=== PATIENT | female | born 1970 | race African-American/Black ===

== ENCOUNTER 2018-07-27 17:37 | Emergency (ER) | payer SELFPAY | END 2018-07-27 19:25 | disposition home or self-care (01) | LOC: ERS 17:37 | DX: E10.649 Type 1 diabetes mellitus with hypoglycemia without coma (principal); E78.5 Hyperlipidemia, unspecified; I10 Essential (primary) hypertension; F41.9 Anxiety disorder, unspecified; Z79.899 Other long term (current) drug therapy; Z79.4 Long term (current) use of insulin | CPT/HCPCS: 36416; 99284 ==

== ENCOUNTER 2018-11-04 13:28 | Outpatient (CLI) | payer OTHER ==
--- NOTE | 2018-11-04 15:29 | RAD ---
PA AND LATERAL CHEST: HISTORY: Preop. COMPARISON: 09/14/2005 study. FINDINGS: Heart size is enlarged. Mediastinal structures appear unremarkable. The lungs are clear of any infi ltrative process. IMPRESSION: Moderate cardiomegaly. POS: TPC
== END 2018-11-04 13:29 | disposition home or self-care (01) ==
LOC: BICRAD 13:28
PROVIDERS: ATTEND Family Medicine
DX: Z01.818 Encounter for other preprocedural examination (principal); I51.7 Cardiomegaly
CPT/HCPCS: 71046

== ENCOUNTER 2019-01-02 06:43 | Day surgery (SDC) | payer OTHER ==
[2019-01-01 12:36] VITALS: BMI 34.9
[~2019-01-02 06:43] MED LIST: EPINEPHrine 0.3 MG in Ophthalmic Irrigation Solution 500 ML IVP SCH
[2019-01-02] MEDS ORDERED: Cyclopentolate 1% Opth Drop 2 ML BOT ONE (07:06)
[2019-01-02] MEDS ORDERED: Phenylephrine 2.5% Ophth Soln 5 ML BOT ONE (07:06)
[2019-01-02] MEDS ORDERED: Midazolam HCl 2 mg/2 ml Vial ONE (07:56)
[2019-01-02] MEDS ORDERED: PROPOFOL 20 ML ONE (07:56)
[2019-01-02] MEDS ORDERED: Fentanyl 100 MCG/2 ML VIAL ONE (07:56)
--- NOTE | 2019-01-02 12:02 | OP ---
DATE OF PROCEDURE: 01/02/2019 PREOPERATIVE DIAGNOSES: Glaucoma and vitreous hemorrhage, left eye. POSTOPERATIVE DIAGNOSES: Glaucoma and vitreous hemorrhage, left eye. PROCEDURES PERFORMED: Pars plana vitrectomy, membrane peel, panretinal photocoagulation, tube shunts, and scleral patch graft, left eye. ANESTHESIA: Local with monitored anesthesia care. PROCEDURE IN DETAIL: The patient was identified in the preoperative holding area. Appropriate informed consent for planned surgical procedure on the left eye had been obtained. The patient was transported to the operative suite, where appropriate cardiopulmonary monitoring was established. Local anesthesia was obtained using retrobulbar modified Van Lint lid block using 50 mL of 4% lidocaine and 0.75% bupivacaine. The patient was prepped and draped in the usual sterile manner for ophthalmic surgery in the left eye. Lid speculum was placed in the left eye. A 25-gauge trocar was placed in the conjunctiva and sclera superotemporally, inferotemporally, and supranasally. Infusion line was placed inferotemporally. Light pipe vitreous cutter was inserted into the eye. Core vitrectomy was performed. Vitreous hemorrhages were removed. Panretinal photocoagulation was placed into non-macular areas of the retina. A superotemporal conjunctival peritomy was created supratemporally and then FP7 tube shunt was fixated using 5-0 Mersilene sutures supratemporally. A 22-gauge sclerotomy was created superotemporally and tube shunt was inserted and placed, noted to be centered well. Tutoplast sclera was placed over the tube shunt entry site and sutured in place with 7-0 Vicryl suture. Conjunctiva was closed with 6-0 plain gut suture. Retrobulbar Kenalog and subconjunctival Ancef were placed. Antibiotic ointment was placed. Eye was patched and shielded. The patient was taken to postoperative recovery unit in good condition, having suffered no immediate perioperative complications. The patient was instructed to keep the patch and shield on, avoid lifting or bending. Followup appointment with Dr. Story. Job ID: [id number]
== END 2019-01-02 11:05 | disposition home or self-care (01) ==
LOC: SDC 06:43
PROVIDERS: ATTEND Ophthalmology Retina Specialist
PROC: 08133J4 Bypass Left Anterior Chamber to Sclera with Synthetic Substitute, Percutaneous Approach (ICD-10-PCS; principal; 2019-01-02)
PROC: 08T53ZZ Resection of Left Vitreous, Percutaneous Approach (ICD-10-PCS; principal; 2019-01-02)
PROC: 08QF3ZZ Repair Left Retina, Percutaneous Approach (ICD-10-PCS; principal; 2019-01-02)
DX: H40.9 Unspecified glaucoma (principal); H43.12 Vitreous hemorrhage, left eye; E11.9 Type 2 diabetes mellitus without complications; Z79.4 Long term (current) use of insulin; Z79.899 Other long term (current) drug therapy; Z98.890 Other specified postprocedural states
CPT/HCPCS: J0171; J2250; J2704; J3010; L8612

== ENCOUNTER 2019-01-23 11:58 | Inpatient (IN) | payer BC, OTHER, SELFPAY ==
[2019-01-23 13:03] LABS: Hemoglobin 10.6 g/dL (12.0-16.0); Mean Corpuscular HGB CONC 30.5 g/dL (32.0-36.0); Mean Corpuscular Hemoglobin 28.1 pg (27.0-31.0); Mean Corpuscular Volume 92.2 fL (78.0-98.0); Mean Platelet Volume 9.1 fL (7.4-10.4); Platelet Count 221 thou/uL (130-400); RBC Distribution Width 12.5 % (11.5-14.5); Red Blood Cell (RBC) Count 3.77 mill/uL (4.20-5.40); White Blood Cell (WBC) Count 10.4 thou/uL (4.8-10.8)
--- NOTE | 2019-01-23 13:04 | RAD ---
XR Chest 1 View Portable HISTORY: Hyperglycemia COMPARISON: 11/04/2018 FINDINGS: The heart size is normal. The lungs are well expanded without focal areas of consolidation, pneumothorax or pleural effusions. IMPRESSION: No radiographic evidence of acute cardiopulmonary process.
[2019-01-23 13:26] LABS: ALT (SGPT) 22 U/L (8-55); AST (SGOT) 21 U/L (5-34); Albumin 3.5 g/dL (3.5-5.0); Alkaline Phosphatase 127 U/L (40-150); Anion Gap 28 mmol/L (10-20); BUN (Urea Nitrogen) 53 mg/dL (7.0-18.7); Bilirubin, Total 0.2 mg/dL (0.2-1.2); Calc. Creatinine Clearance 0 mL/min (70-130); Calcium 9.2 mg/dL (7.8-10.44); Chloride 93 mmol/L (98-107); Estimated GFR-MDRD 19; Globulin 3.5 g/dL (2.4-3.5); Magnesium 2.2 mg/dL (1.6-2.6); Potassium 5.9 mmol/L (3.5-5.1); Sodium 124 mmol/L (136-145)
[2019-01-23 13:31] LABS: Carbon Dioxide 9 mmol/L (22-29); Glucose 887 mg/dL (70-105)
[2019-01-23 13:44] LABS: Band 6 % (5-11); Lymphocytes 2 % (21-51); MDiff Complete? YES; Monocytes 3 % (0-10); Neutrophil 89 % (42-75); Platelet Morphology Comment Appears Adequate
[2019-01-23 14:28] LABS: Bicarbonate (HCO3v) 11.2 mmol/L (22.0-28.0); Calcium, Ionized 1.21 mmol/L (See Comments:); Chloride 98 mmol/L (98-107); Hemoglobin - Calc 11.8 g/dL (12.0-16.0); Sodium 124 mmol/L (138-145); T. Carbon Dioxide 12.2 mmol/L (22.0-28.0); vO2 Saturation-calc 49.9 % (60.0-85.0)
[2019-01-23] MEDS ORDERED: Insulin Regular 300 UNITS/3 ML VIAL ONE (14:28)
[2019-01-23] MEDS ORDERED: Insulin Regular 100 units/100 ml in NS IVPB SCH (14:45)
[2019-01-23 15:46] LABS: Bacteria/HPF None Seen HPF (None Seen); Bilirubin Negative (Negative); Blood, Urine Trace (Negative); Clarity Turbid (Clear); Glucose, Urine (Dipstick) Greater than 1000 mg/dL (Negative); Leukocyte 500 Leu/uL (Negative); Nitrite Negative (Negative); Protein, Urine (Dipstick) 70 mg/dL (Neg-Trace); RBC/HPF 21-50 HPF (0-3); Squamous Epithelial 0-3 HPF (0-3); Urobilinogen Normal mg/dL (Less than 2); WBC/HPF Greater than 50 HPF (0-3)
[2019-01-23] MEDS ORDERED: Bisacodyl 5 MG TAB PO PRN (16:11)
[2019-01-23] MEDS ORDERED: Sodium Chloride 0.9% 1,000 ML IV PRN ×4 (16:11)
[2019-01-23] MEDS ORDERED: NS 0.9% w/ 20 MEQ KCL 1,000 ML IV PRN ×2 (16:11)
[2019-01-23] MEDS ORDERED: Dextrose 5 %-0.45 % NaCl 1,000 ML IV PRN (16:11)
[2019-01-23] MEDS ORDERED: CCU Electrolyte Replacement 1 EACH IVPB ONE (16:11)
[2019-01-23] MEDS ORDERED: HUMULIN R 100 UNITS in Sodium Chloride 0.9% 100 ML IVPB SCH (16:15)
[2019-01-23] MEDS ORDERED: Potassium Phosphate 15 MMOL in Sodium Chloride 0.9% 250 ML 250 ML IV PRN (16:28)
[2019-01-23] MEDS ORDERED: Potassium Phosphate 12 MMOL in Sodium Chloride 0.9% 250 ML 250 ML IV PRN (16:28)
[2019-01-23] MEDS ORDERED: Potassium Chloride 20 MEQ TAB PO PRN (16:28)
[2019-01-23] MEDS ORDERED: Magnesium 2 GM/50 ML 2 GM in Premix Bag 1 BAG IVPB PRN (16:28)
[2019-01-23] MEDS ORDERED: Potassium Chloride 40 MEQ in Premix Bag 1 BAG IVPB PRN (16:28)
[2019-01-23] MEDS ORDERED: CCU ELECTROLYTE REPLACEMENT PROTOCOL FS PRN (16:28)
[2019-01-23] MEDS ORDERED: PHOS-NAK 1 PKT PACK PO PRN ×2 (16:28)
[2019-01-23] MEDS ORDERED: Magnesium Oxide 400 MG TAB PO PRN ×2 (16:28)
[2019-01-23] MEDS ORDERED: Potassium Phosphate 9 MMOL in Sodium Chloride 0.9% 100 ML IVPB PRN (16:28)
[2019-01-23] MEDS ORDERED: Potassium Chloride 40 MEQ in Sodium Chloride 0.9% 250 ML 250 ML IVPB PRN (16:28)
[2019-01-23 17:10] LABS: Anion Gap 22 mmol/L (10-20); BUN (Urea Nitrogen) 49 mg/dL (7.0-18.7); Calc. Creatinine Clearance 0 mL/min (70-130); Calcium 8.4 mg/dL (7.8-10.44); Chloride 100 mmol/L (98-107); Estimated GFR-MDRD 21; Potassium 5.1 mmol/L (3.5-5.1); Sodium 126 mmol/L (136-145)
[2019-01-23 17:17] LABS: Carbon Dioxide 9 mmol/L (22-29); Glucose 610 mg/dL (70-105)
[2019-01-23 17:35] VITALS: BMI 29.2
--- NOTE | 2019-01-23 18:17 | HP ---
PRIMARY CARE PROVIDER: Josie Wright DO CHIEF COMPLAINT: Hyperglycemia. HISTORY OF PRESENT ILLNESS: Ms. Coughlin is a pleasant 48-year-old lady who was seen at [facility] on January 23, 2019. She has a history of diabetes mellitus type 1. She was supposed to have a retinal surgery on the left eye. She was going to day stay when her mouth was very dry. She was found to have elevated blood sugars. She denies any dysuria. She denies any cough. She denies any chills. She reports nausea and vomiting. She also reports having diarrhea over the last few days. No history of blood in the stool. REVIEW OF SYSTEMS: All other systems were reviewed and found to be negative. PAST MEDICAL HISTORY: Diabetes mellitus type 1, dyslipidemia, chronic kidney disease, and hypertension. PAST SURGICAL HISTORY: Cataract surgery, hysterectomy, and surgery for retinal bleed. PSYCHIATRIC HISTORY: Anxiety. SOCIAL HISTORY: The patient denies tobacco use, alcohol use, or recreational drug use. FAMILY HISTORY: Significant for diabetes mellitus and hypertension. ALLERGIES: NO KNOWN DRUG ALLERGIES. CURRENT MEDICATIONS: 1. Sertraline 25 mg daily. 2. Synthroid 150 mcg daily. 3. Cozaar 50 mg 2 times a day. 4. Metoprolol tartrate 50 mg 2 times a day. 5. Lasix 20 mg daily. 6. Pravastatin 40 mg daily. 7. Humalog insulin 20 to 25 units subcutaneously 3 times a day. 8. Lantus insulin 80 units subcutaneously daily. 9. Latanoprost eye drops one drop to each eye once daily. 10. Timolol eyedrops one drop to each eye 2 times a day. 11. Brimonidine eye drops one drop to each eye every 8 hours. 12. Dorzolamide eye drops one drop to each eye 3 times a day. 13. Acetazolamide 250 mg every 6 hours. PHYSICAL EXAMINATION: GENERAL: Ms. Coughlin is awake and alert, not in acute distress. VITAL SIGNS: Blood pressure is 111/49, pulse 101, respiratory rate 18, and oxygen saturation 96% on room air. She is afebrile. EYES: No scleral icterus. No conjunctival pallor. The patient has strabismus. ENT: Dry mucosal membranes. No oropharyngeal erythema or exudates. NECK: Supple, nontender, trachea is midline. RESPIRATORY: Accessory muscles of breathing are not active. Chest wall movements are symmetric bilaterally. Lungs are clear to auscultation, without wheeze, rhonchi, or crepitations. CARDIOVASCULAR: S1 and S2 are heard, tachycardic and regular. Peripheral pulses palpable. ABDOMEN: Soft, nontender, bowel sounds heard, no hepatomegaly, no splenomegaly. NEUROLOGIC: Cranial nerves 2 through 12 intact, deep tendon reflexes 2+. MUSCULOSKELETAL: Power is 5/5 in all 4 extremities. SKIN: No rashes or subcutaneous nodules. LYMPHATIC: No cervical lymphadenopathy. PSYCHIATRIC: Normal mood, normal affect, the patient is oriented to person, place, and time. LABORATORY DATA: Ms. Coughlin' labs and investigations were reviewed. I reviewed her electrocardiogram which shows sinus rhythm, no ST changes to suggest an acute coronary syndrome. I reviewed her chest x-ray which does not show any pulmonary infiltrates. She has normal white count, normocytic anemia with hemoglobin of 10.6, normal platelet count. Sodium of 124, elevated potassium of 5.9, elevated anion gap of 28, decreased carbon dioxide of 9, elevated blood urea nitrogen of 53, elevated creatinine of 3.18, elevated glucose of 887, unremarkable liver profile and normal magnesium. Calcium level is normal. Urinalysis is positive for leukocyte esterase, negative for nitrite. Beta-hydroxybutyrate level is elevated at 9.6. Venous blood gases show pH 7.126, pCO2 of 34, and PO2 34.8. ASSESSMENT AND PLAN: Ms. Coughlin is a pleasant 48-year-old lady who was seen at [facility] on January 23, 2019. Her problem list includes: 1. Diabetic ketoacidosis: Ms. Coughlin is presenting with diabetic ketoacidosis. Etiology is unclear. She reports that she is compliant with her medications. Even though she denies dysuria, urinalysis is consistent with urinary tract infection. She will be admitted to the [facility] for further management of diabetic ketoacidosis. She will be treated with intravenous insulin and fluids per DKA protocol. Her electrolytes will be rechecked and adjustments made to the infusions as needed. 2. Diarrhea: We will check stool studies to rule out infection, including Clostridium difficile test. 3. Urinary tract infection: Start patient on empiric ceftriaxone, follow urine cultures. 4. Hypertension: Monitor vital signs and titrate antihypertensives as needed after resuming home medications. 5. Hypothyroidism: Continue Synthroid. 6. Dyslipidemia: Continue statin. 7. Pseudohyponatremia: The patient's sodium level corrected for glucose is 137. Many thanks for allowing me to participate in your patient's care. Please feel free to contact me with any questions or concerns. LEVEL OF RISK: High. LEVEL OF COMPLEXITY: High. Job ID: [id number]
[2019-01-23] MEDS: cefTRIAXone\\ROCEPHIN 1 GM in Sodium Chloride 0.9% 100 ML IVPB SCH (19:20)
[2019-01-23 20:32] LABS: Anion Gap 17 mmol/L (10-20); BUN (Urea Nitrogen) 45 mg/dL (7.0-18.7); Calc. Creatinine Clearance 39 mL/min (70-130); Calcium 8.4 mg/dL (7.8-10.44); Carbon Dioxide 13 mmol/L (22-29); Chloride 106 mmol/L (98-107); Estimated GFR-MDRD 25; Glucose 283 mg/dL (70-105); Potassium 4.3 mmol/L (3.5-5.1); Sodium 132 mmol/L (136-145)
[2019-01-23] MEDS: D5 1/2 NS w/20 mEq KCL 1,000 ML IV PRN (21:28)
[2019-01-24 01:08] LABS: Anion Gap 11 mmol/L (10-20); BUN (Urea Nitrogen) 42 mg/dL (7.0-18.7); Calc. Creatinine Clearance 48 mL/min (70-130); Calcium 8.4 mg/dL (7.8-10.44); Carbon Dioxide 18 mmol/L (22-29); Chloride 110 mmol/L (98-107); Estimated GFR-MDRD 32; Glucose 140 mg/dL (70-105); Potassium 4.1 mmol/L (3.5-5.1); Sodium 135 mmol/L (136-145)
[2019-01-24] MEDS: D5 1/2 NS w/20 mEq KCL 1,000 ML IV PRN ×3 (01:24→09:50)
[2019-01-24 04:42] LABS: #Eosinphils 0.1 thou/uL (0.0-0.7); #Lymphocytes 2.1 thou/uL (1.20-3.40); #Monocytes 0.9 thou/uL (0.11-0.59); #Neutrophils 4.4 thou/uL (1.40-6.50); %Basophils 0.4 % (0.0-1.0); %Monocytes 11.3 % (0.0-10.0); %Neutrophils 59.2 % (42.0-75.0); Hemoglobin 9.7 g/dL (12.0-16.0); Mean Corpuscular HGB CONC 32.5 g/dL (32.0-36.0); Mean Corpuscular Hemoglobin 28.2 pg (27.0-31.0); Mean Corpuscular Volume 86.7 fL (78.0-98.0); Mean Platelet Volume 8.2 fL (7.4-10.4); Platelet Count 202 thou/uL (130-400); RBC Distribution Width 12.5 % (11.5-14.5); Red Blood Cell (RBC) Count 3.43 mill/uL (4.20-5.40); White Blood Cell (WBC) Count 7.5 thou/uL (4.8-10.8)
[2019-01-24 05:21] LABS: Anion Gap 13 mmol/L (10-20); BUN (Urea Nitrogen) 39 mg/dL (7.0-18.7); Calc. Creatinine Clearance 46 mL/min (70-130); Calcium 8.1 mg/dL (7.8-10.44); Carbon Dioxide 16 mmol/L (22-29); Chloride 109 mmol/L (98-107); Estimated GFR-MDRD 30; Glucose 190 mg/dL (70-105); Potassium 4.2 mmol/L (3.5-5.1); Sodium 134 mmol/L (136-145)
[2019-01-24] MEDS: Enoxaparin Sodium 40 MG/0.4 ML SYRINGE SC SCH (08:41)
[2019-01-24 10:34] LABS: Anion Gap 12 mmol/L (10-20); BUN (Urea Nitrogen) 33 mg/dL (7.0-18.7); Calc. Creatinine Clearance 53 mL/min (70-130); Calcium 8.5 mg/dL (7.8-10.44); Carbon Dioxide 13 mmol/L (22-29); Chloride 113 mmol/L (98-107); Estimated GFR-MDRD 34; Glucose 139 mg/dL (70-105); Potassium 4.3 mmol/L (3.5-5.1); Sodium 134 mmol/L (136-145)
[2019-01-24 15:11] LABS: Lactic Acid 0.8 mmol/L (0.5-2.2)
[2019-01-24 15:14] LABS: Anion Gap 14 mmol/L (10-20); BUN (Urea Nitrogen) 31 mg/dL (7.0-18.7); Calc. Creatinine Clearance 55 mL/min (70-130); Calcium 8.3 mg/dL (7.8-10.44); Carbon Dioxide 15 mmol/L (22-29); Chloride 108 mmol/L (98-107); Estimated GFR-MDRD 35; Glucose 256 mg/dL (70-105); Potassium 4.6 mmol/L (3.5-5.1); Sodium 132 mmol/L (136-145)
[2019-01-24] MEDS ORDERED: Insulin Glargine 40 UNITS in Pre-Filled Syringe 1 EACH SC SCH (15:30)
[2019-01-24] MEDS ORDERED: Dextrose 50% Abboject 50 ML SYRINGE SLOW IVP PRN (17:59)
[2019-01-24] MEDS ORDERED: Dextrose 5% in Water 1,000 ML IV PRN (17:59)
[2019-01-24] MEDS ORDERED: HumaLOG 300 UNITS/3 ML VIAL SC PRN (17:59)
--- NOTE | 2019-01-24 18:04 | PDOC.PN ---
- Subjective Encounter Start Date: 01/24/19 Encounter Start Time: 11:40 Pt seen for followup re; DKA. Feels better today. - Objective Vital Signs & Weight: Vital Signs (12 hours) Temp Pulse Ox 01/24/19 15:23 98.1 F 01/24/19 10:29 98.2 F 01/24/19 08:00 98 01/24/19 07:09 98.7 F Weight Weight 207 lb 9.6 oz Most Recent Monitor Data Heart Rate from ECG 106 NIBP 146/74 NIBP BP-Mean 98 Respiration from ECG 25 I&O: 01/23/19 01/24/19 01/25/19 06:59 06:59 06:59 Intake Total 3400 Output Total 650 Balance 2750 Result Diagrams: 01/24/19 04:15 01/24/19 14:48 Additional Labs: Accuchecks 01/24/19 01/24/19 01/24/19 16:05 12:46 11:54 POC Glucose 255 H 162 H 159 H 01/24/19 01/24/19 01/24/19 10:06 09:06 07:59 POC Glucose 134 H 145 H 171 H 01/24/19 01/24/19 01/24/19 07:01 05:57 05:14 POC Glucose 223 H 293 H 235 H 01/24/19 01/24/19 01/24/19 04:04 03:07 02:03 POC Glucose 181 H 178 H 163 H 01/24/19 01/24/19 01/23/19 01:08 00:06 23:21 POC Glucose 138 H 130 H 134 H 01/23/19 01/23/19 01/23/19 22:24 20:54 20:03 POC Glucose 160 H 219 H 255 H 01/23/19 01/23/19 01/23/19 19:03 18:02 16:44 POC Glucose 360 H 465 H Greater than 550 H* 01/23/19 01/23/19 01/23/19 14:36 13:41 13:40 POC Glucose Greater than 550 H* Greater than 550 H* Greater than 550 H* Phys Exam - Physical Examination Obese HEENT: moist MMs, sclera anicteric, oral pharynx no lesions, 2+ tonsils Neck: no nodes, no JVD, supple, full ROM Respiratory: clear to auscultation bilateral Cardiovascular: RRR, no rub S1, S2 Gastrointestinal: soft, non-tender, no distention, positive bowel sounds Neurological: moves all 4 limbs Psychiatric: normal affect, A&O x 3 Dx/Plan (1) DKA (diabetic ketoacidoses) Code(s): E11.10 - TYPE 2 DIABETES MELLITUS WITH KETOACIDOSIS WITHOUT COMA Status: Acute Comment: Improved, transition to SC insulin (2) UTI (urinary tract infection) Status: Acute Comment: continue ceftriaxone, follow cultures (3) PELON (acute kidney injury) Code(s): N17.9 - ACUTE KIDNEY FAILURE, UNSPECIFIED Status: Acute Comment: creatinine improved to 1.87 (4) Dyslipidemia Code(s): E78.5 - HYPERLIPIDEMIA, UNSPECIFIED Status: Chronic Comment: continue pravastatin (5) HTN (hypertension) Code(s): I10 - ESSENTIAL (PRIMARY) HYPERTENSION Status: Chronic Comment: controlled - Plan continue antibiotics, PT/OT, out of bed/ambulate * . Review of Systems - Review of Systems Constitutional: negative: fever, chills, sweats, weakness, malaise Respiratory: negative: Cough, Shortness of Breath, SOB with Excertion, Pleuritic Pain, Wheezing Cardiovascular: other. negative: chest pain, palpitations, orthopnea, paroxysmal nocturnal dyspnea, edema, light headedness Gastrointestinal: negative: Nausea, Vomiting, Abdominal Pain, Diarrhea, Constipation, Melena, Hematochezia Genitourinary: negative: Dysuria, Frequency, Incontinence, Hematuria, Retention - Medications/Allergies Allergies/Adverse Reactions: Allergies Allergy/AdvReac Type Severity Reaction Status Date / Time No Known Allergies Allergy Verified 01/22/19 08:13 Medications: Current Medications Bisacodyl (Dulcolax) 10 mg PO DAILYPRN PRN PRN Reason: Constipation Dextrose/Water (Dextrose 50%) 25 gm SLOW IVP PRN PRN PRN Reason: Hypoglycemia Enoxaparin Sodium (Lovenox) 40 mg SC 0900 [facility] Last Admin: 01/24/19 08:41 Dose: 40 mg Glucagon (Glucagon) 1 mg IM PRN PRN PRN Reason: Hypoglycemia Insulin Human Regular 100 (units/ Sodium Chloride) 101 mls @ 9.59 mls/hr IVPB INF [facility] Last Admin: 01/24/19 09:50 Dose: 101 mls Insulin Human Regular 100 (units/ Sodium Chloride) 101 mls @ 0 mls/hr IVPB INF STEFFI; Protocol Dextrose/Sodium Chloride (D5 1/2 Ns) 1,000 mls @ 250 mls/hr IV .Q4H PRN; Protocol PRN Reason: Step 4 of DKA Protocol Potassium Chloride/Dextrose/Sod Cl (D5 1/2 Ns W/20 Meq Kcl) 1,000 mls @ 250 mls /hr IV .Q4H PRN; Protocol PRN Reason: Step 4 of DKA Protocol Last Admin: 01/24/19 09:50 Dose: 1,000 mls Sodium Chloride (Normal Saline 0.9%) 1,000 mls @ 500 mls/hr IV .Q2H PRN; Protocol PRN Reason: Step 1 of DKA Protocol Last Admin: 01/23/19 19:21 Dose: 1,000 mls Sodium Chloride (Normal Saline 0.9%) 1,000 mls @ 1,000 mls/hr IV .Q1H PRN; Protocol PRN Reason: Step 1 of DKA Protocol Sodium Chloride (Normal Saline 0.9%) 1,000 mls @ 250 mls/hr IV .Q4H PRN; Protocol PRN Reason: SEE STEP 3 OF DKA PROTOCOL Sodium Chloride (Normal Saline 0.9%) 1,000 mls @ 500 mls/hr IV .Q2H PRN; Protocol PRN Reason: Step 2 of DKA Protocol Potassium Chloride/Sodium Chloride (Ns 0.9% W/ 20 Meq Kcl) 1,000 mls @ 500 mls/ hr IV .Q2H PRN; Protocol PRN Reason: Step 2 of DKA Protocol Potassium Chloride/Sodium Chloride (Ns 0.9% W/ 20 Meq Kcl) 1,000 mls @ 250 mls/ hr IV .Q4H PRN; Protocol PRN Reason: SEE STEP 3 OF DKA PROTOCOL Potassium Chloride 40 meq/ (Sodium Chloride) 270 mls @ 135 mls/hr IVPB ASDIR PRN PRN Reason: FOR SERUM K+ 2.5 - 3.5 Potassium Chloride 40 meq/ (Device) 100 mls @ 50 mls/hr IVPB ASDIR PRN PRN Reason: FOR SERUM K+ 2.5 - 3.5 Magnesium Sulfate 1 gm/ Sodium (Chloride) 102 mls @ 102 mls/hr IV PRN PRN PRN Reason: MAG LEVEL 1.4 - 2.0 Magnesium Sulfate 2 gm/ Device 50 mls @ 50 mls/hr IVPB ASDIR PRN PRN Reason: MAGNESIUM < 1.4 Potassium Phosphate 9 mmol/ (Sodium Chloride) 103 mls @ 25.75 mls/hr IVPB ASDIR PRN PRN Reason: Phosphate 1.0-1.8 Potassium Phosphate 12 mmol/ (Sodium Chloride) 254 mls @ 63.5 mls/hr IV ASDIR PRN PRN Reason: Serum phosphate 0.5-0.9 Potassium Phosphate 15 mmol/ (Sodium Chloride) 255 mls @ 63.75 mls/hr IV ASDIR PRN PRN Reason: Serum Phos < 0.5 Ceftriaxone Sodium 1 gm/ (Sodium Chloride) 100 mls @ 200 mls/hr IVPB Q24HR [facility] Last Admin: 01/23/19 19:20 Dose: 100 mls Potassium Chloride/Dextrose/Sod Cl (D5 1/2 Ns W/20 Meq Kcl) 1,000 mls @ 125 mls /hr IV .Q8H [facility] Dextrose/Water (D5w) 1,000 mls @ 0 mls/hr IV .Q0M PRN PRN Reason: Hypoglycemia Insulin Human Lispro (Humalog) 0 units SC .AGGRESSIVE SLIDING PRN PRN Reason: Aggressive Correctional Scale Magnesium Oxide (Magnesium Oxide) 400 mg PO BIDPRN PRN PRN Reason: FOR SERUM MAG 1.4 - 2.0 Magnesium Oxide (Magnesium Oxide) 800 mg PO PRN PRN PRN Reason: FOR SERUM MAG < 1.4 Miscellaneous Medication (Phos-Nak) 1 pkt PO TIDPRN PRN PRN Reason: FOR PHOS LEVEL 1.0 - 1.8 Miscellaneous Medication (Phos-Nak) 2 pkt PO TIDPRN PRN PRN Reason: FOR PHOS LEVEL 0.5 - 1.0 Ccu Electrolyte (Replacement Protocol) 0 each FS PRN PRN PRN Reason: FOR ELECTROLYTE REPLACEMENT Potassium Chloride (K-Dur) 40 meq PO ASDIR PRN PRN Reason: FOR SERUM K+ 2.5 - 3.5 Potassium Chloride (Klor-Con) 40 meq PER TUBE ASDIR PRN PRN Reason: FOR SERUM K+ 2.5-3.5
[2019-01-24] MEDS: cefTRIAXone\\ROCEPHIN 1 GM in Sodium Chloride 0.9% 100 ML IVPB SCH (18:16)
[2019-01-25 06:21] LABS: Anion Gap 8 mmol/L (10-20); BUN (Urea Nitrogen) 21 mg/dL (7.0-18.7); Calc. Creatinine Clearance 71 mL/min (70-130); Calcium 8.9 mg/dL (7.8-10.44); Carbon Dioxide 21 mmol/L (22-29); Chloride 114 mmol/L (98-107); Estimated GFR-MDRD 47; Potassium 3.9 mmol/L (3.5-5.1); Sodium 139 mmol/L (136-145)
[2019-01-25 06:26] LABS: Glucose 56 mg/dL (70-105)
[2019-01-25] MEDS: Enoxaparin Sodium 40 MG/0.4 ML SYRINGE SC SCH (09:23)
[2019-01-25 09:46] LABS: #Basophils 0.1 thou/uL (0.0-0.2); #Eosinphils 0.1 thou/uL (0.0-0.7); #Monocytes 0.4 thou/uL (0.11-0.59); #Neutrophils 2.2 thou/uL (1.40-6.50); %Basophils 1.5 % (0.0-1.0); %Lymphocytes 41.5 % (21.0-51.0); %Monocytes 8.7 % (0.0-10.0); %Neutrophils 45.4 % (42.0-75.0); Hemoglobin 9.9 g/dL (12.0-16.0); Mean Corpuscular HGB CONC 32.9 g/dL (32.0-36.0); Mean Corpuscular Hemoglobin 28.8 pg (27.0-31.0); Mean Corpuscular Volume 87.5 fL (78.0-98.0); Mean Platelet Volume 8.3 fL (7.4-10.4); Platelet Count 182 thou/uL (130-400); RBC Distribution Width 12.8 % (11.5-14.5); Red Blood Cell (RBC) Count 3.43 mill/uL (4.20-5.40); White Blood Cell (WBC) Count 4.8 thou/uL (4.8-10.8)
[2019-01-25] MEDS: D5 1/2 NS w/20 mEq KCL 1,000 ML IV SCH ×2 (12:20→18:13)
[2019-01-25] MEDS ORDERED: Insulin Glargine 30 UNITS in Pre-Filled Syringe 1 EACH SC SCH (15:00)
--- NOTE | 2019-01-25 17:37 | PDOC.PN ---
- Subjective Encounter Start Date: 01/25/19 Encounter Start Time: 11:20 Pt seen for followup re: UTI. Feels better. - Objective MAR Reviewed: Yes Vital Signs & Weight: Vital Signs (12 hours) Temp Pulse Ox 01/25/19 15:20 97.4 F L 01/25/19 11:14 97.4 F L 01/25/19 08:00 97 01/25/19 07:17 97.9 F Weight Weight 207 lb 9.6 oz Most Recent Monitor Data Heart Rate from ECG 101 NIBP 168/99 NIBP BP-Mean 122 Respiration from ECG 14 I&O: 01/24/19 01/25/19 01/26/19 06:59 06:59 06:59 Intake Total 3400 120 Output Total 650 300 575 Balance 6356 -704 -324 Result Diagrams: 01/25/19 09:32 01/25/19 05:30 Additional Labs: Accuchecks 01/25/19 01/25/19 01/25/19 17:03 10:37 06:33 POC Glucose 87 108 92 01/25/19 01/24/19 05:44 22:25 POC Glucose 55 L* 173 H EKG Reviewed by me: Yes (Tele: NSR) Phys Exam - Physical Examination Obese HEENT: moist MMs strabismus Neck: supple Respiratory: clear to auscultation bilateral Cardiovascular: RRR Gastrointestinal: soft Neurological: moves all 4 limbs Psychiatric: normal affect Dx/Plan (1) UTI (urinary tract infection) Status: Acute Comment: skin mayra on urine culture, switch to macrobid. (2) PELON (acute kidney injury) Code(s): N17.9 - ACUTE KIDNEY FAILURE, UNSPECIFIED Status: Acute Comment: creatinine improved to 1.45 (3) Dyslipidemia Code(s): E78.5 - HYPERLIPIDEMIA, UNSPECIFIED Status: Chronic Comment: on pravastatin (4) HTN (hypertension) Code(s): I10 - ESSENTIAL (PRIMARY) HYPERTENSION Status: Chronic Comment: controlled (5) DKA (diabetic ketoacidoses) Code(s): E11.10 - TYPE 2 DIABETES MELLITUS WITH KETOACIDOSIS WITHOUT COMA Status: Resolved - Plan * . Pt had hypoglycemia, Lantus dose decreased to 25 units qAM Review of Systems - Review of Systems Cardiovascular: negative: chest pain, palpitations, orthopnea, paroxysmal nocturnal dyspnea, edema, light headedness Gastrointestinal: negative: Nausea, Vomiting, Abdominal Pain, Diarrhea, Constipation, Melena, Hematochezia - Medications/Allergies Allergies/Adverse Reactions: Allergies Allergy/AdvReac Type Severity Reaction Status Date / Time No Known Allergies Allergy Verified 01/22/19 08:13 Medications: Current Medications Bisacodyl (Dulcolax) 10 mg PO DAILYPRN PRN PRN Reason: Constipation Dextrose/Water (Dextrose 50%) 25 gm SLOW IVP PRN PRN PRN Reason: Hypoglycemia Enoxaparin Sodium (Lovenox) 40 mg SC 0900 [facility] Last Admin: 01/25/19 09:23 Dose: Not Given Glucagon (Glucagon) 1 mg IM PRN PRN PRN Reason: Hypoglycemia Insulin Human Regular 100 (units/ Sodium Chloride) 101 mls @ 0 mls/hr IVPB INF STEFFI; Protocol Dextrose/Sodium Chloride (D5 1/2 Ns) 1,000 mls @ 250 mls/hr IV .Q4H PRN; Protocol PRN Reason: Step 4 of DKA Protocol Potassium Chloride/Dextrose/Sod Cl (D5 1/2 Ns W/20 Meq Kcl) 1,000 mls @ 250 mls /hr IV .Q4H PRN; Protocol PRN Reason: Step 4 of DKA Protocol Last Admin: 01/24/19 09:50 Dose: 1,000 mls Sodium Chloride (Normal Saline 0.9%) 1,000 mls @ 500 mls/hr IV .Q2H PRN; Protocol PRN Reason: Step 1 of DKA Protocol Last Admin: 01/23/19 19:21 Dose: 1,000 mls Sodium Chloride (Normal Saline 0.9%) 1,000 mls @ 1,000 mls/hr IV .Q1H PRN; Protocol PRN Reason: Step 1 of DKA Protocol Sodium Chloride (Normal Saline 0.9%) 1,000 mls @ 250 mls/hr IV .Q4H PRN; Protocol PRN Reason: SEE STEP 3 OF DKA PROTOCOL Sodium Chloride (Normal Saline 0.9%) 1,000 mls @ 500 mls/hr IV .Q2H PRN; Protocol PRN Reason: Step 2 of DKA Protocol Potassium Chloride/Sodium Chloride (Ns 0.9% W/ 20 Meq Kcl) 1,000 mls @ 500 mls/ hr IV .Q2H PRN; Protocol PRN Reason: Step 2 of DKA Protocol Potassium Chloride/Sodium Chloride (Ns 0.9% W/ 20 Meq Kcl) 1,000 mls @ 250 mls/ hr IV .Q4H PRN; Protocol PRN Reason: SEE STEP 3 OF DKA PROTOCOL Potassium Chloride 40 meq/ (Sodium Chloride) 270 mls @ 135 mls/hr IVPB ASDIR PRN PRN Reason: FOR SERUM K+ 2.5 - 3.5 Potassium Chloride 40 meq/ (Device) 100 mls @ 50 mls/hr IVPB ASDIR PRN PRN Reason: FOR SERUM K+ 2.5 - 3.5 Magnesium Sulfate 1 gm/ Sodium (Chloride) 102 mls @ 102 mls/hr IV PRN PRN PRN Reason: MAG LEVEL 1.4 - 2.0 Magnesium Sulfate 2 gm/ Device 50 mls @ 50 mls/hr IVPB ASDIR PRN PRN Reason: MAGNESIUM < 1.4 Potassium Phosphate 9 mmol/ (Sodium Chloride) 103 mls @ 25.75 mls/hr IVPB ASDIR PRN PRN Reason: Phosphate 1.0-1.8 Potassium Phosphate 12 mmol/ (Sodium Chloride) 254 mls @ 63.5 mls/hr IV ASDIR PRN PRN Reason: Serum phosphate 0.5-0.9 Potassium Phosphate 15 mmol/ (Sodium Chloride) 255 mls @ 63.75 mls/hr IV ASDIR PRN PRN Reason: Serum Phos < 0.5 Ceftriaxone Sodium 1 gm/ (Sodium Chloride) 100 mls @ 200 mls/hr IVPB Q24HR [facility] Last Admin: 01/24/19 18:16 Dose: 100 mls Potassium Chloride/Dextrose/Sod Cl (D5 1/2 Ns W/20 Meq Kcl) 1,000 mls @ 125 mls /hr IV .Q8H [facility] Last Admin: 01/25/19 12:20 Dose: Not Given Dextrose/Water (D5w) 1,000 mls @ 0 mls/hr IV .Q0M PRN PRN Reason: Hypoglycemia Insulin Glargine 25 units/ (Miscellaneous Medication) 0.25 mls @ 0 mls[facility] [place] [facility] Human Lispro (Humalog) 0 units SC .AGGRESSIVE SLIDING PRN PRN Reason: Aggressive Correctional Scale Magnesium Oxide (Magnesium Oxide) 400 mg PO BIDPRN PRN PRN Reason: FOR SERUM MAG 1.4 - 2.0 Magnesium Oxide (Magnesium Oxide) 800 mg PO PRN PRN PRN Reason: FOR SERUM MAG < 1.4 Miscellaneous Medication (Phos-Nak) 1 pkt PO TIDPRN PRN PRN Reason: FOR PHOS LEVEL 1.0 - 1.8 Miscellaneous Medication (Phos-Nak) 2 pkt PO TIDPRN PRN PRN Reason: FOR PHOS LEVEL 0.5 - 1.0 Ccu Electrolyte (Replacement Protocol) 0 each FS PRN PRN PRN Reason: FOR ELECTROLYTE REPLACEMENT Potassium Chloride (K-Dur) 40 meq PO ASDIR PRN PRN Reason: FOR SERUM K+ 2.5 - 3.5 Potassium Chloride (Klor-Con) 40 meq PER TUBE ASDIR PRN PRN Reason: FOR SERUM K+ 2.5-3.5
[2019-01-25] MEDS: Metoprolol Tartrate 50 MG TAB PO SCH (19:48)
[2019-01-25] MEDS: AcetaZOLAMIDE 250 MG TAB PO SCH (19:49)
[2019-01-25] MEDS: Nitrofurantoin Monohyd/M-Cryst 100 MG CAP PO SCH (19:49)
[2019-01-25] MEDS ORDERED: Pravastatin Sodium 40 MG TAB PO SCH (21:00)
[2019-01-25] MEDS: Dorzolamide HCl 2% Ophth Soln 10 ml Bottle L EYE SCH (21:09)
[2019-01-25] MEDS: Brimonidine Tartrate 0.2% Ophth Soln 5 ml Bottle L EYE SCH (21:12)
[2019-01-26] MEDS: AcetaZOLAMIDE 250 MG TAB PO SCH ×3 (00:32→13:37)
[2019-01-26] MEDS: D5 1/2 NS w/20 mEq KCL 1,000 ML IV SCH ×2 (01:40→12:37)
[2019-01-26 05:47] LABS: Anion Gap 10 mmol/L (10-20); BUN (Urea Nitrogen) 16 mg/dL (7.0-18.7); Calc. Creatinine Clearance 71 mL/min (70-130); Carbon Dioxide 20 mmol/L (22-29); Chloride 110 mmol/L (98-107); Estimated GFR-MDRD 47; Glucose 139 mg/dL (70-105); Sodium 136 mmol/L (136-145)
[2019-01-26] MEDS ORDERED: Levothyroxine 150 MCG TAB PO SCH (06:00)
[2019-01-26] MEDS: Brimonidine Tartrate 0.2% Ophth Soln 5 ml Bottle L EYE SCH (06:39)
[2019-01-26] MEDS ORDERED: Furosemide 20 MG TAB PO SCH (09:00)
[2019-01-26] MEDS ORDERED: Insulin Glargine 25 UNITS in Pre-Filled Syringe 1 EACH SC SCH (09:00)
[2019-01-26] MEDS ORDERED: Latanoprost 0.005% Ophth Soln 2.5 ml Bottle L EYE SCH ×2 (09:00)
[2019-01-26] MEDS ORDERED: Losartan 25 MG TAB PO SCH (09:00)
[2019-01-26] MEDS ORDERED: Insulin Glargine 20 UNITS in Pre-Filled Syringe 1 EACH SC SCH (09:00)
[2019-01-26] MEDS: Dorzolamide HCl 2% Ophth Soln 10 ml Bottle L EYE SCH (09:24)
[2019-01-26] MEDS: Nitrofurantoin Monohyd/M-Cryst 100 MG CAP PO SCH (09:25)
[2019-01-26] MEDS: Metoprolol Tartrate 50 MG TAB PO SCH (09:26)
[2019-01-26] MEDS: Enoxaparin Sodium 40 MG/0.4 ML SYRINGE SC SCH (09:30)
--- NOTE | 2019-01-26 12:32 | DIS ---
DATE OF ADMISSION: 01/23/2019 DATE OF DISCHARGE: 01/26/2019 PRIMARY CARE PROVIDER: Dr. Josie Wright. DISCHARGE DIAGNOSES: 1. Diabetic ketoacidosis. 2. Urinary tract infection. 3. Acute on chronic renal failure. CONDITION OF PATIENT ON THE DAY OF DISCHARGE: Stable. I assessed Ms. Coughlin on the day of discharge. She denies any chest pain or shortness of breath. Vital signs are stable. S1 and S2 are heard, regular. Lungs are clear to auscultation bilaterally. DISCHARGE MEDICATIONS: Her Lantus insulin dose has been decreased to 25 units daily. Humalog insulin has been discontinued for now. She has been started on Macrobid 100 mg two times a day for 6 more days. Otherwise, no change was made to her pre-admission home medications as dictated in my history and physical note dated January 23, 2019. HOSPITAL COURSE: Ms. Coughlin is a pleasant 48-year-old lady, who was admitted to [facility] on January 23, 2019 for diabetic ketoacidosis. She was admitted to the [facility]. She was treated with intravenous fluids and insulin per DKA protocol. She improved clinically. Her biochemistry also improved. On January 25, 2019, she had episodes of hypoglycemia while she was on Lantus insulin, 40 units daily. Insulin dose has been decreased to 25 units daily. She has been advised to check her blood sugars 3 times a day and show the readings to her primary care provider. Urinalysis was consistent with urinary tract infection. Final urine culture grew mixed skin and enteric mayra. She is being discharged home on empiric Macrobid to complete her antibiotic course. On the day of discharge, she has sodium 136, potassium 4, bicarb 20, blood urea nitrogen 16, creatinine 1.44, white count 4800, hemoglobin 9.9, and platelet count 182,000. Many thanks for allowing me to participate in your patient's care. Please feel free to contact me with any questions or concerns. DISCHARGE DESTINATION: Home. TIME SPENT: Total amount of time spent coordinating this discharge: 32 minutes. Job ID: [id number]
[2019-01-26 13:37] VITALS: BP 154/97; TEMP 97.6
== END 2019-01-26 13:45 | disposition home or self-care (01) | DRG 638 ==
LOC: ERS 11:58 → IMCU/EMU 16:10 → T4-A 01-25 18:16
PROVIDERS: ADMIT Internal Medicine; ATTEND Internal Medicine
DX: E10.10 Type 1 diabetes mellitus with ketoacidosis without coma (principal); N39.0 Urinary tract infection, site not specified; N17.9 Acute kidney failure, unspecified; F41.9 Anxiety disorder, unspecified; R19.7 Diarrhea, unspecified; E10.22 Type 1 diabetes mellitus with diabetic chronic kidney disease; N18.9 Chronic kidney disease, unspecified; I12.9 Hypertensive chronic kidney disease with stage 1 through stage 4 chronic kidney disease, or unspecified chronic kidney disease; E03.9 Hypothyroidism, unspecified; B96.89 Other specified bacterial agents as the cause of diseases classified elsewhere; E78.00 Pure hypercholesterolemia, unspecified; E10.649 Type 1 diabetes mellitus with hypoglycemia without coma; Z90.710 Acquired absence of both cervix and uterus; Z79.4 Long term (current) use of insulin; Z79.899 Other long term (current) drug therapy
CPT/HCPCS: 36415; 36416; 71045; 80048; 80053; 81003; 81015; 82010; 82330; 82803; 83605; 83735; 85025; 87086; 93005; 96360; 96361; 96365; 96376; J0131; J0171; J0696; J1650; J1815; J3490

== ENCOUNTER 2019-02-06 12:19 | Day surgery (SDC) | payer OTHER ==
[2019-02-06] MEDS ORDERED: Phenylephrine 2.5% Ophth Soln 5 ML BOT ONE (12:49)
[2019-02-06] MEDS ORDERED: Cyclopentolate 1% Opth Drop 2 ML BOT ONE (12:49)
[2019-02-06] MEDS ORDERED: PROPOFOL 20 ML ONE (15:23)
[2019-02-06] MEDS ORDERED: Midazolam HCl 2 mg/2 ml Vial ONE (15:23)
--- NOTE | 2019-02-06 19:58 | OP ---
DATE OF PROCEDURE: 02/06/2019 PREOPERATIVE DIAGNOSIS: Vitreous hemorrhage, right eye. POSTOPERATIVE DIAGNOSIS: Vitreous hemorrhage, right eye. PROCEDURES PERFORMED: Pars plana vitrectomy and membrane peel, right eye. ANESTHESIA: Local with monitored anesthesia care. DESCRIPTION OF PROCEDURE: The patient was identified in the preoperative holding area. Appropriate informed consent for the planned surgical procedure on the right eye had been obtained. The patient was transported to the operative suite. Appropriate cardiopulmonary monitoring was established. Local anesthesia was obtained using retrobulbar block. The patient was prepped and draped in usual sterile manner for ophthalmic surgery on right eye. Lid speculum was placed in the right eye. A 25-gauge trocar was placed in conjunctiva and sclera supratemporally, inferotemporally, and supranasally. Infusion line was placed inferotemporally. Light pipe vitreous cutter was inserted into the eye. Core vitrectomy was performed. Vitreous membranes were dissected from behind the lens from the vitreous base. The retinal surface peeled into the periphery. Panretinal photocoagulation was placed in all non-macular areas of the retina. Wide-field viewing was used to examine the retina 360 degrees. No holes, breaks, or tears were identified. Trocars were removed. The eye was noted to retain pressure well. Retrobulbar Kenalog and subconjunctival Ancef were placed. Antibiotic ointment was placed. Eye was patched and shield. The patient was taken to postoperative recovery unit in good condition having suffered no immediate perioperative complications. The patient was instructed to keep patch and shield on, avoid lifting or bending. Followup appointment with Dr. Story. Job ID: [id number]
== END 2019-02-06 17:03 | disposition home or self-care (01) ==
LOC: SDC 12:19
PROVIDERS: ATTEND Ophthalmology Retina Specialist
PROC: 08T43ZZ Resection of Right Vitreous, Percutaneous Approach (ICD-10-PCS; principal; 2019-02-06)
PROC: 08QE3ZZ Repair Right Retina, Percutaneous Approach (ICD-10-PCS; principal; 2019-02-06)
DX: H43.11 Vitreous hemorrhage, right eye (principal)
CPT/HCPCS: 36416; J0171; J2250; J2704

== ENCOUNTER 2019-05-31 23:54 | Emergency (ER) | payer OTHER ==
[2019-06-01 01:18] LABS: #Eosinphils 0.3 thou/uL (0.0-0.7); #Lymphocytes 2.3 thou/uL (1.20-3.40); #Monocytes 0.8 thou/uL (0.11-0.59); #Neutrophils 4.8 thou/uL (1.40-6.50); %Basophils 0.4 % (0.0-1.0); %Eosinophils 3.3 % (0.0-10.0); %Lymphocytes 27.8 % (21.0-51.0); %Monocytes 9.7 % (0.0-10.0); %Neutrophils 58.9 % (42.0-75.0); Hemoglobin 10.8 g/dL (12.0-16.0); Mean Corpuscular HGB CONC 32.4 g/dL (32.0-36.0); Mean Corpuscular Hemoglobin 29.5 pg (27.0-31.0); Mean Corpuscular Volume 90.9 fL (78.0-98.0); Mean Platelet Volume 8.3 fL (7.4-10.4); Platelet Count 218 thou/uL (130-400); RBC Distribution Width 11.3 % (11.5-14.5); Red Blood Cell (RBC) Count 3.67 mill/uL (4.20-5.40); White Blood Cell (WBC) Count 8.2 thou/uL (4.8-10.8)
[2019-06-01 01:35] LABS: Bilirubin Negative (Negative); Blood, Urine 2+ (Negative); Clarity Clear (Clear); Glucose, Urine (Dipstick) Greater than 1000 mg/dL (Negative); Leukocyte 250 Leu/uL (Negative); Nitrite Negative (Negative); Protein, Urine (Dipstick) 100 mg/dL (Neg-Trace); RBC/HPF 21-50 HPF (0-3); Squamous Epithelial 0-3 HPF (0-3); Urobilinogen Normal mg/dL (Less than 2); WBC/HPF 21-50 HPF (0-3)
[2019-06-01 01:37] LABS: Bacteria/HPF 1+ HPF (None Seen)
[2019-06-01 01:38] LABS: ALT (SGPT) 18 U/L (8-55); AST (SGOT) 21 U/L (5-34); Albumin 3.6 g/dL (3.5-5.0); Alkaline Phosphatase 84 U/L (40-110); Anion Gap 9 mmol/L (10-20); BUN (Urea Nitrogen) 40 mg/dL (7.0-18.7); Bilirubin, Total 0.3 mg/dL (0.2-1.2); Calc. Creatinine Clearance 0 mL/min (70-130); Calcium 9.1 mg/dL (7.8-10.44); Carbon Dioxide 28 mmol/L (22-29); Chloride 104 mmol/L (98-107); Estimated GFR-MDRD 39; Glucose 171 mg/dL (70-105); Potassium 3.7 mmol/L (3.5-5.1); Protein, Total 6.6 g/dL (6.0-8.3); Sodium 137 mmol/L (136-145)
== END 2019-06-01 03:23 | disposition home or self-care (01) ==
LOC: ERS 23:54
DX: E11.649 Type 2 diabetes mellitus with hypoglycemia without coma (principal); N39.0 Urinary tract infection, site not specified; E03.9 Hypothyroidism, unspecified; E78.5 Hyperlipidemia, unspecified; E78.00 Pure hypercholesterolemia, unspecified; I10 Essential (primary) hypertension; F41.9 Anxiety disorder, unspecified; Z79.4 Long term (current) use of insulin; Z79.899 Other long term (current) drug therapy
CPT/HCPCS: 36415; 36416; 80053; 81003; 81015; 85025; 99285

== ENCOUNTER 2019-06-26 06:04 | Day surgery (SDC) | payer OTHER ==
[2019-06-25 09:11] VITALS: BMI 32.9
[~2019-06-26 06:04] MED LIST changes: +EPINEPHrine 0.3 MG in Ophthalmic Irrigation Solution 500 ML IV SCH; -EPINEPHrine 0.3 MG in Ophthalmic Irrigation Solution 500 ML IVP SCH
[2019-06-26] MEDS ORDERED: Phenylephrine 2.5% Ophth Soln 5 ML BOT ONE (06:22)
[2019-06-26] MEDS ORDERED: Cyclopentolate 1% Opth Drop 2 ML BOT ONE (06:22)
[2019-06-26] MEDS ORDERED: Fentanyl 100 MCG/2 ML VIAL ONE (06:45)
[2019-06-26] MEDS ORDERED: Midazolam HCl 2 mg/2 ml Vial ONE (06:45)
[2019-06-26] MEDS ORDERED: Insulin Regular 300 UNITS/3 ML VIAL ONE (06:58)
[2019-06-26] MEDS ORDERED: hydrALAZINE 20 MG/ML VIAL ONE (07:04)
--- NOTE | 2019-06-26 09:17 | OP ---
DATE OF PROCEDURE: 06/26/2019 PREOPERATIVE DIAGNOSES: Vitreous hemorrhage and vitreous membranes and strands, right eye. POSTOPERATIVE DIAGNOSES: Vitreous hemorrhage and vitreous membranes and strands, right eye. PROCEDURES PERFORMED: Pars plana vitrectomy and membrane peel, right eye. ANESTHESIA: Local with monitored anesthesia care. PROCEDURE IN DETAIL: The patient was identified in the preoperative holding area. Appropriate informed consent for the planned surgical procedure on the right eye had been obtained. The patient was transported to the operative suite. Appropriate cardiopulmonary monitoring was established. Local anesthesia was obtained using retrobulbar modified Van Lint lid block using 50:50 mixture of 4% lidocaine and 0.75% bupivacaine. The patient was prepped and draped in the usual sterile manner for ophthalmic surgery in the right eye. Lid speculum was placed in the right eye. A 25-gauge trocar was placed in the conjunctiva and sclera superotemporally, inferotemporally, and supranasally. Infusion line was placed inferotemporally. Light pipe vitreous cutter was inserted to the eye. Core vitrectomy was performed. Vitreous membranes were trimmed from the inferior retina. Excess blood was removed from the retinal surface. No additional sources of bleeding were identified. Trocars removed. The superior sclerotomy suture closed with 8-0 Vicryl suture. Conjunctiva was also closed with 8-0 Vicryl suture. Atropine and antibiotic ointment placed. Eye was patched and shielded. The patient was taken to postoperative recovery unit in good condition, having suffered no immediate perioperative complications. The patient was instructed to keep patch and shield on, avoid lifting and bending, followup appointment with Dr. Story. Job ID: [id number]
[2019-06-26] MEDS ORDERED: CEFAZOLIN 1 GM VIAL ONE (13:55)
[2019-06-26] MEDS ORDERED: Lidocaine 4% PF 5 ML AMP ONE (13:55)
[2019-06-26] MEDS ORDERED: Lidocaine 1% PF 5 ML VIAL ONE (13:55)
[2019-06-26] MEDS ORDERED: Triamcinolone 40 MG/ML VIAL ONE (13:55)
[2019-06-26] MEDS ORDERED: Maxitrol 0.1% Opth Oint 3.5 GM TUBE ONE (13:55)
[2019-06-26] MEDS ORDERED: Bupivacaine PF 0.75% SDV 10 ML ONE (13:55)
== END 2019-06-26 08:50 | disposition home or self-care (01) ==
LOC: SDC 06:04
PROVIDERS: ATTEND Ophthalmology Retina Specialist
PROC: 08NE3ZZ Release Right Retina, Percutaneous Approach (ICD-10-PCS; principal; 2019-06-26)
PROC: 08T43ZZ Resection of Right Vitreous, Percutaneous Approach (ICD-10-PCS; principal; 2019-06-26)
DX: H43.11 Vitreous hemorrhage, right eye (principal); H43.311 Vitreous membranes and strands, right eye; Z79.4 Long term (current) use of insulin; Z79.899 Other long term (current) drug therapy
CPT/HCPCS: 36416; J0171; J0360; J0690; J1815; J2001; J2250; J3010; J3301; J3490

== ENCOUNTER 2019-07-03 16:52 | Observation (INO) | payer OTHER ==
[2019-07-03] MEDS ORDERED: Dextrose 50% Abboject 50 ML SYRINGE ONE ×2 (18:35→18:50)
[2019-07-03 18:43] LABS: #Basophils 0.1 thou/uL (0.0-0.2); #Eosinphils 0.2 thou/uL (0.0-0.7); #Lymphocytes 3.3 thou/uL (1.20-3.40); #Neutrophils 6.3 thou/uL (1.40-6.50); %Basophils 0.6 % (0.0-1.0); %Lymphocytes 30.1 % (21.0-51.0); %Monocytes 9.1 % (0.0-10.0); %Neutrophils 58.1 % (42.0-75.0); Hemoglobin 11.2 g/dL (12.0-16.0); Mean Corpuscular HGB CONC 33.5 g/dL (32.0-36.0); Mean Corpuscular Hemoglobin 29.7 pg (27.0-31.0); Mean Corpuscular Volume 88.6 fL (78.0-98.0); Mean Platelet Volume 8.3 fL (7.4-10.4); Platelet Count 243 thou/uL (130-400); RBC Distribution Width 11.5 % (11.5-14.5); Red Blood Cell (RBC) Count 3.75 mill/uL (4.20-5.40); White Blood Cell (WBC) Count 10.8 thou/uL (4.8-10.8)
[2019-07-03 19:04] LABS: ALT (SGPT) 27 U/L (8-55); AST (SGOT) 41 U/L (5-34); Albumin 3.7 g/dL (3.5-5.0); Alkaline Phosphatase 98 U/L (40-110); Anion Gap 15 mmol/L (10-20); BUN (Urea Nitrogen) 43 mg/dL (7.0-18.7); Bilirubin, Total 0.2 mg/dL (0.2-1.2); Calc. Creatinine Clearance 0 mL/min (70-130); Calcium 9.4 mg/dL (7.8-10.44); Carbon Dioxide 24 mmol/L (22-29); Chloride 108 mmol/L (98-107); Estimated GFR-MDRD 33; Lipase 32 U/L (8-78); Potassium 3.7 mmol/L (3.5-5.1); Protein, Total 6.7 g/dL (6.0-8.3); Sodium 143 mmol/L (136-145)
[2019-07-03 19:12] LABS: Glucose 34 mg/dL (70-105)
--- NOTE | 2019-07-03 19:54 | RAD ---
ONE VIEW CHEST: 07/03/19 HISTORY: Concern for pneumonia. COMPARISON: 01/23/19. FINDINGS: The cardiac silhouette is magnified by projection. Linear densities are seen at the right lung base l ikely related to vascular structures and atelectasis in this region. There is no consolidation or ple ural fluid seen. There has been no significant interval change from the prior exam. IMPRESSION: Probable atelectasis right lung base, but there is otherwise no acute cardiopulmonary process. POS: NISHANT
[2019-07-03 21:46] LABS: Bacteria/HPF None Seen HPF (None Seen); Bilirubin Negative (Negative); Blood, Urine Trace (Negative); Clarity Clear (Clear); Glucose, Urine (Dipstick) 200 mg/dL (Negative); Leukocyte 250 Leu/uL (Negative); Nitrite Negative (Negative); Protein, Urine (Dipstick) 200 mg/dL (Neg-Trace); Urobilinogen Normal mg/dL (Less than 2)
[2019-07-03] MEDS ORDERED: Dextrose 5% in Water 1,000 ML IV PRN (22:13)
[2019-07-03] MEDS ORDERED: Dextrose 50% Abboject 50 ML SYRINGE SLOW IVP PRN (22:13)
[2019-07-03 22:18] VITALS: BMI 31.9
[2019-07-03] MEDS ORDERED: hydrALAZINE 20 MG/ML VIAL SLOW IVP PRN (22:26)
[2019-07-03] MEDS ORDERED: Metoprolol Tartrate 50 MG TAB PO SCH (22:30)
--- NOTE | 2019-07-04 05:04 | PDOC.HHP ---
Hospitalist HPI - History of Present Illness hypoglycemia History of Present Illness: This is a 49 year old female with type I diabetes, hypothyroidism, hypertension who presented to the ER with hypoglycemia. The patient states that her blood sugar was 128 in the morning after taking 60 units of lantus the night before. She states that at lunch time her blood sugar was 300 so she gave herself 25 units of humalog. She ate a normal amount of food. Around 3:00 pm or so she was sitting at her computer desk and she felt she couldn't think clearly and had some hot flashes. She checked her blood sugar and it was 69. She proceeded to eat one scoop of ice cream, peanut butter and jelly sandwich, had milk. She then proceeded to clean up a water spill on the table and her family felt she was disoriented so called the ambulance. The patient states that she was recently started on metoprolol a few months ago and has had 2-3 admissions for hypoglycemia since then. She denies any other new medicines. She denies nausea , vomiting, shortness of breath, diarrhea, fevers or chills. ED Course: THe patient initially had a blood sugar of 65 on presentation to the ER. She was given 2 amps of D50, but BMP showed a blood glucose of 35, therefore she was referred for admission. CBC was unremarkable except for some mild anemia. AST mildly elevated at 41. Repeat blood sugar now is up to 254. The patient currently has no complaints. 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 ENT: normocephalic atraumatic, no oropharyngeal lesions Neck: supple, symmetric, no JVD, no thyromegaly Heart: RRR, no murmur, no gallops, no rubs, normal peripheral pulses Respiratory: CTAB, no wheezes, no rales, no ronchi Gastrointestinal: soft, non-tender, non-distended, normal bowel sounds Extremities: no cyanosis, no clubbing, no edema Skin: normal turgor, no lesions, no rashes Hospitalist Results - Labs Result Diagrams: 07/03/19 18:36 07/03/19 18:36 Lab results: WBC 10.8 thou/uL (4.8-10.8) 07/03/19 18:36 Hgb 11.2 g/dL (12.0-16.0) L 07/03/19 18:36 Hct 33.3 % (36.0-47.0) L 07/03/19 18:36 MCV 88.6 fL (78.0-98.0) 07/03/19 18:36 Plt Count 243 thou/uL (130-400) 07/03/19 18:36 Neutrophils % 58.1 % (42.0-75.0) 07/03/19 18:36 Sodium 143 mmol/L (136-145) 07/03/19 18:36 Potassium 3.7 mmol/L (3.5-5.1) 07/03/19 18:36 Chloride 108 mmol/L (98-107) H 07/03/19 18:36 Carbon Dioxide 24 mmol/L (22-29) 07/03/19 18:36 BUN 43 mg/dL (7.0-18.7) H 07/03/19 18:36 Creatinine 1.97 mg/dL (0.6-1.1) H 07/03/19 18:36 Glucose 34 mg/dL (70-105) L* 07/03/19 18:36 Calcium 9.4 mg/dL (7.8-10.44) 07/03/19 18:36 Total Bilirubin 0.2 mg/dL (0.2-1.2) 07/03/19 18:36 AST 41 U/L (5-34) H 07/03/19 18:36 ALT 27 U/L (8-55) 07/03/19 18:36 Alkaline Phosphatase 98 U/L (40-110) 07/03/19 18:36 Troponin I 0.027 ng/mL (< 0.028) 07/03/19 18:36 Serum Total Protein 6.7 g/dL (6.0-8.3) 07/03/19 18:36 Albumin 3.7 g/dL (3.5-5.0) 07/03/19 18:36 Lipase 32 U/L (8-78) 07/03/19 18:36 Urine Ketones Negative mg/dL (Negative) 07/03/19 21:26 Urine Blood Trace (Negative) A 07/03/19 21: Urine Nitrite Negative (Negative) 07/03/19 21:26 Ur Leukocyte Esterase 250 [place]/uL (Negative) A 07/03/19 21:26 Urine RBC 7-10 HPF (0-3) A 07/03/19 21: Urine WBC 4-6 HPF (0-3) A 07/03/19 21:26 Ur Squamous Epith Cells 4-6 HPF (0-3) A 07/03/19 21:26 Urine Bacteria None Seen HPF (None Seen) 07/03/19 21:26 Hospitalist H&P A/P - Plan Plan: This is a 49 year old female with type I diabetes, hypertension, hypothyroidism who presented with hypoglycemia #Hypoglycemia #Type II diabetes - possibly from large dose of sliding scale insulin vs lantus. Her last discharge she was sent home on 25 units lantus daily, but per patient takes 60- 80 mg currently - will hold lantus and do mild sliding scale for now - fingersticks achs - check hemoglobin A1C #Hypertension - will hold metoprolol since this could be causing hypoglycemia for now - switch to amlodipine 5 mg daily #Hypothyroidism - continue levothyroxine #Hyperlipidemia - continue pravastatin #Anemia - Hb 10, check B12, folate, TSH #Transaminitis - AST 41, recheck in am Code status: full code
[2019-07-04] MEDS ORDERED: Dextrose 5% in Water 1,000 ML IV PRN (05:20)
[2019-07-04] MEDS ORDERED: Dextrose 50% Abboject 50 ML SYRINGE SLOW IVP PRN (05:20)
[2019-07-04] MEDS ORDERED: Amlodipine 5 MG TAB PO SCH (05:45)
[2019-07-04] MEDS: Brimonidine Tartrate 0.2% Ophth Soln 5 ml Bottle L EYE SCH ×3 (05:59→21:14)
[2019-07-04] MEDS: HumaLOG 300 UNITS/3 ML VIAL SC PRN ×3 (06:09→18:03)
[2019-07-04 06:49] LABS: Hemoglobin 9.7 g/dL (12.0-16.0); Mean Corpuscular HGB CONC 33.2 g/dL (32.0-36.0); Mean Corpuscular Hemoglobin 29.7 pg (27.0-31.0); Mean Corpuscular Volume 89.5 fL (78.0-98.0); Mean Platelet Volume 8.5 fL (7.4-10.4); Platelet Count 174 thou/uL (130-400); RBC Distribution Width 11.6 % (11.5-14.5); Red Blood Cell (RBC) Count 3.26 mill/uL (4.20-5.40); White Blood Cell (WBC) Count 6.2 thou/uL (4.8-10.8)
[2019-07-04 06:54] LABS: Hemoglobin A1c 13.4 % (4.0-6.0)
[2019-07-04 07:13] LABS: ALT (SGPT) 25 U/L (8-55); AST (SGOT) 37 U/L (5-34); Alkaline Phosphatase 85 U/L (40-110); Bilirubin, Direct 0.1 mg/dL (0.1-0.3); Bilirubin, Total 0.2 mg/dL (0.2-1.2); Protein, Total 5.9 g/dL (6.0-8.3)
[2019-07-04 07:13] LABS: Anion Gap 13 mmol/L (10-20); BUN (Urea Nitrogen) 37 mg/dL (7.0-18.7); Calc. Creatinine Clearance 57 mL/min (70-130); Calcium 8.5 mg/dL (7.8-10.44); Carbon Dioxide 21 mmol/L (22-29); Chloride 105 mmol/L (98-107); Estimated GFR-MDRD 40; Glucose 251 mg/dL (70-105); Potassium 4.3 mmol/L (3.5-5.1); Sodium 135 mmol/L (136-145)
[2019-07-04 07:35] LABS: Thyroid Stimulating Hormone 7.8069 uIU/mL (0.35-4.94)
[2019-07-04] MEDS: Latanoprost 0.005% Ophth Soln 2.5 ml Bottle L EYE SCH (09:17)
[2019-07-04] MEDS: Levothyroxine 150 MCG TAB PO SCH (09:17)
[2019-07-04] MEDS: Dorzolamide HCl 2% Ophth Soln 10 ml Bottle L EYE SCH ×3 (09:17→20:23)
[2019-07-04] MEDS: Losartan 25 MG TAB PO SCH (09:18)
[2019-07-04] MEDS ORDERED: HumaLOG 300 UNITS/3 ML VIAL SC PRN (16:07)
[2019-07-04] MEDS ORDERED: cloNIDine 0.1 MG TAB PO PRN (16:15)
[2019-07-04] MEDS ORDERED: Insulin Glargine 20 UNITS in Pre-Filled Syringe 1 EACH SC SCH ×2 (16:15→21:00)
[2019-07-04] MEDS: Metoprolol Tartrate 50 MG TAB PO SCH (20:17)
[2019-07-04] MEDS ORDERED: Atorvastatin Calcium 10 MG TAB PO SCH (21:00)
[2019-07-05] MEDS: Brimonidine Tartrate 0.2% Ophth Soln 5 ml Bottle L EYE SCH ×2 (05:43→14:15)
[2019-07-05] MEDS: Metoprolol Tartrate 50 MG TAB PO SCH (08:57)
[2019-07-05] MEDS: Dorzolamide HCl 2% Ophth Soln 10 ml Bottle L EYE SCH ×2 (08:57→16:32)
[2019-07-05] MEDS: Losartan 25 MG TAB PO SCH (08:58)
[2019-07-05] MEDS: Latanoprost 0.005% Ophth Soln 2.5 ml Bottle L EYE SCH (08:58)
[2019-07-05] MEDS ORDERED: Insulin Glargine 20 UNITS in Pre-Filled Syringe 1 EACH SC SCH (09:00)
[2019-07-05] MEDS: Levothyroxine 150 MCG TAB PO SCH (10:06)
[2019-07-05] MEDS: HumaLOG 300 UNITS/3 ML VIAL SC PRN ×2 (11:39→16:33)
[2019-07-05 16:29] VITALS: BP 166/86; TEMP 98.1
--- NOTE | 2019-07-05 16:54 | PDOC.HOSPP ---
- Subjective Encounter Date: 07/05/19 Encounter Time: 16:52 Subjective: Ms. Coughlin was seen today in follow-up of hypoglycemia. She does not have any complaints. - Objective Vital Signs & Weight: Vital Signs (12 hours) Temp Pulse Resp BP BP Pulse Ox 07/05/19 16:28 98.1 F 73 14 166/86 H 97 07/05/19 11:34 98.7 F 76 18 174/93 H 97 07/05/19 10:43 156/89 H 07/05/19 08:00 98.4 F 79 18 151/103 H 98 07/05/19 05:43 98.6 F 81 16 160/73 H 94 L Weight Weight 192 lb I&O: 07/04/19 07/05/19 07/06/19 06:59 06:59 06:59 Intake Total 480 600 Balance 480 600 Result Diagrams: 07/04/19 05:41 07/04/19 05:41 Additional Labs: Accuchecks 07/05/19 07/05/19 07/05/19 16:34 11:30 08:57 POC Glucose 203 H 256 H 184 H 07/05/19 07/05/19 07/04/19 05:48 02:17 20:37 POC Glucose 136 H 147 H 257 H 07/04/19 17:45 POC Glucose 277 H Hospitalist ROS - Medication Medications: Active Medications Generic Name Dose Route Start Last Admin Trade Name Freq PRN Reason Stop Dose Admin Atorvastatin Calcium 10 mg 07/04/19 21:00 07/04/19 20:17 Lipitor PO 10 mg HS STEFFI Administration Brimonidine Tartrate 1 drop 07/04/19 06:00 07/05/19 14:15 Alphagan 0.2% Ophth Soln L EYE 1 drop Q8HR STEFFI Administration Dorzolamide HCl 1 drop 07/04/19 09:00 07/05/19 16:32 Trusopt 2% Ophth Soln L EYE 1 drp TID STEFFI Administration Insulin Glargine 20 units/ 0.2 mls @ 0 mls/hr 07/05/19 09:00 07/05/19 08:57 Miscellaneous Medication SC 0.2 mls QAM STEFFI Administration Insulin Human Lispro 0 units 07/04/19 16:07 07/05/19 16:33 Humalog SC 4 unit .MODERATE SLIDING SC PRN Administration Moderate Correctional Scale Insulin Human Lispro 0 units 07/04/19 16:07 07/04/19 21:15 Humalog SC 3 unit .BEDTIME SLIDING SC PRN Administration Bedtime Correctional Scale Latanoprost 1 drop 07/04/19 09:00 07/05/19 08:58 Xalatan 0.005% Ophth Soln L EYE 1 drop DAILY STEFFI Administration Levothyroxine Sodium 150 mcg 07/04/19 09:00 07/05/19 10:06 Synthroid PO 150 mcg DAILY STEFFI Administration Losartan Potassium 25 mg 07/04/19 09:00 07/05/19 08:58 Cozaar PO 25 mg DAILY STEFFI Administration Metoprolol Tartrate 50 mg 07/04/19 21:00 07/05/19 08:57 Lopressor PO 50 mg BID STEFFI Administration Sertraline HCl 25 mg 07/04/19 09:00 07/05/19 08:58 Zoloft PO 25 mg DAILY STEFFI Administration - Exam Eye: PERRL Heart: RRR, no murmur, no gallops, no rubs, normal peripheral pulses Respiratory: CTAB, no wheezes, no rales, no ronchi, normal chest expansion Gastrointestinal: soft, non-tender, non-distended, normal bowel sounds Extremities: no cyanosis, no clubbing, no edema Hosp A/P (1) Hypoglycemia Code(s): E16.2 - HYPOGLYCEMIA, UNSPECIFIED Status: Acute (2) HTN (hypertension) Code(s): I10 - ESSENTIAL (PRIMARY) HYPERTENSION Status: Chronic - Plan * Hypoglycemia- this may be due to a mismatch in dose with regards to her short acting insulin * Will decrease the dose to 15 units with each meal, and re-assess * Close outpatient follow-up
--- NOTE | 2019-07-06 04:45 | DIS ---
DATE OF ADMISSION: 07/03/2019 DATE OF DISCHARGE: 07/05/2019 DISCHARGE DISPOSITION: Home. PRIMARY DISCHARGE DIAGNOSES: 1. Hypoglycemia. 2. Diabetes mellitus type 2, insulin dependent. 3. Hypertension. 4. Obesity. DISCHARGE MEDICATIONS: Include: 1. Continue Lantus insulin 40 units subcu at bedtime. 2. NovoLog insulin was decreased to 15 units 3 times daily with meals and 10 units for small meal. 3. Cozaar was increased to 50 mg daily. 4. Continue Zoloft 25 mg daily. 5. Pravachol 40 mg at bedtime. 6. ophthalmic drops to the right eye q.i.d. 7. Prednisolone acetate 1 drop to the right eye 4 times daily. 8. Lopressor 50 mg twice daily. 9. Metoprolol tartrate 50 mg twice daily. 10. Levothyroxine 150 mcg p.o. daily. 11. Xalatan 0.005% one drop in each eye daily. 12. Trusopt 2% one drop in the left eye t.i.d. 13. Alphagan 1 drop in the left eye q.8 hours. CODE STATUS: Full code. ALLERGIES: NO KNOWN DRUG ALLERGIES. HOSPITAL COURSE: Ms. Coughlin is a very pleasant 49-year-old female, who was admitted to the hospital due to a hypoglycemic episode. After discussing with the patient, it appears as if she may require less of the short-acting insulin as it appears that her hypoglycemic episodes are typically with lunch or dinner in which she says that is normally her smaller meals. She had been taking 25 units of NovoLog with these meals and she has had several episodes of her blood sugars going as low as the 60s and 70s. She was instructed to decrease the dose of NovoLog to 15 units with each meal and then even lower, if the meal had less carbohydrates or was a smaller than usual meal. No sliding scale will be added at this time. She is to record her blood sugars at least 3 times a day and then and on some occasions to check some postprandial blood glucoses as well 2 hours postprandial. She is to write these down and then go over these with Dr. Wright. She says she has an appointment early January and she is to go ahead and keep this appointment. She is being discharged today and once again with close outpatient followup. Job ID: [id number]
== END 2019-07-05 18:05 | disposition home or self-care (01) ==
LOC: ERS 16:52 → SURG B 21:57
PROVIDERS: ADMIT Emergency Medicine; ATTEND Emergency Medicine
DX: T38.3X1A Poisoning by insulin and oral hypoglycemic [antidiabetic] drugs, accidental (unintentional), initial encounter (principal); E11.649 Type 2 diabetes mellitus with hypoglycemia without coma; I10 Essential (primary) hypertension; E03.9 Hypothyroidism, unspecified; D64.9 Anemia, unspecified; E78.5 Hyperlipidemia, unspecified; F32.9 Major depressive disorder, single episode, unspecified; Z79.4 Long term (current) use of insulin; Z79.899 Other long term (current) drug therapy
CPT/HCPCS: 36415; 36416; 71045; 80048; 80053; 80076; 81003; 81015; 82607; 82746; 83036; 83690; 84443; 84484; 85025; 85027; 96374; G0378; J1815

== ENCOUNTER 2019-07-31 20:17 | Inpatient (IN) | payer SELFPAY ==
[2019-07-31 21:14] LABS: #Basophils 0.1 thou/uL (0.0-0.2); #Lymphocytes 1.1 thou/uL (1.20-3.40); #Monocytes 0.3 thou/uL (0.11-0.59); #Neutrophils 6.4 thou/uL (1.40-6.50); %Basophils 0.7 % (0.0-1.0); %Eosinophils 0.2 % (0.0-10.0); %Lymphocytes 14.1 % (21.0-51.0); %Monocytes 4.1 % (0.0-10.0); %Neutrophils 80.9 % (42.0-75.0); Hemoglobin 10.9 g/dL (12.0-16.0); Mean Corpuscular HGB CONC 31.2 g/dL (32.0-36.0); Mean Corpuscular Hemoglobin 29.8 pg (27.0-31.0); Mean Corpuscular Volume 95.7 fL (78.0-98.0); Mean Platelet Volume 9.1 fL (7.4-10.4); Platelet Count 230 thou/uL (130-400); RBC Distribution Width 11.4 % (11.5-14.5); Red Blood Cell (RBC) Count 3.64 mill/uL (4.20-5.40); White Blood Cell (WBC) Count 7.9 thou/uL (4.8-10.8)
[2019-07-31 21:41] LABS: ALT (SGPT) 20 U/L (8-55); AST (SGOT) 18 U/L (5-34); Albumin 3.9 g/dL (3.5-5.0); Alkaline Phosphatase 109 U/L (40-110); Anion Gap 33 mmol/L (10-20); BUN (Urea Nitrogen) 71 mg/dL (7.0-18.7); Bilirubin, Total 0.3 mg/dL (0.2-1.2); Calc. Creatinine Clearance 0 mL/min (70-130); Carbon Dioxide 9 mmol/L (22-29); Chloride 88 mmol/L (98-107); Estimated GFR-MDRD 18; Globulin 2.9 g/dL (2.4-3.5); Glucose 1035 mg/dL (70-105); Lipase 12 U/L (8-78); Potassium 6.8 mmol/L (3.5-5.1); Protein, Total 6.8 g/dL (6.0-8.3); Sodium 123 mmol/L (136-145)
[2019-07-31 21:54] LABS: Bilirubin Negative (Negative); Blood, Urine Trace (Negative); Clarity Clear (Clear); Glucose, Urine (Dipstick) Greater than 1000 mg/dL (Negative); Leukocyte 500 Leu/uL (Negative); Nitrite Negative (Negative); Protein, Urine (Dipstick) 30 mg/dL (Neg-Trace); Squamous Epithelial 0-3 HPF (0-3); Urobilinogen Normal mg/dL (Less than 2); WBC/HPF 21-50 HPF (0-3)
[2019-07-31 21:58] LABS: CKMB 2.8 ng/mL (0-6.6)
[2019-07-31] MEDS ORDERED: Insulin Regular 100 units/100 ml in NS IVPB SCH (22:00)
[2019-07-31 22:08] LABS: Bacteria/HPF 1+ HPF (None Seen); Trichomonas/HPF 2+ HPF (None Seen); Unclassified Crystals 1+ HPF (None Seen)
[2019-07-31] MEDS ORDERED: Insulin Regular 300 UNITS/3 ML VIAL ONE (22:12)
[2019-08-01] MEDS ORDERED: Dextrose 5% in Water 1,000 ML IV PRN ×2 (00:13→12:06)
[2019-08-01] MEDS ORDERED: Sodium Chloride 0.9% 1,000 ML IV PRN ×5 (00:13→00:19)
[2019-08-01] MEDS ORDERED: NS 0.9% w/ 20 MEQ KCL 1,000 ML/1,000 ML BAG IV PRN ×2 (00:13)
[2019-08-01] MEDS ORDERED: D5 1/2 NS w/20 mEq KCL 1,000 ML IV PRN ×2 (00:13→00:19)
[2019-08-01] MEDS ORDERED: Dextrose 5 %-0.45 % NaCl 1,000 ML IV PRN ×2 (00:13→00:19)
[2019-08-01] MEDS ORDERED: ADD ELECTROLYTE REPLACEMENT SET TO PROFILE FS SCH (00:15)
[2019-08-01] MEDS ORDERED: Insulin Regular 300 UNITS/3 ML VIAL IVP SCH (00:15)
[2019-08-01] MEDS ORDERED: HUMULIN R 100 UNITS in Sodium Chloride 0.9% 100 ML IVPB SCH ×2 (00:15→00:19)
[2019-08-01] MEDS ORDERED: Dextrose 50% Abboject 50 ML SYRINGE SLOW IVP PRN (00:16)
[2019-08-01] MEDS ORDERED: Lactated Ringer's 1,000 ML IV PRN ×2 (00:18)
[2019-08-01] MEDS ORDERED: Potassium Chloride 40 MEQ in Sodium Chloride 0.9% 250 ML 250 ML IVPB PRN (00:19)
[2019-08-01] MEDS ORDERED: Magnesium 2 GM/50 ML 2 GM in Premix Bag 1 BAG IVPB PRN (00:19)
[2019-08-01] MEDS ORDERED: CCU ELECTROLYTE REPLACEMENT PROTOCOL FS PRN (00:19)
[2019-08-01] MEDS ORDERED: Potassium Phosphate 15 MMOL in Sodium Chloride 0.9% 250 ML 250 ML IV PRN (00:19)
[2019-08-01] MEDS ORDERED: Potassium Phosphate 9 MMOL in Sodium Chloride 0.9% 100 ML IVPB PRN (00:19)
[2019-08-01] MEDS ORDERED: Magnesium Oxide 400 MG TAB PO PRN ×2 (00:19)
[2019-08-01] MEDS ORDERED: Potassium Phosphate 12 MMOL in Sodium Chloride 0.9% 250 ML 250 ML IV PRN (00:19)
[2019-08-01] MEDS ORDERED: Acetaminophen 500 MG TAB PO PRN (00:19)
[2019-08-01] MEDS ORDERED: Benzonatate 100 MG CAP PO PRN (00:19)
[2019-08-01] MEDS ORDERED: Ondansetron PF 4 MG/2 ML Vial IVP PRN ×2 (00:19→00:20)
[2019-08-01] MEDS ORDERED: CCU Electrolyte Replacement 1 EACH IVPB ONE (00:19)
[2019-08-01] MEDS ORDERED: Labetalol HCl 100 MG/20 ML VIAL SLOW IVP PRN (00:19)
[2019-08-01] MEDS ORDERED: Potassium Chloride 40 MEQ in Premix Bag 1 BAG IVPB PRN (00:19)
[2019-08-01] MEDS ORDERED: PHOS-NAK 1 PKT PACK PO PRN ×2 (00:19)
[2019-08-01] MEDS ORDERED: Ondansetron ODT 4 MG TAB PO PRN (00:19)
[2019-08-01] MEDS ORDERED: NS 0.9% w/ 20 MEQ KCL 1,000 ML IV PRN ×2 (00:19)
[2019-08-01] MEDS ORDERED: Calcium Carbonate 500 MG ChewTAB PO PRN (00:19)
[2019-08-01] MEDS ORDERED: Potassium Chloride 20 MEQ TAB PO PRN (00:19)
[2019-08-01] MEDS ORDERED: Ondansetron ODT 4 MG TAB SL PRN (00:20)
[2019-08-01] MEDS ORDERED: Acetaminophen 325 MG TAB PO PRN (00:20)
[2019-08-01 00:32] VITALS: BMI 33.4
[2019-08-01] MEDS: Sodium Chloride 0.9% 1,000 ML IV PRN ×2 (00:45→02:47)
[2019-08-01 00:53] LABS: Glucose Accucheck Confirmation 942 mg/dl (70-105)
--- NOTE | 2019-08-01 01:03 | HP ---
PRIMARY CARE PROVIDER: Josie Wright DO CHIEF COMPLAINT: Nausea, vomiting, and general malaise. HISTORY OF PRESENT ILLNESS: This is a 49-year-old female with significant history of diabetes mellitus type 2, on Lantus and Humalog insulin therapy with sudden onset of nausea, vomiting, and diarrhea. The patient states the symptoms began in the last 24 to 48 hours with decreased appetite, general malaise and body aches. The patient states she checked her home glucose and it was noted in the 200s. The patient has had 2 evaluations, most notably in late June 2019 for hypoglycemia requiring hospitalization and adjustment to her insulin regimen. The patient was also evaluated for a second episode of hypoglycemia on 07/21/2019 in the emergency room and released home. The patient states she continues on Lantus 40 units subcutaneously at bedtime with additional Humalog before meals. The patient denied any documented fever, exposure history, travel, or family members with similar symptoms. The patient admits to 2 loose stools, but no evidence of blood. The patient denies any current or recent antibiotic exposure. In the emergency room, the patient underwent general evaluation with initial glucose noted at 1035. The patient was also noted with potassium 6.8 and a creatinine of 3.36 meeting DKA protocol. Beta-hydroxybutyrate level was measured at 9.01, at which point, the patient was initiated on intravenous fluids per DKA protocol as well as given insulin bolus and placed on infusion. The patient also received 2 L of lactated Ringer's fluid and was referred to the Hospitalist Service for evaluation. PAST MEDICAL HISTORY: 1. Diabetes mellitus type 2 with recent admission for hypoglycemia, 06/2019. 2. Hypertension. 3. Depression. 4. Hypothyroidism. 5. Hyperlipidemia. PAST SURGICAL HISTORY: 1. Status post hysterectomy. 2. Status post laparoscopy. 3. Status post cataract removal. 4. Status post right eye surgery for vitreous hemorrhage. CURRENT MEDICATIONS: Based on most recent electronic medical record review; 1. Brimonidine tartrate 0.2% one drop to the left eye q.8 hours. 2. Trusopt 2% one drop to the left eye t.i.d. 3. Xalatan 0.005% one drop to the left eye daily. 4. Levothyroxine 150 mcg p.o. daily. 5. Metoprolol tartrate 50 mg p.o. b.i.d. 6. Ocuflox 0.3% one drop to the right eye q.i.d. 7. Pravachol 40 mg p.o. at bedtime. 8. Prednisolone acetate one drop to the right eye q.i.d. 9. Zoloft 25 mg p.o. daily. 10. Humalog 15 units subcutaneously t.i.d. with meals. 11. Lantus 40 units subcutaneously at bedtime. 12. Cozaar 50 mg p.o. daily. ALLERGIES: NO KNOWN DRUG ALLERGIES. FAMILY HISTORY: Positive for diabetes mellitus. SOCIAL HISTORY: No current alcohol, tobacco, or illicit drug use. 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 REVIEW OF SYSTEMS: CONSTITUTIONAL: Negative for weight loss or gain, ability to conduct usual activities. SKIN: Negative for rash, itching. EYES: Negative for double vision, pain. ENT/MOUTH: Negative for nose bleeding, neck stiffness, pain, tenderness. CARDIOVASCULAR: Negative for palpitations, dyspnea on exertion, orthopnea. RESPIRATORY: Negative for shortness of breath, wheezing, cough, hemoptysis, fever or night sweats. GASTROINTESTINAL: Negative for poor appetite, abdominal pain, heartburn, nausea, vomiting, constipation, or diarrhea. GENITOURINARY: Negative for urgency, frequency, dysuria, nocturia. MUSCULOSKELETAL: Negative for pain, swelling. NEUROLOGIC/PSYCHIATRIC: Negative for anxiety, depression. ALLERGY/IMMUNOLOGIC: Negative for skin rash, bleeding tendency. Otherwise negative except as stated per HPI. PHYSICAL EXAMINATION: VITAL SIGNS: On admission, blood pressure 134/59, pulse 87, respiratory rate 19, temperature 98.3 degrees Fahrenheit, O2 saturation 100% on room air. GENERAL APPEARANCE: This is a 49-year-old female, alert and oriented x3, pleasant, in moderate distress. HEENT: Pupils are equal, round, reactive to light and accommodation. Extraocular muscles are intact. Left eye blindness. Nares patent. OP is clear. Oral mucosa dry. NECK: Supple. No cervical adenopathy. No thyromegaly. No carotid bruits. No JVD appreciated. Cervical spine with full active and passive range of motion. No meningeal signs noted. CHEST: Lungs are clear to auscultation bilaterally. CARDIOVASCULAR: S1, S2 without noted murmur, rub, or gallop. ABDOMEN: Obese, soft, nontender, and nondistended. Bowel sounds are positive in all 4 quadrants. There is no hepatosplenomegaly. No abdominal bruits. No rebound or guarding appreciated. EXTREMITIES: Warm and dry with fair turgor. No clubbing, cyanosis, or asymmetric edema appreciated. Pulses palpable distally at the dorsalis pedis, posterior tibial, and popliteal arteries bilaterally. Capillary refill less than 2 seconds. NEUROLOGIC: Left eye blindness. Rest of the cranial nerves 2 through 12 are grossly intact. No other focal or lateralizing signs appreciated. PERTINENT LABORATORY AND X-RAY FINDINGS: Sodium 123, potassium 6.8, chloride 88, CO2 of 9, anion gap of 33, BUN 71, creatinine 3.36, estimated GFR 18, glucose 1035, calcium 9.0. LFTs within normal limits. Troponin I 0.202. Albumin 3.9. Lipase 12. CBC showed a white blood cell count of 7.9, hemoglobin 11, hematocrit 35, platelet count 230 with 81% neutrophils. Urinalysis positive for glucose, ketones with leukocyte esterase positive. Urine microscopy shows 11 to 20 RBCs per high-power field and 21 to 50 WBCs per high-power field. Beta-hydroxybutyrate level 9.01. ASSESSMENT AND PLAN: 1. Diabetic ketoacidosis. The patient will be admitted to the Critical Care Unit. We will continue DKA protocol with insulin infusion. Serial Accu-Cheks q.hour per protocol. Questionable relationship of presentation to urinary tract infection. We will continue aggressive IV fluid hydration and monitor clinical response. 2. Urinary tract infection. Suspected given initial urinalysis results. Start Rocephin 2 g IV q.24 hours. Urine culture pending. 3. Acute kidney injury. We will continue intravenous fluids as outlined previously. Avoid nephrotoxic agents and limit contrast exposure. Serial creatinine monitoring. 4. Hyperkalemia. Secondary to #1. We will continue treatment protocol as outlined in #1. Serial potassium monitoring. Continue telemetry monitoring. 5. Hypotension. Suspect secondary to dehydration and #1. Hold antihypertensive medications. Continue IV fluids as outlined previously. Serial blood pressure monitoring. 6. Hypothyroidism. Continue Synthroid 150 mcg daily. 7. Prophylaxis. SCDs while in bed. Pepcid 20 mg p.o. b.i.d. CODE STATUS: Full. Surrogate medical decision maker is patient's mother. Job ID: [id number]
[2019-08-01 01:14] LABS: Anion Gap 30 mmol/L (10-20); BUN (Urea Nitrogen) 72 mg/dL (7.0-18.7); Calc. Creatinine Clearance 27 mL/min (70-130); Calcium 8.6 mg/dL (7.8-10.44); Carbon Dioxide 9 mmol/L (22-29); Chloride 93 mmol/L (98-107); Estimated GFR-MDRD 16; Glucose 885 mg/dL (70-105); Potassium 5.7 mmol/L (3.5-5.1); Sodium 126 mmol/L (136-145)
[2019-08-01] MEDS: cefTRIAXone\\ROCEPHIN 2 GM in Sodium Chloride 0.9% 100 ML IVPB SCH (01:47)
[2019-08-01 02:12] LABS: Hemoglobin 9.5 g/dL (12.0-16.0); Mean Corpuscular Hemoglobin 29.1 pg (27.0-31.0); Mean Platelet Volume 8.3 fL (7.4-10.4); Platelet Count 207 thou/uL (130-400); RBC Distribution Width 11.3 % (11.5-14.5); Red Blood Cell (RBC) Count 3.27 mill/uL (4.20-5.40); White Blood Cell (WBC) Count 8.3 thou/uL (4.8-10.8)
[2019-08-01 02:23] LABS: Troponin I 0.153 ng/mL (< 0.028)
[2019-08-01 02:38] LABS: Anion Gap 27 mmol/L (10-20); BUN (Urea Nitrogen) 71 mg/dL (7.0-18.7); Calc. Creatinine Clearance 27 mL/min (70-130); Calcium 8.3 mg/dL (7.8-10.44); Carbon Dioxide 10 mmol/L (22-29); Chloride 95 mmol/L (98-107); Estimated GFR-MDRD 16; Glucose 734 mg/dL (70-105); Potassium 5.2 mmol/L (3.5-5.1); Sodium 127 mmol/L (136-145)
[2019-08-01 05:05] LABS: Anion Gap 23 mmol/L (10-20); BUN (Urea Nitrogen) 69 mg/dL (7.0-18.7); Calc. Creatinine Clearance 29 mL/min (70-130); Calcium 8.1 mg/dL (7.8-10.44); Carbon Dioxide 13 mmol/L (22-29); Chloride 100 mmol/L (98-107); Estimated GFR-MDRD 17; Glucose 454 mg/dL (70-105); Potassium 4.6 mmol/L (3.5-5.1); Sodium 131 mmol/L (136-145)
[2019-08-01] MEDS: Brimonidine Tartrate 0.2% Ophth Soln 5 ml Bottle L EYE SCH ×3 (05:15→20:35)
[2019-08-01] MEDS: Levothyroxine 150 MCG TAB PO SCH (05:16)
[2019-08-01 05:18] LABS: Troponin I 0.222 ng/mL (< 0.028)
[2019-08-01 08:51] LABS: Base Excess-Venous -16.6 mmol/L (-2.0 to 3.0); Bicarbonate (HCO3v) 9.4 mmol/L (22.0-28.0); CO2 Tension (PvCO2) 23.2 mmHg (40.0-50.0); Hemoglobin - Calc 12.5 g/dL (12.0-16.0); vO2 Saturation-calc 98.3 % (60.0-85.0)
[2019-08-01 08:52] LABS: Calcium, Ionized 0.93 mmol/L (See Comments:); Chloride 95 mmol/L (98-107); Potassium 6.6 mmol/L (3.5-5.1); Sodium 119 mmol/L (138-145); T. Carbon Dioxide 10.1 mmol/L (22.0-28.0)
[2019-08-01 09:42] LABS: Anion Gap 12 mmol/L (10-20); BUN (Urea Nitrogen) 66 mg/dL (7.0-18.7); Calc. Creatinine Clearance 34 mL/min (70-130); Carbon Dioxide 22 mmol/L (22-29); Chloride 107 mmol/L (98-107); Estimated GFR-MDRD 21; Glucose 76 mg/dL (70-105); Potassium 4.4 mmol/L (3.5-5.1); Sodium 137 mmol/L (136-145)
[2019-08-01] MEDS: Famotidine 20 MG TAB PO SCH (09:58)
[2019-08-01] MEDS: prednisoLONE 1% Ophth Susp 5 ml Bottle R EYE SCH ×4 (10:00→20:35)
[2019-08-01] MEDS: Dorzolamide HCl 2% Ophth Soln 10 ml Bottle L EYE SCH ×3 (10:01→20:35)
[2019-08-01] MEDS: Latanoprost 0.005% Ophth Soln 2.5 ml Bottle L EYE SCH (10:02)
--- NOTE | 2019-08-01 10:13 | CON ---
DATE OF CONSULTATION: 08/01/2019 REASON FOR CONSULT: DKA. HISTORY OF PRESENT ILLNESS: Tami is a 49-year-old who presented to the hospital yesterday with nausea, vomiting, general malaise. She was diagnosed with DKA and started on insulin drip and is now stable. She said that she had some nausea and vomiting prior to admission, not taken her insulin because of that. PAST MEDICAL HISTORY: 1. Diabetes mellitus type 1 since 1990. 2. Hypertension. 3. Depression. 4. Hypothyroidism. 5. Hyperlipidemia. PAST SURGICAL HISTORY: 1. Hysterectomy. 2. Laparoscopy. 3. Cataract removal. 4. Right eye surgery for vitreous hemorrhage. MEDICATIONS: Prior to admission; 1. Numerous eyedrops. 2. Levothyroxine. 3. Metoprolol. 4. Pravachol. 5. Zoloft. 6. Humalog insulin. 7. Lantus insulin. 8. Cozaar. ALLERGIES: NONE. FAMILY MEDICAL HISTORY: Remarkable for diabetes mellitus. SOCIAL HISTORY: Does not smoke. Does not consume alcohol. Does not use illicit drugs. REVIEW OF SYSTEMS: Otherwise, negative. PHYSICAL EXAMINATION: VITAL SIGNS: Temperature 98.8, pulse 91, blood pressure 142/77, O2 saturation 97%. Intake 2575, output not quantitated. HEENT: Unremarkable. NECK: No adenopathy or JVD. CHEST: Clear to auscultation without wheezing or rhonchi. CARDIAC: S1 and S2 regular. ABDOMEN: Soft and nontender to palpation. EXTREMITIES: No clubbing, cyanosis, or edema. LABORATORY DATA: Sodium 137, potassium 4.4, chloride 107, CO2 of 29, BUN 66, creatinine 2.9 down from 3.5 on admission, glucose is now 76. Anion gap now is about 8. Beta hydroxybutyrate was 9 at time of admission, it is now down to 1.5. White blood cell count 8.3, hematocrit 29.8, and platelet count 207. ASSESSMENT: 1. Diabetic ketoacidosis. 2. Small bump in troponin. PLAN: Currently being managed appropriately with insulin drip and about to convert to her standard insulin protocol. No further recommendations at this time. Job ID: [id number]
[2019-08-01] MEDS ORDERED: DC Electrolyte Protocol FS ONE (11:03)
[2019-08-01] MEDS ORDERED: Insulin Regular 300 UNITS/3 ML VIAL SC PRN (12:08)
[2019-08-01] MEDS ORDERED: Insulin Glargine 10 UNITS in Pre-Filled Syringe 1 EACH SC SCH ×2 (12:15→21:00)
[2019-08-01] MEDS: Sodium Chloride 0.45% 1,000 ML IV SCH ×2 (12:20→20:02)
[2019-08-01] MEDS: Insulin Regular 300 UNITS/3 ML VIAL SC PRN (17:44)
--- NOTE | 2019-08-01 17:59 | PDOC.HOSPP ---
- Subjective Encounter Date: 08/01/19 Encounter Time: 11:00 Subjective: Patient seen and examined for DKA. Feeling better. No N/V. No CP/SOB/focal deficits. No new complaints. No overnight events - Objective Vital Signs & Weight: Vital Signs (12 hours) Temp Pulse Resp BP Pulse Ox 08/01/19 16:01 98.4 F 98 16 146/74 H 99 08/01/19 15:14 98.4 F 73 18 123/74 94 L 08/01/19 12:00 98.9 F 08/01/19 08:00 98.3 F 96 Weight Admit Weight 200 lb Weight 200 lb 13.458 oz Most Recent Monitor Data Heart Rate from ECG 95 NIBP 122/83 NIBP BP-Mean 96 Respiration from ECG 18 SpO2 99 I&O: 07/31/19 08/01/19 08/02/19 06:59 06:59 06:59 Intake Total 2575.5 2047.8 Output Total 0 400 Balance 2575.5 1647.8 Result Diagrams: 08/01/19 01:49 08/01/19 08:47 Additional Labs: Accuchecks 08/01/19 08/01/19 08/01/19 15:59 12:04 11:07 POC Glucose 260 H 118 H 102 08/01/19 08/01/19 08/01/19 09:54 08:40 07:19 POC Glucose 72 72 160 H 08/01/19 08/01/19 08/01/19 06:02 05:07 03:51 POC Glucose 263 H 334 H 450 H 08/01/19 08/01/19 08/01/19 02:57 02:02 01:12 POC Glucose Greater than 550 H* Greater than 550 H* Greater than 550 H* 08/01/19 07/31/19 07/31/19 00:11 23:26 22:22 POC Glucose Greater than 550 H* Greater than 550 H* Greater than 550 H* 07/31/19 07/31/19 22:19 20:26 POC Glucose Greater than 550 H* Greater than 550 H* Radiology Reviewed by me: Yes (CXR - no infiltrate) EKG Reviewed by me: Yes (Tele SR) Hospitalist ROS - Review of Systems Respiratory: denies: cough, dry, shortness of breath, hemoptysis, SOB with excertion, pleuritic pain, sputum, wheezing, other Cardiovascular: denies: chest pain, palpitations, orthopnea, paroxysmal noc. dyspnea, edema, light headedness, other - Medication Medications: Active Medications Generic Name Dose Route Start Last Admin Trade Name Freq PRN Reason Stop Dose Admin Brimonidine Tartrate 1 drop 08/01/19 06:00 08/01/19 13:37 Alphagan 0.2% Ophth Soln L EYE 1 drop Q8HR STEFFI Administration Ciprofloxacin 1 drop 08/01/19 09:00 08/01/19 17:44 Ciprofloxacin Hcl R EYE 1 drop QID STEFFI Administration Dorzolamide HCl 1 drop 08/01/19 09:00 08/01/19 15:47 Trusopt 2% Ophth Soln L EYE 1 drop TID STEFFI Administration Famotidine 20 mg 08/01/19 09:00 08/01/19 09:58 Pepcid PO 20 mg DAILY STEFFI Administration Ceftriaxone Sodium 2 gm/ 100 mls @ 200 mls/hr 08/01/19 01:00 08/01/19 01:47 Sodium Chloride IVPB 100 mls Q24HR STEFFI Administration Sodium Chloride 1,000 mls @ 125 mls/hr 08/01/19 12:15 08/01/19 12:20 1/2 Normal Saline IV 1,000 mls .Q8H STEFFI Administration Insulin Human Regular 0 units 08/01/19 12:06 08/01/19 17:44 Humulin R SC 6 unit .MODERATE SLIDING SC PRN Administration Moderate Correctional Scale Latanoprost 1 drop 08/01/19 09:00 08/01/19 10:02 Xalatan 0.005% Ophth Soln L EYE 1 drop DAILY STEFFI Administration Levothyroxine Sodium 150 mcg 08/01/19 06:00 08/01/19 05:16 Synthroid PO 150 mcg 0600 STEFFI Administration Prednisolone Acetate 1 drop 08/01/19 09:00 08/01/19 17:44 Econopred Plus 1% Opth Susp R EYE 1 drp QID STEFFI Administration Sertraline HCl 25 mg 08/01/19 09:00 08/01/19 09:58 Zoloft PO 25 mg DAILY STEFFI Administration - Exam General Appearance: NAD Heart: RRR, no gallops, no rubs, normal peripheral pulses Respiratory: no wheezes, no rales, no ronchi, normal chest expansion Gastrointestinal: non-tender, non-distended, normal bowel sounds, no guarding, no rigidity Extremities: no cyanosis Neurological: no new deficit Psychiatric: normal affect, A&O x 3 Hosp A/P - Plan DVT proph w/SCDs Severe DKA PELON on CKD 3/Dehydration Hyperkalemia Hyponatremia UTI AG Metabolic acidosis Obesity BMI 33.4 DM2 with nephropathy/retinopathy Type 2 VA - POA - resolved PLAN: Transition to SQ Lantus Change IVF to 1/2 NS Start diet Cont IV Ceftriaxone - no urine culture sent on admission Transfer to medical Counselled Restart Metoprolol at low dose Losartan on hold Cont current meds as above DC Electrolyte replacement protocol
[2019-08-01] MEDS: Metoprolol Tartrate 25 MG TAB PO SCH (20:39)
[2019-08-02] MEDS: cefTRIAXone\\ROCEPHIN 2 GM in Sodium Chloride 0.9% 100 ML IVPB SCH (01:03)
[2019-08-02] MEDS: Sodium Chloride 0.45% 1,000 ML IV SCH ×4 (04:52→23:51)
[2019-08-02] MEDS: Levothyroxine 150 MCG TAB PO SCH (05:58)
[2019-08-02] MEDS: Brimonidine Tartrate 0.2% Ophth Soln 5 ml Bottle L EYE SCH ×3 (05:58→21:09)
[2019-08-02 07:51] LABS: Hemoglobin 9.9 g/dL (12.0-16.0); Platelet Count 170 thou/uL (130-400)
[2019-08-02 08:24] LABS: Anion Gap 16 mmol/L (10-20); BUN (Urea Nitrogen) 52 mg/dL (7.0-18.7); Calc. Creatinine Clearance 42 mL/min (70-130); Carbon Dioxide 15 mmol/L (22-29); Chloride 110 mmol/L (98-107); Estimated GFR-MDRD 27; Glucose 133 mg/dL (70-105); Potassium 4.9 mmol/L (3.5-5.1); Sodium 136 mmol/L (136-145)
[2019-08-02] MEDS ORDERED: Insulin Glargine 10 UNITS in Pre-Filled Syringe 1 EACH SC SCH (09:00)
[2019-08-02] MEDS: Famotidine 20 MG TAB PO SCH (09:35)
[2019-08-02] MEDS: Latanoprost 0.005% Ophth Soln 2.5 ml Bottle L EYE SCH (09:35)
[2019-08-02] MEDS: Metoprolol Tartrate 25 MG TAB PO SCH ×2 (09:35→21:14)
[2019-08-02] MEDS: Dorzolamide HCl 2% Ophth Soln 10 ml Bottle L EYE SCH ×3 (09:36→21:18)
[2019-08-02] MEDS: prednisoLONE 1% Ophth Susp 5 ml Bottle R EYE SCH ×4 (09:36→21:11)
[2019-08-02] MEDS: Insulin Regular 300 UNITS/3 ML VIAL SC PRN ×2 (12:09→17:49)
--- NOTE | 2019-08-02 12:21 | PDOC.HOSPP ---
- Subjective Subjective: tolerating diet, no acute c/o, K is less. BG high - Objective Vital Signs & Weight: Vital Signs (12 hours) Temp Pulse Resp BP Pulse Ox 08/02/19 07:12 98.1 F 86 16 171/86 H 98 08/02/19 05:25 96 08/02/19 03:32 98.5 F 88 16 148/71 H 96 Weight Admit Weight 200 lb Weight 200 lb 13.458 oz Most Recent Monitor Data Heart Rate from ECG 95 NIBP 122/83 NIBP BP-Mean 96 Respiration from ECG 18 SpO2 99 I&O: 08/01/19 08/02/19 08/03/19 06:59 06:59 06:59 Intake Total 2575.5 3547.8 Output Total 0 400 Balance 2575.5 3147.8 Result Diagrams: 08/02/19 07:42 08/02/19 07:42 Additional Labs: Accuchecks 08/02/19 08/02/19 08/02/19 10:31 09:12 05:27 POC Glucose 355 H 201 H 109 08/02/19 08/01/19 08/01/19 01:56 20:17 15:59 POC Glucose 122 H 241 H 260 H 08/01/19 12:04 POC Glucose 118 H Hospitalist ROS - Medication Medications: Active Medications Generic Name Dose Route Start Last Admin Trade Name Freq PRN Reason Stop Dose Admin Brimonidine Tartrate 1 drop 08/01/19 06:00 08/02/19 05:58 Alphagan 0.2% Ophth Soln L EYE 1 drop Q8HR STEFFI Administration Ciprofloxacin 1 drop 08/01/19 09:00 08/02/19 12:08 Ciprofloxacin Hcl R EYE 1 drop QID STEFFI Administration Dorzolamide HCl 1 drop 08/01/19 09:00 08/02/19 09:36 Trusopt 2% Ophth Soln L EYE 1 drop TID STEFFI Administration Famotidine 20 mg 08/01/19 09:00 08/02/19 09:35 Pepcid PO 20 mg DAILY STEFFI Administration Ceftriaxone Sodium 2 gm/ 100 mls @ 200 mls/hr 08/01/19 01:00 08/02/19 01:03 Sodium Chloride IVPB 100 mls Q24HR STEFFI Administration Sodium Chloride 1,000 mls @ 125 mls/hr 08/01/19 12:15 08/02/19 04:52 1/2 Normal Saline IV 1,000 mls .Q8H STEFFI Administration Insulin Glargine 10 units/ 0.1 mls @ 0 mls/hr 08/02/19 09:00 08/02/19 09:35 Miscellaneous Medication SC 0.1 mls QAM STEFFI Administration Insulin Glargine 10 units/ 0.1 mls @ 0 mls/hr 08/01/19 21:00 08/01/19 20:39 Miscellaneous Medication SC 0.1 mls HS STEFFI Administration Insulin Human Regular 0 units 08/01/19 12:06 08/02/19 12:09 Humulin R SC 10 unit .MODERATE SLIDING SC PRN Administration Moderate Correctional Scale Insulin Human Regular 0 units 08/01/19 12:08 08/01/19 20:40 Humulin R SC 2 unit .BEDTIME SLIDING SC PRN Administration Bedtime Correctional Scale Latanoprost 1 drop 08/01/19 09:00 08/02/19 09:35 Xalatan 0.005% Ophth Soln L EYE 1 drop DAILY STEFFI Administration Levothyroxine Sodium 150 mcg 08/01/19 06:00 08/02/19 05:58 Synthroid PO 150 mcg 0600 STEFFI Administration Metoprolol Tartrate 25 mg 08/01/19 21:00 08/02/19 09:35 Lopressor PO 25 mg BID STEFFI Administration Prednisolone Acetate 1 drop 08/01/19 09:00 08/02/19 12:08 Econopred Plus 1% Opth Susp R EYE 1 drp QID STEFFI Administration Sertraline HCl 25 mg 08/01/19 09:00 08/02/19 09:35 Zoloft PO 25 mg DAILY STEFFI Administration - Exam Eye: PERRL ENT: normocephalic atraumatic, no oropharyngeal lesions, moist mucosa, dry oral mucosa Neck: supple, symmetric, no JVD, no thyromegaly, no lymphadenopathy, no carotid bruit, JVD Heart: RRR, no murmur, no gallops, no rubs, normal peripheral pulses, irregular , diminshed peripheral pulses, murmur present, II/IV, III/IV Respiratory: CTAB, no wheezes Extremities: no cyanosis, no clubbing, no edema, 1+ LE edema, 2+ LE edema, clubbing Hosp A/P - Plan old records reviewed/req Severe DKA -resolved - on scheduled insulin PELON on CKD 3/Dehydration -improved Hyperkalemia Hyponatremia -resolved UTI - nicole neg - ctx - changed to po Obesity BMI 33.4 DM2 with nephropathy/retinopathy --tight contl of BD - fw on a1c -titrate insulin doses, as Po intake ok. HTN - restart losaran if BP allows and lytes ok Type 2 UT - POA - resolved plan for dc in 1 to 2 days
[2019-08-02] MEDS ORDERED: Insulin Glargine 20 UNITS in Pre-Filled Syringe 1 EACH SC SCH (21:00)
[2019-08-03] MEDS: hydrALAZINE 20 MG/ML VIAL SLOW IVP PRN ×2 (03:40→13:00)
[2019-08-03] MEDS: Levothyroxine 150 MCG TAB PO SCH (05:25)
[2019-08-03] MEDS: Brimonidine Tartrate 0.2% Ophth Soln 5 ml Bottle L EYE SCH (05:26)
[2019-08-03 05:35] LABS: #Eosinphils 0.2 thou/uL (0.0-0.7); #Lymphocytes 1.7 thou/uL (1.20-3.40); #Monocytes 0.5 thou/uL (0.11-0.59); #Neutrophils 2.3 thou/uL (1.40-6.50); %Basophils 0.6 % (0.0-1.0); %Eosinophils 4.3 % (0.0-10.0); %Lymphocytes 35.5 % (21.0-51.0); %Monocytes 10.6 % (0.0-10.0); %Neutrophils 49.1 % (42.0-75.0); Hemoglobin 10.2 g/dL (12.0-16.0); Mean Corpuscular HGB CONC 32.7 g/dL (32.0-36.0); Mean Corpuscular Volume 88.7 fL (78.0-98.0); Mean Platelet Volume 7.9 fL (7.4-10.4); Platelet Count 176 thou/uL (130-400); RBC Distribution Width 11.8 % (11.5-14.5); Red Blood Cell (RBC) Count 3.51 mill/uL (4.20-5.40); White Blood Cell (WBC) Count 4.7 thou/uL (4.8-10.8)
[2019-08-03 05:46] LABS: Anion Gap 12 mmol/L (10-20); BUN (Urea Nitrogen) 32 mg/dL (7.0-18.7); Calc. Creatinine Clearance 64 mL/min (70-130); Calcium 8.2 mg/dL (7.8-10.44); Carbon Dioxide 21 mmol/L (22-29); Chloride 108 mmol/L (98-107); Estimated GFR-MDRD 44; Glucose 77 mg/dL (70-105); Potassium 4.3 mmol/L (3.5-5.1); Sodium 137 mmol/L (136-145)
[2019-08-03] MEDS ORDERED: Cipro 250 MG TAB PO SCH (06:00)
[2019-08-03] MEDS ORDERED: Insulin Glargine 20 UNITS in Pre-Filled Syringe 1 EACH SC SCH (09:00)
[2019-08-03] MEDS: Sodium Chloride 0.45% 1,000 ML IV SCH (09:01)
[2019-08-03] MEDS: Famotidine 20 MG TAB PO SCH (09:06)
[2019-08-03] MEDS: Metoprolol Tartrate 25 MG TAB PO SCH (09:06)
[2019-08-03] MEDS: Dorzolamide HCl 2% Ophth Soln 10 ml Bottle L EYE SCH (09:12)
[2019-08-03] MEDS: Latanoprost 0.005% Ophth Soln 2.5 ml Bottle L EYE SCH (09:14)
[2019-08-03] MEDS: prednisoLONE 1% Ophth Susp 5 ml Bottle R EYE SCH ×2 (09:15→13:06)
[2019-08-03 12:02] VITALS: TEMP 97.8
[2019-08-03 14:10] VITALS: BP 175/89
[2019-08-03] MEDS ORDERED: Insulin Glargine 18 UNITS in Pre-Filled Syringe 1 EACH SC SCH (21:00)
--- NOTE | 2019-08-04 02:49 | DIS ---
DATE OF ADMISSION: 08/01/2019 DATE OF DISCHARGE: 08/03/2019 DISCHARGE DIAGNOSES: 1. Diabetic ketoacidosis. 2. Acute kidney injury on chronic kidney disease 3. 3. Hyperkalemia and hyponatremia, resolved. 4. Urinary tract infection. 5. Type 2 diabetes mellitus with A1c of 7.8. 6. Obesity and BMI of 33.4. 7. Type 2 diabetes mellitus with complications of nephropathy and retinopathy. 8. Hypertension. DISCHARGE MEDICATIONS: Please see the medication reconciliation. New medication is Cipro to complete the course for urinary tract infection. PHYSICAL EXAMINATION: VITAL SIGNS: On the day of discharge, the patient is alert, oriented, not in any acute distress. She is tolerating her diabetic diet. Her blood glucose has improved. CARDIOVASCULAR: Regular rate and rhythm without murmurs, rubs, or gallops. LUNGS: Clear to auscultation bilaterally without wheezing, rales, or rhonchi. ABDOMEN: Soft, nontender, and nondistended. Good bowel sounds. EXTREMITIES: No pitting edema. HOSPITAL COURSE: This is a 49-year-old female, admitted with severe DKA. Followed the DKA protocol and transitioned to scheduled insulin doses. The patient does not take any hypoglycemic p.o. tablets. She is on insulin Lantus 40 units as well as NovoLog 15 units t.i.d. a.c. After lengthy conversation she mentioned that she is not taking glargine as she supposed to be she only uses Humalog. I have emphasized that she needs to be on Lantus and based on the few readings of the last few days, I have titrated her basal insulin and recommended that she takes 25 units at bedtime. She needs to take that regardless of her meal time insulin. It is also mentioned if she is feeling not well, she can take at least 15 units of that same Lantus instead of skipping completely. She needs to titrate her meal time insulin, and she seems to be quite knowledgeable on mealtime insulin titration based on my conversation. She does not have any symptoms of UTI today. There were not any culture done during the time of initial evaluation to be followed. She will complete the course of antibiotics. She is on 150 mcg levothyroxine for her hypothyroidism. The patient has clinically improved, and she is hemodynamically stable to be discharge home today. DISCHARGE INSTRUCTIONS: Activity: As tolerated. Diet: Diabetic diet. Followup: With primary care physician in 1 week. Please adhere to the glargine/long-acting insulin regimen as well as meal time NovoLog insulin. TIME SPENT: Discharge time took over 30 minutes. copy to PCP. Job ID: [id number] SAVANNA
== END 2019-08-03 13:15 | disposition home or self-care (01) | DRG 637 ==
LOC: ERS 20:17 → CCU 08-01 00:15 → SURG A 08-01 14:27
PROVIDERS: ADMIT Family Medicine; ATTEND Family Medicine
DX: E11.10 Type 2 diabetes mellitus with ketoacidosis without coma (principal); I21.A1 Myocardial infarction type 2; E87.1 Hypo-osmolality and hyponatremia; N17.9 Acute kidney failure, unspecified; N39.0 Urinary tract infection, site not specified; E03.9 Hypothyroidism, unspecified; E11.22 Type 2 diabetes mellitus with diabetic chronic kidney disease; E11.319 Type 2 diabetes mellitus with unspecified diabetic retinopathy without macular edema; E66.9 Obesity, unspecified; E78.5 Hyperlipidemia, unspecified; E87.5 Hyperkalemia; F32.9 Major depressive disorder, single episode, unspecified; I12.9 Hypertensive chronic kidney disease with stage 1 through stage 4 chronic kidney disease, or unspecified chronic kidney disease; N18.3 Chronic kidney disease, stage 3 (moderate); Z68.33 Body mass index [BMI] 33.0-33.9, adult; Z79.4 Long term (current) use of insulin; Z79.899 Other long term (current) drug therapy; Z90.710 Acquired absence of both cervix and uterus
CPT/HCPCS: 36415; 36416; 80048; 80053; 81003; 81015; 82010; 82330; 82553; 82803; 83036; 83690; 83735; 84484; 85014; 85018; 85025; 85027; 85049; 93005; 96365; 96376; 99292; J0360; J0696; J1815; J3480; J3490

== ENCOUNTER 2019-09-20 17:14 | Inpatient (IN) | payer OTHER, SELFPAY ==
[2019-09-20] MEDS ORDERED: D5 1/2 NS w/20 mEq KCL 0 ML ONE (17:28)
[2019-09-20] MEDS ORDERED: Dextrose 50% Abboject 50 ML SYRINGE ONE (17:29)
[2019-09-20 17:39] LABS: #Basophils 0.1 thou/uL (0.0-0.2); #Eosinphils 0.2 thou/uL (0.0-0.7); #Lymphocytes 2.7 thou/uL (1.20-3.40); #Monocytes 0.6 thou/uL (0.11-0.59); #Neutrophils 1.9 thou/uL (1.40-6.50); %Basophils 1.2 % (0.0-1.0); %Eosinophils 4.2 % (0.0-10.0); %Monocytes 10.4 % (0.0-10.0); %Neutrophils 35.3 % (42.0-75.0); Hemoglobin 10.8 g/dL (12.0-16.0); Mean Corpuscular HGB CONC 33.1 g/dL (32.0-36.0); Mean Corpuscular Hemoglobin 29.6 pg (27.0-31.0); Mean Corpuscular Volume 89.4 fL (78.0-98.0); Mean Platelet Volume 8.4 fL (7.4-10.4); Platelet Count 279 thou/uL (130-400); RBC Distribution Width 12.6 % (11.5-14.5); Red Blood Cell (RBC) Count 3.65 mill/uL (4.20-5.40); White Blood Cell (WBC) Count 5.4 thou/uL (4.8-10.8)
[2019-09-20 18:06] LABS: ALT (SGPT) 31 U/L (8-55); AST (SGOT) 21 U/L (5-34); Albumin 3.7 g/dL (3.5-5.0); Alkaline Phosphatase 135 U/L (40-110); Anion Gap 12 mmol/L (10-20); BUN (Urea Nitrogen) 38 mg/dL (7.0-18.7); Bilirubin, Total 0.2 mg/dL (0.2-1.2); Calc. Creatinine Clearance 0 mL/min (70-130); Calcium 9.2 mg/dL (7.8-10.44); Carbon Dioxide 26 mmol/L (22-29); Chloride 107 mmol/L (98-107); Estimated GFR-MDRD 29; Globulin 3.6 g/dL (2.4-3.5); Potassium 3.1 mmol/L (3.5-5.1); Protein, Total 7.3 g/dL (6.0-8.3); Sodium 142 mmol/L (136-145)
[2019-09-20 18:12] LABS: Glucose 30 mg/dL (70-105)
[2019-09-20] MEDS ORDERED: Aspirin 325 MG TAB ONE (19:25)
[2019-09-20] MEDS ORDERED: Ondansetron PF 4 MG/2 ML Vial ONE (19:25)
[2019-09-20] MEDS ORDERED: Dextrose 5% in Water 1,000 ML IV PRN (19:51)
[2019-09-20] MEDS ORDERED: Dextrose 50% Abboject 50 ML SYRINGE SLOW IVP PRN (19:51)
[2019-09-20 20:58] LABS: Troponin I 0.214 ng/mL (< 0.028)
[2019-09-20 21:33] LABS: Bilirubin Negative (Negative); Blood, Urine Trace (Negative); Glucose, Urine (Dipstick) Negative (Negative); Leukocyte Trace (Negative); Nitrite Negative (Negative); Protein, Urine (Dipstick) > or equal to 300 mg/dL (Neg-Trace); Urobilinogen 0.2 mg/dL (Less than 2)
[2019-09-20 21:34] LABS: Clarity Clear (Clear)
[2019-09-20 21:37] LABS: Bacteria/HPF Rare-Few HPF (None Seen)
[2019-09-20 23:24] VITALS: BMI 36.2
[2019-09-20] MEDS: D5 1/2 NS w/40 mEq KCL 1,000 ML IV SCH (23:41)
[2019-09-20 23:54] LABS: Troponin I 0.176 ng/mL (< 0.028)
[2019-09-21] MEDS ORDERED: Insulin Regular 300 UNITS/3 ML VIAL SC PRN (02:24)
[2019-09-21] MEDS: Insulin Regular 300 UNITS/3 ML VIAL SC PRN ×5 (02:43→18:04)
--- NOTE | 2019-09-21 04:53 | HP ---
CHIEF COMPLAINT: Altered mental status and low blood sugar. HISTORY OF PRESENT ILLNESS: Ms. Coughlin is a 49-year-old female with past medical history of diabetes mellitus, type 1; hyperlipidemia; chronic kidney disease; hypertension, among others, presented to the emergency room for evaluation of symptomatic hypoglycemia. The patient has been feeling lightheaded while shopping with her mom. Blood sugar checked was 29. The patient was given juice and crackers without improvement, which prompted concern for evaluation. The patient presented with similar symptoms last month and was admitted for hypoglycemia. Also, the patient has history of DKA in the past. Followed up with PCP, who decreased Lantus dose, but not Humalog. On workup in the emergency room, the patient had troponin of 0.2. Her baseline troponin has been around 0.2 to 0.3. The patient denies chest pain. Also, the patient was found to be hypokalemic with a potassium of 3.1. Creatinine is 2.1, which is around baseline. Glucose in the ED was 30. The patient was given D50. The patient is being admitted to hospital for further management. Currently, the patient is awake, alert, oriented, feeling better. PAST MEDICAL HISTORY: As mentioned above in the history of present illness. PAST SURGICAL HISTORY: 1. Cataract surgery. 2. Hysterectomy. PAST PSYCHIATRIC HISTORY: Anxiety. SOCIAL HISTORY: The patient drinks socially. No smoking history. FAMILY HISTORY: Reviewed and noncontributory. ALLERGIES: NO KNOWN ALLERGIES. HOME MEDICATIONS: Please see home medication reconciliation form for updated medications. REVIEW OF SYSTEMS: Review of 14 systems negative except what is mentioned in history of present illness. PHYSICAL EXAMINATION: GENERAL: The patient is awake, alert, does not appear to be in acute distress. VITAL SIGNS: Blood pressure 140/50, pulse is 61, respiratory rate is 18, temperature is 94, and pulse oximetry 99%. HEAD AND NECK: Normocephalic, atraumatic. Neck is supple. No JVD. CHEST: Fair bilateral air entry. HEART: S1 and S2. Regular. ABDOMEN: Soft, nontender. Bowel sounds present. NEUROLOGIC: Awake, alert, and oriented x3. PSYCH: Normal mood. EXTREMITIES: No clubbing or cyanosis. GENITOURINARY: No suprapubic tenderness. No flank tenderness. ASSESSMENT: 1. Acute hypoglycemia. 2. Diabetes mellitus, type 1. 3. Hypothermia. 4. Elevated troponin, which is about her baseline from prior admission. 5. Chronic kidney disease. 6. Hypertension. 7. Acute hypokalemia. PLAN: 1. Admit. 2. Telemetry monitoring. 3. Frequent neuro checks. 4. Replace potassium. 5. Monitor blood glucose closely. We will start the patient on D5 half NS with potassium chloride. 6. Reassess in a.m. 7. Reconcile home medications. 8. DVT prophylaxis. 9. Warming blanket was applied to the patient, and septic workup . 10. DVT prophylaxis appropriate. 11. Expected length of stay, 2 midnights or more. Job ID: [id number]
[2019-09-21] MEDS: D5 1/2 NS w/40 mEq KCL 1,000 ML IV SCH ×2 (06:12→15:51)
[2019-09-21] MEDS ORDERED: FLU VACC QS2019-20(6MOS UP)/PF 60 MCG/0.5 ML SYRINGE IM ONE (09:00)
[2019-09-21] MEDS ORDERED: Calcium Carbonate 500 MG ChewTAB PO PRN (16:07)
--- NOTE | 2019-09-21 16:07 | PDOC.HOSPP ---
- Subjective Encounter Date: 09/21/19 Encounter Time: 16:00 Subjective: f/u for persistent hypoglycemia on home Lantus/ISS. Remains on D5 1/2 NS with glucose noted in 200+ range. - Objective Vital Signs & Weight: Vital Signs (12 hours) Temp Pulse Ox 09/21/19 15:19 97.5 F L 09/21/19 11:23 96.8 F L 09/21/19 08:00 96 09/21/19 07:23 98.0 F 09/21/19 04:15 98.3 F Weight Weight 211 lb 3.245 oz Most Recent Monitor Data Heart Rate from ECG 80 NIBP 189/99 NIBP BP-Mean 129 Respiration from ECG 26 SpO2 98 I&O: 09/20/19 09/21/19 09/22/19 06:59 06:59 06:59 Intake Total 632 Output Total 1400 650 Balance -768 -650 Result Diagrams: 09/20/19 17:30 09/20/19 17:30 Additional Labs: Accuchecks 09/21/19 09/21/19 09/21/19 14:35 12:10 10:48 POC Glucose 359 H 258 H 156 H 09/21/19 09/21/19 09/21/19 10:02 08:23 06:11 POC Glucose 149 H 226 H 280 H 09/21/19 09/21/19 09/20/19 04:19 02:16 23:32 POC Glucose 353 H 359 H 195 H 09/20/19 09/20/19 09/20/19 21:22 19:36 17:36 POC Glucose 77 82 253 H 09/20/19 09/20/19 17:32 17:20 POC Glucose 37 L* 36 L* Microbiology 09/20/19 21:20 Urine clean catch Urine Culture - Preliminary 09/20/19 20:30 Venous blood - Left Arm Blood Culture - Preliminary Specimen has been received and culture in progress. No Growth to date. 09/20/19 20:19 Venous blood - Right Hand Blood Culture - Preliminary Specimen has been received and culture in progress. No Growth to date. Laboratory Tests 09/20/19 09/20/19 09/20/19 17:30 20:30 23:29 Troponin I 0.196 H 0.214 H 0.176 H Laboratory Tests 07/04/19 08/02/19 05:41 10:33 Hemoglobin A1c 13.4 H 13.0 H EKG Reviewed by me: Yes (Tele - SR) Hospitalist ROS - Medication Medications: Active Medications Generic Name Dose Route Start Last Admin Trade Name Freq PRN Reason Stop Dose Admin Potassium Chloride/Dextrose/Sod Cl 1,000 mls @ 100 mls/hr 09/20/19 20:00 15:51 D5 1/2 Ns W/40 Meq Kcl IV 1,000 mls .Q10H STEFFI Administration Insulin Human Regular 0 units 09/21/19 02:24 09/21/19 04:22 Humulin R SC 5 unit .BEDTIME SLIDING SC PRN Administration Bedtime Correctional Scale Insulin Human Regular 0 units 09/21/19 02:33 09/21/19 14:35 Humulin R SC 6 unit .MILD SLIDING PRN Administration MILD SLIDING SCALE Protocol - Exam General Appearance: NAD, awake alert Eye: PERRL, anicteric sclera ENT: normocephalic atraumatic, no oropharyngeal lesions Neck: supple, symmetric, no JVD, no thyromegaly Heart: RRR, no murmur, no gallops, no rubs, normal peripheral pulses Respiratory: CTAB, no wheezes, no rales, no ronchi, normal chest expansion Gastrointestinal: soft, non-tender, non-distended, normal bowel sounds, no palpable masses Extremities: no cyanosis, no clubbing, no edema Skin: normal turgor, no lesions Neurological: cranial nerve grossly intact, no new deficit Musculoskeletal: normal tone, no muscle wasting Psychiatric: normal affect, A&O x 3 Hosp A/P (1) Hypoglycemia Code(s): E16.2 - HYPOGLYCEMIA, UNSPECIFIED Status: Acute Plan: Iatrogenic, hold Lantus and consider splitting the total dose for home, start po intake and wean off D5 IVF's (2) DM I (diabetes mellitus, type I) Status: Chronic Plan: See above #1, ISS, ADA (3) CKD (chronic kidney disease), stage IV Code(s): N18.4 - CHRONIC KIDNEY DISEASE, STAGE 4 (SEVERE) Status: Chronic Plan: Avoid nephrotoxic meds and limit contrast exposure (4) HTN (hypertension) Code(s): I10 - ESSENTIAL (PRIMARY) HYPERTENSION Status: Chronic Qualifiers: Hypertension type: essential hypertension Qualified Code(s): I10 - Essential (primary) hypertension Plan: Resume home BP regimen, Hydralazine IV PRN - Plan out of bed/ambulate, DVT proph w/SCDs Continue IV D51/2 NS @ 50ml/h Start ADA Hold Lantus Resume home BP regimen OOB/ambulate AM lab: BMP, CBC ? home in 24h
[2019-09-21] MEDS: prednisoLONE 1% Ophth Susp 5 ml Bottle R EYE SCH ×2 (18:26→21:30)
[2019-09-21] MEDS: Ciprofloxacin 0.3% Ophth Drops 2.5 ml Bottle R EYE SCH ×2 (18:26→21:34)
[2019-09-21] MEDS ORDERED: Pravastatin Sodium 40 MG TAB PO SCH (21:00)
[2019-09-21] MEDS: Brimonidine Tartrate 0.2% Ophth Soln 5 ml Bottle L EYE SCH (21:29)
[2019-09-22] MEDS: Insulin Regular 300 UNITS/3 ML VIAL SC PRN ×4 (02:20→16:26)
[2019-09-22 04:41] LABS: Anion Gap 12 mmol/L (10-20); BUN (Urea Nitrogen) 30 mg/dL (7.0-18.7); Calc. Creatinine Clearance 46 mL/min (70-130); Calcium 8.1 mg/dL (7.8-10.44); Carbon Dioxide 19 mmol/L (22-29); Chloride 109 mmol/L (98-107); Estimated GFR-MDRD 28; Glucose 343 mg/dL (70-105); Potassium 4.8 mmol/L (3.5-5.1); Sodium 135 mmol/L (136-145)
[2019-09-22 05:00] LABS: Band 1 % (5-11); Eosinophils 2 % (0-10); Lymphocytes 35 % (21-51); MDiff Complete? YES; Mean Corpuscular HGB CONC 32.9 g/dL (32.0-36.0); Mean Corpuscular Hemoglobin 29.7 pg (27.0-31.0); Mean Corpuscular Volume 90.1 fL (78.0-98.0); Mean Platelet Volume 8.1 fL (7.4-10.4); Monocytes 6 % (0-10); Neutrophil 56 % (42-75); Platelet Count 218 thou/uL (130-400); RBC Distribution Width 12.6 % (11.5-14.5); Red Blood Cell (RBC) Count 3.05 mill/uL (4.20-5.40); White Blood Cell (WBC) Count 5.2 thou/uL (4.8-10.8)
[2019-09-22] MEDS: D5 1/2 NS w/40 mEq KCL 1,000 ML IV SCH (05:48)
[2019-09-22] MEDS ORDERED: Levothyroxine 150 MCG TAB PO SCH (06:00)
[2019-09-22] MEDS ORDERED: Losartan 25 MG TAB PO SCH (09:00)
[2019-09-22] MEDS ORDERED: Amlodipine 10 MG TAB PO SCH (09:00)
[2019-09-22] MEDS ORDERED: Latanoprost 0.005% Ophth Soln 2.5 ml Bottle L EYE SCH (09:00)
[2019-09-22] MEDS: Ciprofloxacin 0.3% Ophth Drops 2.5 ml Bottle R EYE SCH ×2 (09:38→12:25)
[2019-09-22] MEDS: Brimonidine Tartrate 0.2% Ophth Soln 5 ml Bottle L EYE SCH (09:47)
[2019-09-22] MEDS: prednisoLONE 1% Ophth Susp 5 ml Bottle R EYE SCH ×3 (09:48→16:25)
[2019-09-22 09:55] VITALS: BP 182/78
[2019-09-22 15:28] VITALS: TEMP 97.6
--- NOTE | 2019-09-23 01:05 | DIS ---
DATE OF ADMISSION: 09/20/2019 DATE OF DISCHARGE: 09/22/2019 DISCHARGE DIAGNOSES: 1. Hypoglycemia secondarily to insulin regimen, improved. 2. Diabetes mellitus, type 1, labile. 3. Chronic kidney disease, stage 4, stable. 4. Hypertension, labile. CONSULTATIONS: None. PERTINENT LABORATORY AND X-RAY FINDINGS: Creatinine ranged between 2.15 to 2.25. Estimated GFR ranged between 28 to 29. Troponin I ranged between 0.176 to 0.214. BNP 86. CBC showed a hemoglobin that ranged between 9.0 to 10.8. Blood culture x2 dated 09/20/2019, showed no growth at 48 hours. Urine culture dated 09/20/2019, showed greater than 100,000 colonies of mixed skin mayra. HOSPITAL COURSE: The patient was initially admitted to the intermediate care unit after presenting with acute hypoglycemia in the context of diabetes mellitus, type 1 with recurrent hypoglycemia. The patient was placed on a D5 infusion and held on all insulin. Serial glucose trend showed overall improved values with hyperglycemia by the time of discharge. No specific underlying infectious process was identified, and the patient overall remained clinically stable during the hospital course. The patient was noted with labile hypertension, likely due to infusion of IV fluids. Current recommendations are to split the Lantus dosing to 25 units in the a.m. and 10 units at bedtime. The patient was also educated on the use of a sliding scale insulin regimen for home. Overall, the patient did remain clinically stable during the hospital course and tolerated regular oral intake. I have examined the patient at the time of discharge and discussed followup instructions. The patient verbalizes understanding and agreement, ready for discharge on 09/22/2019. DISCHARGE MEDICATIONS: 1. Amlodipine 10 mg p.o. daily. 2. Alphagan 0.2% one drop to the left eye b.i.d. 3. Xalatan 0.005% one drop to left eye daily. 4. Levothyroxine 150 mcg p.o. daily. 5. Losartan 100 mg p.o. daily. 6. Toprol-XL 100 mg p.o. daily. 7. Ocuflox 0.3% one drop to the right eye q.i.d. 8. Pravachol 40 mg p.o. at bedtime. 9. Prednisolone acetate one drop to the right eye q.i.d. 10. Zoloft 25 mg p.o. daily. 11. Timolol maleate 0.5% one drop to each eye b.i.d. 12. Calcium carbonate 1000 mg p.o. q.4 hours p.r.n. 13. Humalog sliding scale. 14. Glargine insulin 25 units subcutaneously q.a.m. and 10 units subcutaneously at bedtime. FOLLOWUP: The patient will follow up with Dr. Josie Wright within 7 days of discharge. CONDITION ON DISCHARGE: Stable. ACTIVITY: Ad-chetan. DIET: ADA and heart healthy. CODE STATUS: Full. DISPOSITION: To home on 09/22/2019. TIME SPENT: Total time preparing and coordinating discharge, 32 minutes. Job ID: [id number]
--- NOTE | 2019-09-23 23:14 | PQF ---
Tami Coughlin CHARLES DO [id number] CLINICAL DOCUMENTATION CLARIFICATION FORM: POST DISCHARGE Addendum to original discharge summary date: ____ Late entry note date: __ DATE: 09/23/2019 ATTN:JIMENEZ VALDOVINOS DO Please exercise your independent, professional judgment in responding to the clarification form. Clinical indicators are provided on the bottom of this form for your review Please check appropriate box(s): [ x ] Metabolic encephalopathy [ ] Encephalopathy NOS [ ] Other diagnosis [ ] Unable to determine In addition, please specify: Present on Admission (POA): [ x ] Yes [ ] No [ ] Unable to determine For continuity of documentation, please document condition throughout progress notes and discharge summary. Thank You. CLINICAL INDICATORS - SIGNS / SYMPTOMS / LABS Altered mental status and low blood sugar-Documented in H&P on 09/19 by Vero Tesfaye MD Glucose in ED was 30-Documented in H&P on 09/19 by Vero Rodriguez MD Past psychiatric history;Anxiety-Documented in H&P on 09/19 by Vero Rodriguez MD Acute hypoglycemia-Documented in H&P on 09/19 by Vero Rodriguez MD Diabetes mellitus type 1-Documented in H&P on 09/19 by Vero Rodriguez MD Hypothermia-Documented in H&P on 09/19 by Vero Rodriguez MD Acute hypokalemia-Documented in H&P on 09/19 by Vero Rodriguez MD RISK FACTORS Acute hypoglycemia-Documented in H&P on 09/19 by Vero Rodriguez MD Diabetes mellitus type 1-Documented in H&P on 09/19 by Vero Rodriguez MD TREATMENTS: Frequent neuro checks -Documented in H&P on 09/19 by Vero Rodriguez MD Replace potassium-Documented in H&P on 09/19 by Vero Rodriguez MD Monitor blood glucose closely we will start the patient on D5 half NS with potassium chloride-Documented in H&P on 09/19 by Vero Rodriguez MD [employer] (This form is maintained as a part of the permanent medical record) 2014 [employer] All Rights Reserved [email or web address]
== END 2019-09-22 16:47 | disposition home or self-care (01) | DRG 637 ==
LOC: ERS 17:14 → IMCU/EMU 20:05
PROVIDERS: ADMIT Internal Medicine; ATTEND Internal Medicine
DX: E10.649 Type 1 diabetes mellitus with hypoglycemia without coma (principal); G93.41 Metabolic encephalopathy; Z79.4 Long term (current) use of insulin; I12.9 Hypertensive chronic kidney disease with stage 1 through stage 4 chronic kidney disease, or unspecified chronic kidney disease; E10.22 Type 1 diabetes mellitus with diabetic chronic kidney disease; N18.4 Chronic kidney disease, stage 4 (severe); E78.5 Hyperlipidemia, unspecified; F41.9 Anxiety disorder, unspecified; Z90.710 Acquired absence of both cervix and uterus; Z98.49 Cataract extraction status, unspecified eye; E87.6 Hypokalemia; T68.XXXA Hypothermia, initial encounter; R79.9 Abnormal finding of blood chemistry, unspecified; R40.2362 Coma scale, best motor response, obeys commands, at arrival to emergency department; R40.2142 Coma scale, eyes open, spontaneous, at arrival to emergency department; R40.2252 Coma scale, best verbal response, oriented, at arrival to emergency department; E03.9 Hypothyroidism, unspecified
CPT/HCPCS: 36415; 36416; 80048; 80053; 81003; 81015; 82553; 83690; 83880; 84484; 85007; 85025; 85027; 87040; 87086; 93005; J1815; J2405; J3480

== ENCOUNTER 2019-10-03 20:27 | Inpatient (IN) | payer MEDICAID, SELFPAY ==
[2019-10-03 21:23] LABS: #Eosinphils 0.1 thou/uL (0.0-0.7); #Lymphocytes 1.5 thou/uL (1.20-3.40); #Monocytes 0.4 thou/uL (0.11-0.59); #Neutrophils 3.3 thou/uL (1.40-6.50); %Basophils 0.9 % (0.0-1.0); %Eosinophils 1.6 % (0.0-10.0); %Lymphocytes 28.7 % (21.0-51.0); %Monocytes 6.7 % (0.0-10.0); %Neutrophils 62.1 % (42.0-75.0); Hemoglobin 11.6 g/dL (12.0-16.0); Mean Corpuscular HGB CONC 34.5 g/dL (32.0-36.0); Mean Corpuscular Hemoglobin 29.9 pg (27.0-31.0); Mean Corpuscular Volume 86.7 fL (78.0-98.0); Mean Platelet Volume 8.3 fL (7.4-10.4); Platelet Count 288 thou/uL (130-400); RBC Distribution Width 12.3 % (11.5-14.5); Red Blood Cell (RBC) Count 3.89 mill/uL (4.20-5.40); White Blood Cell (WBC) Count 5.4 thou/uL (4.8-10.8)
[2019-10-03 21:26] LABS: ALT (SGPT) 21 U/L (8-55); AST (SGOT) 21 U/L (5-34); Albumin 3.6 g/dL (3.5-5.0); Alkaline Phosphatase 131 U/L (40-110); Anion Gap 18 mmol/L (10-20); BUN (Urea Nitrogen) 40 mg/dL (7.0-18.7); Bilirubin, Total 0.3 mg/dL (0.2-1.2); Calc. Creatinine Clearance 0 mL/min (70-130); Calcium 8.8 mg/dL (7.8-10.44); Carbon Dioxide 18 mmol/L (22-29); Chloride 105 mmol/L (98-107); Estimated GFR-MDRD 26; Globulin 3.2 g/dL (2.4-3.5); Glucose 138 mg/dL (70-105); Protein, Total 6.8 g/dL (6.0-8.3); Sodium 137 mmol/L (136-145)
[2019-10-03 21:59] LABS: CKMB 1.3 ng/mL (0-6.6)
[2019-10-03 23:24] LABS: Troponin I 0.083 ng/mL (< 0.028)
[2019-10-04] MEDS ORDERED: Aspirin Chewable 81 MG TAB ONE (00:09)
[2019-10-04] MEDS ORDERED: Senokot S 8.6-50 MG TAB PO PRN ×2 (00:30→06:28)
[2019-10-04] MEDS ORDERED: Acetaminophen 325 MG TAB PO PRN ×2 (00:30→06:26)
[2019-10-04] MEDS ORDERED: Dextrose 50% Abboject 50 ML SYRINGE SLOW IVP PRN ×2 (00:32→06:26)
[2019-10-04] MEDS ORDERED: HumaLOG 300 UNITS/3 ML VIAL SC PRN (00:32)
[2019-10-04] MEDS ORDERED: Dextrose 5% in Water 1,000 ML IV PRN ×2 (00:32→06:26)
--- NOTE | 2019-10-04 01:27 | HP ---
PCP: Dr. Sepulveda. CHIEF COMPLAINT: Hypoglycemia. HISTORY OF PRESENT ILLNESS: Ms. Coughlin is a very pleasant 49-year-old female, who reported to the emergency room via EMS today for evaluation of low blood sugar. She reports that she woke up feeling nauseous this morning. She threw up at about 3 o'clock today. Reports that she got up this morning, checked her blood sugar was over 300. She took her sliding scale dose of Humalog. She ate a little something and then started to feel nauseous, threw up once and reports that she feels better. She was given D50 by EMS. By the time she got to the emergency room, her blood sugar was 125. She was given something to eat and then lab work was drawn. Initial troponin was 0.077, subsequent 0.083. She was admitted two weeks ago to [facility] for a similar episode of hypoglycemia. Her troponins at that point were also elevated at 0.196, 0.2, and the results today are lower. She denies any chest pain or shortness of breath. Denies any abdominal pain, fever, or chills. Currently, her blood sugar has come up to 157. Because of the elevated troponin hypoglycemia, she will be admitted to observation for monitoring. PAST MEDICAL HISTORY: The patient has a past medical history pertinent for diabetes, type 1; hyperlipidemia; chronic kidney disease; and hypertension. PAST MEDICAL HISTORY: As above. PAST SURGICAL HISTORY: Cataract surgery and hysterectomy. PSYCHIATRIC HISTORY: Anxiety. SOCIAL HISTORY: Drinks socially. No smoking history. FAMILY HISTORY: Reviewed, noncontributory. ALLERGIES: NONE. HOME MEDICATIONS: Patient denies any changes to her medications Since the last time she was here. 1. Norvasc 10 mg p.o. daily. 2. Brimonidine drop one drop to left eye. 3. Latanoprost 0.005% one drop to left eye. 4. Levothyroxine 150 mcg p.o. daily. 5. Losartan 100 mg p.o. daily. 6. Metoprolol 100 mg p.o. daily. 7. Ofloxacin 1 drop to right eye. 8. Pravastatin 40 mg p.o. at bedtime. 9. Prednisolone eyedrops one drop to right eye. 10. Zoloft 25 mg p.o. daily. 11. Timolol 0.5% one drop each eye. 12. Calcium carbonate 1000 mg q.4 hours p.r.n. 13. Humalog sliding scale, Lantus 10 units subcu at bedtime. REVIEW OF SYSTEMS: GENERAL: Denies chills or fever. HEENT: Denies any sore throat or rhinorrhea. CARDIOVASCULAR: Denies chest pain or palpitations. Denies cough or shortness of breath. GI: Does report some nausea. Reports vomiting x1. Denies abdominal pain or constipation. Does report loose bowel movements over the last several days. MUSCULOSKELETAL: Denies falls. Denies edema. SKIN: Denies changes. ENDOCRINE: Reports some hypoglycemia today. All systems are reviewed and are negative unless mentioned in the HPI. PHYSICAL EXAMINATION: VITAL SIGNS: Blood pressure 172/71, pulse is 78, respiratory rate is 16, temperature is 98.4, and PO2 sats are 99% on room air. CONSTITUTIONAL: Patient is nontoxic appearing. She is alert and oriented to person, place, and time. HEENT: Head is atraumatic and normocephalic. Eyes, pupils are normal to inspection. Conjunctivae are normal. ENT; mouth exam is normal. Mucous membranes are moist. NECK: Normal range of motion. Trachea is midline. RESPIRATORY/CHEST: Breath sounds are clear. Chest movement is symmetrical. CARDIOVASCULAR: Regular heart rate and rhythm. Heart sounds are normal. ABDOMEN: Nontender. Bowel sounds are heard. BACK: Normal range of motion. No tenderness. EXTREMITIES: Upper extremity, normal range of motion. Inspection is normal. Radial pulses are normal. Lower extremity, normal range of motion. Motor strength is normal. Pedal pulses are normal. NEUROLOGIC: She is alert and oriented. Moving all extremities. SKIN: Warm and dry. Normal in color. LABORATORY DATA: EKG in the emergency room shows normal sinus rhythm, beats per minute 70. When compared to the previous EKG from 09/19, has a normal EKG, conduction normal, ST segments normal, and T-waves are normal. PLAN/ASSESSMENT: 1. Diabetes, type 1 with acute hypoglycemia. We will check Accu-Cheks, glucose q.4 hours. We will recheck blood work in the a.m. Trend troponins. 2. Chronic kidney disease. Slightly elevated creatinine. We will recheck in the morning. I suspect this is a cause for elevated troponin in the indeterminate range. We will trend x3. 3. Hypertension. We will restart home medications. 4. Hypothyroidism. We will restart home medications. 5. Gastrointestinal and deep venous thrombosis prophylaxis started. 6. Discussed with Dr. iNcole who agrees with plan. 7. Hospital course is dependent on clinical findings. Job ID: [id number]
[2019-10-04 02:24] LABS: Troponin I 0.075 ng/mL (< 0.028)
[2019-10-04 03:06] VITALS: BMI 32.1
[2019-10-04] MEDS ORDERED: Levothyroxine 150 MCG TAB PO SCH ×2 (06:30→09:00)
[2019-10-04] MEDS: HumaLOG 300 UNITS/3 ML VIAL SC PRN ×4 (06:35→19:37)
[2019-10-04] MEDS: Losartan 25 MG TAB PO SCH (08:42)
[2019-10-04] MEDS: Amlodipine 10 MG TAB PO SCH (08:43)
[2019-10-04] MEDS: Famotidine 20 MG TAB PO SCH (08:43)
[2019-10-04] MEDS ORDERED: Amlodipine 10 MG TAB PO SCH (09:00)
[2019-10-04] MEDS ORDERED: Famotidine 20 MG TAB PO SCH (09:00)
[2019-10-04] MEDS ORDERED: Losartan 25 MG TAB PO SCH (09:00)
[2019-10-04] MEDS ORDERED: Nitroglycerin 0.4 MG TAB (25 Tab Bottle) PO PRN (11:23)
[2019-10-04] MEDS ORDERED: Insulin Glargine 10 UNITS in Pre-Filled Syringe 1 EACH SC SCH (11:30)
[2019-10-05] MEDS: HumaLOG 300 UNITS/3 ML VIAL SC PRN ×3 (02:05→17:05)
[2019-10-05] MEDS: Levothyroxine 150 MCG TAB PO SCH (05:46)
[2019-10-05] MEDS ORDERED: ADENOSINE 60 MG/20 ML VIAL ONE (08:56)
[2019-10-05] MEDS: Amlodipine 10 MG TAB PO SCH (11:05)
[2019-10-05] MEDS: Insulin Glargine 10 UNITS in Pre-Filled Syringe 1 EACH SC SCH (11:05)
[2019-10-05] MEDS: Losartan 25 MG TAB PO SCH (11:05)
[2019-10-05] MEDS: Aspirin 81 mg Enteric Coated Tablet PO SCH (11:05)
[2019-10-05] MEDS: Famotidine 20 MG TAB PO SCH (11:06)
[2019-10-05] MEDS ORDERED: Insulin Glargine 10 UNITS in Pre-Filled Syringe 1 EACH SC SCH ×2 (13:00→21:00)
[2019-10-05] MEDS: prednisoLONE 1% Ophth Susp 5 ml Bottle R EYE SCH (21:51)
[2019-10-05] MEDS: Brimonidine Tartrate 0.2% Ophth Soln 5 ml Bottle L EYE SCH (21:53)
[2019-10-05] MEDS: Timolol 0.5% Ophth Soln 5 ml Bottle EA EYE SCH (21:54)
[2019-10-06] MEDS: Levothyroxine 150 MCG TAB PO SCH (05:16)
[2019-10-06] MEDS: Losartan 25 MG TAB PO SCH (08:40)
[2019-10-06] MEDS: Amlodipine 10 MG TAB PO SCH (08:40)
[2019-10-06] MEDS: Aspirin 81 mg Enteric Coated Tablet PO SCH (08:41)
[2019-10-06] MEDS: Famotidine 20 MG TAB PO SCH (08:41)
[2019-10-06] MEDS: Brimonidine Tartrate 0.2% Ophth Soln 5 ml Bottle L EYE SCH (08:41)
[2019-10-06] MEDS: prednisoLONE 1% Ophth Susp 5 ml Bottle R EYE SCH ×3 (08:42→17:18)
[2019-10-06] MEDS: Insulin Glargine 10 UNITS in Pre-Filled Syringe 1 EACH SC SCH (08:47)
[2019-10-06] MEDS: Timolol 0.5% Ophth Soln 5 ml Bottle EA EYE SCH (08:50)
[2019-10-06] MEDS: HumaLOG 300 UNITS/3 ML VIAL SC PRN ×2 (11:45→17:17)
[2019-10-06 11:57] VITALS: TEMP 98
[2019-10-06 14:45] VITALS: BP 125/83
--- NOTE | 2019-10-06 17:19 | PDOC.HOSPP ---
- Subjective Encounter Date: 10/05/19 Encounter Time: 09:00 Subjective: Patient seen and examined for Hypoglycemia/CP. No new complaints. No overnight events - Objective Vital Signs & Weight: Vital Signs (12 hours) Temp Pulse Resp BP BP Pulse Ox 10/06/19 14:43 98.0 F 74 13 125/83 100 10/06/19 11:53 98.0 F 78 17 138/76 99 10/06/19 06:58 97.8 F 78 18 134/76 100 Weight Admit Weight 192 lb 14.4 oz Weight 193 lb 4.8 oz I&O: 10/05/19 10/06/19 10/07/19 06:59 06:59 06:59 Intake Total 1320 600 Output Total 450 Balance 870 600 Result Diagrams: 10/03/19 21:00 10/03/19 21:00 Additional Labs: Accuchecks 10/06/19 10/06/19 10/06/19 16:17 10:18 05:44 POC Glucose 207 H 311 H 126 H 10/05/19 20:22 POC Glucose 262 H EKG Reviewed by me: Yes (Tele SR) Hospitalist ROS - Review of Systems Respiratory: denies: cough, dry, shortness of breath, hemoptysis, SOB with excertion, pleuritic pain, sputum, wheezing, other Cardiovascular: denies: chest pain, palpitations, orthopnea, paroxysmal noc. dyspnea, edema, light headedness, other Gastrointestinal: denies: nausea, vomiting, abdominal pain, diarrhea, constipation, melena, hematochezia, other - Medication Medications: Active Medications Generic Name Dose Route Start Last Admin Trade Name Claritza PRN Reason Stop Dose Admin Amlodipine Besylate 10 mg 10/04/19 09:00 10/06/19 08:40 Norvasc PO 10 mg DAILY STEFFI Administration Aspirin 81 mg 10/05/19 09:00 10/06/19 08:41 Ecotrin PO 81 mg DAILY STEFFI Administration Brimonidine Tartrate 1 drop 10/05/19 21:00 10/06/19 08:41 Alphagan 0.2% Ophth Soln L EYE 1 drop BID STEFFI Administration Famotidine 20 mg 10/04/19 09:00 10/06/19 08:41 Pepcid PO 20 mg DAILY STEFFI Administration Insulin Glargine 10 units/ 0.1 mls @ 0 mls/hr 10/05/19 21:00 10/05/19 21:54 Miscellaneous Medication SC 0.1 mls HS STEFFI Administration Insulin Human Lispro 0 units 10/04/19 06:28 10/06/19 11:45 Humalog SC 5 unit .MILD SLIDING SCALE PRN Administration Mild Correctional Scale Insulin Human Lispro 0 units 10/04/19 16:38 10/05/19 02:05 Humalog SC 5 unit .BEDTIME SLIDING SC PRN Administration Bedtime Correctional Scale Levothyroxine Sodium 150 mcg 10/05/19 06:00 10/06/19 05:16 Synthroid PO 150 mcg 0600 STEFFI Administration Losartan Potassium 100 mg 10/04/19 09:00 10/06/19 08:40 Cozaar PO 100 mg DAILY STEFFI Administration Metoprolol Succinate 100 mg 10/04/19 09:00 10/06/19 08:40 Toprol Xl PO 100 mg DAILY STEFFI Administration Prednisolone Acetate 1 drop 10/05/19 21:00 10/06/19 14:36 Econopred Plus 1% Opth Susp R EYE 1 drop QID STEFFI Administration Timolol Maleate 1 drop 10/05/19 21:00 10/06/19 08:50 Timoptic 0.5% Ophth Soln EA EYE Not Given BID STEFFI - Exam General Appearance: NAD Neck: supple, no JVD Heart: RRR, no gallops Respiratory: no wheezes, no ronchi Gastrointestinal: non-tender, non-distended, normal bowel sounds Extremities: no cyanosis Neurological: no new deficit Hosp A/P - Plan DVT proph w/SCDs Hypoglycemia DM1 Elevated troponins prob due to demand ischemia/?Anginal equivalent Obesity BMI 32 HTN HLD Glaucoma CKD 3 Hypothyroidism PLAN: Stress test pending Change Lantus 10 units BID Cont sliding scale Cont ASA Cont Amlodipine Update: Stress test EF 41% - no reversible. I d/w Dr Hernandez - Will obtain Echo
--- NOTE | 2019-10-06 17:39 | PDOC.HOSPP ---
- Subjective Encounter Date: 10/06/19 Encounter Time: 09:30 Subjective: Patient seen and examined for elevated troponins. No CP. No new complaints. No overnight events - Objective Vital Signs & Weight: Vital Signs (12 hours) Temp Pulse Resp BP BP Pulse Ox 10/06/19 14:43 98.0 F 74 13 125/83 100 10/06/19 11:53 98.0 F 78 17 138/76 99 10/06/19 06:58 97.8 F 78 18 134/76 100 Weight Admit Weight 192 lb 14.4 oz Weight 193 lb 4.8 oz I&O: 10/05/19 10/06/19 10/07/19 06:59 06:59 06:59 Intake Total 8042 874 3256 Output Total 450 Balance 638 727 8143 Result Diagrams: 10/03/19 21:00 10/03/19 21:00 Additional Labs: Accuchecks 10/06/19 10/06/19 10/06/19 16:17 10:18 05:44 POC Glucose 207 H 311 H 126 H 10/05/19 20:22 POC Glucose 262 H EKG Reviewed by me: Yes (Tele SR) Hospitalist ROS - Review of Systems Respiratory: denies: cough, dry, shortness of breath, hemoptysis, SOB with excertion, pleuritic pain, sputum, wheezing, other Cardiovascular: denies: chest pain, palpitations, orthopnea, paroxysmal noc. dyspnea, edema, light headedness, other Gastrointestinal: denies: nausea, vomiting, abdominal pain, diarrhea, constipation, melena, hematochezia, other - Medication Medications: Active Medications Generic Name Dose Route Start Last Admin Trade Name Claritza PRN Reason Stop Dose Admin Amlodipine Besylate 10 mg 10/04/19 09:00 10/06/19 08:40 Norvasc PO 10 mg DAILY STEFFI Administration Aspirin 81 mg 10/05/19 09:00 10/06/19 08:41 Ecotrin PO 81 mg DAILY STEFFI Administration Brimonidine Tartrate 1 drop 10/05/19 21:00 10/06/19 08:41 Alphagan 0.2% Ophth Soln L EYE 1 drop BID STEFFI Administration Famotidine 20 mg 10/04/19 09:00 10/06/19 08:41 Pepcid PO 20 mg DAILY STEFFI Administration Insulin Glargine 10 units/ 0.1 mls @ 0 mls/hr 10/05/19 21:00 10/05/19 21:54 Miscellaneous Medication SC 0.1 mls HS STEFFI Administration Insulin Human Lispro 0 units 10/04/19 06:28 10/06/19 17:17 Humalog SC 3 unit .MILD SLIDING SCALE PRN Administration Mild Correctional Scale Insulin Human Lispro 0 units 10/04/19 16:38 10/05/19 02:05 Humalog SC 5 unit .BEDTIME SLIDING SC PRN Administration Bedtime Correctional Scale Levothyroxine Sodium 150 mcg 10/05/19 06:00 10/06/19 05:16 Synthroid PO 150 mcg 0600 STEFFI Administration Losartan Potassium 100 mg 10/04/19 09:00 10/06/19 08:40 Cozaar PO 100 mg DAILY STEFFI Administration Metoprolol Succinate 100 mg 10/04/19 09:00 10/06/19 08:40 Toprol Xl PO 100 mg DAILY STEFFI Administration Prednisolone Acetate 1 drop 10/05/19 21:00 10/06/19 17:18 Econopred Plus 1% Opth Susp R EYE 1 drop QID STEFFI Administration Timolol Maleate 1 drop 10/05/19 21:00 10/06/19 08:50 Timoptic 0.5% Ophth Soln EA EYE Not Given BID STEFFI - Exam General Appearance: NAD Neck: supple, no JVD Heart: RRR, no gallops Respiratory: no wheezes, no ronchi Gastrointestinal: non-tender, normal bowel sounds Extremities: no cyanosis Neurological: no new deficit Psychiatric: normal affect, A&O x 3 Hosp A/P - Plan DVT proph w/SCDs Hypoglycemia DM1 Elevated troponins prob due to demand ischemia/?Anginal equivalent Abnormal stress test Obesity BMI 32 HTN HLD Glaucoma CKD 3 Hypothyroidism PLAN: Stress test EF 41% Await Echo Cont Lantus 10 units BID with sliding scale Cont ASA/Amlodipine and other meds as above DC later today if EF normal on Echo
--- NOTE | 2019-10-07 06:54 | DIS ---
DATE OF ADMISSION: 10/04/2019 DATE OF DISCHARGE: 10/06/2019 DISCHARGE DISPOSITION: Home. The patient was seen and examined on the day of discharge. Please refer to my progress note for details. DISCHARGE MEDICATIONS: Same as admission medication. The patient was advised to monitor her blood sugar on a daily basis. She was also advised to reduce the a.m. dose of insulin to either 10 or 15 units daily if she was going to skip a meal. BRIEF HOSPITAL COURSE: The patient is a 49-year-old female with diabetes mellitus type 1, presented to the emergency room with nausea along with generalized weakness. She was also found to have significant hypoglycemia, requiring D50 by EMS. Please refer to the history and physical for further details. The patient was admitted to the hospital with a diagnosis of hypoglycemia along with generalized weakness. She was also found to have elevated troponin with a maximum troponin of 0.083. On further questioning, she mention that she gets short of breath on baum-or-smetceml exertion, which is gradually getting worse. For this reason, she underwent a Cardiolite stress test that was negative for reversible ischemia. However, the ejection fraction on the stress test was 41%. There was also global hypokinesis with greater hypokinesis involving the inferior and the lateral left ventricular wall. The TID was 1.1. Due to low ejection fraction along with hypokinesis on the stress test, she waited overnight for an echocardiogram. An echocardiogram was obtained that showed normal right ventricular size and function. There was [id number] dilatation of the left atrium. Overall ejection fraction was 60% to 65% with mild tricuspid regurgitation and mild pulmonic regurgitation along with trace mitral regurgitation. She appears stable for discharge. She understands the above plan of care. FINAL DIAGNOSES: 1. Generalized weakness secondary to hypoglycemia, resolved. 2. Elevated troponin probably secondary to demand ischemia/questionable anginal equivalent. A stress test was negative for reversible ischemia. 3. Abnormal stress test. The ejection fraction on the echo was normal. 4. Diabetes mellitus type 1. 5. Obesity with a BMI 32. 6. History of medication noncompliance. 7. Hypertension. 8. Hyperlipidemia. 9. Glaucoma. 10. Chronic kidney disease, stage 3. 11. Hypothyroidism. The patient understands the above plan of care. Job ID: [id number]
[2019-10-07] MEDS ORDERED: Insulin Glargine 20 UNITS in Pre-Filled Syringe 1 EACH SC SCH (09:00)
--- NOTE | 2019-10-07 15:22 | NM ---
EXAM: NM Cardiac Stress W EF WF PROVIDED CLINICAL HISTORY: Chest pain. COMPARISON: None FINDINGS: There is normal uptake and distribution of radiotracer seen throughout the left ventricular myocardiu m on the stress acquisition. No reversible or fixed defects are seen on the stress and resting acquisitions. There appears to be mild left ventricular dilatation. Transient ischemic dilatation rat io is within normal limits at 1.11. Gated images show global hypokinesis with greater hypokinesis involving the inferior and lateral left ventricular wall. Normal ventricular wall thickening is prese nt. Left ventricular ejection fraction is calculated at 41%. IMPRESSION: 1. Normal myocardial perfusion study without evidence of a reversible defect seen to suggest ischemia . 2. Global hypokinesis with decreased LVEF of 41%.
== END 2019-10-06 19:10 | disposition home or self-care (01) | DRG 638 ==
LOC: ERS 20:27 → 2SW 10-04 00:11 → OBSVTOIN 10-04 00:11 → ERS 10-04 02:29 → 2NO 10-05 17:23
PROVIDERS: ADMIT Internal Medicine; ATTEND Internal Medicine
DX: E10.649 Type 1 diabetes mellitus with hypoglycemia without coma (principal); I24.8 Other forms of acute ischemic heart disease; I12.9 Hypertensive chronic kidney disease with stage 1 through stage 4 chronic kidney disease, or unspecified chronic kidney disease; E03.9 Hypothyroidism, unspecified; E78.5 Hyperlipidemia, unspecified; E78.00 Pure hypercholesterolemia, unspecified; F41.9 Anxiety disorder, unspecified; N18.3 Chronic kidney disease, stage 3 (moderate); H40.9 Unspecified glaucoma; E66.9 Obesity, unspecified; E10.22 Type 1 diabetes mellitus with diabetic chronic kidney disease; I08.8 Other rheumatic multiple valve diseases; Z79.4 Long term (current) use of insulin; Z79.899 Other long term (current) drug therapy; Z90.710 Acquired absence of both cervix and uterus; Z79.890 Hormone replacement therapy; Z68.32 Body mass index [BMI] 32.0-32.9, adult; Z79.52 Long term (current) use of systemic steroids
CPT/HCPCS: 36415; 36416; 78452; 80053; 82553; 84484; 85025; 93005; 93017; 93306; 94760; A9500; J0153; J1815

== ENCOUNTER 2019-11-30 14:56 | Observation (INO) | payer MEDICAID, OTHER ==
[2019-11-30 16:36] LABS: ALT (SGPT) 15 U/L (8-55); AST (SGOT) 21 U/L (5-34); Albumin 3.6 g/dL (3.5-5.0); Alkaline Phosphatase 80 U/L (40-110); Anion Gap 12 mmol/L (10-20); BUN (Urea Nitrogen) 54 mg/dL (7.0-18.7); Bilirubin, Total 0.3 mg/dL (0.2-1.2); Calc. Creatinine Clearance 0 mL/min (70-130); Calcium 8.8 mg/dL (7.8-10.44); Carbon Dioxide 24 mmol/L (22-29); Chloride 110 mmol/L (98-107); Estimated GFR-MDRD 28; Globulin 3.4 g/dL (2.4-3.5); Glucose 71 mg/dL (70-105); Potassium 4.1 mmol/L (3.5-5.1); Sodium 142 mmol/L (136-145)
[2019-11-30 16:46] LABS: Band 2 % (5-11); Eosinophils 5 % (0-10); Hemoglobin 10.2 g/dL (12.0-16.0); Lymphocytes 53 % (21-51); MDiff Complete? YES; Mean Corpuscular HGB CONC 32.4 g/dL (32.0-36.0); Mean Corpuscular Hemoglobin 29.5 pg (27.0-31.0); Mean Corpuscular Volume 91.2 fL (78.0-98.0); Mean Platelet Volume 8.8 fL (7.4-10.4); Monocytes 8 % (0-10); Neutrophil 32 % (42-75); Platelet Count 203 thou/uL (130-400); RBC Distribution Width 12.2 % (11.5-14.5); Red Blood Cell (RBC) Count 3.44 mill/uL (4.20-5.40); White Blood Cell (WBC) Count 3.5 thou/uL (4.8-10.8)
[2019-11-30 16:57] LABS: CKMB 1.5 ng/mL (0-6.6)
--- NOTE | 2019-11-30 17:20 | RAD ---
CHEST ONE VIEW: History: Hyperglycemic Comparison: 07-03-19 FINDINGS: Lungs are clear. No pneumothorax or effusion. Cardiac silhouette and mediastinal contours are within normal limits. IMPRESSION: No acute intrathoracic abnormality. POS: HOME
[2019-11-30 19:08] LABS: Bilirubin Negative (Negative); Blood, Urine Trace (Negative); Clarity Clear (Clear); Glucose, Urine (Dipstick) 200 mg/dL (Negative); Leukocyte 250 Leu/uL (Negative); Nitrite Negative (Negative); Protein, Urine (Dipstick) 200 mg/dL (Neg-Trace); RBC/HPF 0-3 HPF (0-3); Urobilinogen Normal mg/dL (Less than 2)
[2019-11-30 19:09] LABS: Bacteria/HPF 1+ HPF (None Seen)
[2019-11-30] MEDS ORDERED: Ondansetron PF 4 MG/2 ML Vial IVP PRN (20:35)
[2019-11-30] MEDS ORDERED: Acetaminophen 325 MG TAB PO PRN (20:35)
[2019-11-30] MEDS ORDERED: Dextrose 50% Abboject 50 ML SYRINGE SLOW IVP PRN (20:35)
[2019-11-30] MEDS ORDERED: Dextrose 5% in Water 1,000 ML IV PRN (20:35)
[2019-11-30] MEDS ORDERED: hydrALAZINE 20 MG/ML VIAL SLOW IVP PRN (20:39)
[2019-11-30] MEDS ORDERED: cefTRIAXone Sodium 1,000 MG in Syringe 0 ML IVPB SCH (20:45)
[2019-11-30 21:15] VITALS: BMI 36.1
[2019-11-30] MEDS: cefTRIAXone\\ROCEPHIN 1 GM in Sodium Chloride 0.9% 100 ML IVPB SCH (21:43)
[2019-11-30 22:25] LABS: CKMB 1.5 ng/mL (0-6.6)
[2019-12-01 01:03] LABS: Troponin I 0.057 ng/mL (< 0.028)
--- NOTE | 2019-12-01 03:03 | HP ---
PRIMARY CARE PHYSICIAN: Josie Wright DO. SOURCE OF THE HISTORY: From the patient and the history is reliable. CHIEF COMPLAINT: "I was brought to the emergency department because of low blood glucose level." HISTORY OF PRESENT ILLNESS: This is a 49-year-old female patient who has a history of essential hypertension, dyslipidemia, stage 3 chronic kidney disease resulting from diabetes mellitus and the patient has type 1 diabetes mellitus for which the patient has been on Lantus insulin 20 units in the morning and 10 units at night along with Humalog sliding scale coverage. The patient had her last Lantus insulin dose of 10 units last night and this morning the patient did not take her Lantus insulin. At 10:00, this morning, the patient took 10 units of Humalog insulin and subsequently at 11:00, the patient had a good breakfast. Eventually, the patient did not have the lunch and subsequently the patient became confused to the point that the patient did not remember the events and during that time, the patient's family noted the patient to be having hypoglycemia for which the patient was brought to the emergency department by the EMS. With dextrose and orange juice, the patient's glucose level had been improved and the patient's mental status has been normalized. Subsequently, the patient had evaluation, which revealed probable urinary tract infection and so the patient had been admitted to Internal Medicine service. Currently, the patient is comfortable on the stretcher. PAST MEDICAL HISTORY: 1. Hypertension. 2. Type 1 diabetes mellitus. 3. Dyslipidemia. 4. Stage 3 chronic kidney disease. PAST SURGICAL HISTORY: 1. Cataract extraction. 2. Hysterectomy. 3. Vitrectomy. ALLERGIES: NONE. CURRENT MEDICATIONS: At home, please see the reconciliation sheet. SOCIAL HISTORY: Lives with her family. Ambulates without any assistance. Never had any history of tobacco abuse, alcohol abuse, or recreational drug abuse. FAMILY HISTORY: Mother had hypothyroidism and has history of hypertension and diabetes mellitus on her maternal side. REVIEW OF SYSTEMS: As mentioned in the history of present illness. Apart from that, 14 point of review of systems have been conducted and not contributory. PHYSICAL EXAMINATION: GENERAL: Middle-aged female patient, lying on the stretcher with head of the bed elevated, not appears to be in any cardiopulmonary distress. Mucous membranes are pale and moist. Acyanotic, anicteric. No finger clubbing, pedal edema, or lymphadenopathy. HEAD: Atraumatic, normocephalic. ENT: Neck is supple. No jugular venous distention. No thyromegaly or carotid bruits. EYES: Extraocular movements are intact. Pupils are equal and reactive to light bilaterally. Accommodation reflex present. CHEST: Bilaterally symmetrical. Trachea in the midline. Air entry is good bilaterally with clear vesicular breath sounds. CARDIOVASCULAR: Normal intensity of S1, S2 without S3. No murmurs or rub appreciated. ABDOMEN: Soft without any distention. Nontender. No organomegaly. Bowel sounds are normoactive. COMMERCIAL TITLE EXAMINER: The patient is alert, awake, oriented to time, place, person. Cranial nerves 2 through 12 were intact. No focal motor or sensory deficits. EXTREMITIES: No edema or calf asymmetry. SKIN: No rash or petechiae. LABORATORY DATA: WBC 3.4, hemoglobin 10.2, hematocrit 31.4, platelets 203. Sodium 142, potassium 4.1, chloride 110, bicarb 24, anion gap 12, BUN 54, creatinine 2.2, GFR 28, glucose 129. Calcium 8.8, total bilirubin 0.3, AST 21, ALT 15, alkaline phosphatase 80. CK-MB 1.5, troponin 0.070. Total protein 7.0, albumin 3.6, globulin 3.4. Urinalysis revealed negative nitrites, leukocyte esterase 250, bacteria 1+. Chest x-ray revealed no acute intrathoracic abnormality. ASSESSMENT: 1. Acute metabolic encephalopathy. 2. Hypoglycemia. 3. Equivocal elevation of troponin. 4. Possible urinary tract infection. 5. Anemia of chronic disease. 6. Stage 3 chronic kidney disease. 7. Essential hypertension with controlled blood pressure. 8. 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 9. Dyslipidemia. PLAN: The patient has type 1 diabetes mellitus and for the last one month, the patient has been having hypoglycemic episodes and presented today again with hypoglycemia. Currently, the patient's glucose is within the normal range and so we will not consider any dextrose or water at this point of time, and we will continue to monitor blood glucose levels with mild dose of lispro insulin sliding scale coverage; otherwise, hold long-acting insulins. The patient has evidence of probable urinary tract infection for which we will keep the patient on intravenous ceftriaxone empirically and await urine cultures. The patient had equivocal elevation of troponin, which could be related to her chronic kidney disease as the patient is completely asymptomatic, but otherwise we will obtain two more sets of cardiac enzymes and EKG to rule out any acute coronary syndrome. We will resume all home medications. Keep the patient on Lovenox 30 mg subcutaneously once a day for DVT prophylaxis. The patient has been explained about the current plan of management, which she had understood and agreed for it. Job ID: [id number]
[2019-12-01 04:35] LABS: #Eosinphils 0.2 thou/uL (0.0-0.7); #Lymphocytes 2.4 thou/uL (1.20-3.40); #Monocytes 0.4 thou/uL (0.11-0.59); #Neutrophils 3.8 thou/uL (1.40-6.50); %Basophils 0.3 % (0.0-1.0); %Eosinophils 2.6 % (0.0-10.0); %Lymphocytes 34.8 % (21.0-51.0); %Monocytes 6.4 % (0.0-10.0); %Neutrophils 55.8 % (42.0-75.0); Hemoglobin 9.8 g/dL (12.0-16.0); Mean Corpuscular HGB CONC 32.4 g/dL (32.0-36.0); Mean Corpuscular Hemoglobin 29.6 pg (27.0-31.0); Mean Corpuscular Volume 91.5 fL (78.0-98.0); Platelet Count 206 thou/uL (130-400); RBC Distribution Width 12.1 % (11.5-14.5); White Blood Cell (WBC) Count 6.9 thou/uL (4.8-10.8)
[2019-12-01 04:50] LABS: Anion Gap 14 mmol/L (10-20); BUN (Urea Nitrogen) 49 mg/dL (7.0-18.7); Calc. Creatinine Clearance 56 mL/min (70-130); Calcium 8.3 mg/dL (7.8-10.44); Carbon Dioxide 21 mmol/L (22-29); Chloride 109 mmol/L (98-107); Estimated GFR-MDRD 36; Glucose 178 mg/dL (70-105); Potassium 4.2 mmol/L (3.5-5.1); Sodium 140 mmol/L (136-145)
[2019-12-01 05:13] LABS: CKMB 1.4 ng/mL (0-6.6)
[2019-12-01] MEDS: Enoxaparin Sodium 30 MG/0.3 ML SYRINGE SC SCH (08:20)
[2019-12-01] MEDS ORDERED: Calcium Carbonate 500 MG ChewTAB PO PRN (15:00)
[2019-12-01] MEDS ORDERED: Amlodipine 10 MG TAB PO SCH (15:15)
[2019-12-01] MEDS ORDERED: Losartan 25 MG TAB PO SCH (15:15)
[2019-12-01] MEDS ORDERED: Dextrose 5% in Water 1,000 ML IV PRN (15:29)
[2019-12-01] MEDS ORDERED: Dextrose 50% Abboject 50 ML SYRINGE IVP PRN (15:29)
[2019-12-01] MEDS: HumaLOG 300 UNITS/3 ML VIAL SC PRN (16:53)
--- NOTE | 2019-12-01 19:58 | PDOC.HOSPP ---
- Subjective Encounter Date: 12/01/19 Encounter Time: 07:20 Subjective: Pt seen for followup re: hypoglycemia. Feels better now. - Objective Vital Signs & Weight: Vital Signs (12 hours) Temp Pulse Resp BP BP Pulse Ox 12/01/19 15:26 98.2 F 80 16 186/98 H 99 12/01/19 11:12 97.5 F L 76 16 182/87 H 98 12/01/19 08:00 96.8 F L 73 17 173/96 H 97 Weight Admit Weight 210 lb 14.4 oz Weight 210 lb 14.4 oz I&O: 11/30/19 12/01/19 12/02/19 06:59 06:59 06:59 Intake Total 470 Balance 470 Result Diagrams: 12/01/19 04:12 12/01/19 04:12 Additional Labs: Accuchecks 12/01/19 12/01/19 12/01/19 16:37 10:28 05:45 POC Glucose 386 H 223 H 141 H 11/30/19 21:23 POC Glucose 165 H Labs and MARs reviewed by me EKG Reviewed by me: Yes (Tele: NSR) Hospitalist ROS - Review of Systems Constitutional: denies: fever, chills, sweats, weakness, malaise Cardiovascular: denies: chest pain, palpitations, orthopnea, paroxysmal noc. dyspnea, edema, light headedness Gastrointestinal: denies: nausea, vomiting, abdominal pain, diarrhea, constipation, melena, hematochezia Genitourinary: denies: dysuria, frequency, incontinence, hematuria, retention Musculoskeletal: denies: neck pain, shoulder pain, arm pain, back pain, hand pain, leg pain, foot pain - Medication Medications: Active Medications Generic Name Dose Route Start Last Admin Trade Name Freq PRN Reason Stop Dose Admin Enoxaparin Sodium 30 mg 12/01/19 09:00 12/01/19 08:20 Lovenox SC 30 mg 0900 STEFFI Administration Ceftriaxone Sodium 1 gm/ 100 mls @ 200 mls/hr 11/30/19 22:00 11/30/19 21:43 Sodium Chloride IVPB 100 mls 2200 STEFFI Administration Insulin Human Lispro 0 units 11/30/19 20:35 12/01/19 16:53 Humalog SC 6 unit .MILD SLIDING SCALE PRN Administration Mild Correctional Scale - Exam General - other findings: Obese Eye: anicteric sclera ENT: no oropharyngeal lesions Neck: supple, symmetric, no JVD, no thyromegaly Heart: RRR, no gallops, no rubs, normal peripheral pulses Respiratory: CTAB, no wheezes, no rales, no ronchi, normal chest expansion Gastrointestinal: soft, non-tender, non-distended, normal bowel sounds Musculoskeletal: no muscle wasting Psychiatric: normal affect, normal behavior, A&O x 3 Hosp A/P (1) Hypoglycemia Code(s): E16.2 - HYPOGLYCEMIA, UNSPECIFIED Status: Acute (2) UTI (urinary tract infection) Status: Acute (3) DM I (diabetes mellitus, type I) Status: Chronic (4) Dyslipidemia Code(s): E78.5 - HYPERLIPIDEMIA, UNSPECIFIED Status: Chronic (5) HTN (hypertension) Code(s): I10 - ESSENTIAL (PRIMARY) HYPERTENSION Status: Chronic Qualifiers: Hypertension type: essential hypertension Qualified Code(s): I10 - Essential (primary) hypertension (6) Chronic kidney disease, stage 3 Code(s): N18.3 - CHRONIC KIDNEY DISEASE, STAGE 3 (MODERATE) Status: Chronic - Plan out of bed/ambulate Resume insulin, watch for hypoglycemia. Continue IV ceftriaxone, follow urine culture. Resume home anti-hypertensives, monitor vital signs and titrate anti hypertensives as needed.
[2019-12-01] MEDS ORDERED: Insulin Glargine 10 UNITS in Pre-Filled Syringe 1 EACH SC SCH (21:00)
[2019-12-01] MEDS ORDERED: Atorvastatin Calcium 10 MG TAB PO SCH (21:00)
[2019-12-01] MEDS: Brimonidine Tartrate 0.2% Ophth Soln 5 ml Bottle EA EYE SCH (22:02)
[2019-12-01] MEDS: cefTRIAXone\\ROCEPHIN 1 GM in Sodium Chloride 0.9% 100 ML IVPB SCH (22:02)
[2019-12-01] MEDS: Timolol 0.5% Ophth Soln 5 ml Bottle EA EYE SCH (22:02)
[2019-12-01] MEDS: Loteprednol Etabonate 0.5% Ophth Suspension 5 ml Bottle EA EYE SCH (22:25)
[2019-12-02] MEDS ORDERED: Levothyroxine 150 MCG TAB PO SCH (06:00)
[2019-12-02 08:32] VITALS: BP 157/86; TEMP 98.2
[2019-12-02] MEDS: Brimonidine Tartrate 0.2% Ophth Soln 5 ml Bottle EA EYE SCH (08:32)
[2019-12-02] MEDS: Timolol 0.5% Ophth Soln 5 ml Bottle EA EYE SCH (08:33)
[2019-12-02] MEDS: Loteprednol Etabonate 0.5% Ophth Suspension 5 ml Bottle EA EYE SCH (08:33)
[2019-12-02] MEDS: Enoxaparin Sodium 30 MG/0.3 ML SYRINGE SC SCH (08:34)
[2019-12-02] MEDS ORDERED: Insulin Glargine 25 UNITS in Pre-Filled Syringe 1 EACH SC SCH (09:00)
[2019-12-02] MEDS ORDERED: Amlodipine 10 MG TAB PO SCH (09:00)
[2019-12-02] MEDS ORDERED: Losartan 25 MG TAB PO SCH (09:00)
[2019-12-02] MEDS ORDERED: Aspirin 81 mg Enteric Coated Tablet PO SCH (09:00)
[2019-12-02] MEDS ORDERED: Cefdinir 300 MG CAP PO SCH (10:00)
--- NOTE | 2019-12-02 11:01 | DIS ---
DATE OF ADMISSION: 11/30/2019 DATE OF DISCHARGE: 12/02/2019 PRIMARY CARE PROVIDER: Josie Wright, DISCHARGE DIAGNOSES: 1. Hypoglycemia. 2. Urinary tract infection. CONDITION: Condition of the patient on the day of discharge: Stable. I assessed Ms. Coughlin on the day of discharge. She denies any chest pain or shortness of breath. Vital signs are stable. S1 and S2 are heard, regular. Lungs are clear to auscultation bilaterally. HOSPITAL COURSE: Ms. Coughlin is a pleasant 49-year-old lady, who was admitted to [facility] following a hypoglycemic episode. Her home medications were resumed and there was no recurrence of hypoglycemia. She has been advised to check her blood sugars 3 times a day and show the readings to her primary care provider. She was also found to have urinary tract infection at the time of admission. She was initially treated with intravenous ceftriaxone, subsequently stepped down to oral cefdinir. At the time of this dictation, urine culture report is pending. She has been advised to follow up with her primary care provider for the same. On November 30, she had sodium 140, potassium 4.2, and creatinine 1.83. White count 6900, hemoglobin 9.8, and platelet count 206,000. No change was made to her pre-admission home medications, and cefdinir was added at 300 mg 2 times a day for 5 days. Many thanks for allowing me to participate in your patient's care. Please feel free to contact me with any questions or concerns. POST-ACUTE CARE FOLLOWUP: With primary care provider in 3 days. ACTIVITY: No restrictions. DIET: Diabetic and heart healthy. DISCHARGE DESTINATION: Home. Job ID: [id number]
[2019-12-02] MEDS: HumaLOG 300 UNITS/3 ML VIAL SC PRN (11:14)
== END 2019-12-02 12:00 | disposition home or self-care (01) ==
LOC: ERS 14:56 → 2SE 21:01
PROVIDERS: ADMIT Internal Medicine; ATTEND Internal Medicine
DX: E10.649 Type 1 diabetes mellitus with hypoglycemia without coma (principal); N39.0 Urinary tract infection, site not specified; I12.9 Hypertensive chronic kidney disease with stage 1 through stage 4 chronic kidney disease, or unspecified chronic kidney disease; E10.22 Type 1 diabetes mellitus with diabetic chronic kidney disease; N18.3 Chronic kidney disease, stage 3 (moderate); D63.1 Anemia in chronic kidney disease; E10.21 Type 1 diabetes mellitus with diabetic nephropathy; G93.41 Metabolic encephalopathy; E78.5 Hyperlipidemia, unspecified; E78.00 Pure hypercholesterolemia, unspecified; F41.9 Anxiety disorder, unspecified; E03.9 Hypothyroidism, unspecified; Z79.2 Long term (current) use of antibiotics; Z79.82 Long term (current) use of aspirin; Z79.899 Other long term (current) drug therapy
CPT/HCPCS: 36415; 36416; 71045; 80048; 80053; 81003; 81015; 82553; 84484; 85025; 87086; 93005; 96372; 96375; 96376; G0378; J0696; J1650; J1815; J3490

== ENCOUNTER 2019-12-16 23:52 | Emergency (ER) | payer OTHER ==
[2019-12-17] MEDS ORDERED: diphenhydrAMINE 25 MG CAP ONE (00:58)
== END 2019-12-17 02:55 | disposition home or self-care (01) ==
LOC: ERS 23:52
DX: E11.649 Type 2 diabetes mellitus with hypoglycemia without coma (principal); E03.9 Hypothyroidism, unspecified; E78.5 Hyperlipidemia, unspecified; F41.9 Anxiety disorder, unspecified; Z79.4 Long term (current) use of insulin; Z79.899 Other long term (current) drug therapy
CPT/HCPCS: 36416; 99283; Q0163

== ENCOUNTER 2019-12-20 13:02 | Inpatient (IN) | payer OTHER ==
--- NOTE | 2019-12-20 13:38 | RAD ---
Exam: Chest one view HISTORY:Dyspnea Comparison: 11/30/2019 FINDINGS: Cardiac silhouette: Normal Aorta: Unremarkable Pulmonary vessels: Normal Costophrenic angles: Clear LUNGS: No masses or consolidation. Pneumothorax: None Osseous abnormalities: None IMPRESSION: No acute cardiopulmonary process.
[2019-12-20 13:40] LABS: #Basophils 0.1 thou/uL (0.0-0.2); #Eosinphils 0.1 thou/uL (0.0-0.7); #Lymphocytes 1.9 thou/uL (1.20-3.40); #Monocytes 0.3 thou/uL (0.11-0.59); #Neutrophils 5.1 thou/uL (1.40-6.50); %Basophils 0.7 % (0.0-1.0); %Eosinophils 0.9 % (0.0-10.0); %Lymphocytes 24.9 % (21.0-51.0); %Monocytes 4.4 % (0.0-10.0); %Neutrophils 69.1 % (42.0-75.0); Hemoglobin 11.1 g/dL (12.0-16.0); Mean Corpuscular HGB CONC 32.2 g/dL (32.0-36.0); Mean Corpuscular Hemoglobin 29.1 pg (27.0-31.0); Mean Corpuscular Volume 90.4 fL (78.0-98.0); Mean Platelet Volume 9.1 fL (7.4-10.4); Platelet Count 241 thou/uL (130-400); RBC Distribution Width 12.1 % (11.5-14.5); Red Blood Cell (RBC) Count 3.82 mill/uL (4.20-5.40); White Blood Cell (WBC) Count 7.4 thou/uL (4.8-10.8)
[2019-12-20 14:01] LABS: ALT (SGPT) 19 U/L (8-55); AST (SGOT) 17 U/L (5-34); Albumin 3.7 g/dL (3.5-5.0); Alkaline Phosphatase 119 U/L (40-110); Anion Gap 21 mmol/L (10-20); BUN (Urea Nitrogen) 70 mg/dL (7.0-18.7); Bilirubin, Total Less than 0.2 mg/dL (0.2-1.2); Calc. Creatinine Clearance 0 mL/min (70-130); Calcium 8.6 mg/dL (7.8-10.44); Carbon Dioxide 11 mmol/L (22-29); Chloride 103 mmol/L (98-107); Estimated GFR-MDRD 17; Globulin 3.7 g/dL (2.4-3.5); Potassium 4.6 mmol/L (3.5-5.1); Protein, Total 7.4 g/dL (6.0-8.3); Sodium 130 mmol/L (136-145)
[2019-12-20 14:08] LABS: Glucose 721 mg/dL (70-105); Lipase 9 U/L (8-78); Magnesium 2.1 mg/dL (1.6-2.6); Phosphorus 4.4 mg/dL (2.3-4.7)
[2019-12-20 14:26] LABS: CKMB 1.8 ng/mL (0-6.6)
[2019-12-20] MEDS ORDERED: Aspirin Chewable 81 MG TAB ONE (14:47)
[2019-12-20] MEDS ORDERED: Insulin Regular 300 UNITS/3 ML VIAL ONE (14:47)
[2019-12-20] MEDS ORDERED: HumaLOG 300 UNITS/3 ML VIAL ONE (15:12)
[2019-12-20] MEDS ORDERED: Insulin Regular 300 UNITS/3 ML VIAL SC SCH (15:45)
[2019-12-20] MEDS ORDERED: Insulin Regular 100 units/100 ml in NS IVPB SCH (16:30)
[2019-12-20] MEDS ORDERED: NS 0.9% w/ 20 MEQ KCL 1,000 ML/1,000 ML BAG IV PRN ×2 (16:59)
[2019-12-20] MEDS ORDERED: Dextrose 5% in Water 1,000 ML IV PRN (16:59)
[2019-12-20] MEDS ORDERED: Dextrose 5 %-0.45 % NaCl 1,000 ML IV PRN (16:59)
[2019-12-20] MEDS ORDERED: Sodium Chloride 0.9% 1,000 ML IV PRN ×4 (16:59)
[2019-12-20] MEDS ORDERED: Potassium Phosphate 12 MMOL in Sodium Chloride 0.9% 250 ML 250 ML IV PRN (17:00)
[2019-12-20] MEDS ORDERED: ADD ELECTROLYTE REPLACEMENT SET TO PROFILE FS SCH (17:00)
[2019-12-20] MEDS ORDERED: Dextrose 50% Abboject 50 ML SYRINGE SLOW IVP PRN (17:00)
[2019-12-20] MEDS ORDERED: Potassium Chloride 40 MEQ in Sodium Chloride 0.9% 250 ML 250 ML IVPB PRN (17:00)
[2019-12-20] MEDS ORDERED: Insulin Regular 300 UNITS/3 ML VIAL IVP SCH (17:00)
[2019-12-20] MEDS ORDERED: Potassium Chloride 40 MEQ in Premix Bag 1 BAG IVPB PRN (17:00)
[2019-12-20] MEDS ORDERED: Potassium Phosphate 15 MMOL in Sodium Chloride 0.9% 250 ML 250 ML IV PRN (17:00)
[2019-12-20] MEDS ORDERED: Magnesium 2 GM/50 ML 2 GM in Premix Bag 1 BAG IVPB PRN (17:00)
[2019-12-20] MEDS ORDERED: CCU ELECTROLYTE REPLACEMENT PROTOCOL FS PRN (17:00)
[2019-12-20] MEDS ORDERED: PHOS-NAK 1 PKT PACK PO PRN ×2 (17:00)
[2019-12-20] MEDS ORDERED: Magnesium Oxide 400 MG TAB PO PRN ×2 (17:00)
[2019-12-20] MEDS ORDERED: Potassium Phosphate 9 MMOL in Sodium Chloride 0.9% 100 ML IVPB PRN (17:00)
[2019-12-20] MEDS ORDERED: HUMULIN R 100 UNITS in Sodium Chloride 0.9% 100 ML IVPB SCH (17:00)
[2019-12-20] MEDS ORDERED: Potassium Chloride 20 MEQ TAB PO PRN (17:00)
[2019-12-20 17:06] VITALS: BMI 33.5
[2019-12-20 17:06] LABS: Troponin I 0.072 ng/mL (< 0.028)
[2019-12-20 17:07] LABS: Anion Gap 22 mmol/L (10-20); BUN (Urea Nitrogen) 66 mg/dL (7.0-18.7); Calc. Creatinine Clearance 30 mL/min (70-130); Calcium 8.2 mg/dL (7.8-10.44); Carbon Dioxide 10 mmol/L (22-29); Chloride 106 mmol/L (98-107); Estimated GFR-MDRD 19; Potassium 4.9 mmol/L (3.5-5.1); Sodium 133 mmol/L (136-145)
[2019-12-20 17:11] LABS: Glucose 636 mg/dL (70-105)
[2019-12-20] MEDS ORDERED: hydrALAZINE 20 MG/ML VIAL SLOW IVP PRN (18:16)
--- NOTE | 2019-12-20 18:43 | HP ---
PRIMARY CARE PROVIDER: Josie Wright DO CHIEF COMPLAINT: Feeling unwell. HISTORY OF PRESENT ILLNESS: Ms. Coughlin is a pleasant 49-year-old lady, who was seen at [facility] on December 20, 2019. She has a medical history of diabetes mellitus and has been hospitalized in the past for hypoglycemia. She reports that over the last couple of days, she has been having generalized weakness, mild nausea, and blurry vision. She missed her Lantus dose today. She is only taking her premeal short-acting insulin. She reports that her glucometer readings have been "high." She denies any fevers or cough. She denies any chest pain. She denies any urinary symptoms. REVIEW OF SYSTEMS: All systems were reviewed and found to be negative except for the pertinent positives mentioned above. PAST MEDICAL HISTORY: Hypothyroidism, chronic kidney disease, diabetes mellitus, dyslipidemia, and hypertension. SURGICAL HISTORY: Cataract surgery and hysterectomy. PSYCHIATRIC HISTORY: Anxiety. SOCIAL HISTORY: The patient denies tobacco use, alcohol use, or recreational drug use. FAMILY HISTORY: Type 1 diabetes in family members. ALLERGIES: NO KNOWN DRUG ALLERGIES. CURRENT MEDICATIONS: 1. Humalog insulin 20 to 25 units subcutaneously three times a day. 2. Sertraline 25 mg daily. 3. Synthroid 150 mcg daily. 4. Metoprolol tartrate 150 mg daily. 5. Pravastatin 40 mg daily. 6. Lantus insulin 32 units at bedtime. 7. Timolol to both eyes two times a day. 8. Brimonidine to both eyes every 8 hours. 9. Losartan 50 mg daily. 10. Lotemax eye drops to both eyes two times a day. 11. Amlodipine 10 mg daily. 12. Aspirin 81 mg daily. PHYSICAL EXAMINATION: GENERAL: On examination, Ms. Coughlin is awake and alert, not in acute distress. VITAL SIGNS: Blood pressure is 122/72, pulse 82, respiratory rate 18, and oxygen saturation 98% on room air. She is afebrile. EYES: No conjunctival pallor, no scleral icterus. ENT: Dry mucosal membranes. No oropharyngeal erythema or exudates. NECK: Supple, nontender, trachea is midline. RESPIRATORY: Accessory muscles of breathing are not active. Chest wall movements are symmetric bilaterally. Lungs are clear to auscultation without wheeze, rhonchi, or crepitations. CARDIOVASCULAR: S1 and S2 are heard, regular. Peripheral pulses palpable. ABDOMEN: Soft, nontender, bowel sounds are heard. NEUROLOGIC: Cranial nerves 2 through 12 are intact, deep tendon reflexes 2+. MUSCULOSKELETAL: Power is 5/5 in all 4 extremities. SKIN: No rashes. LYMPHATIC: No cervical lymphadenopathy. PSYCHIATRIC: Normal mood, normal affect. The patient is oriented to person, place, and time. LABORATORY DATA: Ms. Coughlin' labs and investigations were reviewed. Chest x-ray did not show any pulmonary infiltrates. She has normal white count, normocytic anemia with hemoglobin 11.1, normal platelet count, decreased sodium of 130 prior to correction for elevated glucose of 721, normal potassium, elevated blood urea nitrogen of 70, elevated creatinine of 3.51, indeterminate troponin I of 0.077, normal AST, normal ALT, elevated alkaline phosphatase of 119, and normal lipase. Beta-hydroxybutyrate is elevated at 2.86. ASSESSMENT AND PLAN: Ms. Coughlin is a pleasant 49-year-old lady, who was seen at [facility] on December 20, 2019. Her problem list includes: 1. Diabetic ketoacidosis: Ms. Cuoghlin is presenting with diabetic ketoacidosis. She will be admitted to the hospital for further management. She will be started on the DKA protocol. There is no clear etiology for diabetic ketoacidosis other than missing long-acting insulin. I will have her urinalysis checked to rule out urinary tract infection. 2. Hypothyroidism: Continue Synthroid. 3. Acute on chronic renal failure stage 3: This is most likely secondary to dehydration. Provide intravenous hydration and recheck creatinine. 4. Hypertension: Hold nephrotoxic medications including losartan, monitor vital signs and titrate antihypertensives as needed. Add p.r.n. IV hydralazine for blood pressure control. Many thanks for allowing me to participate in your patient's care. Please feel free to contact me with any questions or concerns. LEVEL OF RISK: Moderate. LEVEL OF COMPLEXITY: Moderate. Job ID: [id number]
[2019-12-20] MEDS: Atorvastatin Calcium 10 MG TAB PO SCH (20:30)
[2019-12-20] MEDS: Loteprednol Etabonate 0.5% Ophth Suspension 5 ml Bottle EA EYE SCH (20:32)
[2019-12-20] MEDS: Timolol 0.5% Ophth Soln 5 ml Bottle EA EYE SCH (20:36)
[2019-12-20] MEDS: Brimonidine Tartrate 0.2% Ophth Soln 5 ml Bottle EA EYE SCH (20:36)
[2019-12-20 21:35] LABS: Anion Gap 15 mmol/L (10-20); BUN (Urea Nitrogen) 61 mg/dL (7.0-18.7); Calc. Creatinine Clearance 33 mL/min (70-130); Calcium 7.9 mg/dL (7.8-10.44); Carbon Dioxide 13 mmol/L (22-29); Chloride 112 mmol/L (98-107); Estimated GFR-MDRD 21; Glucose 356 mg/dL (70-105); Potassium 3.9 mmol/L (3.5-5.1); Sodium 136 mmol/L (136-145)
[2019-12-20] MEDS: D5 1/2 NS w/20 mEq KCL 1,000 ML IV PRN (22:16)
[2019-12-20 22:25] LABS: Bilirubin Negative (Negative); Blood, Urine Trace (Negative); Clarity Clear (Clear); Glucose, Urine (Dipstick) Greater than 1000 mg/dL (Negative); Leukocyte 500 Leu/uL (Negative); Nitrite Negative (Negative); Protein, Urine (Dipstick) 100 mg/dL (Neg-Trace); RBC/HPF 21-50 HPF (0-3); Squamous Epithelial 0-3 HPF (0-3); Urobilinogen Normal mg/dL (Less than 2); WBC/HPF Greater than 50 HPF (0-3)
[2019-12-20 22:32] LABS: Bacteria/HPF 2+ HPF (None Seen)
[2019-12-20 22:33] LABS: Urine Culture Reflex Yes Yes
[2019-12-21] MEDS: D5 1/2 NS w/20 mEq KCL 1,000 ML IV PRN ×2 (02:24→06:23)
[2019-12-21 03:48] LABS: Anion Gap 12 mmol/L (10-20); BUN (Urea Nitrogen) 53 mg/dL (7.0-18.7); Calc. Creatinine Clearance 41 mL/min (70-130); Calcium 7.7 mg/dL (7.8-10.44); Carbon Dioxide 14 mmol/L (22-29); Chloride 113 mmol/L (98-107); Estimated GFR-MDRD 27; Glucose 200 mg/dL (70-105); Potassium 4.4 mmol/L (3.5-5.1); Sodium 135 mmol/L (136-145)
[2019-12-21] MEDS: Levothyroxine Sodium 75 MCG TAB PO SCH (06:20)
[2019-12-21] MEDS: Timolol 0.5% Ophth Soln 5 ml Bottle EA EYE SCH ×2 (08:03→22:32)
[2019-12-21] MEDS: Amlodipine 10 MG TAB PO SCH (08:03)
[2019-12-21] MEDS: Aspirin 81 mg Enteric Coated Tablet PO SCH (08:03)
[2019-12-21] MEDS: Brimonidine Tartrate 0.2% Ophth Soln 5 ml Bottle EA EYE SCH ×2 (08:03→22:23)
[2019-12-21] MEDS: Loteprednol Etabonate 0.5% Ophth Suspension 5 ml Bottle EA EYE SCH ×2 (08:04→22:37)
[2019-12-21 08:55] LABS: #Basophils 0.1 thou/uL (0.0-0.2); #Eosinphils 0.2 thou/uL (0.0-0.7); #Lymphocytes 2.1 thou/uL (1.20-3.40); #Monocytes 0.7 thou/uL (0.11-0.59); #Neutrophils 3.4 thou/uL (1.40-6.50); %Basophils 1.7 % (0.0-1.0); %Eosinophils 2.9 % (0.0-10.0); %Lymphocytes 32.3 % (21.0-51.0); %Monocytes 10.1 % (0.0-10.0); Hemoglobin 10.3 g/dL (12.0-16.0); Mean Corpuscular HGB CONC 33.5 g/dL (32.0-36.0); Mean Corpuscular Hemoglobin 29.6 pg (27.0-31.0); Mean Corpuscular Volume 88.6 fL (78.0-98.0); Mean Platelet Volume 8.8 fL (7.4-10.4); Platelet Count 217 thou/uL (130-400); RBC Distribution Width 12.3 % (11.5-14.5); Red Blood Cell (RBC) Count 3.49 mill/uL (4.20-5.40); White Blood Cell (WBC) Count 6.4 thou/uL (4.8-10.8)
[2019-12-21 09:13] LABS: Anion Gap 12 mmol/L (10-20); BUN (Urea Nitrogen) 47 mg/dL (7.0-18.7); Calc. Creatinine Clearance 41 mL/min (70-130); Calcium 8.1 mg/dL (7.8-10.44); Carbon Dioxide 14 mmol/L (22-29); Chloride 113 mmol/L (98-107); Estimated GFR-MDRD 27; Glucose 191 mg/dL (70-105); Potassium 4.7 mmol/L (3.5-5.1); Sodium 134 mmol/L (136-145)
[2019-12-21] MEDS ORDERED: Insulin Glargine 25 UNITS in Pre-Filled Syringe 1 EACH SC SCH (09:30)
[2019-12-21] MEDS: HumaLOG 300 UNITS/3 ML VIAL SC PRN ×3 (12:31→22:22)
--- NOTE | 2019-12-21 18:35 | PDOC.HOSPP ---
- Subjective Encounter Date: 12/21/19 Encounter Time: 14:00 Subjective: Pt seen for followup re: DKA. Feels better today. - Objective Vital Signs & Weight: Vital Signs (12 hours) Temp Pulse Pulse Pulse Resp BP BP 12/21/19 12:59 98.1 F 82 18 12/21/19 11:28 97.1 F L 12/21/19 09:30 77 76 121/99 H 12/21/19 08:03 80 128/108 H 12/21/19 07:29 12/21/19 07:17 97.5 F L BP BP Pulse Ox Pulse Ox Pulse Ox 12/21/19 12:59 162/80 H 98 12/21/19 11:28 12/21/19 09:30 123/97 H 100 99 12/21/19 08:03 12/21/19 07:29 100 12/21/19 07:17 Weight Weight 195 lb Most Recent Monitor Data Heart Rate from ECG 79 NIBP 123/66 NIBP BP-Mean 85 Respiration from ECG 14 SpO2 100 I&O: 12/20/19 12/21/19 12/22/19 06:59 06:59 06:59 Intake Total 4398 Output Total 1100 Balance 3298 Result Diagrams: 12/21/19 08:38 12/21/19 08:38 Additional Labs: Accuchecks 12/21/19 12/21/19 12/21/19 16:17 10:42 09:08 POC Glucose 322 H 303 H 240 H 12/21/19 12/21/19 12/21/19 08:07 07:05 06:07 POC Glucose 174 H 172 H 179 H 12/21/19 12/21/19 12/21/19 05:06 04:05 03:14 POC Glucose 190 H 216 H 195 H 12/21/19 12/21/19 12/21/19 02:13 01:11 00:09 POC Glucose 177 H 115 H 100 12/20/19 12/20/19 12/20/19 23:10 22:07 21:21 POC Glucose 71 91 161 H 12/20/19 12/20/19 12/20/19 20:16 19:03 18:07 POC Glucose 240 H 388 H 447 H 12/20/19 17:05 POC Glucose Greater than 550 H* Labs and MARs reviewed by me Hospitalist ROS - Review of Systems Cardiovascular: denies: chest pain, palpitations, orthopnea, paroxysmal noc. dyspnea, edema, light headedness Gastrointestinal: denies: nausea, vomiting, abdominal pain, diarrhea, constipation, melena, hematochezia Skin: denies: rash, lesions, guillaume, bruising - Medication Medications: Active Medications Generic Name Dose Route Start Last Admin Trade Name Freq PRN Reason Stop Dose Admin Amlodipine Besylate 10 mg 12/21/19 09:00 12/21/19 08:03 Norvasc PO 10 mg DAILY STEFFI Administration Aspirin 81 mg 12/21/19 09:00 12/21/19 08:03 Ecotrin PO 81 mg DAILY STEFFI Administration Atorvastatin Calcium 10 mg 12/20/19 21:00 12/20/19 20:30 Lipitor PO 10 mg HS STEFFI Administration Brimonidine Tartrate 1 drop 12/20/19 21:00 12/21/19 08:03 Alphagan 0.2% Ophth Soln EA EYE 1 drop BID STEFFI Administration Insulin Human Lispro 0 units 12/21/19 11:26 12/21/19 17:26 Humalog SC 5 units .MILD SLIDING SCALE PRN Administration MILD SLIDING SCALE Protocol Levothyroxine Sodium 150 mcg 12/21/19 06:00 12/21/19 06:20 Synthroid PO 150 mcg 0600 STEFFI Administration Loteprednol Etabonate 1 drop 12/20/19 21:00 12/21/19 08:04 Lotemax 0.5% Ophth Suspension EA EYE 1 drop BID STEFFI Administration Metoprolol Succinate 150 mg 12/21/19 09:00 12/21/19 08:02 Toprol Xl PO 150 mg DAILY STEFFI Administration Sertraline HCl 25 mg 12/21/19 09:00 12/21/19 08:02 Zoloft PO 25 mg DAILY STEFFI Administration Timolol Maleate 1 drop 12/20/19 21:00 12/21/19 08:03 Timoptic 0.5% Ophth Soln EA EYE 1 drop BID STEFFI Administration - Exam General - other findings: Obese Eye: anicteric sclera ENT: moist mucosa Neck: supple, no thyromegaly Heart: RRR Respiratory: CTAB Gastrointestinal: soft, non-tender, normal bowel sounds Extremities: no cyanosis Musculoskeletal: no muscle wasting Psychiatric: normal affect, normal behavior Hosp A/P (1) DKA (diabetic ketoacidoses) Code(s): E11.10 - TYPE 2 DIABETES MELLITUS WITH KETOACIDOSIS WITHOUT COMA Status: Acute (2) Dyslipidemia Code(s): E78.5 - HYPERLIPIDEMIA, UNSPECIFIED Status: Chronic (3) HTN (hypertension) Code(s): I10 - ESSENTIAL (PRIMARY) HYPERTENSION Status: Chronic Qualifiers: Hypertension type: essential hypertension Qualified Code(s): I10 - Essential (primary) hypertension
[2019-12-21] MEDS ORDERED: cefTRIAXone\\ROCEPHIN 1 GM in Sodium Chloride 0.9% 100 ML IVPB SCH (20:00)
[2019-12-21] MEDS: Atorvastatin Calcium 10 MG TAB PO SCH (22:20)
[2019-12-21] MEDS: Insulin Glargine 10 UNITS in Pre-Filled Syringe 1 EACH SC SCH (22:20)
[2019-12-22 05:56] LABS: Band 2 % (5-11); Eosinophils 3 % (0-10); Hemoglobin 9.6 g/dL (12.0-16.0); Lymphocytes 40 % (21-51); MDiff Complete? YES; Mean Corpuscular HGB CONC 32.7 g/dL (32.0-36.0); Mean Corpuscular Hemoglobin 28.3 pg (27.0-31.0); Mean Corpuscular Volume 86.6 fL (78.0-98.0); Mean Platelet Volume 8.6 fL (7.4-10.4); Metamyelocyte 1 % (0-0); Monocytes 10 % (0-10); Neutrophil 44 % (42-75); Platelet Count 193 thou/uL (130-400); Platelet Morphology Comment Appears Adequate; RBC Distribution Width 12.2 % (11.5-14.5); Red Blood Cell (RBC) Count 3.38 mill/uL (4.20-5.40); White Blood Cell (WBC) Count 5.3 thou/uL (4.8-10.8)
[2019-12-22 05:59] LABS: Anion Gap 14 mmol/L (10-20); BUN (Urea Nitrogen) 35 mg/dL (7.0-18.7); Calc. Creatinine Clearance 45 mL/min (70-130); Calcium 8.3 mg/dL (7.8-10.44); Carbon Dioxide 16 mmol/L (22-29); Chloride 116 mmol/L (98-107); Estimated GFR-MDRD 30; Glucose 74 mg/dL (70-105); Potassium 4.1 mmol/L (3.5-5.1); Sodium 139 mmol/L (136-145)
[2019-12-22] MEDS: Levothyroxine Sodium 75 MCG TAB PO SCH (06:28)
[2019-12-22] MEDS: Insulin Glargine 20 UNITS in Pre-Filled Syringe 1 EACH SC SCH (09:53)
[2019-12-22] MEDS: Timolol 0.5% Ophth Soln 5 ml Bottle EA EYE SCH ×2 (09:54→21:28)
[2019-12-22] MEDS: Amlodipine 10 MG TAB PO SCH (09:54)
[2019-12-22] MEDS: Loteprednol Etabonate 0.5% Ophth Suspension 5 ml Bottle EA EYE SCH ×2 (09:54→21:28)
[2019-12-22] MEDS: Brimonidine Tartrate 0.2% Ophth Soln 5 ml Bottle EA EYE SCH ×2 (09:54→21:28)
[2019-12-22] MEDS: Aspirin 81 mg Enteric Coated Tablet PO SCH (09:54)
[2019-12-22] MEDS: HumaLOG 300 UNITS/3 ML VIAL SC PRN (12:51)
--- NOTE | 2019-12-22 18:54 | PDOC.HOSPP ---
- Subjective Encounter Date: 12/22/19 Encounter Time: 09:10 Subjective: Pt seen for followup re: DKA. Feels better. Ambulated yesterday in CCU. - Objective Vital Signs & Weight: Vital Signs (12 hours) Temp Pulse Resp BP Pulse Ox 12/22/19 08:48 97.3 F L 82 18 173/81 H 99 12/22/19 08:00 99 Weight Weight 195 lb Most Recent Monitor Data Heart Rate from ECG 79 NIBP 123/66 NIBP BP-Mean 85 Respiration from ECG 14 SpO2 100 I&O: 12/21/19 12/22/19 12/23/19 06:59 06:59 06:59 Intake Total 4398 1240 Output Total 1100 Balance 3298 1240 Result Diagrams: 12/22/19 05:15 12/22/19 05:15 Additional Labs: Accuchecks 12/22/19 12/22/19 12/22/19 16:42 11:37 06:33 POC Glucose 97 215 H 76 12/21/19 12/20/19 19:54 13:11 POC Glucose 263 H Greater than 550 H* Labs and MARs reviewed by va Hospitalist ROS - Review of Systems Cardiovascular: denies: chest pain, palpitations, orthopnea, paroxysmal noc. dyspnea, edema, light headedness Gastrointestinal: denies: nausea, vomiting, abdominal pain, diarrhea, constipation, melena, hematochezia - Medication Medications: Active Medications Generic Name Dose Route Start Last Admin Trade Name Freq PRN Reason Stop Dose Admin Amlodipine Besylate 10 mg 12/21/19 09:00 12/22/19 09:54 Norvasc PO 10 mg DAILY STEFFI Administration Aspirin 81 mg 12/21/19 09:00 12/22/19 09:54 Ecotrin PO 81 mg DAILY STEFFI Administration Atorvastatin Calcium 10 mg 12/20/19 21:00 12/21/19 22:20 Lipitor PO 10 mg HS STEFFI Administration Brimonidine Tartrate 1 drop 12/20/19 21:00 12/22/19 09:54 Alphagan 0.2% Ophth Soln EA EYE 1 drop BID STEFFI Administration Insulin Glargine 10 units/ 0.1 mls @ 0 mls/hr 12/21/19 21:00 12/21/19 22:20 Miscellaneous Medication SC 0.1 mls HS STEFFI Administration Insulin Glargine 20 units/ 0.2 mls @ 0 mls/hr 12/22/19 09:00 12/22/19 09:53 Miscellaneous Medication SC 0.2 mls QAM STEFFI Administration Insulin Human Lispro 0 units 12/21/19 11:26 12/22/19 12:51 Humalog SC 3 units .MILD SLIDING SCALE PRN Administration MILD SLIDING SCALE Protocol Levothyroxine Sodium 150 mcg 12/21/19 06:00 12/22/19 06:28 Synthroid PO 150 mcg 0600 STEFFI Administration Loteprednol Etabonate 1 drop 12/20/19 21:00 12/22/19 09:54 Lotemax 0.5% Ophth Suspension EA EYE 1 drop BID STEFFI Administration Metoprolol Succinate 150 mg 12/21/19 09:00 12/22/19 09:54 Toprol Xl PO 150 mg DAILY STEFFI Administration Sertraline HCl 25 mg 12/21/19 09:00 12/22/19 09:54 Zoloft PO 25 mg DAILY STEFFI Administration Timolol Maleate 1 drop 12/20/19 21:00 12/22/19 09:54 Timoptic 0.5% Ophth Soln EA EYE 1 drop BID STEFFI Administration - Exam General - other findings: Obesity Eye: PERRL ENT: no oropharyngeal lesions Neck: no lymphadenopathy, no carotid bruit Heart: RRR, no murmur Respiratory: CTAB Gastrointestinal: soft, non-tender Skin: no rashes Psychiatric: normal affect, normal behavior Hosp A/P (1) DKA (diabetic ketoacidoses) Code(s): E11.10 - TYPE 2 DIABETES MELLITUS WITH KETOACIDOSIS WITHOUT COMA Status: Acute (2) Dyslipidemia Code(s): E78.5 - HYPERLIPIDEMIA, UNSPECIFIED Status: Chronic (3) HTN (hypertension) Code(s): I10 - ESSENTIAL (PRIMARY) HYPERTENSION Status: Chronic Qualifiers: Hypertension type: essential hypertension Qualified Code(s): I10 - Essential (primary) hypertension - Plan Final urine culture negative, switch to cefdinir. Pt on SC insulin Likely home in 24 h
[2019-12-22 19:54] VITALS: TEMP 97.5
[2019-12-22] MEDS: Atorvastatin Calcium 10 MG TAB PO SCH (21:14)
[2019-12-22] MEDS: Insulin Glargine 10 UNITS in Pre-Filled Syringe 1 EACH SC SCH (21:14)
[2019-12-22] MEDS: Cefdinir 300 MG CAP PO SCH (21:14)
[2019-12-23 05:43] LABS: #Basophils 0.1 thou/uL (0.0-0.2); #Eosinphils 0.2 thou/uL (0.0-0.7); #Lymphocytes 2.3 thou/uL (1.20-3.40); #Monocytes 0.5 thou/uL (0.11-0.59); #Neutrophils 1.6 thou/uL (1.40-6.50); %Basophils 1.3 % (0.0-1.0); %Eosinophils 4.2 % (0.0-10.0); %Lymphocytes 49.8 % (21.0-51.0); %Monocytes 9.9 % (0.0-10.0); %Neutrophils 34.8 % (42.0-75.0); Mean Corpuscular HGB CONC 32.8 g/dL (32.0-36.0); Mean Corpuscular Hemoglobin 28.4 pg (27.0-31.0); Mean Corpuscular Volume 86.6 fL (78.0-98.0); Mean Platelet Volume 8.6 fL (7.4-10.4); Platelet Count 211 thou/uL (130-400); RBC Distribution Width 12.2 % (11.5-14.5); Red Blood Cell (RBC) Count 3.52 mill/uL (4.20-5.40); White Blood Cell (WBC) Count 4.7 thou/uL (4.8-10.8)
[2019-12-23 06:01] LABS: Anion Gap 10 mmol/L (10-20); BUN (Urea Nitrogen) 25 mg/dL (7.0-18.7); Calc. Creatinine Clearance 50 mL/min (70-130); Calcium 8.5 mg/dL (7.8-10.44); Carbon Dioxide 20 mmol/L (22-29); Chloride 114 mmol/L (98-107); Estimated GFR-MDRD 34; Glucose 61 mg/dL (70-105); Potassium 3.6 mmol/L (3.5-5.1); Sodium 140 mmol/L (136-145)
[2019-12-23] MEDS: Levothyroxine Sodium 75 MCG TAB PO SCH (06:43)
[2019-12-23] MEDS: Aspirin 81 mg Enteric Coated Tablet PO SCH (08:02)
[2019-12-23] MEDS: Cefdinir 300 MG CAP PO SCH (08:02)
[2019-12-23] MEDS: Insulin Glargine 20 UNITS in Pre-Filled Syringe 1 EACH SC SCH (08:02)
[2019-12-23] MEDS: Amlodipine 10 MG TAB PO SCH (08:02)
[2019-12-23] MEDS: Loteprednol Etabonate 0.5% Ophth Suspension 5 ml Bottle EA EYE SCH (08:03)
[2019-12-23] MEDS: Timolol 0.5% Ophth Soln 5 ml Bottle EA EYE SCH (08:03)
[2019-12-23] MEDS: Brimonidine Tartrate 0.2% Ophth Soln 5 ml Bottle EA EYE SCH (08:03)
[2019-12-23 08:10] VITALS: BP 165/88
--- NOTE | 2019-12-24 03:05 | DIS ---
DATE OF ADMISSION: 12/20/2019 DATE OF DISCHARGE: 12/23/2019 PRIMARY CARE PROVIDER: Josie Wright, DISCHARGE DIAGNOSES: 1. Diabetic ketoacidosis. 2. Acute on chronic stage 3 renal failure. 3. Hyponatremia. 4. Metabolic acidosis. 5. Urinary tract infection. CONDITION OF PATIENT ON THE DAY OF DISCHARGE: Stable. I assessed Ms. Coughlin on the day of discharge. She denies any chest pain or shortness of breath. Vital signs are stable. S1 and S2 are heard, regular. Lungs are clear to auscultation bilaterally. DISCHARGE MEDICATIONS: She has been started on Omnicef 300 mg 2 times a day. The patient is supposed to follow up with her primary care provider in 1 day and with wound nurse as soon as possible for management of her blood sugars. DIET: Diabetic diet. ACTIVITY: No restrictions. HOSPITAL COURSE: Ms. Coughlin is a pleasant 49-year-old lady, who was admitted to [facility] on December 20, 2019, for diabetic ketoacidosis. Please refer to my history and physical note dated December 20, 2019, for further details. She was admitted to the [facility] and treated per DKA protocol, with improvement in her metabolic parameters. She reports that she is in the process of getting a referral to see an wound nurse as an outpatient. I advised her to keep that appointment, since she has had episodes of hypoglycemia as well as diabetic ketoacidosis in the recent past. She will need closer monitoring and management of diabetes through an wound nurse office. On the day of discharge, she has sodium 140, potassium 3.6, creatinine 1.91, white count of 4700, hemoglobin 10, and platelet count 211,000. Urinalysis was also positive for leukocyte esterase. [place] culture grew [id number] colony-forming units per mL of normal urogenital mayra. She is being stepped down to oral antibiotics and discharged home, Omnicef 300 mg 2 times a day for 5 days. She has been advised to check her blood sugars 3 times a day and show the readings to her primary care provider. Many thanks for allowing me to participate in your patient's care. Please feel free to contact me with any questions or concerns. DISCHARGE DESTINATION: Home. POST-ACUTE CARE FOLLOWUP: Primary care provider in 1 to 3 days. DIET: Diabetic. ACTIVITY: No restrictions. TIME SPENT: Total amount of time spent coordinating this discharge: 31 minutes. Job ID: [id number]
--- NOTE | 2019-12-27 12:16 | EKG ---
Test Reason : HYPERGLYCEMIA Blood Pressure : / mmHG Vent. Rate : 078 BPM Atrial Rate : 357 BPM P-R Int : 000 ms QRS Dur : 094 ms QT Int : 402 ms P-R-T Axes : 060 024 -02 degrees QTc Int : 458 ms Sinus rhythm Left ventricular hypertrophy with repolarization abnormality Abnormal ECG Confirmed by FLASH ESTRADA DO ([id number]), editor school photograph LIBAN ROME ([id number]) on 12/27/2019 12:15:52 PM Referred By: Confirmed By:FLASH ESTRADA DO
== END 2019-12-23 14:48 | disposition home or self-care (01) | DRG 638 ==
LOC: ERS 13:02 → IMCU/EMU 16:25 → T4-A 12-21 12:59
PROVIDERS: ADMIT Internal Medicine; ATTEND Internal Medicine
DX: E11.10 Type 2 diabetes mellitus with ketoacidosis without coma (principal); N17.9 Acute kidney failure, unspecified; E87.1 Hypo-osmolality and hyponatremia; N39.0 Urinary tract infection, site not specified; E03.9 Hypothyroidism, unspecified; E78.5 Hyperlipidemia, unspecified; I11.9 Hypertensive heart disease without heart failure; E11.22 Type 2 diabetes mellitus with diabetic chronic kidney disease; F41.9 Anxiety disorder, unspecified; N18.3 Chronic kidney disease, stage 3 (moderate); E86.0 Dehydration; Z98.42 Cataract extraction status, left eye; Z98.41 Cataract extraction status, right eye; Z90.710 Acquired absence of both cervix and uterus; Z79.4 Long term (current) use of insulin; Z79.899 Other long term (current) drug therapy; Z79.890 Hormone replacement therapy; Z79.82 Long term (current) use of aspirin
CPT/HCPCS: 36415; 36416; 71045; 80048; 80053; 81001; 82010; 82553; 83690; 83735; 84100; 84484; 85025; 87086; 93005; 96360; 96361; J0696; J1815; J3480; J3490

== ENCOUNTER 2020-01-23 13:11 | Outpatient (CLI) | payer OTHER ==
--- NOTE | 2020-01-23 14:02 | ULT ---
RENAL ULTRASOUND: 01/23/20 HISTORY: Chronic kidney disease. Left kidney measures 8.3 cm in length. Right kidney measures 7.6 cm in length. No hydronephrosis. Cortical thickness and cortical echogenicity appears preserved bilaterally. The bladder is mildly distended and appears unremarkable. IMPRESSION: Unremarkable renal ultrasound. POS: AGW
== END 2020-01-23 13:12 | disposition home or self-care (01) ==
LOC: SCSULT 13:11
PROVIDERS: ATTEND Internal Medicine Nephrology
DX: N18.3 Chronic kidney disease, stage 3 (moderate) (principal)
CPT/HCPCS: 76770

== ENCOUNTER 2020-02-26 08:39 | Day surgery (SDC) | payer OTHER ==
[2020-02-24 11:48] VITALS: BMI 34.8
[~2020-02-26 08:39] MED LIST changes: +EPINEPHrine 0.3 MG in Ophthalmic Irrigation Solution 500 ML IRR SCH; -EPINEPHrine 0.3 MG in Ophthalmic Irrigation Solution 500 ML IV SCH
[2020-02-26] MEDS ORDERED: Phenylephrine 2.5% Ophth Soln 5 ML BOT ONE (08:45)
[2020-02-26] MEDS ORDERED: Cyclopentolate 1% Opth Drop 2 ML BOT ONE (08:45)
[2020-02-26] MEDS ORDERED: Lidocaine 1% PF 5 ML VIAL ONE (09:53)
[2020-02-26] MEDS ORDERED: Lidocaine 4% PF 5 ML AMP ONE (09:53)
[2020-02-26] MEDS ORDERED: PROPOFOL 200 MG/20 ML VIAL ONE (09:53)
[2020-02-26] MEDS ORDERED: CEFAZOLIN 1 GM VIAL ONE (09:53)
[2020-02-26] MEDS ORDERED: Triamcinolone 40 MG/ML VIAL ONE (09:53)
[2020-02-26] MEDS ORDERED: Maxitrol 0.1% Opth Oint 3.5 GM TUBE ONE (09:53)
[2020-02-26] MEDS ORDERED: Bupivacaine PF 0.75% SDV 10 ML ONE (09:53)
[2020-02-26] MEDS ORDERED: Fentanyl 100 MCG/2 ML VIAL ONE (10:16)
[2020-02-26] MEDS ORDERED: Midazolam HCl 2 mg/2 ml Vial ONE (10:16)
--- NOTE | 2020-02-27 15:17 | OP ---
DATE OF PROCEDURE: 02/26/2020 PREOPERATIVE DIAGNOSIS: Glaucoma and vitreous hemorrhage, right eye. POSTOPERATIVE DIAGNOSIS: Glaucoma and vitreous hemorrhage, right eye. PROCEDURE: Pars plana vitrectomy, tube shunt, scleral patch graft, right eye. ANESTHESIA: Local with monitored anesthesia care. DESCRIPTION OF PROCEDURE: The patient was identified in the preoperative holding area. Appropriate informed consent for the planned surgical procedure on the right eye had been obtained. The patient was transported to the operative suite and appropriate cardiopulmonary monitoring was established. Local anesthesia was obtained using retrobulbar modified Van Lint lid block using 50:50 mixture of 4% lidocaine and 0.75% bupivacaine. The patient was prepped and draped in usual sterile manner for ophthalmic surgery on the right eye. Lid speculum was placed in the right eye. A 25-gauge trocar was placed in the conjunctiva and sclera supratemporally, inferotemporally, supranasally. Infusion line was placed inferotemporally. Light pipe and vitreous cutter inserted into the eye. Core vitrectomy was performed. Vitreous hemorrhage was removed at this time. Superior temporal conjunctival peritomy was created by sharp dissection with Noman scissors. An FP7 tube shunt was fixated to the sclera of 14 mm posterior to the limbus. Tube was introduced directly through the superior temporal sclerotomy and the tube entry site was covered with a Tutoplast graft. Conjunctiva was closed with 6-0 plain gut suture. Retrobulbar Kenalog and subconjunctival Ancef were placed. Antibiotic ointment was placed. Eye was patched and shielded. The patient was taken to the postop recovery unit in good condition having suffered no immediate perioperative complications. The patient was instructed to keep patch and shield on, to avoid lifting or bending. Followup appointment with Dr. Story. Job ID: [id number]
== END 2020-02-26 12:41 | disposition home or self-care (01) ==
LOC: SDC 08:39
PROVIDERS: ATTEND Ophthalmology Retina Specialist
PROC: 08123J4 Bypass Right Anterior Chamber to Sclera with Synthetic Substitute, Percutaneous Approach (ICD-10-PCS; principal; 2020-02-26)
PROC: 08T43ZZ Resection of Right Vitreous, Percutaneous Approach (ICD-10-PCS; principal; 2020-02-26)
DX: H40.9 Unspecified glaucoma (principal); H43.11 Vitreous hemorrhage, right eye; E11.9 Type 2 diabetes mellitus without complications; Z79.4 Long term (current) use of insulin; Z79.899 Other long term (current) drug therapy
CPT/HCPCS: 36416; J0171; J0690; J2001; J2250; J2704; J3010; J3301; J3490; L8612

== ENCOUNTER 2020-06-14 19:23 | Inpatient (IN) | payer OTHER ==
[2020-06-14] MEDS ORDERED: Ondansetron PF 4 MG/2 ML Vial ONE ×2 (19:50→20:42)
[2020-06-14 20:31] LABS: Hemoglobin 8.6 g/dL (12.0-16.0); Red Blood Cell (RBC) Count 2.99 mill/uL (4.20-5.40); White Blood Cell (WBC) Count 4.8 thou/uL (4.8-10.8)
[2020-06-14 20:32] LABS: %Neutrophils 68.5 % (42.0-75.0); Mean Corpuscular HGB CONC 32.3 g/dL (32.0-36.0); Mean Corpuscular Hemoglobin 28.9 pg (27.0-31.0); Mean Corpuscular Volume 89.4 fL (78.0-98.0); Mean Platelet Volume 8.1 fL (7.4-10.4); Platelet Count 140 thou/uL (130-400)
[2020-06-14 20:33] LABS: #Monocytes 0.5 thou/uL (0.11-0.59); #Neutrophils 3.3 thou/uL (1.40-6.50); %Basophils 0.2 % (0.0-1.0); %Eosinophils 0.2 % (0.0-10.0); %Monocytes 10.2 % (0.0-10.0)
--- NOTE | 2020-06-14 20:52 | RAD ---
PORTABLE CHEST: History: Abdominal pain, unknown exposure to Covid. Comparison: 12-20-2019 FINDINGS: Heart size appears slightly enlarged. There is right lower lobe infiltrative and right upper lobe inf iltrative changes, more subtle opacities seen in the left upper lobe. Changes would suggest a multifo stephen pneumonia and Covid should be considered. IMPRESSION: Infiltrative lung changes raising the possibility of Covid pneumonia. POS: GWEN
[2020-06-14 21:31] LABS: ALT (SGPT) 10 U/L (8-55); AST (SGOT) 19 U/L (5-34); Alkaline Phosphatase 78 U/L (40-110); Anion Gap 16 mmol/L (10-20); BUN (Urea Nitrogen) 51 mg/dL (7.0-18.7); Bilirubin, Total 0.3 mg/dL (0.2-1.2); Calc. Creatinine Clearance 0 mL/min (70-130); Calcium 7.5 mg/dL (7.8-10.44); Carbon Dioxide 25 mmol/L (22-29); Chloride 96 mmol/L (98-107); Globulin 3.3 g/dL (2.4-3.5); Glucose 371 mg/dL (70-105); Potassium 3.5 mmol/L (3.5-5.1); Protein, Total 6.3 g/dL (6.0-8.3); Sodium 133 mmol/L (136-145)
[2020-06-14] MEDS ORDERED: Dextrose 5% in Water 1,000 ML IV PRN (22:58)
[2020-06-14 23:16] LABS: SARS-CoV-2 NAA Rapid Test DETECTED (NotDetected)
--- NOTE | 2020-06-14 23:19 | PDOC.BPN ---
- Brief Progress Note [id number] dictated
[2020-06-14] MEDS ORDERED: cefTRIAXone\\ROCEPHIN 2 GM VIAL ONE (23:32)
[2020-06-15] MEDS ORDERED: Sodium Chloride 0.9% 1,000 ML IV SCH (00:30)
[2020-06-15] MEDS ORDERED: Azithromycin 500 MG VIAL ONE (02:18)
[2020-06-15] MEDS: Azithromycin 500 MG in Sodium Chloride 0.9% 250 ML 250 ML IVPB SCH (02:27)
--- NOTE | 2020-06-15 02:30 | HP ---
CHIEF COMPLAINT: Fever, chills, nausea, and vomiting. HISTORY OF PRESENT ILLNESS: Ms. Coughlin is a 50-year-old female with past medical history of diabetes mellitus, hypertension, chronic kidney disease, hypothyroidism, presented to the emergency room with fever, body aches, chills, nausea, vomiting, diarrhea, and generalized weakness since last week. The patient denies shortness of breath, chest pain, cough, or sore throat. Denies loss of taste or smell. EMS gave the patient 1 g of Tylenol prior to arrival. Her glucose was found to be elevated more than 500, was given 10 units of regular insulin prior to arrival by EMS. Workup in the emergency room including labs, the patient was found to be in acute renal failure with worsening of her creatinine, creatinine today is 4.15. Her baseline around 2.6. Also, she was found to be hyperglycemic with a glucose of 371. Anion gap is normal. WBC count 4.8, hemoglobin 8.6, and platelets at 140. Chest x-ray shows bilateral infiltrates suspicious for COVID pneumonia. COVID-19 tests and the results are pending at time of dictation. Septic workup done in the ED. The patient to be given one dose of IV antibiotics. Urinalysis still pending at the time of dictation. PAST MEDICAL HISTORY: As mentioned above in the history of present illness. PAST SURGICAL HISTORY: 1. Surgery to both eyes, cataract surgery. 2. Hysterectomy. FAMILY HISTORY: Reviewed and noncontributory. SOCIAL HISTORY: The patient denies drug use, alcohol use, or smoking. Lives at home with family. ALLERGIES: NO KNOWN ALLERGIES. HOME MEDICATIONS: See home medication reconciliation form for updated medications. REVIEW OF SYSTEMS: Review of 14 systems negative except what is mentioned in history of present illness. PHYSICAL EXAMINATION: GENERAL: The patient is awake, alert, in mild distress. VITAL SIGNS: Blood pressure 160/70, pulse 75, respiratory rate 17, temperature 100.3, oxygen saturation is 95% on room air. HEAD AND NECK: Normocephalic, atraumatic. Mucous membranes dry. NECK: Supple. CHEST: Coarse bilateral breath sounds. HEART: S1, S2. Regular. ABDOMEN: Soft, mildly tender. Bowel sounds present. NEUROLOGIC: Awake, alert, moving extremities. PSYCH: Unable to assess. EXTREMITIES: No clubbing or cyanosis. GENITOURINARY: No suprapubic tenderness. No flank tenderness. LABORATORY DATA: As mentioned above in the history of present illness. IMAGING STUDIES: As mentioned above in the history of present illness. ASSESSMENT AND PLAN: 1. Acute kidney injury on top of chronic kidney disease. 2. Suspected COVID-19 viral pneumonia. 3. Dehydration. 4. Diabetes mellitus with hyperglycemia. 5. Hypertension. PLAN: 1. Admit. 2. Septic workup done in the ED, still awaiting on UA results. 3. Continue with IV antibiotics for now, reassess in a.m. 4. Isolation precautions for now. 5. COVID-19 virus test sent, to follow the results. 6. IV fluids tonight, reassess in a.m. 7. Monitor kidney function and urine output. 8. Reconcile home medications. 9. DVT prophylaxis as appropriate. 10. Expected length of stay, at least 1 midnight if patient is stable and shows significant clinical improvement. Job ID: [id number]
[2020-06-15 03:52] LABS: #Lymphocytes 1.5 thou/uL (1.20-3.40); #Monocytes 0.5 thou/uL (0.11-0.59); #Neutrophils 2.6 thou/uL (1.40-6.50); %Basophils 0.3 % (0.0-1.0); %Eosinophils 0.1 % (0.0-10.0); %Lymphocytes 32.1 % (21.0-51.0); %Monocytes 10.9 % (0.0-10.0); %Neutrophils 56.6 % (42.0-75.0); Hemoglobin 8.8 g/dL (12.0-16.0); Mean Corpuscular HGB CONC 33.5 g/dL (32.0-36.0); Mean Corpuscular Hemoglobin 29.5 pg (27.0-31.0); Mean Platelet Volume 8.5 fL (7.4-10.4); Platelet Count 139 thou/uL (130-400); Red Blood Cell (RBC) Count 2.98 mill/uL (4.20-5.40); White Blood Cell (WBC) Count 4.6 thou/uL (4.8-10.8)
[2020-06-15 04:08] LABS: ALT (SGPT) 9 U/L (8-55); AST (SGOT) 19 U/L (5-34); Albumin 2.7 g/dL (3.5-5.0); Alkaline Phosphatase 70 U/L (40-110); Anion Gap 18 mmol/L (10-20); BUN (Urea Nitrogen) 52 mg/dL (7.0-18.7); Bilirubin, Total 0.2 mg/dL (0.2-1.2); Calc. Creatinine Clearance 0 mL/min (70-130); Calcium 7.1 mg/dL (7.8-10.44); Carbon Dioxide 19 mmol/L (22-29); Chloride 101 mmol/L (98-107); Glucose 329 mg/dL (70-105); Potassium 3.7 mmol/L (3.5-5.1); Protein, Total 5.7 g/dL (6.0-8.3); Sodium 134 mmol/L (136-145)
[2020-06-15] MEDS ORDERED: Heparin 5,000 UNITS/ML VIAL SC SCH (09:00)
[2020-06-15] MEDS ORDERED: Amlodipine 10 MG TAB PO SCH (09:00)
[2020-06-15] MEDS ORDERED: Famotidine/PF 20 mg/2ml Vial ONE (10:45)
[2020-06-15] MEDS: Famotidine/PF 20 mg/2ml Vial SLOW IVP SCH (10:58)
[2020-06-15] MEDS: Insulin Glargine 18 UNITS in Pre-Filled Syringe 1 EACH SC SCH ×2 (10:58→20:15)
[2020-06-15] MEDS: HumaLOG 300 UNITS/3 ML VIAL SC PRN ×2 (10:59→15:54)
[2020-06-15] MEDS ORDERED: HumaLOG 300 UNITS/3 ML VIAL ONE (11:00)
--- NOTE | 2020-06-15 12:08 | PDOC.HOSPP ---
- Subjective Encounter Date: 06/15/20 Encounter Time: 12:06 Subjective: F/u: COVID The patient is doing better. She denies shortness of breath or cough. She had some abdominal pain which has resolved. She still has some loose stools. She felt some weakness when she got out of bed to use the bed-side commode Patient is blind in her left eye, she found out incidentally when she saw an opthalmologist. She had surgery on her right eye due to vitreal hemorrhage and her vision hasn't recovered. SHe states she can only see light out of her right eye PELON - patient states she is urinating well, denies abdominal pain, nausea, vomiting,. Sees Dr. Emily ocampo - Objective Result Diagrams: 06/15/20 03:35 06/15/20 03:35 Additional Labs: Accuchecks 06/15/20 06/15/20 06/14/20 10:54 05:28 20:47 POC Glucose 344 H 314 H 302 H Hospitalist ROS - Review of Systems Constitutional: denies: fever, chills - Medication Medications: Active Medications Generic Name Dose Route Start Last Admin Trade Name Freq PRN Reason Stop Dose Admin Famotidine 20 mg 06/15/20 09:00 06/15/20 10:58 Famotidine/Pf 20 Mg/2ml Vial SLOW IVP 20 mg DAILY STEFFI Administration Azithromycin 500 mg/ Sodium 250 mls @ 250 mls/hr 06/15/20 01:00 06/15/20 02:27 Chloride IVPB 250 mls 0100 STEFFI Administration Sodium Chloride 1,000 mls @ 75 mls/hr 06/15/20 00:30 06/15/20 02:27 Normal Saline 0.9% IV 1,000 mls .[id number] STEFFI Administration Insulin Glargine 18 units/ 0.18 mls @ 0 mls/hr 06/15/20 09:00 06/15/20 10:58 Miscellaneous Medication SC 0.18 mls BID STEFFI Administration Insulin Human Lispro 0 units 06/14/20 22:58 06/15/20 10:59 Humalog 300 Units/3 Ml Vial SC 5 unit .MILD SLIDING SCALE PRN Administration Mild Correctional Scale - Exam General Appearance: NAD, awake alert Eye: PERRL, anicteric sclera Eye - other findings: blind left eye, right eye vision impaired as well ENT: normocephalic atraumatic, no oropharyngeal lesions Neck: no JVD Heart: RRR, no murmur, no gallops, no rubs Respiratory: CTAB, no wheezes, no rales, no ronchi Gastrointestinal: soft, non-tender, non-distended, normal bowel sounds Extremities: no cyanosis, no clubbing, no edema Skin: normal turgor, no lesions Neurological: cranial nerve grossly intact, normal sensation to touch Musculoskeletal: normal tone, normal strength, no muscle wasting Psychiatric: normal affect, normal behavior, A&O x 3 Hosp A/P - Plan Chest Xray: infiltrative change RLL, RUL, GEORGE This is 50 year old female who presented with diarrhea, abdominal pain, weakness, tested postiive for COVID. Admitted for hyperglycemia and PELON COVID pneumonia - oxygen saturation 100% on 2L. Wean off oxygen Uncontrolled diabetes - blood sugars 300, resume lantus 18 units bid - continue sliding scale PELON - creatinine up to 4.2. Check UA. Nephrology consult with Dr. Diaz - hold losartan Hyponatremia - sodium up to 134, stable, will monitor Hypertensive urgency - BP up to 200, repeated it was 180. Her blood pressure cuff is too small, requested nurse for larger one - discontinue IV fluids - resume amlodipnie Hypothryoidism - continue levothyroxine Hyperlipidemia - continue statin Glaucoma - resume home eye drops Dispo: admit for PELON and monitoring of blood sugar and COVID
[2020-06-15] MEDS ORDERED: AcetaZOLAMIDE 250 MG TAB PO PRN ×2 (12:12→12:33)
[2020-06-15] MEDS: Ondansetron PF 4 MG/2 ML Vial IVP PRN (12:30)
[2020-06-15] MEDS ORDERED: Ondansetron PF 4 MG/2 ML Vial ONE (12:35)
[2020-06-15] MEDS: Brimonidine Tartrate 0.2% Ophth Soln 5 ml Bottle EA EYE SCH ×3 (14:18→20:14)
[2020-06-15] MEDS: Pilocarpine 1% Ophth Drops 15 ML BOT EA EYE SCH ×4 (14:18→21:25)
[2020-06-15] MEDS ORDERED: Non-Formulary Item 1 EACH (Dorzolamide Hcl/Pf [Dorzolamide 2% Eye Drop] 10 ML Drops) EA EYE SCH (15:00)
[2020-06-15 16:09] LABS: Bilirubin Negative (Negative); Blood, Urine 2+ (Negative); Clarity Turbid (Clear); Glucose, Urine (Dipstick) Greater than 1000 mg/dL (Negative); Ketone, Urine Trace mg/dL (Negative); Leukocyte 250 Leu/uL (Negative); Nitrite Negative (Negative); Protein, Urine (Dipstick) 300 mg/dL (Neg-Trace); Specific Gravity, Urine 1.013 (1.002-1.036); Squamous Epithelial 0-3 HPF (0-3); Urobilinogen Normal mg/dL (Less than 2); WBC/HPF Greater than 50 HPF (0-3)
[2020-06-15 16:10] LABS: Bacteria/HPF Rare-Few HPF (None Seen)
[2020-06-15 16:11] LABS: Urine Culture Reflex Yes Yes
[2020-06-15] MEDS ORDERED: NIFEdipine XL 60 MG TAB PO SCH (16:30)
[2020-06-15] MEDS: Dorzolamide HCl 2% Ophth Soln 10 ml Bottle EA EYE SCH ×2 (17:18→20:14)
[2020-06-15] MEDS: Sodium Chloride 0.9% 1,000 ML IV SCH (17:19)
--- NOTE | 2020-06-15 18:41 | ULT ---
RENAL ULTRASOUND: 06/15/20 HISTORY: Acute renal insufficiency. Real time imaging of the right and left kidneys were performed. The kidney are normal in size. Right kidney measuring 12.7, left kidney 12.4 cm in size. No cyst, mass or obstruction. Bladder region is unremarkable. IMPRESSION: Unremarkable renal ultrasound. POS: GWEN
[2020-06-15] MEDS: Atorvastatin Calcium 10 MG TAB PO SCH (20:13)
--- NOTE | 2020-06-15 21:52 | CON ---
DATE OF CONSULTATION: 06/15/2020 CONSULTING PHYSICIAN: Dr. Rodriguez. REASON FOR CONSULTATION: Acute kidney injury. REASON FOR ADMISSION: Fever, chills, nausea, and vomiting. HISTORY OF PRESENT ILLNESS: A 50-year-old female with type 2 diabetes, hypertension, chronic kidney disease, hypothyroidism, came to the hospital with fever, chills, nausea, vomiting, and is being admitted for sepsis workup and further evaluation. Nephrology was consulted for acute kidney injury. Her creatinine was found to be 4.15 to 4.2. Her baseline creatinine is around 2.3-2.7. The patient reports that she is eating better even though she was not eating well for the last few days before admission. She was on IV fluids, which was stopped. No shortness of breath. No chest pain or palpitation. The patient was also tested positive for COVID pneumonia. PAST MEDICAL HISTORY: Positive for hypertension, diabetes, chronic kidney disease, hypothyroidism. PAST SURGICAL HISTORY: Surgery of the toe, cataract surgery, hysterectomy. HOME MEDICATIONS: Include: 1. Timolol. 2. Pravastatin. 3. Metoprolol. 4. Losartan. 5. . 6. Amlodipine. 7. Acetazolamide. 8. Humalog. ALLERGIES: NO KNOWN DRUG ALLERGIES. SOCIAL HISTORY: No smoking, alcohol or drug abuse. FAMILY HISTORY: No history of kidney disease. REVIEW OF SYSTEMS: The following complete review of systems was negative, unless otherwise mentioned in the HPI or below: Constitutional: Weight loss or gain, ability to conduct usual activities. Skin: Rash, itching. Eyes: Double vision, pain. ENT/Mouth: Nose bleeding, neck stiffness, pain, tenderness. Cardiovascular: Palpitations, dyspnea on exertion, orthopnea. Respiratory: Shortness of breath, wheezing, cough, hemoptysis, fever or night sweats. Gastrointestinal: Poor appetite, abdominal pain, heartburn, nausea, vomiting, constipation, or diarrhea. Genitourinary: Urgency, frequency, dysuria, nocturia. Musculoskeletal: Pain, swelling. Neurologic/Psychiatric: Anxiety, depression. Allergy/Immunologic: Skin rash, bleeding tendency. PHYSICAL EXAMINATION: GENERAL: This is a well-built female, in no apparent distress. VITAL SIGNS: Temperature 99.2, pulse 91, respiratory rate 18, blood pressure 167/76. HEENT: Atraumatic, normocephalic. NECK: Supple. CV: S1, S2 heard. Rate and rhythm regular. RESPIRATORY: Clear. GI: Abdomen is soft. MUSCULOSKELETAL: Trace edema. DERMATOLOGIC: No skin rash. NEUROLOGIC: Alert, awake. PSYCHIATRIC: Affect normal. LABORATORY DATA: Hemoglobin is 8.8, potassium 3.7, BUN is 52, and creatinine is 4.2. ASSESSMENT AND PLAN: 1. Acute kidney injury on chronic kidney disease stage 4. She seems a little bit on the volume depleted side. I will continue NS at 50 mL/h. Avoid nephrotoxins and monitor renal function. We will check renal ultrasound. 2. Hyponatremia, mild. 3. Acidosis. 4. Hyperglycemia. 5. Hypoalbuminemia. 6. Anemia. Check iron deficiency iron panel. 7. COVID-19 infection. 8. Plan is to continue IV fluids. 9. Hypertension. We will change amlodipine to Procardia and monitor blood pressure. We will follow up. Plan discussed with primary doctor, Dr. Bhavna Ríos. We will follow. Job ID: [id number]
[2020-06-15] MEDS: Timolol 0.5% Ophth Soln 5 ml Bottle EA EYE SCH ×2 (22:50)
[2020-06-15] MEDS: cefTRIAXone\\ROCEPHIN 1 GM in Sodium Chloride 0.9% 100 ML IVPB SCH (22:51)
[2020-06-16] MEDS: Ondansetron PF 4 MG/2 ML Vial IVP PRN ×3 (00:37→22:19)
[2020-06-16] MEDS: Azithromycin 500 MG in Sodium Chloride 0.9% 250 ML 250 ML IVPB SCH (00:39)
[2020-06-16] MEDS ORDERED: Promethazine HCl 25 MG in Sodium Chloride 0.9% 50 ML IVPB SCH (04:00)
[2020-06-16] MEDS: Levothyroxine 150 MCG TAB PO SCH (04:52)
[2020-06-16] MEDS: NIFEdipine XL 60 MG TAB PO SCH (08:02)
[2020-06-16] MEDS: Famotidine/PF 20 mg/2ml Vial SLOW IVP SCH (08:03)
[2020-06-16] MEDS: Brimonidine Tartrate 0.2% Ophth Soln 5 ml Bottle EA EYE SCH ×4 (08:04→19:51)
[2020-06-16] MEDS: Pilocarpine 1% Ophth Drops 15 ML BOT EA EYE SCH ×4 (08:04→19:51)
[2020-06-16] MEDS: Timolol 0.5% Ophth Soln 5 ml Bottle EA EYE SCH ×2 (08:04→19:51)
[2020-06-16] MEDS: Dorzolamide HCl 2% Ophth Soln 10 ml Bottle EA EYE SCH ×3 (08:05→19:50)
[2020-06-16] MEDS: Insulin Glargine 18 UNITS in Pre-Filled Syringe 1 EACH SC SCH ×2 (09:22→22:07)
[2020-06-16] MEDS: Latanoprost 0.005% Ophth Soln 2.5 ml Bottle EA EYE SCH (09:23)
[2020-06-16 09:34] LABS: Hemoglobin 8.9 g/dL (12.0-16.0); Mean Corpuscular HGB CONC 31.5 g/dL (32.0-36.0); Mean Corpuscular Hemoglobin 27.6 pg (27.0-31.0); Mean Corpuscular Volume 87.4 fL (78.0-98.0); Mean Platelet Volume 8.3 fL (7.4-10.4); Platelet Count 181 thou/uL (130-400); RBC Distribution Width 11.2 % (11.5-14.5); Red Blood Cell (RBC) Count 3.24 mill/uL (4.20-5.40); White Blood Cell (WBC) Count 5.9 thou/uL (4.8-10.8)
[2020-06-16] MEDS: Acetaminophen 325 MG TAB PO PRN ×2 (09:38→22:18)
[2020-06-16 09:45] LABS: Anion Gap 15 mmol/L (10-20); BUN (Urea Nitrogen) 46 mg/dL (7.0-18.7); Calc. Creatinine Clearance 23 mL/min (70-130); Calcium 7.4 mg/dL (7.8-10.44); Carbon Dioxide 22 mmol/L (22-29); Chloride 103 mmol/L (98-107); Glucose 130 mg/dL (70-105); Sodium 137 mmol/L (136-145)
[2020-06-16] MEDS ORDERED: Potassium Chloride 20 MEQ TAB PO SCH ×2 (10:00→10:30)
[2020-06-16] MEDS: Sodium Chloride 0.9% 1,000 ML IV SCH (11:56)
--- NOTE | 2020-06-16 12:00 | PDOC.HOSPP ---
- Subjective Encounter Date: 06/16/20 Encounter Time: 11:58 Subjective: Fu: COVID The patient is doing better. She had some mild abdominal pain this morning and was unable to urinate. She was bladder scanned and 1000 mL was straight cath - Objective Vital Signs & Weight: Vital Signs (12 hours) Temp Pulse Resp BP Pulse Ox 06/16/20 09:38 101.0 F H 06/16/20 08:04 91 06/16/20 08:02 91 06/16/20 04:00 99.5 F 107 H 20 129/67 95 Weight Weight 205 lb I&O: 06/15/20 06/16/20 06/17/20 06:59 06:59 06:59 Intake Total 460 Output Total 1400 Balance -940 Result Diagrams: 06/16/20 09:08 06/16/20 09:08 Additional Labs: Accuchecks 06/16/20 06/16/20 06/15/20 11:18 02:15 19:59 POC Glucose 100 165 H 240 H 06/15/20 15:14 POC Glucose 260 H Hospitalist ROS - Review of Systems Constitutional: denies: fever, chills - Medication Medications: Active Medications Generic Name Dose Route Start Last Admin Trade Name Freq PRN Reason Stop Dose Admin Acetaminophen 650 mg 06/14/20 22:55 06/16/20 09:38 Acetaminophen 325 Mg Tab PO 650 mg Q4H PRN Administration Headache/Fever/Mild Pain (1-3) Atorvastatin Calcium 10 mg 06/15/20 21:00 06/15/20 20:13 Atorvastatin Calcium 10 Mg Tab PO 10 mg HS STEFFI Administration Brimonidine Tartrate 1 drop 06/15/20 13:00 06/16/20 08:04 Brimonidine Tartrate 0.2% Ophth Soln 5 Ml Bottle EA EYE 1 drop QID STEFFI Administration Dorzolamide HCl 1 drop 06/15/20 15:00 06/16/20 08:05 Dorzolamide Hcl 2% Ophth Soln 10 Ml Bottle EA EYE 1 drop TID STEFFI Administration Famotidine 20 mg 06/15/20 09:00 06/16/20 08:03 Famotidine/Pf 20 Mg/2ml Vial SLOW IVP 20 mg DAILY STEFFI Administration Ceftriaxone Sodium 1 gm/ 100 mls @ 200 mls/hr 06/15/20 23:00 06/15/20 22:51 Sodium Chloride IVPB 100 mls 2300 STEFFI Administration Azithromycin 500 mg/ Sodium 250 mls @ 250 mls/hr 06/15/20 01:00 06/16/20 00:39 Chloride IVPB 250 mls 0100 STEFFI Administration Insulin Glargine 18 units/ 0.18 mls @ 0 mls/hr 06/15/20 09:00 06/16/20 09:22 Miscellaneous Medication SC 0.18 mls BID STEFFI Administration Sodium Chloride 1,000 mls @ 50 mls/hr 06/15/20 16:30 06/16/20 11:56 Normal Saline 0.9% IV Not Given .Q20H STEFFI Insulin Human Lispro 0 units 06/14/20 22:58 06/15/20 15:54 Humalog 300 Units/3 Ml Vial SC 4 unit .MILD SLIDING SCALE PRN Administration Mild Correctional Scale Latanoprost 1 drop 06/16/20 09:00 06/16/20 09:23 Latanoprost 0.005% Ophth Soln 2.5 Ml Bottle EA EYE Not Given DAILY STEFFI Levothyroxine Sodium 150 mcg 06/16/20 06:00 06/16/20 04:52 Levothyroxine 150 Mcg Tab PO 150 mcg 0600 STEFFI Administration Metoprolol Succinate 150 mg 06/16/20 09:00 06/16/20 08:02 Metoprolol Succinate Xl 100 Mg Tab PO 150 mg DAILY STEFFI Administration Nifedipine 60 mg 06/16/20 09:00 06/16/20 08:02 Nifedipine Xl 60 Mg Tab PO 60 mg DAILY STEFFI Administration Ondansetron HCl 4 mg 06/15/20 12:36 06/16/20 08:02 Ondansetron Pf 4 Mg/2 Ml Vial IVP 4 mg Q6H PRN Administration Nausea/Vomiting Pilocarpine HCl 1 drop 06/15/20 13:00 06/16/20 08:04 Pilocarpine 1% Ophth Drops 15 Ml Bot EA EYE 1 drop QID STEFFI Administration Potassium Chloride 40 meq 06/16/20 10:30 06/16/20 11:24 Potassium Chloride 20 Meq Tab PO 06/16/20 13:00 40 meq NOW STEFFI Administration Sertraline HCl 25 mg 06/16/20 09:00 06/16/20 08:03 Sertraline Hcl 25 Mg Tab PO 25 mg DAILY STEFFI Administration Timolol Maleate 1 drop 06/15/20 21:00 06/16/20 08:04 Timolol 0.5% Ophth Soln 5 Ml Bottle EA EYE 1 drop BID STEFFI Administration - Exam General Appearance: NAD, awake alert Eye - other findings: blind in both eyes, detects light in right eye ENT: normocephalic atraumatic, no oropharyngeal lesions Neck: no JVD Heart: RRR, no murmur Respiratory: CTAB, no wheezes, no rales, no ronchi Gastrointestinal: soft, non-tender, non-distended, normal bowel sounds Extremities: no cyanosis, no clubbing, no edema Hosp A/P - Plan Chest Xray: infiltrative change RLL, RUL, GEORGE This is 50 year old female who presented with diarrhea, abdominal pain, weakness, tested postiive for COVID. Admitted for hyperglycemia and PELON COVID pneumonia - oxygen saturation 100% on 2L. Wean off oxygen PELON - creatinine up to 4.3. Urine culture normal. Renal ultrasound normal. Nephrology consulted - will place lloyd catheter today and monitor creatinine due to poor urine output Uncontrolled diabetes - continue lantus 18 units bid - continue sliding scale Hyponatremia - sodium up to 134, stable, will monitor Hypertensive urgency- resolved - blood pressure controlled to 112 Hypothryoidism - continue levothyroxine Hyperlipidemia - continue statin Glaucoma - resume home eye drops Dispo: change to inpatient status due to worsening creatinine
[2020-06-16] MEDS: Atorvastatin Calcium 10 MG TAB PO SCH (19:49)
[2020-06-16] MEDS: cefTRIAXone\\ROCEPHIN 1 GM in Sodium Chloride 0.9% 100 ML IVPB SCH (22:27)
[2020-06-17] MEDS: Azithromycin 500 MG in Sodium Chloride 0.9% 250 ML 250 ML IVPB SCH (00:09)
[2020-06-17] MEDS: Acetaminophen 325 MG TAB PO PRN ×2 (01:38→19:18)
[2020-06-17] MEDS: Levothyroxine 150 MCG TAB PO SCH (04:41)
--- NOTE | 2020-06-17 05:12 | PRG ---
DATE OF SERVICE: 06/16/2020 SUBJECTIVE: The patient on COVID isolation. OBJECTIVE: VITAL SIGNS: Temperature 99.1, pulse 107, respiratory rate 20, and blood pressure 129/67. LABORATORY DATA: Hemoglobin is 8.9, WBC 5.9, eosinophils 0.1. Potassium 3.0, BUN is 46, and creatinine is 4.3 from 4.2 yesterday. ASSESSMENT AND PLAN: 1. Acute kidney injury on chronic kidney disease, stage 4. Renal function seems to be stable. No acute indication for dialysis. Renal ultrasound was unremarkable. Agree with IV fluids. Medication list reviewed. No nephrotoxins identified. Renally dose the medications. We will check urine eosinophils. Rule out infection to be from sepsis and acute tubular necrosis also. Labs are reasonably stable. It could be her new baseline given the new infection. We will control blood pressure better and continue IV fluids slowly. We will close monitor renal function. No acute indication for dialysis. We will replace potassium. Recommend cautious replacement of potassium. 2. COVID-19 infection. 3. Anemia. Check iron panels. 4. Hyperglycemia. Continue IV fluids one more day. Blood pressure seems to be better. We will check iron studies. We will follow. Job ID: [id number]
[2020-06-17] MEDS: Dextrose 50% Abboject 50 ML SYRINGE SLOW IVP PRN (05:23)
[2020-06-17 07:04] LABS: Anion Gap 14 mmol/L (10-20); BUN (Urea Nitrogen) 46 mg/dL (7.0-18.7); Calc. Creatinine Clearance 19 mL/min (70-130); Calcium 7.5 mg/dL (7.8-10.44); Carbon Dioxide 20 mmol/L (22-29); Chloride 105 mmol/L (98-107); Glucose 189 mg/dL (70-105); Iron 10 ug/dL (50-170); Iron Binding Capacity, Total 179 mcg/dL (265-497); Potassium 3.4 mmol/L (3.5-5.1); Sodium 136 mmol/L (136-145)
[2020-06-17] MEDS: Sodium Chloride 0.9% 1,000 ML IV SCH (08:10)
[2020-06-17] MEDS: NIFEdipine XL 60 MG TAB PO SCH (08:11)
[2020-06-17] MEDS: Pilocarpine 1% Ophth Drops 15 ML BOT EA EYE SCH ×4 (08:12→22:12)
[2020-06-17] MEDS: Timolol 0.5% Ophth Soln 5 ml Bottle EA EYE SCH ×2 (08:12→22:12)
[2020-06-17] MEDS: Famotidine/PF 20 mg/2ml Vial SLOW IVP SCH (08:12)
[2020-06-17] MEDS: Dorzolamide HCl 2% Ophth Soln 10 ml Bottle EA EYE SCH ×3 (08:13→22:11)
[2020-06-17] MEDS: Brimonidine Tartrate 0.2% Ophth Soln 5 ml Bottle EA EYE SCH ×4 (08:13→22:11)
[2020-06-17] MEDS ORDERED: Potassium Chloride 20 MEQ TAB PO SCH (09:00)
[2020-06-17] MEDS: Insulin Glargine 18 UNITS in Pre-Filled Syringe 1 EACH SC SCH ×2 (09:48→22:11)
[2020-06-17] MEDS: Latanoprost 0.005% Ophth Soln 2.5 ml Bottle EA EYE SCH (09:51)
[2020-06-17] MEDS: HumaLOG 300 UNITS/3 ML VIAL SC PRN (11:10)
[2020-06-17 11:17] LABS: Actual Bicarbonate (HCO3a) 19.4 mEq/L (22-28); Base Excess (BEa) -5.6 mEq/L (-2.0 to +3.0); CO2 Tension 36.1 mmHg (35.0-45.0); Calcium, Ionized (arterial) 1.06 mmol/L (1.12-1.30); Carboxyhemoglobin (COHb) 0.3 gm% (0.0-3.0); Hemoglobin (Hb) 10.3 g/dL (12.0-16.0); Potassium - ABG Lab 3.44 mmol/L (3.70-5.30); pH, Arterial 7.35 (7.35-7.45)
[2020-06-17 11:23] LABS: O2 Tension (PaO2), arterial 51.6 mmHg (80.0-100.0); Puncture Site LRA
[2020-06-17 11:24] LABS: ALV-art Gradient 616.275 mmHg (0-20)
[2020-06-17] MEDS ORDERED: Sodium Chloride 0.9% 1,000 ML IV SCH (11:25)
--- NOTE | 2020-06-17 11:57 | PRG ---
DATE OF SERVICE: 06/17/2020 SUBJECTIVE: The patient on COVID isolation. OBJECTIVE: VITAL SIGNS: Temperature 99, pulse 87, respiratory rate 18, and blood pressure 127/66. LABORATORY DATA: Potassium 3.4, BUN is 46, and creatinine is 5.07. ASSESSMENT AND PLAN: 1. Acute kidney injury on chronic kidney disease, stage 4 with worsening labs. The patient had urinary retention yesterday and had almost 1 L of urine with Guzman insertion, still did not improve the renal function. Her urine eosinophils were checked and was negative. Her KYLAH and ANCA and anti-GBM will also be checked. She does have proteinuria. Other possibility even though urine eosinophils is negative possibility of anal intraepithelial neoplasia could not be ruled out, so I recommended primary team may be to hold or change the antibiotics to see if any improvement in renal function. Plan is to continue on gentle hydration, maybe NS at 30 mL/hour with monitoring renal function. No acute indication for dialysis, but if there is any indication for dialysis, we will dialyze her. Otherwise, we will monitor and change her on antibiotics and watch for recovery of renal function. If no improvement, might have to consider renal biopsy too. We will check immunological labs. Plan discussed with primary team also. Again, no acute indication for dialysis. We will continue close monitoring. 2. COVID-19 infection. 3. Anemia, which seems to be slightly iron deficient. Recommend iron pills if tolerated. 4. Hyperglycemia. 5. Type 2 diabetes with possible diabetic nephropathy. Plan is to change antibiotics and monitor renal function and avoid nephrotoxins. Renally dose the medications. We will reduce IV fluids to 30 mL/hour. Job ID: [id number]
[2020-06-17 13:09] LABS: ANA Symphony (Qualitative) Negative (Negative); ANA Symphony (Quantitative) 0.2 Ratio (< 0.7 Negative); dsDNA IgG Antibody 0.7 IU/mL (<10 Negative)
--- NOTE | 2020-06-17 13:26 | RAD ---
PORTABLE CHEST: COMPARISON: 06/24/2020 exam. HISTORY: Worsening COBID pneumonia. FINDINGS: Heart size is enlarged. There is significant worsening to the bilateral infiltrates with more consol idative changes in the right upper and right lower lung zones, also worsening left-sided changes. IMPRESSION: Significant worsening of bilateral infiltrates. POS: GWEN
--- NOTE | 2020-06-17 13:55 | PDOC.HOSPP ---
- Subjective Encounter Date: 06/17/20 Encounter Time: 13:53 Subjective: F/u: COVID THe patient desaturated and was placed on 6L nasal cannula this morning. She then desaturated and was brought up to high flow. ABG On room air showed pO2 in the 40's. The patient states that she has intermittent episodes of feeling good, then feeling lousy She has a lot of nausea. She is not coughing much - Objective Vital Signs & Weight: Vital Signs (12 hours) Temp Pulse Resp BP Pulse Ox 06/17/20 12:30 92 L 06/17/20 12:00 98.7 F 92 22 H 144/74 H 92 L 06/17/20 08:12 87 06/17/20 08:11 87 06/17/20 08:00 98.9 F 95 20 149/73 H 93 L 06/17/20 04:50 98.9 F 87 18 127/66 93 L 06/17/20 02:29 99.9 F H Weight Weight 205 lb I&O: 06/16/20 06/17/20 06/18/20 06:59 06:59 06:59 Intake Total 460 2130 Output Total 1400 1050 Balance -940 1080 Result Diagrams: 06/16/20 09:08 06/17/20 06:06 Additional Labs: Accuchecks 06/17/20 06/17/20 06/17/20 11:08 06:06 05:07 POC Glucose 182 H 168 H 62 L 06/16/20 06/16/20 22:32 21:37 POC Glucose 98 83 Hospitalist ROS - Review of Systems Constitutional: denies: fever, chills - Medication Medications: Active Medications Generic Name Dose Route Start Last Admin Trade Name Freq PRN Reason Stop Dose Admin Acetaminophen 650 mg 06/14/20 22:55 06/17/20 01:38 Acetaminophen 325 Mg Tab PO 650 mg Q4H PRN Administration Headache/Fever/Mild Pain (1-3) Atorvastatin Calcium 10 mg 06/15/20 21:00 06/16/20 19:49 Atorvastatin Calcium 10 Mg Tab PO 10 mg HS STEFFI Administration Brimonidine Tartrate 1 drop 06/15/20 13:00 06/17/20 13:37 Brimonidine Tartrate 0.2% Ophth Soln 5 Ml Bottle EA EYE 1 drop QID STEFFI Administration Dextrose/Water 25 gm 12/07/20 22:58 06/17/20 05:23 Dextrose 50% Abboject 50 Ml Syringe SLOW IVP 25 gm PRN PRN Administration Hypoglycemia Dorzolamide HCl 1 drop 06/15/20 15:00 06/17/20 08:13 Dorzolamide Hcl 2% Ophth Soln 10 Ml Bottle EA EYE 1 drop TID STEFFI Administration Famotidine 20 mg 06/15/20 09:00 06/17/20 08:12 Famotidine/Pf 20 Mg/2ml Vial SLOW IVP 20 mg DAILY STEFFI Administration Ceftriaxone Sodium 1 gm/ 100 mls @ 200 mls/hr 06/15/20 23:00 06/16/20 22:27 Sodium Chloride IVPB 100 mls 2300 STEFFI Administration Azithromycin 500 mg/ Sodium 250 mls @ 250 mls/hr 06/15/20 01:00 06/17/20 00:09 Chloride IVPB 250 mls 0100 STEFFI Administration Insulin Glargine 18 units/ 0.18 mls @ 0 mls/hr 06/15/20 09:00 06/17/20 09:48 Miscellaneous Medication SC Not Given BID [facility] Insulin Human Lispro 0 units 06/14/20 22:58 06/17/20 11:10 Humalog 300 Units/3 Ml Vial SC 2 unit .MILD SLIDING SCALE PRN Administration Mild Correctional Scale Latanoprost 1 drop 06/16/20 09:00 06/17/20 09:51 Latanoprost 0.005% Ophth Soln 2.5 Ml Bottle EA EYE Not Given DAILY STEFFI Levothyroxine Sodium 150 mcg 06/16/20 06:00 06/17/20 04:41 Levothyroxine 150 Mcg Tab PO 150 mcg 0600 STEFFI Administration Metoprolol Succinate 150 mg 06/16/20 09:00 06/17/20 08:11 Metoprolol Succinate Xl 100 Mg Tab PO 150 mg DAILY STEFFI Administration Nifedipine 60 mg 06/16/20 09:00 06/17/20 08:11 Nifedipine Xl 60 Mg Tab PO 60 mg DAILY STEFFI Administration Ondansetron HCl 4 mg 06/15/20 12:36 06/16/20 22:19 Ondansetron Pf 4 Mg/2 Ml Vial IVP 4 mg Q6H PRN Administration Nausea/Vomiting Pilocarpine HCl 1 drop 06/15/20 13:00 06/17/20 13:36 Pilocarpine 1% Ophth Drops 15 Ml Bot EA EYE 1 drop QID STEFFI Administration Sertraline HCl 25 mg 06/16/20 09:00 06/17/20 08:12 Sertraline Hcl 25 Mg Tab PO 25 mg DAILY STEFFI Administration Timolol Maleate 1 drop 06/15/20 21:00 06/17/20 08:12 Timolol 0.5% Ophth Soln 5 Ml Bottle EA EYE 1 drop BID STEFFI Administration - Exam General Appearance: NAD, awake alert Eye: PERRL, anicteric sclera Eye - other findings: blind in her eyes ENT: normocephalic atraumatic, no oropharyngeal lesions Neck: no JVD Heart: RRR, no murmur, no gallops, no rubs Respiratory - other findings: diffuse crackles Gastrointestinal: soft, non-tender, non-distended, normal bowel sounds Extremities: no cyanosis, no clubbing, no edema Skin: normal turgor, no lesions, no rashes Neurological: cranial nerve grossly intact, normal sensation to touch, no weakness, no focal deficits Hosp A/P - Plan Chest Xray: infiltrative change RLL, RUL, GEORGE This is 50 year old female who presented with diarrhea, abdominal pain, weakness, tested postiive for COVID. Admitted for hyperglycemia and PELON Acute hypoxic respiratory failure secondary to COVID pneumonia - oxygen saturation worsening, currently on high flow. Repeat X ray shows worsening bilateral infiltrates, appears worst on the right - will order convalescent plasma - trial 40 mg lasix x 1 and d/c fluids . Will switch from ceftriaxone and azithromycin to zosyn PELON - creatinine worsening up to 5. Guzman was placed 06/17, renal ultrasound unremarkable. Nephrology is on board - will trial lasix 40 mg x 1, discontinue IV fluids Uncontrolled diabetes - continue lantus 18 units bid - continue sliding scale Hyponatremia - sodium up to 134, stable, will monitor Hypertensive urgency- resolved - blood pressure controlled to 112 Hypothryoidism - continue levothyroxine Hyperlipidemia - continue statin Glaucoma - resume home eye drops Dispo: change to inpatient status due to worsening creatinine
[2020-06-17] MEDS ORDERED: Furosemide 40 MG/4 ML VIAL SLOW IVP SCH ×2 (14:00→23:15)
[2020-06-17 14:42] LABS: Hemoglobin 9.3 g/dL (12.0-16.0); Mean Corpuscular Hemoglobin 29.1 pg (27.0-31.0); Mean Corpuscular Volume 90.9 fL (78.0-98.0); Mean Platelet Volume 8.8 fL (7.4-10.4); Platelet Count 238 thou/uL (130-400); RBC Distribution Width 11.7 % (11.5-14.5); Red Blood Cell (RBC) Count 3.19 mill/uL (4.20-5.40); White Blood Cell (WBC) Count 8.1 thou/uL (4.8-10.8)
[2020-06-17] MEDS: Piperacillin/Tazobactam 3.375 GM in Sodium Chloride 0.9% 100 ML IVPB SCH ×2 (15:19→23:35)
--- NOTE | 2020-06-17 15:57 | PQF ---
CLINICAL DOCUMENTATION CLARIFICATION FORM: Dear Dr. Rossy Anguiano Date: 06.17.20 Please exercise your independent, professional judgment in responding to the clarification form. Clinical indicators are provided on the bottom of this form for your review. Please check appropriate box(es): [ ] Acute Metabolic Encephalopathy: [ ] Transient Alteration of Awareness [ ] Other diagnosis [ ] Unable to determine For continuity of documentation, please document condition throughout progress notes and discharge summary. Thank You. To be completed by CDI/Coding staff for physician review: CLINICAL INDICATORS - SIGNS / SYMPTOMS / LABS / RESULTS AND LOCATION IN EMR ED: SEPTIC SHOCK; PELON; NSTEMI; UTI 12.5 H&P (Koby): Acute encephalopathy, likely multifactorial in pt w/ prior traumatic brain injury, severe hypernatremia, PELON, and uremia; Indeterminate Troponins *pt is not responsive to questions or commands 2.5 PN (Koby): alerted mental status likely secondary to profound dehydration and volume depletion 12.5 Consult (Griffin): Mental status change - currently much improved this morning. This could be secondary to a metabolic encephalopathy 12.9 DC Summary (Silvio): acute encephalopathy RISK FACTORS / RESULTS AND LOCATION IN EMR 12.9 DC Summary (Silvio): *From [facility] *Septic Shock *Hypernatremia *PELON TREATMENTS / RESULTS AND LOCATION IN EMR H&P (Koby): * ICU admission * consult Pulmonary Critical Care and Nephrology *IV fluids w/ D5W; Levophed IV; MAR: * Maxipime IV 12.6 12.7 *D5 NS 12.7-12.9 *Potassium IV 12.7 * Magnesium IV12.7 CDS Signature: Rachel Roca Phone #: [phone] 06-17-20 This is a permanent part of the Medical Record [facility]
--- NOTE | 2020-06-17 16:29 | PQF ---
CLINICAL DOCUMENTATION CLARIFICATION FORM: Dear Dr. RADHA TAYLOR Date: 06-17-20 Please exercise your independent, professional judgment in responding to the clarification form. Clinical indicators are provided on the bottom of this form for your review. Please check appropriate box(es): [ ] UTI [ ] Contaminated urine specimen without UTI [ ] Other diagnosis [ X ] Unable to determine In addition, please specify: Present on Admission (POA): [ X ] Yes [ ] No [ ] Unable to determine For continuity of documentation, please document condition throughout progress notes and discharge summary. Thank You. To be completed by CDI/Coding staff for physician review: CLINICAL INDICATORS - SIGNS / SYMPTOMS / LABS / RESULTS AND LOCATION IN MR: URINE 06-15-20: URINE CLARITY: TURBID A UR LEUKOCYTE ESTERASE: 250 A URINE WBC: GREATER THAN 50 A TEMP: 06-15-20: 100.8 06-16-20: 102.5 06-17-20: 102.5 RISK FACTORS / RESULTS AND LOCATION IN MR: CONSULT NOTE DR. MURRELL 06-17-20: PT HAD URINARY RETENTION YESTERDAY AND HAD ALMOST 1L OF URINE WITH MACK INSERTION H&P 06-15-20: COVID PNEUMONIA, PELON, UNCONTROLLED DIABETES, HYPONATREMIA, HTN URGENCY TREATMENT / RESULTS AND LOCATION IN MR: MAR: 06-17-20: ZOSYN IV, 06-15-20: ZITHROMAX IV, ROCEPHIN IV, NS IVF CDS Signature: Rachel Roca Phone #: [phone] Date: 06-17-20 This is a permanent part of the Medical Record [facility]
[2020-06-17] MEDS ORDERED: Benzonatate 100 MG CAP PO PRN (19:57)
[2020-06-17] MEDS ORDERED: Dexamethasone 4 mg/ml Vial SLOW IVP SCH (20:30)
[2020-06-17 20:46] LABS: Actual Bicarbonate (HCO3a) 19.1 mEq/L (22-28); Base Excess (BEa) -6.7 mEq/L (-2.0 to +3.0); CO2 Tension 39.1 mmHg (35.0-45.0); Calcium, Ionized (arterial) 1.05 mmol/L (1.12-1.30); Carboxyhemoglobin (COHb) 0.3 gm% (0.0-3.0); Hemoglobin (Hb) 9.7 g/dL (12.0-16.0); Potassium - ABG Lab 3.54 mmol/L (3.70-5.30); pH, Arterial 7.31 (7.35-7.45)
--- NOTE | 2020-06-17 20:52 | RAD ---
XR Chest 1 View Portable History: Covid pneumonia. Comparison: Radiograph same day Findings: Extensive airspace opacities are similar. No pneumothorax. Heart size is enlarged. No signi ficant pleural effusion. Impression: Similar examination of the chest.
[2020-06-17 20:53] LABS: O2 Tension (PaO2), arterial 47.8 mmHg (80.0-100.0)
[2020-06-17 20:54] LABS: ALV-art Gradient 473.725 mmHg (0-20); Puncture Site RRA
[2020-06-17] MEDS ORDERED: ALPRAZolam 0.5 MG TAB PO SCH (21:00)
[2020-06-17] MEDS: Atorvastatin Calcium 10 MG TAB PO SCH (22:11)
[2020-06-18] MEDS: Piperacillin/Tazobactam 3.375 GM in Sodium Chloride 0.9% 100 ML IVPB SCH ×2 (00:02→05:24)
[2020-06-18 02:31] LABS: Base Excess (BEa) -4.5 mEq/L (-2.0 to +3.0); CO2 Tension 40.4 mmHg (35.0-45.0); Calcium, Ionized (arterial) 1.05 mmol/L (1.12-1.30); Carboxyhemoglobin (COHb) 0.3 gm% (0.0-3.0); Hemoglobin (Hb) 9.8 g/dL (12.0-16.0); Potassium - ABG Lab 3.72 mmol/L (3.70-5.30); pH, Arterial 7.33 (7.35-7.45)
[2020-06-18 02:33] LABS: O2 Tension (PaO2), arterial 57.1 mmHg (80.0-100.0)
[2020-06-18 02:34] LABS: Puncture Site RRA
[2020-06-18] MEDS: Levothyroxine 150 MCG TAB PO SCH (06:08)
[2020-06-18 07:32] LABS: Anion Gap 19 mmol/L (10-20); BUN (Urea Nitrogen) 54 mg/dL (7.0-18.7); CK (CPK) 818 U/L (29-168); Calc. Creatinine Clearance 18 mL/min (70-130); Calcium 7.7 mg/dL (7.8-10.44); Carbon Dioxide 17 mmol/L (22-29); Chloride 105 mmol/L (98-107); Glucose 225 mg/dL (70-105); Potassium 3.8 mmol/L (3.5-5.1); Sodium 137 mmol/L (136-145)
[2020-06-18] MEDS: Ascorbic Acid 500 mg Chewable Tablet PO SCH (08:17)
[2020-06-18] MEDS: Famotidine/PF 20 mg/2ml Vial SLOW IVP SCH (08:18)
[2020-06-18] MEDS: NIFEdipine XL 60 MG TAB PO SCH (08:18)
[2020-06-18] MEDS: Brimonidine Tartrate 0.2% Ophth Soln 5 ml Bottle EA EYE SCH ×4 (08:21→20:54)
[2020-06-18] MEDS: Timolol 0.5% Ophth Soln 5 ml Bottle EA EYE SCH ×2 (08:21→20:53)
[2020-06-18] MEDS: Dorzolamide HCl 2% Ophth Soln 10 ml Bottle EA EYE SCH ×3 (08:22→20:53)
[2020-06-18] MEDS: Pilocarpine 1% Ophth Drops 15 ML BOT EA EYE SCH ×4 (08:22→20:53)
[2020-06-18] MEDS: Zinc Sulfate 220 MG CAP PO SCH (08:25)
[2020-06-18] MEDS: Insulin Glargine 18 UNITS in Pre-Filled Syringe 1 EACH SC SCH ×2 (08:26→21:51)
[2020-06-18] MEDS: HumaLOG 300 UNITS/3 ML VIAL SC PRN (08:27)
[2020-06-18] MEDS: Latanoprost 0.005% Ophth Soln 2.5 ml Bottle EA EYE SCH (08:28)
--- NOTE | 2020-06-18 08:54 | RAD ---
PORTABLE CHEST: HISTORY: COVID pneumonia followup. FINDINGS: Extensive bilateral lung infiltrates are similar to the previous exam. IMPRESSION: Essentially stable exam. POS: AH
[2020-06-18] MEDS ORDERED: Dexamethasone 4 mg/ml Vial SLOW IVP SCH (09:00)
--- NOTE | 2020-06-18 10:13 | CON ---
DATE OF CONSULTATION: HISTORY OF PRESENT ILLNESS: Tami Coughlin is a 50-year-old morbidly obese female, who was admitted to the hospital on Sunday, June 14. Her respirations are 20, pulse 85, sats 90% on room air, temperature is 100.3. Presented to the ER with fever, chills, sweats, generalized weakness. Found to have dickerson positive status. Blood sugars markedly elevated at 500. She was given regular insulin. She then was transferred from the routine medical floor to the MICU last night with progressive respiratory failure. She is now on high flow. I went to see her in the room. She is appropriate, but still somewhat encephalopathic. Sats are in the 93% to 94% range. PAST MEDICAL HISTORY: 1. Renal failure. 2. Diabetes. 3. Hyperlipidemia. 4. Hypothyroidism. 5. Hypertension. PAST SURGICAL HISTORY: 1. Cataract. 2. Hysterectomy. ALCOHOL: None. TOBACCO: None. HOME MEDICINES: 1. Norvasc 10. 2. Lantus 18. 3. Synthroid 150. 4. Cozaar 25. 5. Toprol-XL 150. 6. Pravastatin 40. 7. Zoloft 25. ALLERGIES: NONE. REVIEW OF SYSTEMS: Otherwise, unremarkable. PHYSICAL EXAMINATION: VITAL SIGNS: Temperature 98, pulse 68, blood pressure 120/58, saturations are 95% on high flow as noted. CHEST: Extensive rhonchi and crackles. CARDIAC: Sinus tach. ABDOMEN: Obese, soft. NEUROLOGIC: Encephalopathic. LABORATORY DATA: PO2 was 57, pCO2 on a BiPAP. Creatinine is 5, BUN is 56, glucose is 195. X-ray shows bilateral infiltrates, diffuse. IMPRESSION AND PLAN: 1. Respiratory failure, dickerson positive pneumonia. 2. Renal failure. 3. Diabetes. She is yet to receive convalescent plasma. Apparently, one is being ordered. Infectious Disease needs to be consulted to see whether she may benefit from remdesivir at this stage. Continue high-flow BiPAP as tolerated. Obviously, if condition gets worse, she may have to be intubated. Prognosis remains guarded. Consultation note, 70 minutes, 50% direct patient care. Job ID: [id number]
[2020-06-18] MEDS: Acetaminophen 325 MG TAB PO PRN (10:25)
[2020-06-18] MEDS ORDERED: Piperacillin/Tazobactam 2.25 GM in Sodium Chloride 0.9% 100 ML IVPB SCH (12:00)
--- NOTE | 2020-06-18 12:10 | PDOC.HOSPP ---
- Subjective Encounter Date: 06/18/20 Encounter Time: 11:00 Subjective: F/u: COVID The patient was transferred to the ICU overnight. She still feels short of breath while laying down. She has minimal cough. Patient is going to have dialysis today, right femoral cath placed - Objective Vital Signs & Weight: Vital Signs (12 hours) Temp Pulse Resp Pulse Ox 06/18/20 08:21 68 06/18/20 08:18 68 06/18/20 08:00 98 06/18/20 04:00 98.3 F 06/18/20 03:22 68 23 H 93 L Weight Weight 205 lb Most Recent Monitor Data Heart Rate from ECG 72 NIBP 159/89 NIBP BP-Mean 112 Respiration from ECG 30 SpO2 84 I&O: 06/17/20 06/18/20 06/19/20 06:59 06:59 06:59 Intake Total 2130 990 Output Total 1050 975 Balance 1080 15 Result Diagrams: 06/17/20 14:06 06/18/20 06:56 Additional Labs: Accuchecks 06/17/20 06/17/20 06/17/20 19:58 16:35 04:44 POC Glucose 217 H 195 H 56 L* 06/16/20 16:10 POC Glucose 74 Hospitalist ROS - Review of Systems Constitutional: denies: fever, chills - Medication Medications: Active Medications Generic Name Dose Route Start Last Admin Trade Name Freq PRN Reason Stop Dose Admin Acetaminophen 650 mg 06/14/20 22:55 06/18/20 10:25 Acetaminophen 325 Mg Tab PO 650 mg Q4H PRN Administration Headache/Fever/Mild Pain (1-3) Ascorbic Acid 1,000 mg 06/18/20 09:00 06/18/20 08:17 Ascorbic Acid 500 Mg Chewable Tablet PO 1,000 mg DAILY STEFFI Administration Atorvastatin Calcium 10 mg 06/15/20 21:00 06/17/20 22:11 Atorvastatin Calcium 10 Mg Tab PO 10 mg HS STEFFI Administration Benzonatate 100 mg 06/17/20 19:57 06/17/20 21:11 Benzonatate 100 Mg Cap PO 100 mg TIDPRN PRN Administration Cough Brimonidine Tartrate 1 drop 06/15/20 13:00 06/18/20 08:21 Brimonidine Tartrate 0.2% Ophth Soln 5 Ml Bottle EA EYE 1 drop QID STEFFI Administration Dextrose/Water 25 gm 06/14/20 22:58 06/17/20 05:23 Dextrose 50% Abboject 50 Ml Syringe SLOW IVP 25 gm PRN PRN Administration Hypoglycemia Dorzolamide HCl 1 drop 06/15/20 15:00 06/18/20 08:22 Dorzolamide Hcl 2% Ophth Soln 10 Ml Bottle EA EYE 1 drop TID STEFFI Administration Insulin Glargine 18 units/ 0.18 mls @ 0 mls/hr 06/15/20 09:00 06/18/20 08:26 Miscellaneous Medication SC 0.18 mls BID STEFFI Administration Insulin Human Lispro 0 units 06/14/20 22:58 06/18/20 08:27 Humalog 300 Units/3 Ml Vial SC 3 unit .MILD SLIDING SCALE PRN Administration Mild Correctional Scale Latanoprost 1 drop 06/16/20 09:00 06/18/20 08:28 Latanoprost 0.005% Ophth Soln 2.5 Ml Bottle EA EYE 1 drop DAILY STEFFI Administration Levothyroxine Sodium 150 mcg 06/16/20 06:00 06/18/20 06:08 Levothyroxine 150 Mcg Tab PO 150 mcg 0600 STEFFI Administration Metoprolol Succinate 150 mg 06/16/20 09:00 06/18/20 08:17 Metoprolol Succinate Xl 100 Mg Tab PO 150 mg DAILY STEFFI Administration Nifedipine 60 mg 06/16/20 09:00 06/18/20 08:18 Nifedipine Xl 60 Mg Tab PO 60 mg DAILY STEFFI Administration Ondansetron HCl 4 mg 06/15/20 12:36 06/16/20 22:19 Ondansetron Pf 4 Mg/2 Ml Vial IVP 4 mg Q6H PRN Administration Nausea/Vomiting Pilocarpine HCl 1 drop 06/15/20 13:00 06/18/20 08:22 Pilocarpine 1% Ophth Drops 15 Ml Bot EA EYE 1 drop QID STEFFI Administration Sertraline HCl 25 mg 06/16/20 09:00 06/18/20 07:35 Sertraline Hcl 25 Mg Tab PO 25 mg DAILY STEFFI Administration Sodium Chloride 10 ml 06/18/20 09:00 06/18/20 08:28 Flush - Normal Saline 10 Ml Syringe IVF 10 ml Q12HR STEFFI Administration Timolol Maleate 1 drop 06/15/20 21:00 06/18/20 08:21 Timolol 0.5% Ophth Soln 5 Ml Bottle EA EYE 1 drop BID STEFFI Administration Zinc Sulfate 220 mg 06/18/20 09:00 06/18/20 08:25 Zinc Sulfate 220 Mg Cap PO 220 mg DAILY STEFFI Administration - Exam General Appearance: NAD, awake alert Eye: PERRL, anicteric sclera Eye - other findings: blind in both eyes ENT: normocephalic atraumatic, no oropharyngeal lesions Neck: no JVD Heart: RRR, no murmur, no gallops, no rubs Respiratory - other findings: diminished breath sounds Gastrointestinal: soft, non-tender, non-distended, normal bowel sounds Extremities: no cyanosis, no clubbing, no edema Skin: normal turgor, no lesions, no rashes Hosp A/P - Plan Chest Xray: infiltrative change RLL, RUL, GEORGE Chest X ray 06/18: stable bilateral infiltrates This is 50 year old female who presented with diarrhea, abdominal pain, weakness, tested postiive for COVID. Admitted for hyperglycemia and PELON Acute hypoxic respiratory failure secondary to COVID pneumonia vs pulmonary edema - repeat chest x ray shows stable infiltrates. Patient had no response to lasix - s/p convalescent plasma 06/18. Pulmonary consulted - continue IV zosyn. Nephro plans to do dialysis today PELON - creatinine worsening up to 5.6. Nephrology plans to do dialysis. Guzman was placed 06/17, renal ultrasound unremarkable. Uncontrolled diabetes - continue lantus 18 units bid - continue sliding scale Hyponatremia - resolved Hypertensive urgency- resolved - blood pressure controlled to 112 Hypothyroidism - continue levothyroxine Hyperlipidemia - continue statin Glaucoma - resume home eye drops Dispo: plan for dialysis, patient transferred to [facility]
[2020-06-18 14:48] LABS: Hep B Surf Ag Non-Reactive S/CO (NonReactive)
[2020-06-18 14:49] LABS: HBSAg Index 0.21 S/CO (0-0.99)
--- NOTE | 2020-06-18 15:34 | CON ---
DATE OF CONSULTATION: 06/18/2020 CONSULT REASON: COVID pneumonia. HISTORY OF PRESENT ILLNESS: A 50-year-old with history of type 2 diabetes, blindness from diabetic retinopathy, diabetic nephropathy with end-stage renal disease, who has been ill since last week with general malaise, vomiting, diarrhea, weakness, hyperglycemia, presented to the emergency room. Initially, her pulse was 85, temperature 100.3, saturations 93% on room air, BP 160/77. The description of the exam in the emergency room was not particularly remarkable. Initial chest x-ray on June 14 with right and left lung infiltrates suggestive of multifocal pneumonia. Her COVID test was positive as expected, so she has been given inhalers, dexamethasone, glucagon, melatonin, Zosyn, zinc. She is right now being dialyzed in the [facility] and she is awake and alert. She denies any headaches. Dyspnea has improved. Never had much dyspnea to begin with nor much coughing spells. No nausea, no vomiting since admission. No abdominal pain. She still has urine output and they placed a Guzman catheter. No neurological symptoms. PAST MEDICAL HISTORY: Type 2 diabetes, diabetic retinopathy with blindness, nephropathy with end-stage renal disease, hypertension, hyperlipidemia. PAST SURGICAL HISTORY: Retinal surgery, cataract operation, hysterectomy. SOCIAL HISTORY: Never smoker. Lives in [place] with family. ALLERGIES: NONE. CURRENT MEDICATIONS: 1. Inhalers. 2. Eye drops. 3. Vitamin C. 4. Lipitor. 5. Decadron. 6. Latanoprost. 7. Levothyroxine. 8. Dulera. 9. Zosyn. 10. Zinc. FAMILY HISTORY: Diabetes, hypertension. PHYSICAL EXAMINATION: VITAL SIGNS: T-max 102 on June 17. Today, she is max 99.9. BP 120/66, heart rate 64, respiratory rate 26, O2 saturation 97%. GENERAL: Does not appear in distress. She has been dialyzed at the moment. She has an AV fistula for access. Guzman catheter. HEENT: Pupils are reactive. Sclerae white. Oral cavity is moist. LUNGS: Fairly clear breath sounds. HEART: S1, S2, regular rate. ABDOMEN: Soft, not distended or tender. No ascites. No bladder distention. EXTREMITIES: No joint inflammatory activity. Moves extremities equally. No edema. NEUROLOGIC: Awake, oriented x3, follows commands, pleasant. LABORATORY DATA: White cell count 8.1, hemoglobin 9.3, platelets 238. A pH of 7.33, pCO2 of 40, PO2 of 57. This was from this morning. Creatinine 5.61, carbon dioxide 17. Urinalysis greater than 50 WBCs. KYLAH was negative. Two sets of blood culture, no growth. Urine culture, no growth at 36 hours. The latest chest x- ray, extensive bilateral lung infiltrates. ASSESSMENT: End-stage renal disease secondary to type 2 diabetes and [id number] COVID pneumonia. She was saturating at 95% to 97% when I saw her on high-flow nasal cannula, she is at a flow rate of 50. She has been dialyzed at the moment. She is not eligible for remdesivir and the only option for management is Decadron and supportive care, oxygen supplementation, and today is the 9th day of illness. So it is still quite a bit of days to go before the full brunt of the inflammatory process starts to taper. High risk for poor outcome. Job ID: [id number] [facility]
--- NOTE | 2020-06-18 18:29 | PRG ---
DATE OF SERVICE: 06/18/2020 SUBJECTIVE: The patient is still in the COVID isolation room. The patient remains encephalopathy and was having some shortness of breath. No nausea or vomiting. OBJECTIVE: GENERAL: This is a well-built female, slightly confused. VITAL SIGNS: Temperature 96.3, pulse , and blood pressure 134/70. HEENT: Atraumatic and normocephalic. NECK: Supple. CV: S1 and S2 heard. RESPIRATORY: Coarse. MUSCULOSKELETAL: 1+ edema. NEUROLOGIC: Slightly confused. LABORATORY DATA: Potassium is 3.8, BUN is 54, and creatinine is 5.61. ASSESSMENT AND PLAN: 1. Acute kidney injury on chronic kidney disease stage 4 with worsening labs and fluid overload. I am not sure if it is COVID pneumonia versus fluid overload causing the pulmonary infiltrates. Plan is to dialyze to see if there is improvement in the oxygenation. 2. COVID-19 infection. 3. Anemia. 4. Hyperglycemia. 5. Type 2 diabetes. Plan to dialysis today for 3 hours with 3 L off and monitor cardiorespiratory status. We will follow. Job ID: [id number] [facility]
--- NOTE | 2020-06-18 19:40 | CON ---
DATE OF CONSULTATION: HISTORY OF PRESENT ILLNESS: Tami Coughlin is a 50-year-old female, admitted on 06/15/2020 from the ER. The patient had been suffering COVID illness for the past week, became ill, presented to the hospital and seen by Hospitalist, Dr. Valdes and Dr. Evans and Dr. Bauer. The patient required transfer to the [facility] due to dyspnea. She is on BiPAP. She has a history of chronic kidney disease. I have been asked to see her regarding placement of a hemodialysis catheter to initiate dialysis. She has a history of insulin-dependent diabetes mellitus, hypertension, and elevated cholesterol. PREHOSPITALIZATION MEDICATIONS: 1. Sertraline. 2. Pravastatin. 3. Metoprolol. 4. Cozaar. 5. Levothyroxine. 6. Insulin. 7. Eye drops. 8. Amlodipine. 9. Acetazolamide. SOCIAL HISTORY: She is obese, 35 BMI. Drug use, none. Alcohol use, none. Tobacco, none. The patient lives at home with her family. PAST SURGICAL HISTORY: Cataract surgery and hysterectomy. PAST MEDICAL HISTORY: Chronic kidney disease, insulin-dependent diabetes mellitus, hypertension, elevated cholesterol, hypothyroidism, and now with COVID pneumonia in need of dialysis access due to fluid retention. Dr. Valdes is following her. PHYSICAL EXAMINATION: VITAL SIGNS: Height 5 feet 4 inches, 205 pounds, and 35 BMI. 134/70 and 65. HEAD, EARS, EYES, NOSE, AND THROAT: Unremarkable. CARDIAC: Regular rate and rhythm without murmur or gallop. ABDOMEN: Soft, obese, and nontender. EXTREMITIES: PICC line right arm removed immediately. Extremities edematous. Diffuse edema. LUNGS: The patient is dyspneic. Lungs do demonstrate coarse rales and rhonchi. No wheezing. LABORATORY DATA: White count 8 and hemoglobin 9.3. Sodium 137, potassium 3.8, BUN 54, creatinine 5.61, and GFR 10. The patient has demonstrated a deterioration in her GFR since 2019. ASSESSMENT AND PLAN: 1. Chronic kidney disease, now in need of dialysis access. We will plan bedside dialysis catheter. Should avoid IVs above her hand long-term dialysis. We will obtain ultrasound vein mapping once she recovers from her COVID pneumonia. She will likely need a cuffed tunneled hemodialysis catheter long-term dialysis access in the future, but for now, we will place a bedside groin catheter until her COVID pneumonia improves. 2. Diabetes mellitus. 3. Morbid obesity. 4. Hypertension. Job ID: [id number]
[2020-06-18] MEDS: Ipratropium/Albuterol Sulfate 4 GM AER IH SCH (20:51)
[2020-06-18] MEDS: Albuterol 200 PUFF (6.7GM INHALER) INH PRN (20:52)
[2020-06-18] MEDS: Atorvastatin Calcium 10 MG TAB PO SCH (20:58)
[2020-06-18] MEDS: Dexamethasone 4 mg/ml Vial SLOW IVP SCH (20:58)
[2020-06-18] MEDS: Melatonin 3 MG TAB PO PRN (20:59)
[2020-06-18] MEDS: Piperacillin/Tazobactam 2.25 GM in Sodium Chloride 0.9% 100 ML IVPB SCH (21:01)
[2020-06-18] MEDS: Mometasone 200 MCG/Formoterol 5 MCG 120 PUFF INHALER INH SCH (21:49)
[2020-06-19] MEDS: Ipratropium/Albuterol Sulfate 4 GM AER IH SCH ×4 (00:10→20:24)
[2020-06-19] MEDS ORDERED: Dextrose 50% Abboject 50 ML SYRINGE ONE (00:16)
[2020-06-19] MEDS: Piperacillin/Tazobactam 2.25 GM in Sodium Chloride 0.9% 100 ML IVPB SCH ×4 (03:07→20:31)
[2020-06-19] MEDS: Mometasone 200 MCG/Formoterol 5 MCG 120 PUFF INHALER INH SCH ×3 (05:35→20:25)
[2020-06-19] MEDS: Levothyroxine 150 MCG TAB PO SCH (05:36)
[2020-06-19 06:27] LABS: Anion Gap 17 mmol/L (10-20); BUN (Urea Nitrogen) 34 mg/dL (7.0-18.7); Calc. Creatinine Clearance 23 mL/min (70-130); Calcium 7.5 mg/dL (7.8-10.44); Carbon Dioxide 24 mmol/L (22-29); Chloride 102 mmol/L (98-107); Glucose 149 mg/dL (70-105); Potassium 3.7 mmol/L (3.5-5.1); Sodium 139 mmol/L (136-145)
--- NOTE | 2020-06-19 11:10 | PDOC.HOSPP ---
- Subjective Encounter Date: 06/19/20 Subjective: Patient is tolerating hemodialysis. She has no new complaints. - Objective Vital Signs & Weight: Vital Signs (12 hours) Temp Pulse Ox 06/19/20 08:00 98.6 F 99 06/19/20 03:53 98.5 F 06/19/20 00:00 99 F Weight Weight 205 lb Most Recent Monitor Data Heart Rate from ECG 84 NIBP 137/75 NIBP BP-Mean 95 Respiration from ECG 19 SpO2 97 I&O: 06/18/20 06/19/20 06/20/20 06:59 06:59 06:59 Intake Total 990 1080 Output Total 975 225 Balance 15 855 Result Diagrams: 06/17/20 14:06 06/19/20 05:24 Additional Labs: Accuchecks 06/19/20 06/19/20 06/19/20 05:20 03:16 00:15 POC Glucose 140 H 137 H 67 L 06/18/20 06/18/20 06/18/20 21:28 18:12 12:08 POC Glucose 80 105 H 173 H 06/18/20 00:56 POC Glucose 224 H Hospitalist ROS - Medication Medications: Active Medications Generic Name Dose Route Start Last Admin Trade Name Freq PRN Reason Stop Dose Admin Acetaminophen 650 mg 06/14/20 22:55 06/18/20 10:25 Acetaminophen 325 Mg Tab PO 650 mg Q4H PRN Administration Headache/Fever/Mild Pain (1-3) Albuterol Sulfate 2 puff 06/17/20 20:32 06/18/20 20:52 Albuterol 200 Puff (6.7gm Inhaler) INH 2 unit [id number] PRN Administration Wheezing Albuterol/Ipratropium 3 ml 06/18/20 13:00 06/19/20 11:03 Ipratropium/Albuterol Sulfate 3 Ml Neb NEB Not Given [id number] STEFFI Albuterol/Ipratropium 1 gm 06/18/20 19:00 06/19/20 06:05 Ipratropium/Albuterol Sulfate 4 Gm Aer IH 1 gm [id number] STEFFI Administration Ascorbic Acid 1,000 mg 06/18/20 09:00 06/18/20 08:17 Ascorbic Acid 500 Mg Chewable Tablet PO 1,000 mg DAILY STEFFI Administration Atorvastatin Calcium 10 mg 06/15/20 21:00 06/18/20 20:58 Atorvastatin Calcium 10 Mg Tab PO 10 mg HS STEFFI Administration Benzonatate 100 mg 06/17/20 19:57 06/17/20 21:11 Benzonatate 100 Mg Cap PO 100 mg TIDPRN PRN Administration Cough Brimonidine Tartrate 1 drop 06/15/20 13:00 06/18/20 20:54 Brimonidine Tartrate 0.2% Ophth Soln 5 Ml Bottle EA EYE 1 drop QID STEFFI Administration Dexamethasone 6 mg 06/18/20 21:00 06/18/20 20:58 Dexamethasone 4 Mg/Ml Vial SLOW IVP 6 mg BID STEFFI Administration Dextrose/Water 25 gm 06/14/20 22:58 06/17/20 05:23 Dextrose 50% Abboject 50 Ml Syringe SLOW IVP 25 gm PRN PRN Administration Hypoglycemia Dorzolamide HCl 1 drop 06/15/20 15:00 06/18/20 20:53 Dorzolamide Hcl 2% Ophth Soln 10 Ml Bottle EA EYE 1 drop TID STEFFI Administration Heparin Sodium (Porcine) 500 units 06/19/20 02:24 06/19/20 03:07 Heparin 500 Units/5 Ml Flush Syringe IVF 500 unit Q12HR PRN Administration Heparin Flush Insulin Glargine 18 units/ 0.18 mls @ 0 mls/hr 06/15/20 09:00 06/18/20 21:51 Miscellaneous Medication SC Not Given BID STEFFI Piperacillin Sod/Tazobactam 100 mls @ 200 mls/hr 06/18/20 22:00 06/19/20 03:07 Sod 2.25 gm/ Sodium Chloride IVPB 100 mls 0400,1000,1600,2200 STEFFI Administration Insulin Human Lispro 0 units 06/14/20 22:58 06/18/20 08:27 Humalog 300 Units/3 Ml Vial SC 3 unit .MILD SLIDING SCALE PRN Administration Mild Correctional Scale Latanoprost 1 drop 06/16/20 09:00 06/18/20 08:28 Latanoprost 0.005% Ophth Soln 2.5 Ml Bottle EA EYE 1 drop DAILY STEFFI Administration Levothyroxine Sodium 150 mcg 06/16/20 06:00 06/19/20 05:36 Levothyroxine 150 Mcg Tab PO 150 mcg 0600 STEFFI Administration Melatonin 3 mg 06/17/20 19:32 06/18/20 20:59 Melatonin 3 Mg Tab PO 3 mg HS PRN Administration Insomnia Metoprolol Succinate 150 mg 06/16/20 09:00 06/18/20 08:17 Metoprolol Succinate Xl 100 Mg Tab PO 150 mg DAILY STEFFI Administration Mometasone Furoate/Formoterol Fumar 2 puff 06/18/20 18:30 06/19/20 05:35 Mometasone 200 Mcg/Formoterol 5 Mcg 120 Puff Inhaler INH 2 puff BID-RT STEFFI Administration Nifedipine 60 mg 06/16/20 09:00 06/18/20 08:18 Nifedipine Xl 60 Mg Tab PO 60 mg DAILY STEFFI Administration Ondansetron HCl 4 mg 06/15/20 12:36 06/16/20 22:19 Ondansetron Pf 4 Mg/2 Ml Vial IVP 4 mg Q6H PRN Administration Nausea/Vomiting Pilocarpine HCl 1 drop 06/15/20 13:00 06/18/20 20:53 Pilocarpine 1% Ophth Drops 15 Ml Bot EA EYE 1 drop QID STEFFI Administration Sertraline HCl 25 mg 06/16/20 09:00 06/18/20 07:35 Sertraline Hcl 25 Mg Tab PO 25 mg DAILY STEFFI Administration Sodium Chloride 10 ml 06/18/20 09:00 06/18/20 20:58 Flush - Normal Saline 10 Ml Syringe IVF 10 ml Q12HR STEFFI Administration Timolol Maleate 1 drop 06/15/20 21:00 06/18/20 20:53 Timolol 0.5% Ophth Soln 5 Ml Bottle EA EYE 1 drop BID STEFFI Administration Zinc Sulfate 220 mg 06/18/20 09:00 06/18/20 08:25 Zinc Sulfate 220 Mg Cap PO 220 mg DAILY STEFFI Administration Hosp A/P (1) Acute respiratory failure with hypoxia Code(s): J96.01 - ACUTE RESPIRATORY FAILURE WITH HYPOXIA Status: Acute (2) COVID-19 Code(s): U07.1 - COVID-19 Status: Acute (3) PELON (acute kidney injury) Code(s): N17.9 - ACUTE KIDNEY FAILURE, UNSPECIFIED Status: Acute (4) CKD (chronic kidney disease), stage IV Code(s): N18.4 - CHRONIC KIDNEY DISEASE, STAGE 4 (SEVERE) Status: Chronic (5) DM I (diabetes mellitus, type I) Status: Chronic (6) Dyslipidemia Code(s): E78.5 - HYPERLIPIDEMIA, UNSPECIFIED Status: Chronic (7) HTN (hypertension) Code(s): I10 - ESSENTIAL (PRIMARY) HYPERTENSION Status: Chronic Qualifiers: Hypertension type: essential hypertension Qualified Code(s): I10 - Essential (primary) hypertension - Plan The patient is a 50-year-old female with past medical history of diabetes mellitus type 1, chronic kidney disease stage IV, hypertension, hyperlipidemia who presented to the emergency department with generalized weakness, malaise, diarrhea, and vomiting. She tested positive for COVID-19 and her imaging studies revealed bilateral infiltrates. Management with dexamethasone and IV antibiotics was initiated and the patient also received convalescent plasma. Her kidney function deteriorated and the patient did develop worsening hypoxia due to combination of volume overload and COVID-19. Hemodialysis has been initiated. Her oxygenation has been improving since dialysis. She has been weaned off high flow nasal cannula.
[2020-06-19] MEDS: Dexamethasone 4 mg/ml Vial SLOW IVP SCH ×2 (11:11→20:27)
[2020-06-19] MEDS: Famotidine 20 MG TAB PO SCH (11:11)
[2020-06-19] MEDS: NIFEdipine XL 60 MG TAB PO SCH (11:11)
[2020-06-19] MEDS: Ascorbic Acid 500 mg Chewable Tablet PO SCH (11:11)
[2020-06-19] MEDS: Pilocarpine 1% Ophth Drops 15 ML BOT EA EYE SCH ×4 (11:12→20:25)
[2020-06-19] MEDS: Brimonidine Tartrate 0.2% Ophth Soln 5 ml Bottle EA EYE SCH ×4 (11:13→20:25)
[2020-06-19] MEDS: Dorzolamide HCl 2% Ophth Soln 10 ml Bottle EA EYE SCH ×3 (11:13→20:24)
[2020-06-19] MEDS: Timolol 0.5% Ophth Soln 5 ml Bottle EA EYE SCH ×2 (11:13→21:13)
[2020-06-19] MEDS: Latanoprost 0.005% Ophth Soln 2.5 ml Bottle EA EYE SCH (11:14)
[2020-06-19] MEDS: Zinc Sulfate 220 MG CAP PO SCH (11:14)
[2020-06-19] MEDS ORDERED: Heparin 10,000 UNITS/ 10 ML VIAL ONE (12:48)
[2020-06-19] MEDS: Insulin Glargine 18 UNITS in Pre-Filled Syringe 1 EACH SC SCH ×2 (12:53→21:14)
--- NOTE | 2020-06-19 15:52 | PRG ---
DATE OF SERVICE: 06/19/2020 SUBJECTIVE: Ms. Coughlin continues to receive significant ventilatory support, alternating between BiPAP at night and high-flow nasal cannula in the day. She has received appropriate manage for her COVID including dexamethasone and convalescent plasma. PHYSICAL EXAMINATION: VITAL SIGNS: Blood pressure is 133/70, heart rate 81, respiratory rate 25, saturation 95%. She is mildly to moderately dyspneic. NECK: She has no JVD. LUNGS: Rhonchi bilaterally without rales. HEART: Regular rate and rhythm. ABDOMEN: Obese without organomegaly. EXTREMITIES: She has 1+ edema. There is no cords or tenderness. LABORATORY DATA: Today includes sodium 139, potassium 2.7, chloride 102, CO2 is 24, BUN 34, creatinine 4.3. She has been ranging from 4.1 to 5.6 throughout this admission. IMAGING: She did not have an x-ray today. I looked at her x-ray from yesterday and I interpreted it as showing bilateral consolidation with focal almost nodular areas, it is much worse on the left than on the right. There is no effusion. IMPRESSION: 1. COVID pneumonia, requiring substantial high-flow oxygen. 2. End-stage renal disease with dialysis. PLAN: We will continue current therapies. She will receive dialysis as appropriate based on Nephrology consultants. Job ID: [id number]
--- NOTE | 2020-06-19 16:57 | PRG ---
DATE OF SERVICE: 06/19/2020 SUBJECTIVE: The patient seen at the bedside and slightly dyspneic and facial puffiness. She is on high-flow oxygen. The patient was getting dialysis, somnolent too. OBJECTIVE: GENERAL: Well-built female, in mild distress. VITAL SIGNS: Temperature 98.6, pulse 67, respiratory rate 18, and blood pressure 133/70. HEENT: Atraumatic, normocephalic. Facial puffiness. CV: S1 and S2 heard. RESPIRATORY: Coarse breath sounds. ABDOMEN: Obese MUSCULOSKELETAL: 1+ edema. NEUROLOGICAL: Somnolent and lethargic. LABORATORY DATA: Potassium is 3.7, BUN is 34, and creatinine is 4.3. ASSESSMENT AND PLAN: 1. Acute kidney injury on chronic kidney disease, stage 4. Started on dialysis for fluid overload. We will have dialysis today, then continue to monitor for the need for dialysis. 2. Respiratory distress, seems to be mostly from COVID-19 infection. 3. COVID-19 pneumonia. 4. Anemia. 5. Hyperglycemia. 6. Type 2 diabetes. 7. Edema. 8. Hypertension. We will have dialysis today, which is not showing much improvement in cardiorespiratory status, but evaluate the need for dialysis on a daily basis. Job ID: [id number]
[2020-06-19] MEDS: Albuterol 200 PUFF (6.7GM INHALER) INH PRN (20:25)
[2020-06-19] MEDS: Melatonin 3 MG TAB PO PRN (20:26)
[2020-06-19] MEDS: Atorvastatin Calcium 10 MG TAB PO SCH (20:26)
[2020-06-20] MEDS: Ipratropium/Albuterol Sulfate 4 GM AER IH SCH ×4 (00:15→21:25)
[2020-06-20] MEDS: Piperacillin/Tazobactam 2.25 GM in Sodium Chloride 0.9% 100 ML IVPB SCH ×4 (04:31→21:32)
--- NOTE | 2020-06-20 06:14 | OP ---
DATE OF PROCEDURE: 06/18/2020 PREOPERATIVE DIAGNOSES: Chronic kidney disease, COVID pneumonia now in need of acute dialysis probably end-stage renal disease, insulin-dependent diabetes mellitus, hypertension, elevated cholesterol. PROCEDURE PERFORMED: Right femoral vein Trialysis catheter. ANESTHESIA: 1% Xylocaine. DESCRIPTION OF PROCEDURE: With the patient at bedside, her right groin was clipped of hair, prepared with ChloraPrep, and draped in routine fashion. Local anesthetic was infiltrated in the skin and subcutaneous tissue. Trocar catheter cannulated the femoral vein. J-wire threaded, trocar catheter removed. Skin site enlarged sharply. Small and medium size dilators were placed in the femoral vein and removed. The distal port of the Trialysis catheter was placed with J-wire into the femoral vein, secured with 3-0 nylon sutures x2. J-wire was removed. Dressing applied. Each port aspirated blood, flushed with heparinized saline solution. The patient tolerated the procedure well. Job ID: [id number]
[2020-06-20] MEDS: Levothyroxine 150 MCG TAB PO SCH (06:22)
[2020-06-20] MEDS: Acetaminophen 325 MG TAB PO PRN (06:37)
[2020-06-20] MEDS: Insulin Glargine 18 UNITS in Pre-Filled Syringe 1 EACH SC SCH ×2 (06:57→21:52)
[2020-06-20] MEDS: Ascorbic Acid 500 mg Chewable Tablet PO SCH (10:05)
[2020-06-20] MEDS: NIFEdipine XL 60 MG TAB PO SCH (10:05)
[2020-06-20] MEDS: Famotidine 20 MG TAB PO SCH (10:06)
[2020-06-20] MEDS: Zinc Sulfate 220 MG CAP PO SCH (10:07)
[2020-06-20] MEDS: Timolol 0.5% Ophth Soln 5 ml Bottle EA EYE SCH ×2 (10:08→21:32)
[2020-06-20] MEDS: Dexamethasone 4 mg/ml Vial SLOW IVP SCH ×2 (10:08→21:30)
[2020-06-20] MEDS: Brimonidine Tartrate 0.2% Ophth Soln 5 ml Bottle EA EYE SCH ×4 (10:09→21:31)
[2020-06-20] MEDS: Pilocarpine 1% Ophth Drops 15 ML BOT EA EYE SCH ×4 (10:09→21:31)
[2020-06-20] MEDS: Latanoprost 0.005% Ophth Soln 2.5 ml Bottle EA EYE SCH (10:10)
[2020-06-20] MEDS: Dorzolamide HCl 2% Ophth Soln 10 ml Bottle EA EYE SCH ×3 (10:10→21:31)
[2020-06-20] MEDS: HumaLOG 300 UNITS/3 ML VIAL SC PRN ×3 (11:52→21:53)
--- NOTE | 2020-06-20 14:04 | PRG ---
DATE OF SERVICE: 06/20/2020 SUBJECTIVE: The patient on COVID isolation. OBJECTIVE: VITAL SIGNS: Temperature 98.2, pulse 70, respiratory rate 18, blood pressure 97/55, and oxygen saturation 96% on 3 L nasal cannula. LABORATORY DATA: Not done today. ASSESSMENT AND PLAN: 1. Acute kidney injury on chronic kidney disease, stage 4, dialysis dependent. The patient remains hemodialysis dependent. Started on dialysis for fluid overload. Her cardiorespiratory status is better with fluid removal and continue to remove fluid dialysis and monitor cardiorespiratory status. 2. Acute hypoxic respiratory failure. 3. COVID-19 pneumonia. 4. Anemia. 5. Hyperglycemia. 6. Type 2 diabetes. 7. Edema. 8. Hypertension. Continue dialysis as tolerated. We will plan for dialysis tomorrow. Job ID: [id number]
--- NOTE | 2020-06-20 14:31 | PDOC.HOSPP ---
- Subjective Encounter Date: 06/20/20 Subjective: The patient is feeling better than yesterday and her shortness of breath is improving. - Objective Vital Signs & Weight: Vital Signs (12 hours) Temp Pulse BP BP Pulse Ox Pulse Ox Pulse Ox 06/20/20 13:02 98 F 06/20/20 12:00 98.2 F 06/20/20 10:08 72 124/64 06/20/20 10:05 72 124/64 06/20/20 09:06 120/65 90 L 97 06/20/20 08:00 97.8 F 96 06/20/20 06:37 99.8 F H 06/20/20 04:00 99 F Weight Weight 205 lb Most Recent Monitor Data Heart Rate from ECG 70 NIBP 97/55 NIBP BP-Mean 69 Respiration from ECG 18 SpO2 95 I&O: 06/19/20 06/20/20 06/21/20 06:59 06:59 06:59 Intake Total 1080 1180 Output Total 225 3150 10 Balance 855 -1970 -10 Result Diagrams: 06/17/20 14:06 06/19/20 05:24 Additional Labs: Accuchecks 06/20/20 06/19/20 06/19/20 10:51 20:42 17:44 POC Glucose 428 H 212 H 178 H Hospitalist ROS - Medication Medications: Active Medications Generic Name Dose Route Start Last Admin Trade Name Freq PRN Reason Stop Dose Admin Acetaminophen 650 mg 06/14/20 22:55 06/20/20 06:37 Acetaminophen 325 Mg Tab PO 650 mg Q4H PRN Administration Headache/Fever/Mild Pain (1-3) Albuterol Sulfate 2 puff 06/17/20 20:32 06/19/20 20:25 Albuterol 200 Puff (6.7gm Inhaler) INH 2 puff [id number] PRN Administration Wheezing Albuterol/Ipratropium 3 ml 06/18/20 13:00 06/20/20 11:57 Ipratropium/Albuterol Sulfate 3 Ml Neb NEB Not Given [id number] STEFFI Albuterol/Ipratropium 1 gm 06/18/20 19:00 06/20/20 06:22 Ipratropium/Albuterol Sulfate 4 Gm Aer IH 1 gm [id number] STEFFI Administration Ascorbic Acid 1,000 mg 06/18/20 09:00 06/20/20 10:05 Ascorbic Acid 500 Mg Chewable Tablet PO 1,000 mg DAILY STEFFI Administration Atorvastatin Calcium 10 mg 06/15/20 21:00 06/19/20 20:26 Atorvastatin Calcium 10 Mg Tab PO 10 mg HS STEFFI Administration Benzonatate 100 mg 06/17/20 19:57 06/17/20 21:11 Benzonatate 100 Mg Cap PO 100 mg TIDPRN PRN Administration Cough Brimonidine Tartrate 1 drop 06/15/20 13:00 06/20/20 11:56 Brimonidine Tartrate 0.2% Ophth Soln 5 Ml Bottle EA EYE 1 drop QID STEFFI Administration Dexamethasone 6 mg 06/18/20 21:00 06/20/20 10:08 Dexamethasone 4 Mg/Ml Vial SLOW IVP 6 mg BID STEFFI Administration Dextrose/Water 25 gm 06/14/20 22:58 06/17/20 05:23 Dextrose 50% Abboject 50 Ml Syringe SLOW IVP 25 gm PRN PRN Administration Hypoglycemia Dorzolamide HCl 1 drop 06/15/20 15:00 06/20/20 10:10 Dorzolamide Hcl 2% Ophth Soln 10 Ml Bottle EA EYE 1 drop TID STEFFI Administration Famotidine 20 mg 06/19/20 09:00 06/20/20 10:06 Famotidine 20 Mg Tab PO 20 mg DAILY STEFFI Administration Heparin Sodium (Porcine) 500 units 06/19/20 02:24 06/19/20 03:07 Heparin 500 Units/5 Ml Flush Syringe IVF 500 unit Q12HR PRN Administration Heparin Flush Insulin Glargine 18 units/ 0.18 mls @ 0 mls/hr 06/15/20 09:00 06/20/20 06:57 Miscellaneous Medication SC 0.18 mls BID STEFFI Administration Piperacillin Sod/Tazobactam 100 mls @ 200 mls/hr 06/18/20 22:00 06/20/20 10:07 Sod 2.25 gm/ Sodium Chloride IVPB 100 mls 0400,1000,1600,2200 STEFFI Administration Insulin Human Lispro 0 units 06/14/20 22:58 06/20/20 11:52 Humalog 300 Units/3 Ml Vial SC 6 unit .MILD SLIDING SCALE PRN Administration Mild Correctional Scale Latanoprost 1 drop 06/16/20 09:00 06/20/20 10:10 Latanoprost 0.005% Ophth Soln 2.5 Ml Bottle EA EYE 1 drop DAILY STEFFI Administration Levothyroxine Sodium 150 mcg 06/16/20 06:00 06/20/20 06:22 Levothyroxine 150 Mcg Tab PO 150 mcg 0600 STEFFI Administration Melatonin 3 mg 06/17/20 19:32 06/19/20 20:26 Melatonin 3 Mg Tab PO 3 mg HS PRN Administration Insomnia Metoprolol Succinate 150 mg 06/16/20 09:00 06/20/20 10:06 Metoprolol Succinate Xl 100 Mg Tab PO 150 mg DAILY STEFFI Administration Mometasone Furoate/Formoterol Fumar 2 puff 06/18/20 18:30 06/19/20 20:25 Mometasone 200 Mcg/Formoterol 5 Mcg 120 Puff Inhaler INH 2 puff BID-RT STEFFI Administration Nifedipine 60 mg 06/16/20 09:00 06/20/20 10:05 Nifedipine Xl 60 Mg Tab PO 60 mg DAILY STEFFI Administration Ondansetron HCl 4 mg 06/15/20 12:36 06/16/20 22:19 Ondansetron Pf 4 Mg/2 Ml Vial IVP 4 mg Q6H PRN Administration Nausea/Vomiting Pilocarpine HCl 1 drop 06/15/20 13:00 06/20/20 10:09 Pilocarpine 1% Ophth Drops 15 Ml Bot EA EYE 1 drp QID STEFFI Administration Sertraline HCl 25 mg 06/16/20 09:00 06/20/20 10:05 Sertraline Hcl 25 Mg Tab PO 25 mg DAILY STEFFI Administration Sodium Chloride 10 ml 06/18/20 09:00 06/20/20 10:07 Flush - Normal Saline 10 Ml Syringe IVF 10 ml Q12HR STEFFI Administration Timolol Maleate 1 drop 06/15/20 21:00 06/20/20 10:08 Timolol 0.5% Ophth Soln 5 Ml Bottle EA EYE 1 drop BID STEFFI Administration Zinc Sulfate 220 mg 06/18/20 09:00 06/20/20 10:07 Zinc Sulfate 220 Mg Cap PO 220 mg DAILY STEFFI Administration - Exam General Appearance: awake alert ENT: normocephalic atraumatic Neck: supple, no JVD Heart: RRR Respiratory: normal chest expansion, no tachypnea, rhonchi Extremities: no cyanosis, no clubbing Hosp A/P (1) Acute respiratory failure with hypoxia Code(s): J96.01 - ACUTE RESPIRATORY FAILURE WITH HYPOXIA Status: Acute (2) COVID-19 Code(s): U07.1 - COVID-19 Status: Acute (3) PELON (acute kidney injury) Code(s): N17.9 - ACUTE KIDNEY FAILURE, UNSPECIFIED Status: Acute (4) CKD (chronic kidney disease), stage IV Code(s): N18.4 - CHRONIC KIDNEY DISEASE, STAGE 4 (SEVERE) Status: Chronic (5) DM I (diabetes mellitus, type I) Status: Chronic (6) Dyslipidemia Code(s): E78.5 - HYPERLIPIDEMIA, UNSPECIFIED Status: Chronic (7) HTN (hypertension) Code(s): I10 - ESSENTIAL (PRIMARY) HYPERTENSION Status: Chronic Qualifiers: Hypertension type: essential hypertension Qualified Code(s): I10 - Essential (primary) hypertension - Plan The patient is a 50-year-old female with past medical history of diabetes mellitus type 1, chronic kidney disease stage IV, hypertension, hyperlipidemia who presented to the emergency department with generalized weakness, malaise, diarrhea, and vomiting. She tested positive for COVID-19 and her imaging studies revealed bilateral infiltrates. Management with dexamethasone and IV antibiotics was initiated and the patient also received convalescent plasma. Her kidney function deteriorated and the patient did develop worsening hypoxia due to combination of volume overload and COVID-19. She tolerated hemodialysis well yesterday. She has been weaned off high flow nasal cannula. Continue dialysis per nephrology. The patient is stable and can be transition off IMCU.
--- NOTE | 2020-06-20 16:13 | PRG ---
DATE OF SERVICE: 06/20/2020 SUBJECTIVE: She continues on low-flow nasal cannula. Saturation is in the mid 90s. She has been afebrile. There is no report of cough, sputum, fevers or chills. PHYSICAL EXAMINATION: VITAL SIGNS: Blood pressure 97/55, heart rate is 70. LUNGS: Bronchial breath sounds, but no wheezing. HEART: Regular rate and rhythm. There is no murmur. ABDOMEN: Soft. EXTREMITIES: There is 1+ edema. LABORATORY DATA: White count 8100, hemoglobin is 9.3 with hematocrit 29, platelet count 238,000. Blood sugar in the last 24 hours ranged from 175 to 425. IMPRESSION: 1. COVID pneumonia, on nasal oxygen. 2. End-stage renal disease. She had femoral dialysis catheter placed today. PLAN: We will continue supportive care. Hopefully, we can wean her oxygen. Decision regarding transfer to the medical COVID unit is deferred, but probably forthcoming soon. Job ID: [id number]
[2020-06-20 17:43] LABS: Anion Gap 20 mmol/L (10-20); BUN (Urea Nitrogen) 48 mg/dL (7.0-18.7); Calc. Creatinine Clearance 18 mL/min (70-130); Calcium 6.9 mg/dL (7.8-10.44); Carbon Dioxide 22 mmol/L (22-29); Chloride 92 mmol/L (98-107); Potassium 4.1 mmol/L (3.5-5.1); Sodium 130 mmol/L (136-145)
[2020-06-20 17:46] LABS: Glucose 564 mg/dL (70-105)
[2020-06-20] MEDS: Mometasone 200 MCG/Formoterol 5 MCG 120 PUFF INHALER INH SCH (21:28)
[2020-06-20] MEDS: Atorvastatin Calcium 10 MG TAB PO SCH (21:29)
[2020-06-21] MEDS: Ipratropium/Albuterol Sulfate 4 GM AER IH SCH ×4 (02:58→22:07)
[2020-06-21] MEDS: Piperacillin/Tazobactam 2.25 GM in Sodium Chloride 0.9% 100 ML IVPB SCH ×2 (03:45→09:42)
[2020-06-21] MEDS: Levothyroxine 150 MCG TAB PO SCH (05:15)
[2020-06-21] MEDS: HumaLOG 300 UNITS/3 ML VIAL SC PRN ×4 (05:33→22:47)
[2020-06-21 06:14] LABS: Anion Gap 19 mmol/L (10-20); BUN (Urea Nitrogen) 56 mg/dL (7.0-18.7); Calc. Creatinine Clearance 13 mL/min (70-130); Carbon Dioxide 24 mmol/L (22-29); Chloride 92 mmol/L (98-107); Glucose 425 mg/dL (70-105); Potassium 3.8 mmol/L (3.5-5.1); Sodium 131 mmol/L (136-145)
--- NOTE | 2020-06-21 08:39 | PRG ---
DATE OF SERVICE: 06/21/2020 SUBJECTIVE: A 50-year-old female being seen for end-stage renal disease. The patient denies any new complaints. OBJECTIVE: GENERAL: On exam, patient is resting. VITAL SIGNS: Pulse rate 75, breathing rate 16, and blood pressure 130/68. HEENT: Head normocephalic and atraumatic. Eyes intact, no ulcers. Nose intact, no ulcers. Ears intact, no ulcers. Neck: Supple. No JVD. Chest: Symmetrical and clear. Cardiovascular: Shows S1 and S2, no rub, no murmur. Gastrointestinal: Abdomen is soft, bowel sounds positive. Extremities: Show no edema or ulcers. Skin: Shows no rash or petechiae. Musculoskeletal: Shows no joint swelling or stiffness. Genitourinary: Shows no Guzman or CVA tenderness. Neurologic: Motor intact. Cranial nerves intact. Guzman examination showed no urine. LABORATORY DATA: Reviewed. ASSESSMENT AND PLAN: 1. Stage 3 chronic kidney disease. Plan dialysis. 2. Hypertension, stable. 3. Anemia, stable. 4. Medication based on GFR appropriate. Job ID: [id number]
[2020-06-21] MEDS: NIFEdipine XL 60 MG TAB PO SCH ×2 (09:40→09:42)
[2020-06-21] MEDS: Dexamethasone 4 mg/ml Vial SLOW IVP SCH ×2 (09:40→22:06)
[2020-06-21] MEDS: Ascorbic Acid 500 mg Chewable Tablet PO SCH (09:41)
[2020-06-21] MEDS: Zinc Sulfate 220 MG CAP PO SCH (09:43)
[2020-06-21] MEDS: Dorzolamide HCl 2% Ophth Soln 10 ml Bottle EA EYE SCH ×3 (09:43→22:07)
[2020-06-21] MEDS: Brimonidine Tartrate 0.2% Ophth Soln 5 ml Bottle EA EYE SCH ×4 (09:44→22:08)
[2020-06-21] MEDS: Mometasone 200 MCG/Formoterol 5 MCG 120 PUFF INHALER INH SCH ×2 (09:44→17:50)
[2020-06-21] MEDS: Latanoprost 0.005% Ophth Soln 2.5 ml Bottle EA EYE SCH (09:45)
[2020-06-21] MEDS: Famotidine 20 MG TAB PO SCH (09:45)
[2020-06-21] MEDS: Insulin Glargine 18 UNITS in Pre-Filled Syringe 1 EACH SC SCH (09:45)
[2020-06-21] MEDS: Pilocarpine 1% Ophth Drops 15 ML BOT EA EYE SCH ×4 (09:45→22:08)
[2020-06-21] MEDS: Timolol 0.5% Ophth Soln 5 ml Bottle EA EYE SCH ×2 (09:45→22:07)
--- NOTE | 2020-06-21 10:16 | PRG ---
DATE OF SERVICE: 06/21/2020 SUBJECTIVE: This morning, she is doing better. She is no longer on high-flow or low-flow O2. She may very well require dialysis. She had a catheter inserted yesterday. OBJECTIVE: VITAL SIGNS: Temperature is 98, sats are 93% on 4 L, blood pressure , respirations 18. CHEST: Bilateral rhonchi, crackles. CARDIAC: Normal S1 and S2. No gallops. ABDOMEN: No masses. LABORATORY DATA: Creatinine 6.3, BUN 56. I's and O's have been consistently negative. ASSESSMENT: 1. Respiratory failure, dickerson positive pneumonia, on high-dose steroids. 2. Diabetes, renal failure. PLAN: Switch over to oral medication. Hopefully, she can be transferred out of the MICU to a monitored bed later. Job ID: [id number]
--- NOTE | 2020-06-21 10:49 | RAD ---
Chest one view HISTORY: Pneumonia. Follow-up. COMPARISON: 06/18/2020. FINDINGS: Cardiac silhouette is magnified and enlarged. Pulmonary vasculature favored to be engorged and partially obscured by patchy areas of widespread infiltrate. Infiltrate throughout the right lung is less pronounced than on the prior study, predominantly remaining at the right lung apex. Mild widespread patchy infiltrate at the left lung is favored to be stable. No evidence of pneumothorax. IMPRESSION : Improved radiographic appearance.
[2020-06-21 15:36] LABS: Cytoplasmic (C-ANCA) <1:20 titer (Neg:<1:20); Myeloperoxidase AutoAbs <9.0 U/mL (0.0-9.0); Perinuclear (P-ANCA) <1:20 titer (Neg:<1:20); Proteinase-3 AutoAbs Less than 3.5 U/mL (0.0-3.5)
--- NOTE | 2020-06-21 19:02 | PDOC.HOSPP ---
- Subjective Encounter Date: 06/21/20 Subjective: The patient is breathing comfortably and has no new complaints today. - Objective Vital Signs & Weight: Vital Signs (12 hours) Temp Pulse Pulse BP BP Pulse Ox Pulse Ox 06/21/20 16:00 98.8 F 06/21/20 15:08 74 72 103/76 132/71 95 06/21/20 12:00 99.0 F 06/21/20 08:00 98.6 F 94 L Pulse Ox 06/21/20 16:00 06/21/20 15:08 96 06/21/20 12:00 06/21/20 08:00 Weight Weight 171 lb 8.314 oz Most Recent Monitor Data Heart Rate from ECG 72 NIBP 134/59 NIBP BP-Mean 84 Respiration from ECG 20 SpO2 95 I&O: 06/20/20 06/21/20 06/22/20 06:59 06:59 06:59 Intake Total 1180 1570 480 Output Total 3150 10 Balance -1970 1560 480 Result Diagrams: 06/17/20 14:06 06/21/20 05:40 Additional Labs: Accuchecks 06/21/20 06/21/20 06/21/20 16:09 11:14 05:23 POC Glucose 288 H 274 H 394 H 06/20/20 06/20/20 06/20/20 21:44 06:39 06:36 POC Glucose 479 H 363 H 337 H Hospitalist ROS - Medication Medications: Active Medications Generic Name Dose Route Start Last Admin Trade Name Freq PRN Reason Stop Dose Admin Acetaminophen 650 mg 06/14/20 22:55 06/20/20 06:37 Acetaminophen 325 Mg Tab PO 650 mg Q4H PRN Administration Headache/Fever/Mild Pain (1-3) Albuterol Sulfate 2 puff 06/17/20 20:32 06/19/20 20:25 Albuterol 200 Puff (6.7gm Inhaler) INH 2 puff [id number] PRN Administration Wheezing Albuterol/Ipratropium 1 gm 06/18/20 19:00 06/21/20 13:18 Ipratropium/Albuterol Sulfate 4 Gm Aer IH 1 gm [id number] STEFFI Administration Ascorbic Acid 1,000 mg 06/18/20 09:00 06/21/20 09:41 Ascorbic Acid 500 Mg Chewable Tablet PO 1,000 mg DAILY STEFFI Administration Atorvastatin Calcium 10 mg 06/15/20 21:00 06/20/20 21:29 Atorvastatin Calcium 10 Mg Tab PO 10 mg HS STEFFI Administration Benzonatate 100 mg 06/17/20 19:57 06/17/20 21:11 Benzonatate 100 Mg Cap PO 100 mg TIDPRN PRN Administration Cough Brimonidine Tartrate 1 drop 06/15/20 13:00 06/21/20 17:49 Brimonidine Tartrate 0.2% Ophth Soln 5 Ml Bottle EA EYE 1 drop QID STEFFI Administration Dexamethasone 6 mg 06/18/20 21:00 06/21/20 09:40 Dexamethasone 4 Mg/Ml Vial SLOW IVP 6 mg BID STEFFI Administration Dextrose/Water 25 gm 06/14/20 22:58 06/17/20 05:23 Dextrose 50% Abboject 50 Ml Syringe SLOW IVP 25 gm PRN PRN Administration Hypoglycemia Dorzolamide HCl 1 drop 06/15/20 15:00 06/21/20 17:49 Dorzolamide Hcl 2% Ophth Soln 10 Ml Bottle EA EYE 1 drop TID STEFFI Administration Famotidine 20 mg 06/19/20 09:00 06/21/20 09:45 Famotidine 20 Mg Tab PO 20 mg DAILY STEFFI Administration Heparin Sodium (Porcine) 500 units 06/19/20 02:24 06/19/20 03:07 Heparin 500 Units/5 Ml Flush Syringe IVF 500 unit Q12HR PRN Administration Heparin Flush Insulin Glargine 18 units/ 0.18 mls @ 0 mls/hr 06/15/20 09:00 06/21/20 09:45 Miscellaneous Medication SC 0.18 mls BID STEFFI Administration Insulin Human Lispro 0 units 06/14/20 22:58 06/21/20 17:58 Humalog 300 Units/3 Ml Vial SC 4 unit .MILD SLIDING SCALE PRN Administration Mild Correctional Scale Latanoprost 1 drop 06/16/20 09:00 06/21/20 09:45 Latanoprost 0.005% Ophth Soln 2.5 Ml Bottle EA EYE 1 drop DAILY STEFFI Administration Levothyroxine Sodium 150 mcg 06/16/20 06:00 06/21/20 05:15 Levothyroxine 150 Mcg Tab PO 150 mcg 0600 STEFFI Administration Melatonin 3 mg 06/17/20 19:32 06/19/20 20:26 Melatonin 3 Mg Tab PO 3 mg HS PRN Administration Insomnia Metoprolol Succinate 150 mg 06/16/20 09:00 06/21/20 09:41 Metoprolol Succinate Xl 100 Mg Tab PO 150 mg DAILY STEFFI Administration Mometasone Furoate/Formoterol Fumar 2 puff 06/18/20 18:30 06/21/20 17:50 Mometasone 200 Mcg/Formoterol 5 Mcg 120 Puff Inhaler INH 2 puff BID-RT STEFFI Administration Nifedipine 60 mg 06/16/20 09:00 06/21/20 09:42 Nifedipine Xl 60 Mg Tab PO 60 mg DAILY STEFFI Administration Ondansetron HCl 4 mg 06/15/20 12:36 06/16/20 22:19 Ondansetron Pf 4 Mg/2 Ml Vial IVP 4 mg Q6H PRN Administration Nausea/Vomiting Pilocarpine HCl 1 drop 06/15/20 13:00 06/21/20 17:50 Pilocarpine 1% Ophth Drops 15 Ml Bot EA EYE 1 drp QID STEFFI Administration Sertraline HCl 25 mg 06/16/20 09:00 06/21/20 09:42 Sertraline Hcl 25 Mg Tab PO 25 mg DAILY STEFFI Administration Sodium Chloride 10 ml 06/18/20 09:00 06/21/20 09:42 Flush - Normal Saline 10 Ml Syringe IVF 10 ml Q12HR STEFFI Administration Timolol Maleate 1 drop 06/15/20 21:00 06/21/20 09:45 Timolol 0.5% Ophth Soln 5 Ml Bottle EA EYE 1 drop BID STEFFI Administration Zinc Sulfate 220 mg 06/18/20 09:00 06/21/20 09:43 Zinc Sulfate 220 Mg Cap PO 220 mg DAILY STEFFI Administration - Exam General Appearance: awake alert ENT: normocephalic atraumatic Neck: supple, no JVD Heart: RRR Respiratory: normal chest expansion, no tachypnea Extremities: no cyanosis Neurological: cranial nerve grossly intact, no focal deficits Hosp A/P (1) Acute respiratory failure with hypoxia Code(s): J96.01 - ACUTE RESPIRATORY FAILURE WITH HYPOXIA Status: Acute (2) COVID-19 Code(s): U07.1 - COVID-19 Status: Acute (3) PELON (acute kidney injury) Code(s): N17.9 - ACUTE KIDNEY FAILURE, UNSPECIFIED Status: Acute (4) CKD (chronic kidney disease), stage IV Code(s): N18.4 - CHRONIC KIDNEY DISEASE, STAGE 4 (SEVERE) Status: Chronic (5) DM I (diabetes mellitus, type I) Status: Chronic (6) Dyslipidemia Code(s): E78.5 - HYPERLIPIDEMIA, UNSPECIFIED Status: Chronic (7) HTN (hypertension) Code(s): I10 - ESSENTIAL (PRIMARY) HYPERTENSION Status: Chronic Qualifiers: Hypertension type: essential hypertension Qualified Code(s): I10 - Essential (primary) hypertension - Plan The patient is a 50-year-old female with past medical history of diabetes mellitus type 1, chronic kidney disease stage IV, hypertension, hyperlipidemia who presented to the emergency department with generalized weakness, malaise, diarrhea, and vomiting. She tested positive for COVID-19 and her imaging studies revealed bilateral infiltrates. Management with dexamethasone and IV antibiotics was initiated and the patient also received convalescent plasma. Her kidney function deteriorated and the patient did develop worsening hypoxia due to combination of volume overload and COVID-19. She has been weaned off high flow nasal cannula. I have weaned her off to 2 L today. We will monitor her response. Continue dialysis per nephrology. The patient is stable and can be transition off IMCU.
[2020-06-21] MEDS: Doxycycline 100 MG CAP PO SCH (22:06)
[2020-06-21] MEDS: Atorvastatin Calcium 10 MG TAB PO SCH (22:06)
[2020-06-21] MEDS: Insulin Glargine 25 UNITS in Pre-Filled Syringe 1 EACH SC SCH (22:47)
[2020-06-22] MEDS: Ipratropium/Albuterol Sulfate 4 GM AER IH SCH ×4 (03:38→19:53)
[2020-06-22] MEDS: Levothyroxine 150 MCG TAB PO SCH (05:54)
[2020-06-22] MEDS: HumaLOG 300 UNITS/3 ML VIAL SC PRN (06:30)
[2020-06-22] MEDS: Mometasone 200 MCG/Formoterol 5 MCG 120 PUFF INHALER INH SCH ×3 (06:31→19:51)
[2020-06-22] MEDS: Albuterol 200 PUFF (6.7GM INHALER) INH PRN ×2 (06:31→19:49)
[2020-06-22] MEDS ORDERED: Heparin 10,000 UNITS/ 10 ML VIAL ONE (09:08)
[2020-06-22] MEDS: Brimonidine Tartrate 0.2% Ophth Soln 5 ml Bottle EA EYE SCH ×4 (09:35→19:50)
--- NOTE | 2020-06-22 10:43 | PRG ---
DATE OF SERVICE: 06/22/2020 SUBJECTIVE: Tami Coughlin is a 50-year-old female, being dialyzed today. She is on room air, saturations are adequate at 93%. OBJECTIVE: VITAL SIGNS: Blood pressure 134/92, pulse 80, respirations 18. She has no urine output apparently. CHEST: No wheezing, no crackles. CARDIAC: Normal S1, normal S2. IMPRESSION AND PLAN: Respiratory failure, end-stage renal disease, dickerson positive pneumonia. She appears to be improved. She can probably be transferred out of the MICU to regular bed. I am going to switch her over to oral prednisone. P.o. antibiotics. Job ID: [id number]
[2020-06-22 11:55] LABS: Band 8 % (5-11); Burr Cells SLIGHT = 2-5 cells (100X) (0-1/hpf); Hemoglobin 9.3 g/dL (12.0-16.0); Lymphocytes 15 % (21-51); MDiff Complete? YES; Mean Corpuscular HGB CONC 32.7 g/dL (32.0-36.0); Mean Corpuscular Hemoglobin 29.1 pg (27.0-31.0); Mean Corpuscular Volume 88.9 fL (78.0-98.0); Mean Platelet Volume 7.6 fL (7.4-10.4); Metamyelocyte 3 % (0-0); Monocytes 1 % (0-10); Myelocyte 2 % (0-0); Neutrophil 67 % (42-75); Nucleated RBC 1 % (0); Platelet Count 396 thou/uL (130-400); Platelet Morphology Comment Appears Adequate; Polychromasia SLIGHT = 2-3 cells (100X) (0-2/hpf); RBC Distribution Width 11.4 % (11.5-14.5); Reactive Lymphocytes 4 % (0-10); Red Blood Cell (RBC) Count 3.21 mill/uL (4.20-5.40); White Blood Cell (WBC) Count 8.3 thou/uL (4.8-10.8)
--- NOTE | 2020-06-22 13:21 | PRG ---
DATE OF SERVICE: 06/22/2020 SUBJECTIVE: A 50-year-old female being seen for end-stage renal disease. The patient denied nausea chest pain. OBJECTIVE: GENERAL: The patient is awake and alert. VITAL SIGNS: Pulse 75, breathing 16, blood pressure was 134/92. HEENT: Head normocephalic and atraumatic. Eyes intact, no ulcers. Nose intact, no ulcers. Ears intact, no ulcers. Neck: Supple. No JVD. Chest: Symmetrical and clear. Cardiovascular: Shows S1 and S2, no rub, no murmur. Gastrointestinal: Abdomen is soft, bowel sounds positive. Extremities: Show no edema or ulcers. Skin: Shows no rash or petechiae. Musculoskeletal: Shows no joint swelling or stiffness. Genitourinary: Shows no Guzman or CVA tenderness. Neurologic: Motor intact. Cranial nerves intact. LABORATORY DATA: Reviewed. ASSESSMENT AND PLAN: 1. Stage 6 chronic kidney disease, on hemodialysis. 2. Hypertension, stable. 3. Anemia, stable. 4. Medication based on GFR appropriate. Job ID: [id number]
[2020-06-22] MEDS: Doxycycline 100 MG CAP PO SCH ×2 (13:34→19:52)
[2020-06-22] MEDS: Ascorbic Acid 500 mg Chewable Tablet PO SCH (13:35)
[2020-06-22] MEDS: Dorzolamide HCl 2% Ophth Soln 10 ml Bottle EA EYE SCH ×3 (13:35→19:49)
[2020-06-22] MEDS: Insulin Glargine 25 UNITS in Pre-Filled Syringe 1 EACH SC SCH ×2 (13:36→20:25)
[2020-06-22] MEDS: Famotidine 20 MG TAB PO SCH (13:36)
[2020-06-22] MEDS: Latanoprost 0.005% Ophth Soln 2.5 ml Bottle EA EYE SCH (13:37)
[2020-06-22] MEDS: Timolol 0.5% Ophth Soln 5 ml Bottle EA EYE SCH ×2 (13:40→19:50)
[2020-06-22] MEDS: Pilocarpine 1% Ophth Drops 15 ML BOT EA EYE SCH ×3 (13:40→19:50)
[2020-06-22] MEDS: Zinc Sulfate 220 MG CAP PO SCH (13:42)
[2020-06-22] MEDS: Dexamethasone 4 mg/ml Vial SLOW IVP SCH (13:48)
--- NOTE | 2020-06-22 18:04 | PDOC.HOSPP ---
- Subjective Encounter Date: 06/22/20 Subjective: She is undergoing HD. - Objective Vital Signs & Weight: Vital Signs (12 hours) Temp BP BP Pulse Ox Pulse Ox 06/22/20 15:50 154/96 H 150/91 H 100 06/22/20 12:00 98.1 F 06/22/20 08:00 98.3 F 95 Weight Weight 171 lb 8.314 oz Most Recent Monitor Data Heart Rate from ECG 81 NIBP 154/96 NIBP BP-Mean 115 Respiration from ECG 21 SpO2 96 I&O: 06/21/20 06/22/20 06/23/20 06:59 06:59 06:59 Intake Total 1570 1080 Output Total 10 0 Balance 1560 1080 Result Diagrams: 06/22/20 11:11 06/21/20 05:40 Additional Labs: Accuchecks 06/22/20 06/22/20 06/21/20 12:28 06:19 22:18 POC Glucose 128 H 195 H 261 H Hospitalist ROS - Medication Medications: Active Medications Generic Name Dose Route Start Last Admin Trade Name Freq PRN Reason Stop Dose Admin Acetaminophen 650 mg 06/14/20 22:55 06/20/20 06:37 Acetaminophen 325 Mg Tab PO 650 mg Q4H PRN Administration Headache/Fever/Mild Pain (1-3) Albuterol Sulfate 2 puff 06/17/20 20:32 06/22/20 06:31 Albuterol 200 Puff (6.7gm Inhaler) INH 2 puff [id number] PRN Administration Wheezing Albuterol/Ipratropium 1 gm 06/18/20 19:00 06/22/20 13:35 Ipratropium/Albuterol Sulfate 4 Gm Aer IH 1 gm [id number] STEFFI Administration Ascorbic Acid 1,000 mg 06/18/20 09:00 06/22/20 13:35 Ascorbic Acid 500 Mg Chewable Tablet PO 1,000 mg DAILY STEFFI Administration Atorvastatin Calcium 10 mg 06/15/20 21:00 06/21/20 22:06 Atorvastatin Calcium 10 Mg Tab PO 10 mg HS STEFFI Administration Benzonatate 100 mg 06/17/20 19:57 06/17/20 21:11 Benzonatate 100 Mg Cap PO 100 mg TIDPRN PRN Administration Cough Brimonidine Tartrate 1 drop 06/15/20 13:00 06/22/20 16:35 Brimonidine Tartrate 0.2% Ophth Soln 5 Ml Bottle EA EYE 1 drop QID STEFFI Administration Dextrose/Water 25 gm 06/14/20 22:58 06/17/20 05:23 Dextrose 50% Abboject 50 Ml Syringe SLOW IVP 25 gm PRN PRN Administration Hypoglycemia Dorzolamide HCl 1 drop 06/15/20 15:00 06/22/20 16:34 Dorzolamide Hcl 2% Ophth Soln 10 Ml Bottle EA EYE 1 drop TID STEFFI Administration Doxycycline Hyclate 100 mg 06/21/20 21:00 06/22/20 13:34 Doxycycline 100 Mg Cap PO 06/28/20 21:01 100 mg BID STEFFI Administration Famotidine 20 mg 06/19/20 09:00 06/22/20 13:36 Famotidine 20 Mg Tab PO 20 mg DAILY STEFFI Administration Heparin Sodium (Porcine) 500 units 06/19/20 02:24 06/19/20 03:07 Heparin 500 Units/5 Ml Flush Syringe IVF 500 unit Q12HR PRN Administration Heparin Flush Insulin Glargine 25 units/ 0.25 mls @ 0 mls/hr 06/21/20 21:00 06/22/20 13:36 Miscellaneous Medication SC Not Given BID [facility] Insulin Human Lispro 0 units 06/14/20 22:58 06/22/20 06:30 Humalog 300 Units/3 Ml Vial SC 2 unit .MILD SLIDING SCALE PRN Administration Mild Correctional Scale Latanoprost 1 drop 06/16/20 09:00 06/22/20 13:37 Latanoprost 0.005% Ophth Soln 2.5 Ml Bottle EA EYE 1 drop DAILY STEFFI Administration Levothyroxine Sodium 150 mcg 06/16/20 06:00 06/22/20 05:54 Levothyroxine 150 Mcg Tab PO 150 mcg 0600 STEFFI Administration Melatonin 3 mg 06/17/20 19:32 06/19/20 20:26 Melatonin 3 Mg Tab PO 3 mg HS PRN Administration Insomnia Metoprolol Succinate 150 mg 06/16/20 09:00 06/22/20 13:34 Metoprolol Succinate Xl 100 Mg Tab PO 150 mg DAILY STEFFI Administration Mometasone Furoate/Formoterol Fumar 2 puff 06/18/20 18:30 06/22/20 16:36 Mometasone 200 Mcg/Formoterol 5 Mcg 120 Puff Inhaler INH 2 puff BID-RT STEFFI Administration Nifedipine 60 mg 06/16/20 09:00 06/21/20 09:42 Nifedipine Xl 60 Mg Tab PO 60 mg DAILY STEFFI Administration Ondansetron HCl 4 mg 06/15/20 12:36 06/16/20 22:19 Ondansetron Pf 4 Mg/2 Ml Vial IVP 4 mg Q6H PRN Administration Nausea/Vomiting Pilocarpine HCl 1 drop 06/15/20 13:00 06/22/20 16:35 Pilocarpine 1% Ophth Drops 15 Ml Bot EA EYE 1 drp QID STEFFI Administration Sertraline HCl 25 mg 06/16/20 09:00 06/22/20 13:34 Sertraline Hcl 25 Mg Tab PO 25 mg DAILY STEFFI Administration Sodium Chloride 10 ml 06/18/20 09:00 06/22/20 13:40 Flush - Normal Saline 10 Ml Syringe IVF 10 ml Q12HR STEFFI Administration Timolol Maleate 1 drop 06/15/20 21:00 06/22/20 13:40 Timolol 0.5% Ophth Soln 5 Ml Bottle EA EYE 1 drop BID STEFFI Administration Zinc Sulfate 220 mg 06/18/20 09:00 06/22/20 13:42 Zinc Sulfate 220 Mg Cap PO 220 mg DAILY STEFFI Administration - Exam General Appearance: awake alert ENT: normocephalic atraumatic Respiratory: normal chest expansion, no tachypnea Hosp A/P (1) Acute respiratory failure with hypoxia Code(s): J96.01 - ACUTE RESPIRATORY FAILURE WITH HYPOXIA Status: Acute (2) COVID-19 Code(s): U07.1 - COVID-19 Status: Acute (3) PELON (acute kidney injury) Code(s): N17.9 - ACUTE KIDNEY FAILURE, UNSPECIFIED Status: Acute (4) CKD (chronic kidney disease), stage IV Code(s): N18.4 - CHRONIC KIDNEY DISEASE, STAGE 4 (SEVERE) Status: Chronic (5) DM I (diabetes mellitus, type I) Status: Chronic (6) Dyslipidemia Code(s): E78.5 - HYPERLIPIDEMIA, UNSPECIFIED Status: Chronic (7) HTN (hypertension) Code(s): I10 - ESSENTIAL (PRIMARY) HYPERTENSION Status: Chronic Qualifiers: Hypertension type: essential hypertension Qualified Code(s): I10 - Essential (primary) hypertension - Plan The patient is a 50-year-old female with past medical history of diabetes mellitus type 1, chronic kidney disease stage IV, hypertension, hyperlipidemia who presented to the emergency department with generalized weakness, malaise, diarrhea, and vomiting. She tested positive for COVID-19 and her imaging studies revealed bilateral infiltrates. Management with dexamethasone and IV antibiotics was initiated and the patient also received convalescent plasma. Her kidney function deteriorated and the patient did develop worsening hypoxia due to combination of volume overload and COVID-19. Continue to wean her off oxygen as tolerated. Continue dialysis per nephrology.
[2020-06-22] MEDS: Atorvastatin Calcium 10 MG TAB PO SCH (19:52)
[2020-06-23] MEDS: Ipratropium/Albuterol Sulfate 4 GM AER IH SCH ×5 (00:20→18:12)
[2020-06-23] MEDS: Levothyroxine 150 MCG TAB PO SCH (04:30)
[2020-06-23] MEDS: predniSONE 20 MG TAB PO SCH (07:52)
[2020-06-23] MEDS: Ascorbic Acid 500 mg Chewable Tablet PO SCH (07:52)
[2020-06-23] MEDS: Zinc Sulfate 220 MG CAP PO SCH (07:52)
[2020-06-23] MEDS: Doxycycline 100 MG CAP PO SCH ×2 (07:53→20:41)
[2020-06-23] MEDS: Famotidine 20 MG TAB PO SCH (07:53)
[2020-06-23] MEDS: Pilocarpine 1% Ophth Drops 15 ML BOT EA EYE SCH ×4 (07:54→20:42)
[2020-06-23] MEDS: Dorzolamide HCl 2% Ophth Soln 10 ml Bottle EA EYE SCH ×3 (07:54→20:41)
[2020-06-23] MEDS: Brimonidine Tartrate 0.2% Ophth Soln 5 ml Bottle EA EYE SCH ×4 (07:54→20:41)
[2020-06-23] MEDS: Latanoprost 0.005% Ophth Soln 2.5 ml Bottle EA EYE SCH (07:55)
[2020-06-23] MEDS: NIFEdipine XL 60 MG TAB PO SCH (08:05)
[2020-06-23] MEDS: Timolol 0.5% Ophth Soln 5 ml Bottle EA EYE SCH ×2 (08:26→20:45)
[2020-06-23] MEDS: Insulin Glargine 25 UNITS in Pre-Filled Syringe 1 EACH SC SCH ×2 (08:27→20:42)
--- NOTE | 2020-06-23 09:58 | PRG ---
DATE OF SERVICE: 06/23/2020 SUBJECTIVE: Tami Coughlin is a 50-year-old female with dickerson positive pneumonia and renal failure, was dialyzed yesterday. She is better. She is now on supplemental oxygen, nasal with sats 94%, respirations are 18, temperature 98.2, blood pressure 166/75. Chest, no wheezing and no crackles. Cardiac, normal S1 and S2 IMPRESSION: Diabetes, renal failure, and dickerson positive pneumonia, slowly improving. PLAN: Continue p.o. steroids and antibiotics. Job ID: [id number]
[2020-06-23 12:31] LABS: EliA Vaculitis New Method **** NEW METHOD ****; Glomerular Basemt Membrane Ab Less than 1.9 EliAU/mL (<7 Negative)
--- NOTE | 2020-06-23 16:25 | PDOC.HOSPP ---
- Subjective Encounter Date: 06/23/20 Subjective: No signs of respiratory distress. - Objective Vital Signs & Weight: Vital Signs (12 hours) Temp Pulse Resp BP BP Pulse Ox 06/23/20 15:33 97.5 F L 85 16 140/82 100 06/23/20 12:04 98.8 F 74 16 171/84 H 93 L 06/23/20 10:13 92 L 06/23/20 10:10 98.5 F 78 18 167/77 H 92 L 06/23/20 08:26 75 167/77 H 06/23/20 08:05 78 167/77 H Weight Weight 171 lb 8.314 oz Most Recent Monitor Data Heart Rate from ECG 77 NIBP 145/82 NIBP BP-Mean 103 Respiration from ECG 16 SpO2 98 I&O: 06/22/20 06/23/20 06/24/20 06:59 06:59 06:59 Intake Total 1080 480 Output Total 0 3000 Balance 3372 -7472 Result Diagrams: 06/22/20 11:11 06/21/20 05:40 Additional Labs: Accuchecks 06/23/20 06/23/20 06/23/20 15:16 12:00 04:55 POC Glucose 128 H 84 85 06/22/20 06/22/20 20:06 17:55 POC Glucose 136 H 160 H Hospitalist ROS - Medication Medications: Active Medications Generic Name Dose Route Start Last Admin Trade Name Freq PRN Reason Stop Dose Admin Acetaminophen 650 mg 06/14/20 22:55 06/20/20 06:37 Acetaminophen 325 Mg Tab PO 650 mg Q4H PRN Administration Headache/Fever/Mild Pain (1-3) Albuterol Sulfate 2 puff 06/17/20 20:32 06/22/20 19:49 Albuterol 200 Puff (6.7gm Inhaler) INH 2 puff [id number] PRN Administration Wheezing Albuterol/Ipratropium 1 gm 06/18/20 19:00 06/23/20 14:43 Ipratropium/Albuterol Sulfate 4 Gm Aer IH 1 gm [id number] SETFFI Administration Ascorbic Acid 1,000 mg 06/18/20 09:00 06/23/20 07:52 Ascorbic Acid 500 Mg Chewable Tablet PO 1,000 mg DAILY STEFFI Administration Atorvastatin Calcium 10 mg 06/15/20 21:00 06/22/20 19:52 Atorvastatin Calcium 10 Mg Tab PO 10 mg HS STEFFI Administration Benzonatate 100 mg 06/17/20 19:57 06/17/20 21:11 Benzonatate 100 Mg Cap PO 100 mg TIDPRN PRN Administration Cough Brimonidine Tartrate 1 drop 06/15/20 13:00 06/23/20 14:42 Brimonidine Tartrate 0.2% Ophth Soln 5 Ml Bottle EA EYE 1 drop QID STEFFI Administration Dextrose/Water 25 gm 06/14/20 22:58 06/17/20 05:23 Dextrose 50% Abboject 50 Ml Syringe SLOW IVP 25 gm PRN PRN Administration Hypoglycemia Dorzolamide HCl 1 drop 06/15/20 15:00 06/23/20 14:43 Dorzolamide Hcl 2% Ophth Soln 10 Ml Bottle EA EYE 1 drop TID STEFFI Administration Doxycycline Hyclate 100 mg 06/21/20 21:00 06/23/20 07:53 Doxycycline 100 Mg Cap PO 06/28/20 21:01 100 mg BID STEFFI Administration Famotidine 20 mg 06/19/20 09:00 06/23/20 07:53 Famotidine 20 Mg Tab PO 20 mg DAILY STEFFI Administration Heparin Sodium (Porcine) 500 units 06/19/20 02:24 06/22/20 19:53 Heparin 500 Units/5 Ml Flush Syringe IVF 500 unit Q12HR PRN Administration Heparin Flush Insulin Glargine 25 units/ 0.25 mls @ 0 mls/hr 06/21/20 21:00 06/23/20 08:27 Miscellaneous Medication SC Not Given BID [facility] Insulin Human Lispro 0 units 06/14/20 22:58 06/22/20 06:30 Humalog 300 Units/3 Ml Vial SC 2 unit .MILD SLIDING SCALE PRN Administration Mild Correctional Scale Latanoprost 1 drop 06/16/20 09:00 06/23/20 07:55 Latanoprost 0.005% Ophth Soln 2.5 Ml Bottle EA EYE 1 drop DAILY STEFFI Administration Levothyroxine Sodium 150 mcg 06/16/20 06:00 06/23/20 04:30 Levothyroxine 150 Mcg Tab PO 150 mcg 0600 STEFFI Administration Melatonin 3 mg 06/17/20 19:32 12/12/20 20:26 Melatonin 3 Mg Tab PO 3 mg HS PRN Administration Insomnia Metoprolol Succinate 150 mg 06/16/20 09:00 06/23/20 08:05 Metoprolol Succinate Xl 100 Mg Tab PO 150 mg DAILY STEFFI Administration Mometasone Furoate/Formoterol Fumar 2 puff 06/18/20 18:30 06/22/20 19:51 Mometasone 200 Mcg/Formoterol 5 Mcg 120 Puff Inhaler INH 2 puff BID-RT STEFFI Administration Nifedipine 60 mg 06/16/20 09:00 06/23/20 08:05 Nifedipine Xl 60 Mg Tab PO 60 mg DAILY STEFFI Administration Ondansetron HCl 4 mg 06/15/20 12:36 06/16/20 22:19 Ondansetron Pf 4 Mg/2 Ml Vial IVP 4 mg Q6H PRN Administration Nausea/Vomiting Pilocarpine HCl 1 drop 06/15/20 13:00 06/23/20 14:43 Pilocarpine 1% Ophth Drops 15 Ml Bot EA EYE 1 drp QID STEFFI Administration Prednisone 40 mg 06/23/20 08:00 06/23/20 07:52 Prednisone 20 Mg Tab PO 40 mg QAM-WM STEFFI Administration Sertraline HCl 25 mg 06/16/20 09:00 06/23/20 07:52 Sertraline Hcl 25 Mg Tab PO 25 mg DAILY STEFFI Administration Sodium Chloride 10 ml 06/18/20 09:00 06/23/20 07:55 Flush - Normal Saline 10 Ml Syringe IVF 10 ml Q12HR STEFFI Administration Timolol Maleate 1 drop 06/15/20 21:00 06/23/20 08:26 Timolol 0.5% Ophth Soln 5 Ml Bottle EA EYE 1 drop BID STEFFI Administration Zinc Sulfate 220 mg 06/18/20 09:00 06/23/20 07:52 Zinc Sulfate 220 Mg Cap PO 220 mg DAILY STEFFI Administration - Exam ENT: normocephalic atraumatic Neck: supple Respiratory: normal chest expansion, no tachypnea Extremities: no cyanosis, no clubbing Hosp A/P (1) Acute respiratory failure with hypoxia Code(s): J96.01 - ACUTE RESPIRATORY FAILURE WITH HYPOXIA Status: Acute (2) COVID-19 Code(s): U07.1 - COVID-19 Status: Acute (3) PELON (acute kidney injury) Code(s): N17.9 - ACUTE KIDNEY FAILURE, UNSPECIFIED Status: Acute (4) CKD (chronic kidney disease), stage IV Code(s): N18.4 - CHRONIC KIDNEY DISEASE, STAGE 4 (SEVERE) Status: Chronic (5) DM I (diabetes mellitus, type I) Status: Chronic (6) Dyslipidemia Code(s): E78.5 - HYPERLIPIDEMIA, UNSPECIFIED Status: Chronic (7) HTN (hypertension) Code(s): I10 - ESSENTIAL (PRIMARY) HYPERTENSION Status: Chronic Qualifiers: Hypertension type: essential hypertension Qualified Code(s): I10 - Essential (primary) hypertension - Plan The patient is a 50-year-old female with past medical history of diabetes mellitus type 1, chronic kidney disease stage IV, hypertension, hyperlipidemia who presented to the emergency department with generalized weakness, malaise, diarrhea, and vomiting. She tested positive for COVID-19 and her imaging studies revealed bilateral infiltrates. Management with dexamethasone and IV antibiotics was initiated and the patient also received convalescent plasma. Her kidney function deteriorated and the patient did develop worsening hypoxia due to combination of volume overload and COVID-19. Continue to wean her off oxygen as tolerated. Continue dialysis per nephrology. The patient is clinically stable. She can be discharged once dialysis chair is available.
[2020-06-23] MEDS: Mometasone 200 MCG/Formoterol 5 MCG 120 PUFF INHALER INH SCH (17:25)
[2020-06-23] MEDS: Atorvastatin Calcium 10 MG TAB PO SCH (20:41)
[2020-06-24] MEDS: Ipratropium/Albuterol Sulfate 4 GM AER IH SCH ×4 (01:36→18:01)
[2020-06-24] MEDS: Albuterol 200 PUFF (6.7GM INHALER) INH PRN (05:27)
[2020-06-24] MEDS: Levothyroxine 150 MCG TAB PO SCH (05:27)
[2020-06-24] MEDS: Mometasone 200 MCG/Formoterol 5 MCG 120 PUFF INHALER INH SCH ×2 (05:27→18:02)
[2020-06-24] MEDS: HumaLOG 300 UNITS/3 ML VIAL SC PRN ×3 (05:46→15:57)
[2020-06-24] MEDS: Doxycycline 100 MG CAP PO SCH ×2 (08:50→20:15)
[2020-06-24] MEDS: Zinc Sulfate 220 MG CAP PO SCH (08:50)
[2020-06-24] MEDS: predniSONE 20 MG TAB PO SCH (08:50)
[2020-06-24] MEDS: Ascorbic Acid 500 mg Chewable Tablet PO SCH (08:50)
[2020-06-24] MEDS: Famotidine 20 MG TAB PO SCH (08:50)
[2020-06-24] MEDS: NIFEdipine XL 60 MG TAB PO SCH (08:57)
[2020-06-24] MEDS: Timolol 0.5% Ophth Soln 5 ml Bottle EA EYE SCH ×2 (08:58→20:17)
[2020-06-24] MEDS: Pilocarpine 1% Ophth Drops 15 ML BOT EA EYE SCH ×4 (08:58→20:17)
[2020-06-24] MEDS: Dorzolamide HCl 2% Ophth Soln 10 ml Bottle EA EYE SCH ×3 (08:58→20:16)
[2020-06-24] MEDS: Brimonidine Tartrate 0.2% Ophth Soln 5 ml Bottle EA EYE SCH ×4 (08:58→20:16)
[2020-06-24] MEDS ORDERED: Heparin 10,000 UNITS/ 10 ML VIAL ONE (09:06)
[2020-06-24] MEDS: Insulin Glargine 25 UNITS in Pre-Filled Syringe 1 EACH SC SCH ×2 (09:21→20:17)
--- NOTE | 2020-06-24 09:51 | PRG ---
DATE OF SERVICE: 06/24/2020 SUBJECTIVE: This morning, she is on room air. OBJECTIVE: VITAL SIGNS: Temperature 98, pulse 72, saturations 100%, blood pressure 136/71, respirations 18. CHEST: No wheezing. No crackles. CARDIAC: Normal S1 and S2. No gallops. ABDOMEN: No masses. ASSESSMENT: Louise positive pneumonia, much improved; respiratory failure. PLAN: She is ready to be discharged home. We would taper her steroids over the course of 2 weeks. Supportive care and PT. We will follow at a distance. Job ID: [id number]
[2020-06-24] MEDS: Latanoprost 0.005% Ophth Soln 2.5 ml Bottle EA EYE SCH (10:45)
[2020-06-24 11:49] VITALS: BMI 29.4
--- NOTE | 2020-06-24 12:16 | PRG ---
DATE OF SERVICE: 06/24/2020 SUBJECTIVE: A 50-year-old female being seen for end-stage renal disease. The patient denies any nausea, vomiting, or chest pain. OBJECTIVE: GENERAL: On examination, the patient is awake and alert. VITAL SIGNS: Afebrile, pulse 72, breathing at 16, and blood pressure 136/71. HEENT: Head normocephalic and atraumatic. Eyes intact, no ulcers. Nose intact, no ulcers. Ears intact, no ulcers. NECK: Supple. No JVD. CHEST: Symmetrical and clear. CARDIOVASCULAR: Shows S1 and S2, no rub, no murmur. GASTROINTESTINAL: Abdomen is soft, bowel sounds positive. EXTREMITIES: Show no edema or ulcers. SKIN: Shows no rash or petechiae. MUSCULOSKELETAL: Shows no joint swelling or stiffness. GENITOURINARY: Shows no Guzman or CVA tenderness. NEUROLOGIC: Motor intact. Cranial nerves intact. LABORATORY DATA: Reviewed. ASSESSMENT AND PLAN: 1. Stage 6 chronic kidney disease, stable. 2. Hypertension, stable. 3. Anemia, stable. 4. Medications based on glomerular filtration rate are appropriate. Job ID: [id number]
--- NOTE | 2020-06-24 13:14 | PRG ---
DATE OF SERVICE: 06/23/2020 SUBJECTIVE: A 50-year-old female, being seen for end-stage renal disease. The patient denied any nausea, vomiting, or chest pain. PHYSICAL EXAMINATION: GENERAL: The patient is awake and alert. VITAL SIGNS: Afebrile, pulse 85, breathing at 16, blood pressure 140/82. HEENT: Head normocephalic and atraumatic. Eyes intact, no ulcers. Nose intact, no ulcers. Ears intact, no ulcers. NECK: Supple. No JVD. CHEST: Symmetrical and clear. CARDIOVASCULAR: Shows S1 and S2, no rub, no murmur. GASTROINTESTINAL: Abdomen is soft, bowel sounds positive. EXTREMITIES: Show no edema or ulcers. SKIN: Shows no rash or petechiae. MUSCULOSKELETAL: Shows no joint swelling or stiffness. GENITOURINARY: Shows no Guzman or CVA tenderness. NEUROLOGIC: Motor intact. Cranial nerves intact. LABORATORY DATA: Reviewed. ASSESSMENT AND PLAN: 1. Stage 3 chronic kidney disease. Plan dialysis. 2. Hypertension, stable. 3. Anemia, stable. 4. Medication based on GFR appropriate. Job ID: [id number]
--- NOTE | 2020-06-24 16:41 | PDOC.HOSPP ---
- Subjective Encounter Date: 06/24/20 Subjective: The patient is clinically stable. She had no new complaints today. - Objective Vital Signs & Weight: Vital Signs (12 hours) Temp Pulse Resp BP BP Pulse Ox 06/24/20 16:03 98.3 F 71 18 123/74 100 06/24/20 11:29 98.1 F 72 16 114/72 100 06/24/20 09:58 100 06/24/20 09:55 98.1 F 74 16 136/71 100 06/24/20 08:58 72 136/71 06/24/20 08:57 72 136/71 Weight Admit Weight 205 lb Weight 171 lb 8.314 oz Most Recent Monitor Data Heart Rate from ECG 77 NIBP 145/82 NIBP BP-Mean 103 Respiration from ECG 16 SpO2 98 I&O: 06/23/20 06/24/20 06/25/20 06:59 06:59 06:59 Intake Total 480 1420 Output Total 3000 Balance -2520 1420 Result Diagrams: 06/22/20 11:11 06/21/20 05:40 Additional Labs: Accuchecks 06/24/20 06/24/20 06/24/20 15:54 10:52 05:35 POC Glucose 208 H 204 H 401 H 06/23/20 20:54 POC Glucose 388 H Hospitalist ROS - Medication Medications: Active Medications Generic Name Dose Route Start Last Admin Trade Name Freq PRN Reason Stop Dose Admin Acetaminophen 650 mg 06/14/20 22:55 06/20/20 06:37 Acetaminophen 325 Mg Tab PO 650 mg Q4H PRN Administration Headache/Fever/Mild Pain (1-3) Albuterol Sulfate 2 puff 06/17/20 20:32 06/24/20 05:27 Albuterol 200 Puff (6.7gm Inhaler) INH 2 puff [id number] PRN Administration Wheezing Albuterol/Ipratropium 1 gm 06/18/20 19:00 06/24/20 14:24 Ipratropium/Albuterol Sulfate 4 Gm Aer IH 1 gm [id number] STEFFI Administration Ascorbic Acid 1,000 mg 06/18/20 09:00 06/24/20 08:50 Ascorbic Acid 500 Mg Chewable Tablet PO 1,000 mg DAILY STEFFI Administration Atorvastatin Calcium 10 mg 06/15/20 21:00 06/23/20 20:41 Atorvastatin Calcium 10 Mg Tab PO 10 mg HS STEFFI Administration Benzonatate 100 mg 06/17/20 19:57 06/17/20 21:11 Benzonatate 100 Mg Cap PO 100 mg TIDPRN PRN Administration Cough Brimonidine Tartrate 1 drop 06/15/20 13:00 06/24/20 14:24 Brimonidine Tartrate 0.2% Ophth Soln 5 Ml Bottle EA EYE 1 drop QID STEFFI Administration Dextrose/Water 25 gm 06/14/20 22:58 06/17/20 05:23 Dextrose 50% Abboject 50 Ml Syringe SLOW IVP 25 gm PRN PRN Administration Hypoglycemia Dorzolamide HCl 1 drop 06/15/20 15:00 06/24/20 14:24 Dorzolamide Hcl 2% Ophth Soln 10 Ml Bottle EA EYE 1 drop TID STEFFI Administration Doxycycline Hyclate 100 mg 06/21/20 21:00 06/24/20 08:50 Doxycycline 100 Mg Cap PO 06/28/20 21:01 100 mg BID STEFFI Administration Famotidine 20 mg 06/19/20 09:00 06/24/20 08:50 Famotidine 20 Mg Tab PO 20 mg DAILY STEFFI Administration Heparin Sodium (Porcine) 500 units 06/19/20 02:24 06/22/20 19:53 Heparin 500 Units/5 Ml Flush Syringe IVF 500 unit Q12HR PRN Administration Heparin Flush Insulin Glargine 25 units/ 0.25 mls @ 0 mls/hr 06/21/20 21:00 06/24/20 09:21 Miscellaneous Medication SC Not Given BID [facility] Insulin Human Lispro 0 units 06/14/20 22:58 06/24/20 15:57 Humalog 300 Units/3 Ml Vial SC 3 unit .MILD SLIDING SCALE PRN Administration Mild Correctional Scale Latanoprost 1 drop 06/16/20 09:00 06/24/20 10:45 Latanoprost 0.005% Ophth Soln 2.5 Ml Bottle EA EYE 1 drop DAILY STEFFI Administration Levothyroxine Sodium 150 mcg 06/16/20 06:00 06/24/20 05:27 Levothyroxine 150 Mcg Tab PO 150 mcg 0600 STEFFI Administration Melatonin 3 mg 06/17/20 19:32 06/19/20 20:26 Melatonin 3 Mg Tab PO 3 mg HS PRN Administration Insomnia Metoprolol Succinate 150 mg 06/16/20 09:00 06/24/20 08:57 Metoprolol Succinate Xl 100 Mg Tab PO 150 mg DAILY STEFFI Administration Mometasone Furoate/Formoterol Fumar 2 puff 06/18/20 18:30 06/24/20 05:27 Mometasone 200 Mcg/Formoterol 5 Mcg 120 Puff Inhaler INH 2 puff BID-RT STEFFI Administration Nifedipine 60 mg 06/16/20 09:00 06/24/20 08:57 Nifedipine Xl 60 Mg Tab PO 60 mg DAILY STEFFI Administration Ondansetron HCl 4 mg 06/15/20 12:36 06/16/20 22:19 Ondansetron Pf 4 Mg/2 Ml Vial IVP 4 mg Q6H PRN Administration Nausea/Vomiting Pilocarpine HCl 1 drop 06/15/20 13:00 06/24/20 14:24 Pilocarpine 1% Ophth Drops 15 Ml Bot EA EYE 1 drp QID STEFFI Administration Prednisone 40 mg 06/23/20 08:00 06/24/20 08:50 Prednisone 20 Mg Tab PO 40 mg QAM-WM STEFFI Administration Sertraline HCl 25 mg 06/16/20 09:00 06/24/20 08:51 Sertraline Hcl 25 Mg Tab PO 25 mg DAILY STEFFI Administration Sodium Chloride 10 ml 06/18/20 09:00 06/24/20 08:58 Flush - Normal Saline 10 Ml Syringe IVF 10 ml Q12HR STEFFI Administration Timolol Maleate 1 drop 06/15/20 21:00 06/24/20 08:58 Timolol 0.5% Ophth Soln 5 Ml Bottle EA EYE 1 drop BID STEFFI Administration Zinc Sulfate 220 mg 06/18/20 09:00 06/24/20 08:50 Zinc Sulfate 220 Mg Cap PO 220 mg DAILY STEFFI Administration - Exam General Appearance: awake alert ENT: normocephalic atraumatic Neck: supple Respiratory: normal chest expansion, no tachypnea Gastrointestinal: soft Extremities: no cyanosis Neurological: cranial nerve grossly intact, no focal deficits Hosp A/P (1) Acute respiratory failure with hypoxia Code(s): J96.01 - ACUTE RESPIRATORY FAILURE WITH HYPOXIA Status: Acute (2) COVID-19 Code(s): U07.1 - COVID-19 Status: Acute (3) PELON (acute kidney injury) Code(s): N17.9 - ACUTE KIDNEY FAILURE, UNSPECIFIED Status: Acute (4) CKD (chronic kidney disease), stage IV Code(s): N18.4 - CHRONIC KIDNEY DISEASE, STAGE 4 (SEVERE) Status: Chronic (5) DM I (diabetes mellitus, type I) Status: Chronic (6) Dyslipidemia Code(s): E78.5 - HYPERLIPIDEMIA, UNSPECIFIED Status: Chronic (7) HTN (hypertension) Code(s): I10 - ESSENTIAL (PRIMARY) HYPERTENSION Status: Chronic Qualifiers: Hypertension type: essential hypertension Qualified Code(s): I10 - Essential (primary) hypertension - Plan The patient is a 50-year-old female with past medical history of diabetes mellitus type 1, chronic kidney disease stage IV, hypertension, hyperlipidemia who presented to the emergency department with generalized weakness, malaise, diarrhea, and vomiting. She tested positive for COVID-19 and her imaging studie s revealed bilateral infiltrates. Patient received convalescent plasma and dexamethasone. She is currently on room air. Corticosteroids are being weaned off by pulmonology. She developed acute kidney injury superimposed on her chronic kidney disease leading to initiation of dialysis. Surgery service consulted to place a permacath.
[2020-06-24] MEDS: Atorvastatin Calcium 10 MG TAB PO SCH (20:15)
[2020-06-25] MEDS: Ipratropium/Albuterol Sulfate 4 GM AER IH SCH ×4 (01:21→19:57)
[2020-06-25] MEDS: Mometasone 200 MCG/Formoterol 5 MCG 120 PUFF INHALER INH SCH ×2 (05:34→18:08)
[2020-06-25] MEDS: Levothyroxine 150 MCG TAB PO SCH (05:35)
[2020-06-25] MEDS: HumaLOG 300 UNITS/3 ML VIAL SC PRN ×4 (05:42→23:59)
[2020-06-25] MEDS: Doxycycline 100 MG CAP PO SCH ×2 (07:49→20:00)
[2020-06-25] MEDS: NIFEdipine XL 60 MG TAB PO SCH (07:49)
[2020-06-25] MEDS: Famotidine 20 MG TAB PO SCH (07:50)
[2020-06-25] MEDS: Ascorbic Acid 500 mg Chewable Tablet PO SCH (07:51)
[2020-06-25] MEDS: predniSONE 20 MG TAB PO SCH (07:51)
[2020-06-25] MEDS: Insulin Glargine 25 UNITS in Pre-Filled Syringe 1 EACH SC SCH ×2 (07:51→20:04)
[2020-06-25] MEDS: Zinc Sulfate 220 MG CAP PO SCH (07:51)
[2020-06-25] MEDS: Latanoprost 0.005% Ophth Soln 2.5 ml Bottle EA EYE SCH (07:52)
[2020-06-25] MEDS: Pilocarpine 1% Ophth Drops 15 ML BOT EA EYE SCH ×4 (07:53→20:24)
[2020-06-25] MEDS: Timolol 0.5% Ophth Soln 5 ml Bottle EA EYE SCH ×2 (07:54→20:25)
[2020-06-25] MEDS: Dorzolamide HCl 2% Ophth Soln 10 ml Bottle EA EYE SCH ×3 (09:02→20:26)
[2020-06-25] MEDS: Brimonidine Tartrate 0.2% Ophth Soln 5 ml Bottle EA EYE SCH ×4 (09:02→20:23)
--- NOTE | 2020-06-25 10:42 | PRG ---
DATE OF SERVICE: 06/25/2020 SUBJECTIVE: This is a 50-year-old female, being seen for end-stage renal disease. The patient denied nausea, vomiting, or chest pain. OBJECTIVE: GENERAL: The patient is awake, alert. VITAL SIGNS: Afebrile. Pulse 75, breathing 16, blood pressure 126/82. HEENT: Head normocephalic and atraumatic. Eyes intact, no ulcers. Nose intact, no ulcers. Ears intact, no ulcers. NECK: Supple. No JVD. CHEST: Symmetrical and clear. CARDIOVASCULAR: Shows S1 and S2, no rub, no murmur. GASTROINTESTINAL: Abdomen is soft, bowel sounds positive. EXTREMITIES: Show no edema or ulcers. SKIN: Shows no rash or petechiae. MUSCULOSKELETAL: Shows no joint swelling or stiffness. GENITOURINARY: Shows no Guzman or CVA tenderness. NEUROLOGIC: Motor intact. Cranial nerves intact. LABORATORY DATA: Reviewed. ASSESSMENT AND PLAN: 1. Chronic kidney disease stage 6. Plan dialysis. 2. Hypertension, stable. 3. Anemia, stable. Medication based on GFR appropriate. We will plan dialysis tomorrow. Job ID: [id number]
--- NOTE | 2020-06-25 13:43 | ULT ---
ULTRASOUND VESSEL MAPPING DIALYSIS ACCESS: 06/25/20 HISTORY: End-stage renal disease. COMPARISON: None. FINDINGS: Real time conde scale color and spectral analysis of the bilateral upper extremity arterial and venous systems was performed. The bilateral internal jugular and subclavian veins are patent as well as the axillary veins. Vessel size are as below. RIGHT UPPER EXTREMITY BRACHIAL ARTERY: 0.55 cm RADIAL ARTERY: 1.29 cm ULNAR ARTERY: not seen CEPHALIC VEIN Proximal Arm: 0.22 cm Mid Arm: 0.06 cm Distal Arm: 0.05 cm Antecubital Fossa: 0.04 cm Proximal Forearm: 0.25 cm Mid Forearm: 0.18 cm Distal Forearm: 0.12 cm BASILIC VEIN Proximal Arm: 0.49 cm Mid Arm: 0.37 cm Distal Arm: 0.23 cm Antecubital Fossa: 0.26 cm Proximal Forearm: 0.15 cm Mid Forearm: 0.14 cm Distal Forearm: 0.16 cm LEFT UPPER EXTREMITY BRACHIAL ARTERY: 0.31 cm RADIAL ARTERY: 0.26 cm ULNAR ARTERY: 0.16 cm CEPHALIC VEIN Proximal Arm: 0.07 cm Mid Arm: 0.07 cm Distal Arm: 0.06 cm Antecubital Fossa: 0.16 cm Proximal Forearm: 0.18 cm Mid Forearm: Noncompressible Distal Forearm: Noncompressible BASILIC VEIN Proximal Arm: 0.63 cm Mid Arm: 0.45 cm Distal Arm: 0.24 cm Antecubital Fossa: 0.21 cm Proximal Forearm: 0.13 cm Mid Forearm: 0.17 cm Distal Forearm: 0.15 cm IMPRESSION: 1. Vascular size as above. 2. Noncompressible distal left cephalic vein. 3. Nonvisualized right ulnar artery. POS: [facility]
--- NOTE | 2020-06-25 13:57 | PDOC.HOSPP ---
- Subjective Encounter Date: 06/25/20 Subjective: The patient has been asymptomatic and not hyper toxic for the last 3 days. She is afebrile. - Objective Vital Signs & Weight: Vital Signs (12 hours) Temp Pulse Resp BP Pulse Ox 06/25/20 08:00 98.1 F 75 18 141/81 H 100 06/25/20 07:54 74 06/25/20 07:49 74 Weight Admit Weight 205 lb Weight 171 lb 8.314 oz Most Recent Monitor Data Heart Rate from ECG 77 NIBP 145/82 NIBP BP-Mean 103 Respiration from ECG 16 SpO2 98 I&O: 06/24/20 06/25/20 06/26/20 06:59 06:59 06:59 Intake Total 1420 3420 360 Balance 1420 3420 360 Result Diagrams: 06/22/20 11:11 06/21/20 05:40 Additional Labs: Accuchecks 06/25/20 06/24/20 06/24/20 05:40 20:22 15:54 POC Glucose 302 H 191 H 208 H Hospitalist ROS - Medication Medications: Active Medications Generic Name Dose Route Start Last Admin Trade Name Freq PRN Reason Stop Dose Admin Acetaminophen 650 mg 06/14/20 22:55 06/20/20 06:37 Acetaminophen 325 Mg Tab PO 650 mg Q4H PRN Administration Headache/Fever/Mild Pain (1-3) Albuterol Sulfate 2 puff 06/17/20 20:32 06/24/20 05:27 Albuterol 200 Puff (6.7gm Inhaler) INH 2 puff [id number] PRN Administration Wheezing Albuterol/Ipratropium 1 gm 06/18/20 19:00 06/25/20 13:42 Ipratropium/Albuterol Sulfate 4 Gm Aer IH 1 gm [id number] STEFFI Administration Ascorbic Acid 1,000 mg 06/18/20 09:00 06/25/20 07:51 Ascorbic Acid 500 Mg Chewable Tablet PO 1,000 mg DAILY STEFFI Administration Atorvastatin Calcium 10 mg 06/15/20 21:00 06/24/20 20:15 Atorvastatin Calcium 10 Mg Tab PO 10 mg HS STEFFI Administration Benzonatate 100 mg 06/17/20 19:57 06/17/20 21:11 Benzonatate 100 Mg Cap PO 100 mg TIDPRN PRN Administration Cough Brimonidine Tartrate 1 drop 06/15/20 13:00 06/25/20 13:41 Brimonidine Tartrate 0.2% Ophth Soln 5 Ml Bottle EA EYE 1 drop QID STEFFI Administration Dextrose/Water 25 gm 06/14/20 22:58 06/17/20 05:23 Dextrose 50% Abboject 50 Ml Syringe SLOW IVP 25 gm PRN PRN Administration Hypoglycemia Dorzolamide HCl 1 drop 06/15/20 15:00 06/25/20 09:02 Dorzolamide Hcl 2% Ophth Soln 10 Ml Bottle EA EYE 1 drop TID STEFFI Administration Doxycycline Hyclate 100 mg 06/21/20 21:00 06/25/20 07:49 Doxycycline 100 Mg Cap PO 06/28/20 21:01 100 mg BID STEFFI Administration Famotidine 20 mg 06/19/20 09:00 06/25/20 07:50 Famotidine 20 Mg Tab PO 20 mg DAILY STEFFI Administration Heparin Sodium (Porcine) 500 units 06/19/20 02:24 06/22/20 19:53 Heparin 500 Units/5 Ml Flush Syringe IVF 500 unit Q12HR PRN Administration Heparin Flush Insulin Glargine 25 units/ 0.25 mls @ 0 mls/hr 06/21/20 21:00 06/25/20 07:51 Miscellaneous Medication SC 0.25 mls BID STEFFI Administration Insulin Human Lispro 0 units 06/14/20 22:58 06/25/20 11:34 Humalog 300 Units/3 Ml Vial SC 5 unit .MILD SLIDING SCALE PRN Administration Mild Correctional Scale Latanoprost 1 drop 06/16/20 09:00 06/25/20 07:52 Latanoprost 0.005% Ophth Soln 2.5 Ml Bottle EA EYE 1 drop DAILY STEFFI Administration Levothyroxine Sodium 150 mcg 06/16/20 06:00 06/25/20 05:35 Levothyroxine 150 Mcg Tab PO 150 mcg 0600 STEFFI Administration Melatonin 3 mg 06/17/20 19:32 06/19/20 20:26 Melatonin 3 Mg Tab PO 3 mg HS PRN Administration Insomnia Metoprolol Succinate 150 mg 06/16/20 09:00 06/25/20 07:50 Metoprolol Succinate Xl 100 Mg Tab PO 150 mg DAILY STEFFI Administration Mometasone Furoate/Formoterol Fumar 2 puff 06/18/20 18:30 06/25/20 05:34 Mometasone 200 Mcg/Formoterol 5 Mcg 120 Puff Inhaler INH 2 puff BID-RT STEFFI Administration Nifedipine 60 mg 06/16/20 09:00 06/25/20 07:49 Nifedipine Xl 60 Mg Tab PO 60 mg DAILY STEFFI Administration Ondansetron HCl 4 mg 06/15/20 12:36 06/16/20 22:19 Ondansetron Pf 4 Mg/2 Ml Vial IVP 4 mg Q6H PRN Administration Nausea/Vomiting Pilocarpine HCl 1 drop 06/15/20 13:00 06/25/20 13:41 Pilocarpine 1% Ophth Drops 15 Ml Bot EA EYE 1 drp QID STEFFI Administration Prednisone 40 mg 06/23/20 08:00 06/25/20 07:51 Prednisone 20 Mg Tab PO 40 mg QAM-WM STEFFI Administration Sertraline HCl 25 mg 06/16/20 09:00 06/25/20 07:50 Sertraline Hcl 25 Mg Tab PO 25 mg DAILY STEFFI Administration Sodium Chloride 10 ml 06/18/20 09:00 06/25/20 07:54 Flush - Normal Saline 10 Ml Syringe IVF 10 ml Q12HR STEFFI Administration Timolol Maleate 1 drop 06/15/20 21:00 06/25/20 07:54 Timolol 0.5% Ophth Soln 5 Ml Bottle EA EYE 1 drop BID STEFFI Administration Zinc Sulfate 220 mg 06/18/20 09:00 06/25/20 07:51 Zinc Sulfate 220 Mg Cap PO 220 mg DAILY STEFFI Administration - Exam General Appearance: awake alert ENT: normocephalic atraumatic Neck: supple, no JVD Respiratory: normal chest expansion, no tachypnea Extremities: no cyanosis, no clubbing Hosp A/P (1) Acute respiratory failure with hypoxia Code(s): J96.01 - ACUTE RESPIRATORY FAILURE WITH HYPOXIA Status: Acute (2) COVID-19 Code(s): U07.1 - COVID-19 Status: Acute (3) PELON (acute kidney injury) Code(s): N17.9 - ACUTE KIDNEY FAILURE, UNSPECIFIED Status: Acute (4) CKD (chronic kidney disease), stage IV Code(s): N18.4 - CHRONIC KIDNEY DISEASE, STAGE 4 (SEVERE) Status: Chronic (5) DM I (diabetes mellitus, type I) Status: Chronic (6) Dyslipidemia Code(s): E78.5 - HYPERLIPIDEMIA, UNSPECIFIED Status: Chronic (7) HTN (hypertension) Code(s): I10 - ESSENTIAL (PRIMARY) HYPERTENSION Status: Chronic Qualifiers: Hypertension type: essential hypertension Qualified Code(s): I10 - Essential (primary) hypertension - Plan The patient is a 50-year-old female with past medical history of diabetes mellitus type 1, chronic kidney disease stage IV, hypertension, hyperlipidemia who presented to the emergency department with generalized weakness, malaise, diarrhea, and vomiting. She tested positive for COVID-19 and her imaging studies revealed bilateral infiltrates. Patient received convalescent plasma and dexamethasone. She is currently on room air. Corticosteroids are being weaned off by pulmonology. She developed acute kidney injury superimposed on her chronic kidney disease leading to initiation of dialysis. The patient is a positive for COVID-19 over 10 days ago and she has been afebrile and symptom-free for the last 3 days. We will discontinue COVID-19 isolation starting tomorrow. Permacath placement planned for early next week.
[2020-06-25] MEDS: Atorvastatin Calcium 10 MG TAB PO SCH (20:00)
[2020-06-26] MEDS: Ipratropium/Albuterol Sulfate 4 GM AER IH SCH ×4 (00:14→21:33)
[2020-06-26] MEDS: HumaLOG 300 UNITS/3 ML VIAL SC PRN ×2 (05:51→21:00)
[2020-06-26] MEDS: Levothyroxine 150 MCG TAB PO SCH (05:51)
[2020-06-26] MEDS: Mometasone 200 MCG/Formoterol 5 MCG 120 PUFF INHALER INH SCH ×2 (05:52→21:33)
[2020-06-26 08:03] LABS: Anion Gap 19 mmol/L (10-20); BUN (Urea Nitrogen) 59 mg/dL (7.0-18.7); Calc. Creatinine Clearance 11 mL/min (70-130); Calcium 6.8 mg/dL (7.8-10.44); Carbon Dioxide 21 mmol/L (22-29); Chloride 99 mmol/L (98-107); Glucose 162 mg/dL (70-105); Potassium 3.3 mmol/L (3.5-5.1); Sodium 136 mmol/L (136-145)
[2020-06-26] MEDS: predniSONE 20 MG TAB PO SCH (08:25)
[2020-06-26] MEDS: Doxycycline 100 MG CAP PO SCH ×2 (08:25→20:56)
[2020-06-26] MEDS: Ascorbic Acid 500 mg Chewable Tablet PO SCH (08:25)
[2020-06-26] MEDS: Famotidine 20 MG TAB PO SCH (08:26)
[2020-06-26] MEDS: NIFEdipine XL 60 MG TAB PO SCH (08:26)
[2020-06-26] MEDS: Zinc Sulfate 220 MG CAP PO SCH (08:26)
[2020-06-26] MEDS: Insulin Glargine 25 UNITS in Pre-Filled Syringe 1 EACH SC SCH ×2 (08:26→20:58)
[2020-06-26 08:27] LABS: Hemoglobin 8.6 g/dL (12.0-16.0)
[2020-06-26] MEDS: Brimonidine Tartrate 0.2% Ophth Soln 5 ml Bottle EA EYE SCH ×4 (08:27→21:33)
[2020-06-26] MEDS: Latanoprost 0.005% Ophth Soln 2.5 ml Bottle EA EYE SCH (08:27)
[2020-06-26] MEDS: Dorzolamide HCl 2% Ophth Soln 10 ml Bottle EA EYE SCH ×3 (08:27→21:33)
[2020-06-26] MEDS: Pilocarpine 1% Ophth Drops 15 ML BOT EA EYE SCH ×4 (08:28→21:34)
[2020-06-26] MEDS: Timolol 0.5% Ophth Soln 5 ml Bottle EA EYE SCH ×2 (08:28→21:34)
--- NOTE | 2020-06-26 10:57 | EKG ---
Test Reason : Blood Pressure : / mmHG Vent. Rate : 084 BPM Atrial Rate : 084 BPM P-R Int : 144 ms QRS Dur : 086 ms QT Int : 390 ms P-R-T Axes : 044 023 019 degrees QTc Int : 460 ms Normal sinus rhythm Possible Left atrial enlargement Left ventricular hypertrophy Nonspecific ST and T wave abnormality Prolonged QT Abnormal ECG Confirmed by CORTNEY SNOWDEN DO [id number]), editor in chief LIBAN ROME ([id number] on 06/26/2020 10:57:42 AM Referred By: Confirmed By:CORTNEY SNOWDEN DO
[2020-06-26] MEDS ORDERED: Heparin 10,000 UNITS/ 10 ML VIAL ONE (11:03)
--- NOTE | 2020-06-26 14:58 | PDOC.HOSPP ---
- Subjective Encounter Date: 06/26/20 Subjective: The patient is undergoing hemodialysis. She has no acute complaints. - Objective Vital Signs & Weight: Vital Signs (12 hours) Temp Pulse Resp BP Pulse Ox 06/26/20 08:28 72 06/26/20 08:26 72 06/26/20 08:00 100 06/26/20 04:00 98.3 F 72 20 150/78 H 100 Weight Admit Weight 205 lb Weight 171 lb 8.314 oz Most Recent Monitor Data Heart Rate from ECG 77 NIBP 145/82 NIBP BP-Mean 103 Respiration from ECG 16 SpO2 98 I&O: 06/25/20 06/26/20 06/27/20 06:59 06:59 06:59 Intake Total 3420 840 240 Output Total 0 Balance 3420 840 240 Result Diagrams: 06/26/20 07:38 06/26/20 07:38 Additional Labs: Accuchecks 06/26/20 06/26/20 06/25/20 11:08 04:47 23:54 POC Glucose 147 H 242 H 290 H 06/25/20 06/25/20 20:07 16:39 POC Glucose 304 H 236 H Hospitalist ROS - Medication Medications: Active Medications Generic Name Dose Route Start Last Admin Trade Name Freq PRN Reason Stop Dose Admin Acetaminophen 650 mg 06/14/20 22:55 06/20/20 06:37 Acetaminophen 325 Mg Tab PO 650 mg Q4H PRN Administration Headache/Fever/Mild Pain (1-3) Albuterol Sulfate 2 puff 06/17/20 20:32 06/24/20 05:27 Albuterol 200 Puff (6.7gm Inhaler) INH 2 puff [id number] PRN Administration Wheezing Albuterol/Ipratropium 1 gm 06/18/20 19:00 06/26/20 12:35 Ipratropium/Albuterol Sulfate 4 Gm Aer IH 1 gm [id number] STEFFI Administration Ascorbic Acid 1,000 mg 06/18/20 09:00 06/26/20 08:25 Ascorbic Acid 500 Mg Chewable Tablet PO 1,000 mg DAILY STEFFI Administration Atorvastatin Calcium 10 mg 06/15/20 21:00 06/25/20 20:00 Atorvastatin Calcium 10 Mg Tab PO 10 mg HS STEFFI Administration Benzonatate 100 mg 06/17/20 19:57 06/17/20 21:11 Benzonatate 100 Mg Cap PO 100 mg TIDPRN PRN Administration Cough Brimonidine Tartrate 1 drop 06/15/20 13:00 06/26/20 12:36 Brimonidine Tartrate 0.2% Ophth Soln 5 Ml Bottle EA EYE 1 drop QID STEFFI Administration Dextrose/Water 25 gm 06/14/20 22:58 06/17/20 05:23 Dextrose 50% Abboject 50 Ml Syringe SLOW IVP 25 gm PRN PRN Administration Hypoglycemia Dorzolamide HCl 1 drop 06/15/20 15:00 06/26/20 14:44 Dorzolamide Hcl 2% Ophth Soln 10 Ml Bottle EA EYE 1 drop TID STEFFI Administration Doxycycline Hyclate 100 mg 06/21/20 21:00 06/26/20 08:25 Doxycycline 100 Mg Cap PO 06/28/20 21:01 100 mg BID STEFFI Administration Famotidine 20 mg 06/19/20 09:00 06/26/20 08:26 Famotidine 20 Mg Tab PO 20 mg DAILY STEFFI Administration Heparin Sodium (Porcine) 500 units 06/19/20 02:24 06/22/20 19:53 Heparin 500 Units/5 Ml Flush Syringe IVF 500 unit Q12HR PRN Administration Heparin Flush Insulin Glargine 25 units/ 0.25 mls @ 0 mls/hr 06/21/20 21:00 06/26/20 08:26 Miscellaneous Medication SC 0.25 mls BID STEFFI Administration Insulin Human Lispro 0 units 06/14/20 22:58 06/26/20 05:51 Humalog 300 Units/3 Ml Vial SC 3 unit .MILD SLIDING SCALE PRN Administration Mild Correctional Scale Insulin Human Lispro 0 units 06/25/20 23:01 06/25/20 23:59 Humalog 300 Units/3 Ml Vial SC 3 unit .BEDTIME SLIDING SC PRN Administration Bedtime Correctional Scale Latanoprost 1 drop 06/16/20 09:00 06/26/20 08:27 Latanoprost 0.005% Ophth Soln 2.5 Ml Bottle EA EYE 1 drop DAILY STEFFI Administration Levothyroxine Sodium 150 mcg 06/16/20 06:00 06/26/20 05:51 Levothyroxine 150 Mcg Tab PO 150 mcg 0600 STEFFI Administration Melatonin 3 mg 06/17/20 19:32 06/19/20 20:26 Melatonin 3 Mg Tab PO 3 mg HS PRN Administration Insomnia Metoprolol Succinate 150 mg 06/16/20 09:00 06/26/20 08:26 Metoprolol Succinate Xl 100 Mg Tab PO 150 mg DAILY STEFFI Administration Mometasone Furoate/Formoterol Fumar 2 puff 06/18/20 18:30 06/26/20 05:52 Mometasone 200 Mcg/Formoterol 5 Mcg 120 Puff Inhaler INH 2 puff BID-RT STEFFI Administration Nifedipine 60 mg 06/16/20 09:00 06/26/20 08:26 Nifedipine Xl 60 Mg Tab PO 60 mg DAILY STEFFI Administration Ondansetron HCl 4 mg 06/15/20 12:36 06/16/20 22:19 Ondansetron Pf 4 Mg/2 Ml Vial IVP 4 mg Q6H PRN Administration Nausea/Vomiting Pilocarpine HCl 1 drop 06/15/20 13:00 06/26/20 12:36 Pilocarpine 1% Ophth Drops 15 Ml Bot EA EYE 1 drp QID STEFFI Administration Prednisone 40 mg 06/23/20 08:00 06/26/20 08:25 Prednisone 20 Mg Tab PO 40 mg QAM-WM STEFFI Administration Sertraline HCl 25 mg 06/16/20 09:00 06/26/20 08:26 Sertraline Hcl 25 Mg Tab PO 25 mg DAILY STEFFI Administration Sodium Chloride 10 ml 06/18/20 09:00 06/26/20 08:28 Flush - Normal Saline 10 Ml Syringe IVF 10 ml Q12HR STEFFI Administration Timolol Maleate 1 drop 06/15/20 21:00 06/26/20 08:28 Timolol 0.5% Ophth Soln 5 Ml Bottle EA EYE 1 drop BID STEFFI Administration Zinc Sulfate 220 mg 06/18/20 09:00 06/26/20 08:26 Zinc Sulfate 220 Mg Cap PO 220 mg DAILY STEFFI Administration - Exam General Appearance: awake alert ENT: normocephalic atraumatic Neck: supple, no JVD Respiratory: normal chest expansion, no tachypnea Extremities: no cyanosis, no clubbing Hosp A/P (1) Acute respiratory failure with hypoxia Code(s): J96.01 - ACUTE RESPIRATORY FAILURE WITH HYPOXIA Status: Acute (2) COVID-19 Code(s): U07.1 - COVID-19 Status: Acute (3) PELON (acute kidney injury) Code(s): N17.9 - ACUTE KIDNEY FAILURE, UNSPECIFIED Status: Acute (4) CKD (chronic kidney disease), stage IV Code(s): N18.4 - CHRONIC KIDNEY DISEASE, STAGE 4 (SEVERE) Status: Chronic (5) DM I (diabetes mellitus, type I) Status: Chronic (6) Dyslipidemia Code(s): E78.5 - HYPERLIPIDEMIA, UNSPECIFIED Status: Chronic (7) HTN (hypertension) Code(s): I10 - ESSENTIAL (PRIMARY) HYPERTENSION Status: Chronic Qualifiers: Hypertension type: essential hypertension Qualified Code(s): I10 - Essential (primary) hypertension - Plan The patient is a 50-year-old female with past medical history of diabetes mellitus type 1, chronic kidney disease stage IV, hypertension, hyperlipidemia who presented to the emergency department with generalized weakness, malaise, diarrhea, and vomiting. She tested positive for COVID-19 and her imaging studies revealed bilateral infiltrates. Patient received convalescent plasma and dexamethasone. She is currently on room air. Corticosteroids are being weaned off by pulmonology. She developed acute kidney injury superimposed on her chronic kidney disease leading to initiation of dialysis. The patient is a positive for COVID-19 over 10 days ago and she has been afebrile and symptom-free for the last 3 days. We will discontinue COVID-19 isolation. Permacath placement planned for early next week.
[2020-06-26] MEDS: Atorvastatin Calcium 10 MG TAB PO SCH (20:56)
[2020-06-27] MEDS: Ipratropium/Albuterol Sulfate 4 GM AER IH SCH ×4 (00:40→19:50)
[2020-06-27] MEDS: Levothyroxine 150 MCG TAB PO SCH (05:09)
[2020-06-27] MEDS: Mometasone 200 MCG/Formoterol 5 MCG 120 PUFF INHALER INH SCH ×2 (05:14→17:37)
[2020-06-27] MEDS: predniSONE 20 MG TAB PO SCH (08:10)
[2020-06-27] MEDS: NIFEdipine XL 60 MG TAB PO SCH (08:11)
[2020-06-27] MEDS: Famotidine 20 MG TAB PO SCH (08:11)
[2020-06-27] MEDS: Ascorbic Acid 500 mg Chewable Tablet PO SCH (08:11)
[2020-06-27] MEDS: Doxycycline 100 MG CAP PO SCH ×2 (08:11→20:47)
[2020-06-27] MEDS: Zinc Sulfate 220 MG CAP PO SCH (08:11)
[2020-06-27] MEDS: Latanoprost 0.005% Ophth Soln 2.5 ml Bottle EA EYE SCH (08:14)
[2020-06-27] MEDS: Dorzolamide HCl 2% Ophth Soln 10 ml Bottle EA EYE SCH ×3 (08:15→20:51)
[2020-06-27] MEDS: Insulin Glargine 25 UNITS in Pre-Filled Syringe 1 EACH SC SCH ×2 (08:15→20:49)
[2020-06-27] MEDS: Pilocarpine 1% Ophth Drops 15 ML BOT EA EYE SCH ×4 (08:16→20:51)
[2020-06-27] MEDS: Brimonidine Tartrate 0.2% Ophth Soln 5 ml Bottle EA EYE SCH ×4 (08:16→20:51)
[2020-06-27] MEDS: Timolol 0.5% Ophth Soln 5 ml Bottle EA EYE SCH ×2 (08:16→20:52)
[2020-06-27] MEDS: Dextrose 50% Abboject 50 ML SYRINGE SLOW IVP PRN ×2 (11:32→15:19)
--- NOTE | 2020-06-27 12:03 | PRG ---
DATE OF SERVICE: 06/26/2020 SUBJECTIVE: A 50-year-old female, being seen for end-stage renal disease. The patient denied nausea, vomiting, or chest pain. OBJECTIVE: GENERAL: Patient is awake and alert. VITAL SIGNS: Afebrile, pulse 72, breathing at 16, blood pressure 150/78. HEENT: Head normocephalic and atraumatic. Eyes intact, no ulcers. Nose intact, no ulcers. Ears intact, no ulcers. NECK: Supple. No JVD. CHEST: Symmetrical and clear. CARDIOVASCULAR: Shows S1 and S2, no rub, no murmur. GASTROINTESTINAL: Abdomen is soft, bowel sounds positive. EXTREMITIES: Show no edema or ulcers. SKIN: Shows no rash or petechiae. MUSCULOSKELETAL: Shows no joint swelling or stiffness. GENITOURINARY: Shows no Guzman or CVA tenderness. NEUROLOGIC: Motor intact. Cranial nerves intact. LABORATORY DATA: Reviewed. ASSESSMENT AND PLAN: 1. Stage 6 chronic kidney disease. Plan dialysis. 2. Hypertension. 3. Anemia, stable. 4. Medication based on glomerular filtration rate are appropriate. 5. Hypokalemia. Continue high potassium diet and 4K bath. Job ID: [id number]
[2020-06-27] MEDS: Dextrose 5% in Water 1,000 ML IV SCH (16:41)
--- NOTE | 2020-06-27 17:57 | PDOC.HOSPP ---
- Subjective Encounter Date: 06/27/20 Subjective: She is resting comfortably and denies any symptoms. - Objective Vital Signs & Weight: Vital Signs (12 hours) Temp Pulse Pulse Resp BP BP Pulse Ox 06/27/20 14:45 88 154/83 H 06/27/20 08:16 76 06/27/20 08:11 76 06/27/20 08:08 98.3 F 76 20 132/77 100 06/27/20 08:00 98.3 F 76 20 132/77 100 Pulse Ox 06/27/20 14:45 100 06/27/20 08:16 06/27/20 08:11 06/27/20 08:08 06/27/20 08:00 Weight Admit Weight 205 lb Weight 171 lb 8.314 oz Most Recent Monitor Data Heart Rate from ECG 77 NIBP 145/82 NIBP BP-Mean 103 Respiration from ECG 16 SpO2 98 I&O: 06/26/20 06/27/20 06/28/20 06:59 06:59 06:59 Intake Total 840 1080 480 Output Total 0 Balance 840 1080 480 Result Diagrams: 06/26/20 07:38 06/26/20 07:38 Additional Labs: Accuchecks 06/27/20 06/27/20 06/27/20 15:52 12:12 04:25 POC Glucose 117 H 95 74 06/26/20 20:09 POC Glucose 310 H Hospitalist ROS - Medication Medications: Active Medications Generic Name Dose Route Start Last Admin Trade Name Freq PRN Reason Stop Dose Admin Acetaminophen 650 mg 06/14/20 22:55 06/20/20 06:37 Acetaminophen 325 Mg Tab PO 650 mg Q4H PRN Administration Headache/Fever/Mild Pain (1-3) Albuterol Sulfate 2 puff 06/17/20 20:32 06/24/20 05:27 Albuterol 200 Puff (6.7gm Inhaler) INH 2 puff [id number] PRN Administration Wheezing Albuterol/Ipratropium 1 gm 06/18/20 19:00 06/27/20 13:02 Ipratropium/Albuterol Sulfate 4 Gm Aer IH 1 gm [id number] STEFFI Administration Ascorbic Acid 1,000 mg 06/18/20 09:00 06/27/20 08:11 Ascorbic Acid 500 Mg Chewable Tablet PO 1,000 mg DAILY STEFFI Administration Atorvastatin Calcium 10 mg 06/15/20 21:00 06/26/20 20:56 Atorvastatin Calcium 10 Mg Tab PO 10 mg HS STEFFI Administration Benzonatate 100 mg 06/17/20 19:57 06/17/20 21:11 Benzonatate 100 Mg Cap PO 100 mg TIDPRN PRN Administration Cough Brimonidine Tartrate 1 drop 06/15/20 13:00 06/27/20 16:39 Brimonidine Tartrate 0.2% Ophth Soln 5 Ml Bottle EA EYE 1 drop QID STEFFI Administration Dextrose/Water 25 gm 06/14/20 22:58 06/27/20 15:19 Dextrose 50% Abboject 50 Ml Syringe SLOW IVP 25 gm PRN PRN Administration Hypoglycemia Dorzolamide HCl 1 drop 06/15/20 15:00 06/27/20 14:41 Dorzolamide Hcl 2% Ophth Soln 10 Ml Bottle EA EYE 1 drop TID STEFFI Administration Doxycycline Hyclate 100 mg 06/21/20 21:00 06/27/20 08:11 Doxycycline 100 Mg Cap PO 06/28/20 21:01 100 mg BID STEFFI Administration Famotidine 20 mg 06/19/20 09:00 06/27/20 08:11 Famotidine 20 Mg Tab PO 20 mg DAILY STEFFI Administration Heparin Sodium (Porcine) 500 units 06/19/20 02:24 06/22/20 19:53 Heparin 500 Units/5 Ml Flush Syringe IVF 500 unit Q12HR PRN Administration Heparin Flush Insulin Glargine 25 units/ 0.25 mls @ 0 mls/hr 06/21/20 21:00 06/27/20 08:15 Miscellaneous Medication SC 0.25 mls BID STEFFI Administration Dextrose/Water 1,000 mls @ 50 mls/hr 06/27/20 16:15 06/27/20 16:41 D5w IV 1,000 mls .Q20H STEFFI Administration Insulin Human Lispro 0 units 06/14/20 22:58 06/26/20 05:51 Humalog 300 Units/3 Ml Vial SC 3 unit .MILD SLIDING SCALE PRN Administration Mild Correctional Scale Insulin Human Lispro 0 units 06/25/20 23:01 06/26/20 21:00 Humalog 300 Units/3 Ml Vial SC 4 unit .BEDTIME SLIDING SC PRN Administration Bedtime Correctional Scale Latanoprost 1 drop 06/16/20 09:00 06/27/20 08:14 Latanoprost 0.005% Ophth Soln 2.5 Ml Bottle EA EYE 1 drop DAILY STEFFI Administration Levothyroxine Sodium 150 mcg 06/16/20 06:00 06/27/20 05:09 Levothyroxine 150 Mcg Tab PO 150 mcg 0600 STEFFI Administration Melatonin 3 mg 06/17/20 19:32 06/19/20 20:26 Melatonin 3 Mg Tab PO 3 mg HS PRN Administration Insomnia Metoprolol Succinate 150 mg 06/16/20 09:00 06/27/20 08:11 Metoprolol Succinate Xl 100 Mg Tab PO 150 mg DAILY STEFFI Administration Mometasone Furoate/Formoterol Fumar 2 puff 06/18/20 18:30 06/27/20 17:37 Mometasone 200 Mcg/Formoterol 5 Mcg 120 Puff Inhaler INH 2 puff BID-RT STEFFI Administration Nifedipine 60 mg 06/16/20 09:00 06/27/20 08:11 Nifedipine Xl 60 Mg Tab PO 60 mg DAILY STEFFI Administration Ondansetron HCl 4 mg 06/15/20 12:36 06/16/20 22:19 Ondansetron Pf 4 Mg/2 Ml Vial IVP 4 mg Q6H PRN Administration Nausea/Vomiting Pilocarpine HCl 1 drop 06/15/20 13:00 06/27/20 16:39 Pilocarpine 1% Ophth Drops 15 Ml Bot EA EYE 1 drp QID STEFFI Administration Prednisone 40 mg 06/23/20 08:00 06/27/20 08:10 Prednisone 20 Mg Tab PO 40 mg QAM-WM STEFFI Administration Sertraline HCl 25 mg 06/16/20 09:00 06/27/20 08:11 Sertraline Hcl 25 Mg Tab PO 25 mg DAILY STEFFI Administration Sodium Chloride 10 ml 06/18/20 09:00 06/27/20 08:12 Flush - Normal Saline 10 Ml Syringe IVF 10 ml Q12HR STEFFI Administration Timolol Maleate 1 drop 06/15/20 21:00 06/27/20 08:16 Timolol 0.5% Ophth Soln 5 Ml Bottle EA EYE 1 drop BID STEFFI Administration Zinc Sulfate 220 mg 06/18/20 09:00 12/20/20 08:11 Zinc Sulfate 220 Mg Cap PO 220 mg DAILY STEFFI Administration - Exam ENT: normocephalic atraumatic Neck: supple Heart: RRR Respiratory: normal chest expansion, no tachypnea Gastrointestinal: soft Extremities: no cyanosis Neurological: cranial nerve grossly intact, no focal deficits Hosp A/P (1) Acute respiratory failure with hypoxia Code(s): J96.01 - ACUTE RESPIRATORY FAILURE WITH HYPOXIA Status: Acute (2) COVID-19 Code(s): U07.1 - COVID-19 Status: Acute (3) PELON (acute kidney injury) Code(s): N17.9 - ACUTE KIDNEY FAILURE, UNSPECIFIED Status: Acute (4) CKD (chronic kidney disease), stage IV Code(s): N18.4 - CHRONIC KIDNEY DISEASE, STAGE 4 (SEVERE) Status: Chronic (5) DM I (diabetes mellitus, type I) Status: Chronic (6) Dyslipidemia Code(s): E78.5 - HYPERLIPIDEMIA, UNSPECIFIED Status: Chronic (7) HTN (hypertension) Code(s): I10 - ESSENTIAL (PRIMARY) HYPERTENSION Status: Chronic Qualifiers: Hypertension type: essential hypertension Qualified Code(s): I10 - Essential (primary) hypertension - Plan The patient is a 50-year-old female with past medical history of diabetes mellitus type 1, chronic kidney disease stage IV, hypertension, hyperlipidemia who presented to the emergency department with generalized weakness, malaise, diarrhea, and vomiting. She tested positive for COVID-19 and her imaging studies revealed bilateral infiltrates. Patient received convalescent plasma and dexamethasone. She is currently on room air. Corticosteroids are being weaned off. She developed acute kidney injury superimposed on her chronic kidney disease leading to initiation of dialysis. The patient has been positive for COVID-19 over 10 days and symptom-free for the more than 3 days. Covid isolation was discontinued. Permacath placement planned tomorrow.
--- NOTE | 2020-06-27 20:16 | PDOC.BPN ---
- Brief Progress Note Encounter Date: 06/27/20 Encounter Time: 13:30 Subjective: Seen and examined in the room. Patient does not have new complaints. Review of systems Gen.: No fever, no chills All the 14 systems reviewed except for the ones mentioned above are negative Physical examination Vital Signs (24 hours) Temp Pulse Pulse Resp BP BP BP 06/27/20 20:52 78 06/27/20 19:51 97.5 F L 78 18 143/83 H 06/27/20 14:45 88 154/83 H 06/27/20 08:16 76 06/27/20 08:11 76 06/27/20 08:08 98.3 F 76 20 132/77 06/27/20 08:00 98.3 F 76 20 132/77 06/27/20 04:31 98.3 F 71 18 137/80 06/27/20 04:11 98.3 F 75 16 125/72 06/27/20 00:35 126/79 06/27/20 00:04 98.4 F 74 16 146/103 H 06/27/20 00:00 98.3 F 75 18 125/70 06/26/20 23:58 97.6 F 60 16 115/69 06/26/20 21:34 71 Pulse Ox Pulse Ox 06/27/20 20:52 06/27/20 19:51 100 06/27/20 14:45 100 06/27/20 08:16 06/27/20 08:11 06/27/20 08:08 100 06/27/20 08:00 100 06/27/20 04:31 97 06/27/20 04:11 100 06/27/20 00:35 06/27/20 00:04 100 06/27/20 00:00 100 06/26/20 23:58 93 L 06/26/20 21:34 Intake & Output - 24 hours 06/27/20 06/28/20 06:59 06:59 Intake Total 1080 720 Balance 1080 720 Intake: Oral 1080 720 Other: Voiding Method Bedside Commode Bedside Commode # Unmeasured Voids 1 4 Constitutional: comfortable, not in pain; bilateral visual impairment HEENT: Mucous membranes moist, no icterus; Neck: Trachea midline, no lymphadenopathy Heart: Regular rate and rhythm; no murmurs Lungs: Air entry equal bilateral; no wheezes Abdomen: Soft; non-tender; no guarding/tenderness/rebound Extremities: Right groin temporary dialysis catheter Neurological: Patient is awake, following commands Skin: No rash, no ulcers Psychological: Not agitated Labs and Imaging reviewed Laboratory Results - last 24 hr 06/27/20 06/27/20 06/27/20 04:25 12:12 15:52 POC Glucose 74 95 117 H 06/27/20 19:50 POC Glucose 162 H Active Medications Generic Name Dose Route Start Last Admin Trade Name Freq PRN Reason Stop Dose Admin Acetaminophen 650 mg 06/14/20 22:55 06/20/20 06:37 Acetaminophen 325 Mg Tab PO 650 mg Q4H PRN Administration Headache/Fever/Mild Pain (1-3) Albuterol Sulfate 2 puff 06/17/20 20:32 06/24/20 05:27 Albuterol 200 Puff (6.7gm Inhaler) INH 2 puff [id number] PRN Administration Wheezing Albuterol/Ipratropium 1 gm 06/18/20 19:00 06/27/20 13:02 Ipratropium/Albuterol Sulfate 4 Gm Aer IH 1 gm [id number] STEFFI Administration Ascorbic Acid 1,000 mg 06/18/20 09:00 06/27/20 08:11 Ascorbic Acid 500 Mg Chewable Tablet PO 1,000 mg DAILY STEFFI Administration Atorvastatin Calcium 10 mg 06/15/20 21:00 06/27/20 20:47 Atorvastatin Calcium 10 Mg Tab PO 10 mg HS STEFFI Administration Benzonatate 100 mg 06/17/20 19:57 06/17/20 21:11 Benzonatate 100 Mg Cap PO 100 mg TIDPRN PRN Administration Cough Brimonidine Tartrate 1 drop 06/15/20 13:00 06/27/20 20:51 Brimonidine Tartrate 0.2% Ophth Soln 5 Ml Bottle EA EYE 1 drop QID STEFFI Administration Dextrose/Water 25 gm 06/14/20 22:58 06/27/20 15:19 Dextrose 50% Abboject 50 Ml Syringe SLOW IVP 25 gm PRN PRN Administration Hypoglycemia Dorzolamide HCl 1 drop 06/15/20 15:00 06/27/20 20:51 Dorzolamide Hcl 2% Ophth Soln 10 Ml Bottle EA EYE 1 drop TID STEFFI Administration Doxycycline Hyclate 100 mg 06/21/20 21:00 06/27/20 20:47 Doxycycline 100 Mg Cap PO 06/28/20 21:01 100 mg BID STEFFI Administration Famotidine 20 mg 06/19/20 09:00 06/27/20 08:11 Famotidine 20 Mg Tab PO 20 mg DAILY STEFFI Administration Glucagon 1 mg 06/14/20 22:58 Glucagon 1 Mg/Ml Vial IM PRN PRN Hypoglycemia Heparin Sodium (Porcine) 500 units 06/19/20 02:24 06/22/20 19:53 Heparin 500 Units/5 Ml Flush Syringe IVF 500 unit Q12HR PRN Administration Heparin Flush Dextrose/Water 1,000 mls @ 0 mls/hr 06/14/20 22:58 D5w IV .Q0M PRN Hypoglycemia As Directed Insulin Glargine 25 units/ 0.25 mls @ 0 mls/hr 06/21/20 21:00 06/27/20 20:49 Miscellaneous Medication SC Not Given BID STEFFI Dextrose/Water 1,000 mls @ 50 mls/hr 06/27/20 16:15 06/27/20 16:41 D5w IV 1,000 mls .Q20H STEFFI Administration Insulin Human Lispro 0 units 06/14/20 22:58 06/26/20 05:51 Humalog 300 Units/3 Ml Vial SC 3 unit .MILD SLIDING SCALE PRN Administration Mild Correctional Scale Insulin Human Lispro 0 units 06/25/20 23:01 06/26/20 21:00 Humalog 300 Units/3 Ml Vial SC 4 unit .BEDTIME SLIDING SC PRN Administration Bedtime Correctional Scale Latanoprost 1 drop 06/16/20 09:00 06/27/20 08:14 Latanoprost 0.005% Ophth Soln 2.5 Ml Bottle EA EYE 1 drop DAILY STEFFI Administration Levothyroxine Sodium 150 mcg 06/16/20 06:00 06/27/20 05:09 Levothyroxine 150 Mcg Tab PO 150 mcg 0600 STEFFI Administration Melatonin 3 mg 06/17/20 19:32 06/19/20 20:26 Melatonin 3 Mg Tab PO 3 mg HS PRN Administration Insomnia Metoprolol Succinate 150 mg 06/16/20 09:00 06/27/20 08:11 Metoprolol Succinate Xl 100 Mg Tab PO 150 mg DAILY STEFFI Administration Mometasone Furoate/Formoterol Fumar 2 puff 06/18/20 18:30 06/27/20 17:37 Mometasone 200 Mcg/Formoterol 5 Mcg 120 Puff Inhaler INH 2 puff BID-RT STEFFI Administration Nifedipine 60 mg 06/16/20 09:00 06/27/20 08:11 Nifedipine Xl 60 Mg Tab PO 60 mg DAILY STEFFI Administration Ondansetron HCl 4 mg 06/15/20 12:36 06/16/20 22:19 Ondansetron Pf 4 Mg/2 Ml Vial IVP 4 mg Q6H PRN Administration Nausea/Vomiting Pilocarpine HCl 1 drop 06/15/20 13:00 06/27/20 20:51 Pilocarpine 1% Ophth Drops 15 Ml Bot EA EYE 1 drp QID STEFFI Administration Prednisone 40 mg 06/23/20 08:00 06/27/20 08:10 Prednisone 20 Mg Tab PO 40 mg QAM-WM STEFFI Administration Sertraline HCl 25 mg 06/16/20 09:00 06/27/20 08:11 Sertraline Hcl 25 Mg Tab PO 25 mg DAILY STEFFI Administration Sodium Chloride 10 ml 06/18/20 09:00 06/27/20 20:52 Flush - Normal Saline 10 Ml Syringe IVF 10 ml Q12HR STEFFI Administration Sodium Chloride 10 ml 06/17/20 23:30 Flush - Normal Saline 10 Ml Syringe IVF PRN PRN Saline Flush Timolol Maleate 1 drop 06/15/20 21:00 06/27/20 20:52 Timolol 0.5% Ophth Soln 5 Ml Bottle EA EYE 1 drop BID STEFFI Administration Zinc Sulfate 220 mg 06/18/20 09:00 06/27/20 08:11 Zinc Sulfate 220 Mg Cap PO 220 mg DAILY STEFFI Administration Assessment and plan CKD stage Hypertension Anemia Hypokalemia Pneumonia due to COVID-19 Patient had hemodialysis yesterday. Anticipate dialysis on Sunday. Monitor potassium levels, dialysate bath with 4K. Blood pressure stable. continue to monitor hemoglobin and hematocrit. Discussed with RN Thank you for allowing me to participate in the management of this pt
[2020-06-27] MEDS: Atorvastatin Calcium 10 MG TAB PO SCH (20:47)
[2020-06-28] MEDS: Levothyroxine 150 MCG TAB PO SCH (05:01)
[2020-06-28] MEDS: Mometasone 200 MCG/Formoterol 5 MCG 120 PUFF INHALER INH SCH ×2 (05:42→14:18)
[2020-06-28] MEDS: Ipratropium/Albuterol Sulfate 4 GM AER IH SCH ×4 (05:58→19:17)
[2020-06-28] MEDS: NIFEdipine XL 60 MG TAB PO SCH (08:55)
[2020-06-28] MEDS: Famotidine 20 MG TAB PO SCH (08:55)
[2020-06-28] MEDS: Zinc Sulfate 220 MG CAP PO SCH (08:55)
[2020-06-28] MEDS: Ascorbic Acid 500 mg Chewable Tablet PO SCH (08:56)
[2020-06-28] MEDS: predniSONE 20 MG TAB PO SCH (08:56)
[2020-06-28] MEDS: Doxycycline 100 MG CAP PO SCH ×2 (08:56→21:20)
[2020-06-28] MEDS: Dorzolamide HCl 2% Ophth Soln 10 ml Bottle EA EYE SCH ×3 (09:01→21:31)
[2020-06-28] MEDS: Brimonidine Tartrate 0.2% Ophth Soln 5 ml Bottle EA EYE SCH ×4 (09:01→21:20)
[2020-06-28] MEDS: Pilocarpine 1% Ophth Drops 15 ML BOT EA EYE SCH ×4 (09:01→21:31)
[2020-06-28] MEDS: Latanoprost 0.005% Ophth Soln 2.5 ml Bottle EA EYE SCH (09:02)
[2020-06-28] MEDS: Timolol 0.5% Ophth Soln 5 ml Bottle EA EYE SCH ×2 (09:02→21:33)
--- NOTE | 2020-06-28 11:12 | PRG ---
DATE OF SERVICE: 06/28/2020 Ms. Coughlin has recovered from her COVID illness, now is out of isolation. I have been asked to see her regarding placement of hemodialysis catheter, central line, and a fistula. Ultrasound vein mapping reveals the proximal left forearm cephalic veins to be thrombosed from iatrogenic access and blood draws. Plan is for right arm fistula. This may need to be a staged basilic vein type, pending operative findings. We would plan tomorrow afternoon placement of hemodialysis catheter, central line, and right arm fistula. She understands risks and benefits. Questions had been answered. Job ID: [id number]
[2020-06-28] MEDS: HumaLOG 300 UNITS/3 ML VIAL SC PRN (11:23)
--- NOTE | 2020-06-28 12:09 | PRG ---
DATE OF SERVICE: 06/28/2020 SUBJECTIVE: This is a 50-year-old female, being seen for end-stage renal disease. The patient denies nausea, vomiting, or chest pain. OBJECTIVE: GENERAL: On exam, the patient is awake and alert. VITAL SIGNS: Afebrile, pulse 88, breathing at 16, and blood pressure 124/74. HEENT: Head normocephalic and atraumatic. Eyes intact, no ulcers. Nose intact, no ulcers. Ears intact, no ulcers. NECK: Supple. No JVD. CHEST: Symmetrical and clear. CARDIOVASCULAR: Shows S1 and S2, no rub, no murmur. GASTROINTESTINAL: Abdomen is soft, bowel sounds positive. EXTREMITIES: Show no edema or ulcers. SKIN: Shows no rash or petechiae. MUSCULOSKELETAL: Shows no joint swelling or stiffness. GENITOURINARY: Shows no Guzman or CVA tenderness. NEUROLOGIC: Motor intact. Cranial nerves intact. LABORATORY DATA: Show hemoglobin 8.6. ASSESSMENT AND PLAN: 1. Stage 6 chronic kidney disease. Plan dialysis. 2. Hypertension, stable. 3. Anemia, stable. Medications based on GFR are appropriate. Job ID: [id number]
[2020-06-28] MEDS: Dextrose 5% in Water 1,000 ML IV SCH (14:13)
[2020-06-28] MEDS: Insulin Glargine 25 UNITS in Pre-Filled Syringe 1 EACH SC SCH ×2 (14:13→21:20)
--- NOTE | 2020-06-28 15:20 | PDOC.HOSPP ---
- Subjective Encounter Date: 06/28/20 Encounter Time: 15:18 Subjective: no specific complaints - Objective Vital Signs & Weight: Vital Signs (12 hours) Temp Pulse Resp BP Pulse Ox 06/28/20 07:54 97.8 F 88 14 124/74 100 06/28/20 04:37 98.0 F 78 18 115/75 100 Weight Admit Weight 205 lb Weight 171 lb 8.314 oz Most Recent Monitor Data Heart Rate from ECG 77 NIBP 145/82 NIBP BP-Mean 103 Respiration from ECG 16 SpO2 98 I&O: 06/27/20 06/28/20 06/29/20 06:59 06:59 06:59 Intake Total 1080 1620 Balance 1080 1620 Result Diagrams: 06/26/20 07:38 06/26/20 07:38 Additional Labs: Accuchecks 06/28/20 06/28/20 06/28/20 14:52 10:48 04:37 POC Glucose 271 H 289 H 81 06/27/20 06/27/20 06/27/20 19:50 15:52 15:07 POC Glucose 162 H 117 H 35 L* Hospitalist ROS - Medication Medications: Active Medications Generic Name Dose Route Start Last Admin Trade Name Freq PRN Reason Stop Dose Admin Acetaminophen 650 mg 06/14/20 22:55 06/20/20 06:37 Acetaminophen 325 Mg Tab PO 650 mg Q4H PRN Administration Headache/Fever/Mild Pain (1-3) Albuterol Sulfate 2 puff 06/17/20 20:32 06/24/20 05:27 Albuterol 200 Puff (6.7gm Inhaler) INH 2 puff [id number] PRN Administration Wheezing Albuterol/Ipratropium 1 gm 06/18/20 19:00 06/28/20 14:00 Ipratropium/Albuterol Sulfate 4 Gm Aer IH 1 gm [id number] STEFFI Administration Ascorbic Acid 1,000 mg 06/18/20 09:00 06/28/20 08:56 Ascorbic Acid 500 Mg Chewable Tablet PO 1,000 mg DAILY STEFFI Administration Atorvastatin Calcium 10 mg 06/15/20 21:00 06/27/20 20:47 Atorvastatin Calcium 10 Mg Tab PO 10 mg HS STEFFI Administration Benzonatate 100 mg 06/17/20 19:57 06/17/20 21:11 Benzonatate 100 Mg Cap PO 100 mg TIDPRN PRN Administration Cough Brimonidine Tartrate 1 drop 06/15/20 13:00 06/28/20 14:00 Brimonidine Tartrate 0.2% Ophth Soln 5 Ml Bottle EA EYE 1 drop QID STEFFI Administration Dextrose/Water 25 gm 06/14/20 22:58 06/27/20 15:19 Dextrose 50% Abboject 50 Ml Syringe SLOW IVP 25 gm PRN PRN Administration Hypoglycemia Dorzolamide HCl 1 drop 06/15/20 15:00 06/28/20 09:01 Dorzolamide Hcl 2% Ophth Soln 10 Ml Bottle EA EYE 1 drop TID STEFFI Administration Doxycycline Hyclate 100 mg 06/21/20 21:00 06/28/20 08:56 Doxycycline 100 Mg Cap PO 06/28/20 21:01 100 mg BID STEFFI Administration Famotidine 20 mg 06/19/20 09:00 06/28/20 08:55 Famotidine 20 Mg Tab PO 20 mg DAILY STEFFI Administration Heparin Sodium (Porcine) 500 units 06/19/20 02:24 06/22/20 19:53 Heparin 500 Units/5 Ml Flush Syringe IVF 500 unit Q12HR PRN Administration Heparin Flush Insulin Glargine 25 units/ 0.25 mls @ 0 mls/hr 06/21/20 21:00 06/28/20 14:13 Miscellaneous Medication SC Not Given BID STEFFI Dextrose/Water 1,000 mls @ 50 mls/hr 06/27/20 16:15 06/28/20 14:13 D5w IV Not Given .Q20H STEFFI Insulin Human Lispro 0 units 06/14/20 22:58 06/28/20 11:23 Humalog 300 Units/3 Ml Vial SC 4 unit .MILD SLIDING SCALE PRN Administration Mild Correctional Scale Insulin Human Lispro 0 units 06/25/20 23:01 06/26/20 21:00 Humalog 300 Units/3 Ml Vial SC 4 unit .BEDTIME SLIDING SC PRN Administration Bedtime Correctional Scale Latanoprost 1 drop 06/16/20 09:00 06/28/20 09:02 Latanoprost 0.005% Ophth Soln 2.5 Ml Bottle EA EYE 1 drop DAILY STEFFI Administration Levothyroxine Sodium 150 mcg 06/16/20 06:00 06/28/20 05:01 Levothyroxine 150 Mcg Tab PO 150 mcg 0600 STEFFI Administration Melatonin 3 mg 06/17/20 19:32 06/19/20 20:26 Melatonin 3 Mg Tab PO 3 mg HS PRN Administration Insomnia Metoprolol Succinate 150 mg 06/16/20 09:00 06/28/20 08:55 Metoprolol Succinate Xl 100 Mg Tab PO 150 mg DAILY STEFFI Administration Mometasone Furoate/Formoterol Fumar 2 puff 06/18/20 18:30 06/28/20 14:18 Mometasone 200 Mcg/Formoterol 5 Mcg 120 Puff Inhaler INH 2 puff BID-RT STEFFI Administration Nifedipine 60 mg 06/16/20 09:00 06/28/20 08:55 Nifedipine Xl 60 Mg Tab PO 60 mg DAILY STEFFI Administration Ondansetron HCl 4 mg 06/15/20 12:36 06/16/20 22:19 Ondansetron Pf 4 Mg/2 Ml Vial IVP 4 mg Q6H PRN Administration Nausea/Vomiting Pilocarpine HCl 1 drop 06/15/20 13:00 06/28/20 14:00 Pilocarpine 1% Ophth Drops 15 Ml Bot EA EYE 1 drp QID STEFFI Administration Prednisone 40 mg 06/23/20 08:00 06/28/20 08:56 Prednisone 20 Mg Tab PO 40 mg QAM-WM STEFFI Administration Sertraline HCl 25 mg 06/16/20 09:00 06/28/20 08:56 Sertraline Hcl 25 Mg Tab PO 25 mg DAILY STEFFI Administration Sodium Chloride 10 ml 06/18/20 09:00 06/28/20 09:02 Flush - Normal Saline 10 Ml Syringe IVF 10 ml Q12HR STEFFI Administration Timolol Maleate 1 drop 06/15/20 21:00 06/28/20 09:02 Timolol 0.5% Ophth Soln 5 Ml Bottle EA EYE 1 drop BID STEFFI Administration Zinc Sulfate 220 mg 06/18/20 09:00 06/28/20 08:55 Zinc Sulfate 220 Mg Cap PO 220 mg DAILY STEFFI Administration - Exam General Appearance: awake alert Neck: no JVD Heart: RRR, no murmur Respiratory: CTAB Gastrointestinal: soft, non-distended, normal bowel sounds Extremities: no edema Hosp A/P (1) CKD (chronic kidney disease) stage V requiring chronic dialysis Code(s): N18.6 - END STAGE RENAL DISEASE; Z99.2 - DEPENDENCE ON RENAL DIALYSIS Status: Acute (2) Acute respiratory failure with hypoxia Code(s): J96.01 - ACUTE RESPIRATORY FAILURE WITH HYPOXIA Status: Resolved (3) COVID-19 Code(s): U07.1 - COVID-19 Status: Resolved (4) DKA (diabetic ketoacidoses) Code(s): E11.10 - TYPE 2 DIABETES MELLITUS WITH KETOACIDOSIS WITHOUT COMA Status: Acute Qualifiers: Diabetes mellitus type: type 1 Diabetes mellitus complication detail: without coma Qualified Code(s): E10.10 - Type 1 diabetes mellitus with ketoacidosis without coma (5) Dyslipidemia Code(s): E78.5 - HYPERLIPIDEMIA, UNSPECIFIED Status: Chronic (6) HTN (hypertension) Code(s): I10 - ESSENTIAL (PRIMARY) HYPERTENSION Status: Chronic Qualifiers: Hypertension type: essential hypertension Qualified Code(s): I10 - Essential (primary) hypertension - Plan HD access in AM cont current Tx for DM 1 then outpt HD
[2020-06-28] MEDS: Atorvastatin Calcium 10 MG TAB PO SCH (21:20)
[2020-06-29] MEDS: Ipratropium/Albuterol Sulfate 4 GM AER IH SCH ×4 (01:19→20:00)
[2020-06-29] MEDS: Levothyroxine 150 MCG TAB PO SCH (06:10)
[2020-06-29 06:51] LABS: Anion Gap 19 mmol/L (10-20); BUN (Urea Nitrogen) 58 mg/dL (7.0-18.7); Calc. Creatinine Clearance 12 mL/min (70-130); Calcium 6.7 mg/dL (7.8-10.44); Carbon Dioxide 22 mmol/L (22-29); Chloride 97 mmol/L (98-107); Glucose 280 mg/dL (70-105); Potassium 3.6 mmol/L (3.5-5.1); Sodium 134 mmol/L (136-145)
[2020-06-29] MEDS: Mometasone 200 MCG/Formoterol 5 MCG 120 PUFF INHALER INH SCH (07:14)
[2020-06-29] MEDS: Brimonidine Tartrate 0.2% Ophth Soln 5 ml Bottle EA EYE SCH ×4 (09:05→21:03)
[2020-06-29] MEDS: Dextrose 5% in Water 1,000 ML IV SCH (09:05)
[2020-06-29] MEDS: Dorzolamide HCl 2% Ophth Soln 10 ml Bottle EA EYE SCH ×3 (09:05→21:05)
[2020-06-29] MEDS: Latanoprost 0.005% Ophth Soln 2.5 ml Bottle EA EYE SCH (09:06)
[2020-06-29] MEDS: Insulin Glargine 25 UNITS in Pre-Filled Syringe 1 EACH SC SCH ×2 (09:06→21:00)
[2020-06-29] MEDS: Famotidine 20 MG TAB PO SCH (09:06)
[2020-06-29] MEDS: Timolol 0.5% Ophth Soln 5 ml Bottle EA EYE SCH ×2 (09:07→21:01)
[2020-06-29] MEDS: Zinc Sulfate 220 MG CAP PO SCH (09:07)
[2020-06-29] MEDS: Pilocarpine 1% Ophth Drops 15 ML BOT EA EYE SCH ×4 (09:07→21:06)
[2020-06-29] MEDS: Ascorbic Acid 500 mg Chewable Tablet PO SCH (09:08)
--- NOTE | 2020-06-29 09:11 | PDOC.HOSPP ---
- Subjective Encounter Date: 06/29/20 Encounter Time: 09:10 Subjective: no complaints - Objective Vital Signs & Weight: Vital Signs (12 hours) Temp Pulse Resp BP BP Pulse Ox 06/29/20 08:20 98.2 F 79 18 125/73 98 06/29/20 04:00 98.1 F 88 20 149/71 H 95 06/28/20 21:33 78 Weight Admit Weight 205 lb Weight 171 lb 8.314 oz Most Recent Monitor Data Heart Rate from ECG 77 NIBP 145/82 NIBP BP-Mean 103 Respiration from ECG 16 SpO2 98 I&O: 06/28/20 06/29/20 06/30/20 06:59 06:59 06:59 Intake Total 1620 2200 Balance 1620 2200 Result Diagrams: 06/26/20 07:38 06/29/20 06:19 Additional Labs: Accuchecks 06/29/20 06/28/20 06/28/20 04:27 20:48 14:52 POC Glucose 271 H 379 H 271 H 06/28/20 06/27/20 10:48 15:07 POC Glucose 289 H 35 L* Hospitalist ROS - Medication Medications: Active Medications Generic Name Dose Route Start Last Admin Trade Name Freq PRN Reason Stop Dose Admin Acetaminophen 650 mg 06/14/20 22:55 06/20/20 06:37 Acetaminophen 325 Mg Tab PO 650 mg Q4H PRN Administration Headache/Fever/Mild Pain (1-3) Albuterol Sulfate 2 puff 06/17/20 20:32 06/24/20 05:27 Albuterol 200 Puff (6.7gm Inhaler) INH 2 puff [id number] PRN Administration Wheezing Albuterol/Ipratropium 1 gm 06/18/20 19:00 06/29/20 07:14 Ipratropium/Albuterol Sulfate 4 Gm Aer IH 1 gm [id number] STEFFI Administration Ascorbic Acid 1,000 mg 06/18/20 09:00 06/29/20 09:08 Ascorbic Acid 500 Mg Chewable Tablet PO Not Given DAILY STEFFI Atorvastatin Calcium 10 mg 06/15/20 21:00 06/28/20 21:20 Atorvastatin Calcium 10 Mg Tab PO 10 mg HS STEFFI Administration Benzonatate 100 mg 06/17/20 19:57 06/17/20 21:11 Benzonatate 100 Mg Cap PO 100 mg TIDPRN PRN Administration Cough Brimonidine Tartrate 1 drop 06/15/20 13:00 06/29/20 09:05 Brimonidine Tartrate 0.2% Ophth Soln 5 Ml Bottle EA EYE 1 drop QID STEFFI Administration Dextrose/Water 25 gm 06/14/20 22:58 06/27/20 15:19 Dextrose 50% Abboject 50 Ml Syringe SLOW IVP 25 gm PRN PRN Administration Hypoglycemia Dorzolamide HCl 1 drop 06/15/20 15:00 06/29/20 09:05 Dorzolamide Hcl 2% Ophth Soln 10 Ml Bottle EA EYE 1 drop TID STEFFI Administration Famotidine 20 mg 06/19/20 09:00 06/29/20 09:06 Famotidine 20 Mg Tab PO Not Given DAILY STEFFI Heparin Sodium (Porcine) 500 units 06/19/20 02:24 06/22/20 19:53 Heparin 500 Units/5 Ml Flush Syringe IVF 500 unit Q12HR PRN Administration Heparin Flush Insulin Glargine 25 units/ 0.25 mls @ 0 mls/hr 06/21/20 21:00 06/29/20 09:06 Miscellaneous Medication SC Not Given BID STEFFI Dextrose/Water 1,000 mls @ 50 mls/hr 06/27/20 16:15 06/29/20 09:05 D5w IV Not Given .Q20H STEFFI Insulin Human Lispro 0 units 06/14/20 22:58 06/28/20 11:23 Humalog 300 Units/3 Ml Vial SC 4 unit .MILD SLIDING SCALE PRN Administration Mild Correctional Scale Insulin Human Lispro 0 units 06/25/20 23:01 06/26/20 21:00 Humalog 300 Units/3 Ml Vial SC 4 unit .BEDTIME SLIDING SC PRN Administration Bedtime Correctional Scale Latanoprost 1 drop 06/16/20 09:00 06/29/20 09:06 Latanoprost 0.005% Ophth Soln 2.5 Ml Bottle EA EYE 1 drop DAILY STEFFI Administration Levothyroxine Sodium 150 mcg 06/16/20 06:00 06/29/20 06:10 Levothyroxine 150 Mcg Tab PO 150 mcg 0600 STEFFI Administration Melatonin 3 mg 06/17/20 19:32 06/19/20 20:26 Melatonin 3 Mg Tab PO 3 mg HS PRN Administration Insomnia Metoprolol Succinate 150 mg 06/16/20 09:00 06/28/20 08:55 Metoprolol Succinate Xl 100 Mg Tab PO 150 mg DAILY STEFFI Administration Mometasone Furoate/Formoterol Fumar 2 puff 06/18/20 18:30 06/29/20 07:14 Mometasone 200 Mcg/Formoterol 5 Mcg 120 Puff Inhaler INH 2 puff BID-RT STEFFI Administration Nifedipine 60 mg 06/16/20 09:00 06/28/20 08:55 Nifedipine Xl 60 Mg Tab PO 60 mg DAILY STEFFI Administration Ondansetron HCl 4 mg 06/15/20 12:36 06/16/20 22:19 Ondansetron Pf 4 Mg/2 Ml Vial IVP 4 mg Q6H PRN Administration Nausea/Vomiting Pilocarpine HCl 1 drop 06/15/20 13:00 06/29/20 09:07 Pilocarpine 1% Ophth Drops 15 Ml Bot EA EYE 1 drp QID STEFFI Administration Prednisone 40 mg 06/23/20 08:00 06/28/20 08:56 Prednisone 20 Mg Tab PO 40 mg QAM-WM STEFFI Administration Sertraline HCl 25 mg 06/16/20 09:00 06/28/20 08:56 Sertraline Hcl 25 Mg Tab PO 25 mg DAILY STEFFI Administration Sodium Chloride 10 ml 06/18/20 09:00 06/29/20 09:07 Flush - Normal Saline 10 Ml Syringe IVF 10 ml Q12HR STEFFI Administration Timolol Maleate 1 drop 06/15/20 21:00 06/29/20 09:07 Timolol 0.5% Ophth Soln 5 Ml Bottle EA EYE 1 drop BID STEFFI Administration Zinc Sulfate 220 mg 06/18/20 09:00 06/29/20 09:07 Zinc Sulfate 220 Mg Cap PO Not Given DAILY STEFFI - Exam General Appearance: awake alert Neck: no JVD Heart: RRR, no murmur Respiratory: CTAB Gastrointestinal: soft, non-distended, normal bowel sounds Extremities: no edema Hosp A/P (1) CKD (chronic kidney disease) stage V requiring chronic dialysis Code(s): N18.6 - END STAGE RENAL DISEASE; Z99.2 - DEPENDENCE ON RENAL DIALYSIS Status: Acute (2) Acute respiratory failure with hypoxia Code(s): J96.01 - ACUTE RESPIRATORY FAILURE WITH HYPOXIA Status: Resolved (3) COVID-19 Code(s): U07.1 - COVID-19 Status: Resolved (4) DKA (diabetic ketoacidoses) Code(s): E11.10 - TYPE 2 DIABETES MELLITUS WITH KETOACIDOSIS WITHOUT COMA Status: Acute Qualifiers: Diabetes mellitus type: type 1 Diabetes mellitus complication detail: with out coma Qualified Code(s): E10.10 - Type 1 diabetes mellitus with ketoac idosis without coma (5) Dyslipidemia Code(s): E78.5 - HYPERLIPIDEMIA, UNSPECIFIED Status: Chronic (6) HTN (hypertension) Code(s): I10 - ESSENTIAL (PRIMARY) HYPERTENSION Status: Chronic Qualifiers: Hypertension type: essential hypertension Qualified Code(s): I10 - Essential (primary) hypertension - Plan HD access in AM cont current Tx for DM 1 cont inpt HD through 07/01, then DC outpt HD starts 07/03
--- NOTE | 2020-06-29 09:19 | PRG ---
DATE OF SERVICE: 06/29/2020 SUBJECTIVE: A 50-year-old female, being seen for end-stage renal disease. The patient denied nausea, vomiting, chest pain. PHYSICAL EXAMINATION: GENERAL: The patient is awake and alert. VITAL SIGNS: Afebrile, pulse 79, breathing at 16, blood pressure . HEENT: Head normocephalic and atraumatic. Eyes intact, no ulcers. Nose intact, no ulcers. Ears intact, no ulcers. NECK: Supple. No JVD. CHEST: Symmetrical and clear. CARDIOVASCULAR: Shows S1 and S2, no rub, no murmur. GASTROINTESTINAL: Abdomen is soft, bowel sounds positive. EXTREMITIES: Show no edema or ulcers. SKIN: Shows no rash or petechiae. MUSCULOSKELETAL: Shows no joint swelling or stiffness. GENITOURINARY: Shows no Guzman or CVA tenderness. NEUROLOGIC: Motor intact. Cranial nerves intact. LABORATORY DATA: Hemoglobin 8.6. ASSESSMENT AND PLAN: 1. Stage 6 chronic kidney disease. Plan dialysis. 2. Hypertension, stable. 3. Anemia, stable. Medication based on GFR appropriate. Job ID: [id number]
[2020-06-29] MEDS ORDERED: PHENYLEPHRINE-NS 100 MCG/ML 10 ML SYRINGE ONE (10:05)
[2020-06-29] MEDS ORDERED: Bupivacaine PF 0.5% 30 ML VIAL ONE ×2 (10:05→10:49)
[2020-06-29] MEDS ORDERED: Heparin 10,000 UNITS/ 10 ML VIAL ONE ×2 (10:32→10:49)
[2020-06-29] MEDS ORDERED: Lidocaine 1% w/Epinephrine 1:100K 20 ML VIAL ONE (10:49)
[2020-06-29] MEDS ORDERED: Sodium Chloride 0.9% 20 ML ONE (10:49)
[2020-06-29] MEDS ORDERED: Lidocaine 2% PF 5 ML VIAL ONE (10:49)
[2020-06-29] MEDS ORDERED: Heparin 5,000 UNITS/ML VIAL ONE (10:49)
[2020-06-29] MEDS ORDERED: Ioversol 68 % 50 ML VIAL ONE (10:49)
[2020-06-29] MEDS ORDERED: Fentanyl 100 MCG/2 ML VIAL ONE (10:53)
[2020-06-29] MEDS ORDERED: Midazolam HCl 2 mg/2 ml Vial ONE (10:53)
[2020-06-29] MEDS ORDERED: Protamine Sulfate 50 MG/5 ML VIAL ONE (11:45)
[2020-06-29] MEDS ORDERED: Propofol 500 MG/50 ML VIAL ONE (13:26)
[2020-06-29] MEDS ORDERED: Promethazine HCl 25 MG/ML VIAL SLOW IVP PRN (15:18)
[2020-06-29] MEDS ORDERED: Ondansetron HCl/PF 4 MG/2 ML Vial IVP PRN (15:18)
[2020-06-29] MEDS ORDERED: Promethazine HCl 25 MG/ML VIAL IM PRN (15:18)
[2020-06-29] MEDS ORDERED: Acetaminophen 500 MG TAB PO PRN (15:19)
[2020-06-29] MEDS ORDERED: traMADol HCl 50 MG TAB PO PRN (15:19)
--- NOTE | 2020-06-29 15:33 | RAD ---
EXAM: XR Chest 1 View Portable PROVIDED CLINICAL HISTORY: Central line placement, pneumonia COMPARISON: 06/21/2020 FINDINGS: Right IJ dialysis catheter is demonstrated with tips overlying expected location of RA. Left IJ centr al line is noted, the tip of which also overlies expected location of RA. Interval improvement in airspace disease bilaterally. Cardiac and mediastinal silhouettes is unchanged in appearance. No pleu ral fluid or pneumothorax apparent. IMPRESSION: Central lines as above.
[2020-06-29] MEDS: predniSONE 20 MG TAB PO SCH (15:50)
[2020-06-29] MEDS: NIFEdipine XL 60 MG TAB PO SCH (15:51)
[2020-06-29] MEDS: Atorvastatin Calcium 10 MG TAB PO SCH (20:58)
[2020-06-30] MEDS: Mometasone 200 MCG/Formoterol 5 MCG 120 PUFF INHALER INH SCH ×3 (01:49→19:11)
[2020-06-30] MEDS: Ipratropium/Albuterol Sulfate 4 GM AER IH SCH ×5 (01:49→19:11)
[2020-06-30] MEDS: Levothyroxine 150 MCG TAB PO SCH (05:48)
--- NOTE | 2020-06-30 07:22 | OP ---
DATE OF PROCEDURE: 06/29/2020 PREOPERATIVE DIAGNOSES: 1. End-stage renal disease. 2. Diabetes mellitus. 3. Hypertension. 4. COVID illness, recovering. POSTOPERATIVE DIAGNOSES: 1. End-stage renal disease. 2. Diabetes mellitus. 3. Hypertension. 4. COVID illness, recovering. 5. Inadequate veins for oneida vein fistula. 6. Iatrogenic thrombosis, left arm cephalic vein. PROCEDURES PERFORMED: 1. Exploration of right arm and proximal forearm cephalic vein, noted to be fibrotic and occluded, necessitating right upper arm dialysis graft tapered 4 to 6 brachial artery to axillary vein graft respectfully. Note, excellent axillary vein a very large size. 2. Placement of right internal jugular vein hemodialysis catheter, precurved AngioDynamics. 3. Left internal jugular vein central line. DESCRIPTION OF PROCEDURE: The patient was taken to the operating room where under intravenous sedation and regional anesthesia, neck, chest, and right upper extremity were prepared with ChloraPrep and draped in routine fashion. Local anesthetic was infiltrated in the skin and subcutaneous tissue for placement of the catheters. We attempted to use ultrasound, but it was nonfunctional and they could not find another one that functioned, thus a right and left internal jugular veins were cannulated with a trocar catheter with typical landmarks and J-wire threaded. Trocar and catheter removed. Skin site was enlarged sharply on both sides. Stab incision made in the right chest at the planned exit site of hemodialysis catheter. Using Seldinger technique, a left IJ triple-lumen catheter placed, secured with interrupted 3-0 nylon suture. Each port aspirated blood, flushed with saline solution. Stab incision made over the right chest, and using a tunneling device, pre-curved AngioDynamics cuffed tunneled hemodialysis catheter tunneled between 2 incisions, placed the fabric cuff beneath the skin exit site. Catheter secured with 2 interrupted sutures of 3-0 nylon. Sterile dressing applied. Smaller and medium size dilators placed over the J-wire into the internal jugular vein and removed. Dilator and Peel-Away sheath placed over the J-wire into the internal jugular vein and superior vena cava. Dilator and J-wire were removed. Catheter placed with Peel-Away sheath. Peel-Away sheath removed. Platysma was approximated with 4-0 Monocryl, skin with subdermal 4-0 Monocryl, and [place] glue applied. Each port aspirated with blood, flushed with saline solution and heparinized saline solution. Fluoroscopic images revealed good line placement. Sterile dressings applied. Attention was then turned to the right arm where regional block had been performed. Incision was made longitudinally in the proximal volar forearm, carried down to skin and subcutaneous tissue below the antecubital fossa identifying an adequate sized cephalic vein and perforating branch. The perforating branch dissected free and branches divided between 4-0 silk ties and clips and spatulated over branch point. The patient had been given 6000 units of heparin intravenously as the veins appeared to be adequate. Vein spatulated and interrogated with coronary dilators, which would not pass out. Thus, this was ligated. The forearm cephalic vein was patent, doubly clipped on the hand side, divided, and it also was occluded. The communicating branch was interrogated, also was occluded. These veins were clipped. Subcutaneous tissue was approximated with 3-0 Monocryl, skin with subdermal 4-0 Monocryl, and [place] glue applied. Preparation was made to place a prosthetic graft in the upper arm as her veins were inadequate for oneida vein fistula. Incision was made over the brachial artery above the antecubital fossa and in the right axilla. Incision carried down to skin and subcutaneous tissue and the brachial artery and axillary vein dissected free and silastic vessel loops applied. Silastic Hardwick loops used to control the axillary vein proximally and distally. Tunneling device used to tunnel the tapered 4 to 6 graft between the brachial artery above the antecubital fossa and axillary vein. Once the tunnel was made, the graft properly oriented and 4 mm into the graft anastomosed to the brachial artery above the antecubital fossa by placing vascular clamps on the brachial artery, make a longitudinal arteriotomy, made sharply along with the Hardwick scissors and graft tailored for cobra head anastomosis, created with continuous suture of 6-0 Prolene. After completing the anastomosis, vascular clamps released. There was good vascular arterial flow in the graft, which was clamped, and then the axillary vein controlled with Hardwick silastic vessel loops. Longitudinal venotomy made sharply, elongated with Hardwick scissors for a 3 cm anastomosis, placing the stay sutures of 6-0 Prolene. Graft appropriately tailored for an end graft to side axillary vein anastomosis, created with continuous suture of 6-0 Prolene. Arterial inflow released and filled the graft, flushing the air, and the venous outflow released. There was good flow in the fistula. Vein was of excellent caliber and plenty length for future revision if necessary. Good hemostasis noted. The patient was given protamine intravenously by Anesthesia. Subcutaneous tissues approximated with 3-0 Monocryl, skin with subdermal 4-0 Monocryl, and [place] glue applied. The patient tolerated the procedure well. Job ID: [id number]
--- NOTE | 2020-06-30 07:55 | PDOC.HOSPP ---
- Subjective Encounter Date: 06/30/20 Encounter Time: 07:54 Subjective: no fever, chills, etc - Objective Vital Signs & Weight: Vital Signs (12 hours) Temp Pulse Resp BP Pulse Ox 06/30/20 04:00 97.8 F 80 18 116/77 97 06/30/20 00:00 97.8 F 70 18 147/80 H 100 06/29/20 21:01 78 06/29/20 21:00 97.6 F 76 18 145/82 H 100 06/29/20 20:00 97 Weight Admit Weight 205 lb Weight 171 lb 8.314 oz Most Recent Monitor Data Heart Rate from ECG 77 NIBP 145/82 NIBP BP-Mean 103 Respiration from ECG 16 SpO2 98 I&O: 06/29/20 06/30/20 07/01/20 06:59 06:59 06:59 Intake Total 2200 730 Balance 2200 730 Result Diagrams: 06/26/20 07:38 06/29/20 06:19 Additional Labs: Accuchecks 06/30/20 06/29/20 06/29/20 05:44 16:05 11:58 POC Glucose 119 H 76 106 H 06/29/20 06/27/20 00:27 11:26 POC Glucose 349 H 21 L* Hospitalist ROS - Medication Medications: Active Medications Generic Name Dose Route Start Last Admin Trade Name Freq PRN Reason Stop Dose Admin Albuterol Sulfate 2 puff 06/17/20 20:32 06/24/20 05:27 Albuterol 200 Puff (6.7gm Inhaler) INH 2 puff [id number] PRN Administration Wheezing Albuterol/Ipratropium 1 gm 06/18/20 19:00 06/30/20 03:29 Ipratropium/Albuterol Sulfate 4 Gm Aer IH Not Given [id number]-PT STEFFI Ascorbic Acid 1,000 mg 06/18/20 09:00 06/29/20 09:08 Ascorbic Acid 500 Mg Chewable Tablet PO Not Given DAILY STEFFI Atorvastatin Calcium 10 mg 06/15/20 21:00 06/29/20 20:58 Atorvastatin Calcium 10 Mg Tab PO 10 mg HS STEFFI Administration Benzonatate 100 mg 06/17/20 19:57 06/17/20 21:11 Benzonatate 100 Mg Cap PO 100 mg TIDPRN PRN Administration Cough Brimonidine Tartrate 1 drop 06/15/20 13:00 06/29/20 21:03 Brimonidine Tartrate 0.2% Ophth Soln 5 Ml Bottle EA EYE 1 drop QID STEFFI Administration Dextrose/Water 25 gm 06/14/20 22:58 06/27/20 15:19 Dextrose 50% Abboject 50 Ml Syringe SLOW IVP 25 gm PRN PRN Administration Hypoglycemia Dorzolamide HCl 1 drop 06/15/20 15:00 06/29/20 21:05 Dorzolamide Hcl 2% Ophth Soln 10 Ml Bottle EA EYE 1 drop TID STEFFI Administration Famotidine 20 mg 06/19/20 09:00 06/29/20 09:06 Famotidine 20 Mg Tab PO Not Given DAILY STEFFI Heparin Sodium (Porcine) 500 units 06/19/20 02:24 06/22/20 19:53 Heparin 500 Units/5 Ml Flush Syringe IVF 500 unit Q12HR PRN Administration Heparin Flush Insulin Glargine 25 units/ 0.25 mls @ 0 mls/hr 06/21/20 21:00 06/29/20 21:00 Miscellaneous Medication SC Not Given BID STEFFI Insulin Human Lispro 0 units 06/14/20 22:58 06/28/20 11:23 Humalog 300 Units/3 Ml Vial SC 4 unit .MILD SLIDING SCALE PRN Administration Mild Correctional Scale Insulin Human Lispro 0 units 06/25/20 23:01 06/26/20 21:00 Humalog 300 Units/3 Ml Vial SC 4 unit .BEDTIME SLIDING SC PRN Administration Bedtime Correctional Scale Latanoprost 1 drop 06/16/20 09:00 06/29/20 09:06 Latanoprost 0.005% Ophth Soln 2.5 Ml Bottle EA EYE 1 drop DAILY STEFFI Administration Levothyroxine Sodium 150 mcg 06/16/20 06:00 06/30/20 05:48 Levothyroxine 150 Mcg Tab PO 150 mcg 0600 STEFFI Administration Melatonin 3 mg 06/17/20 19:32 06/19/20 20:26 Melatonin 3 Mg Tab PO 3 mg HS PRN Administration Insomnia Metoprolol Succinate 150 mg 06/16/20 09:00 06/29/20 15:51 Metoprolol Succinate Xl 100 Mg Tab PO Not Given DAILY STEFFI Mometasone Furoate/Formoterol Fumar 2 puff 06/18/20 18:30 06/30/20 01:49 Mometasone 200 Mcg/Formoterol 5 Mcg 120 Puff Inhaler INH Not Given BID-RT STEFFI Nifedipine 60 mg 06/16/20 09:00 06/29/20 15:51 Nifedipine Xl 60 Mg Tab PO Not Given DAILY SETFFI Ondansetron HCl 4 mg 06/15/20 12:36 06/16/20 22:19 Ondansetron Pf 4 Mg/2 Ml Vial IVP 4 mg Q6H PRN Administration Nausea/Vomiting Pilocarpine HCl 1 drop 06/15/20 13:00 06/29/20 21:06 Pilocarpine 1% Ophth Drops 15 Ml Bot EA EYE 1 drp QID STEFFI Administration Prednisone 40 mg 06/23/20 08:00 06/29/20 15:50 Prednisone 20 Mg Tab PO Not Given QAM-WM STEFFI Sertraline HCl 25 mg 06/16/20 09:00 06/29/20 15:51 Sertraline Hcl 25 Mg Tab PO Not Given DAILY STEFFI Sodium Chloride 10 ml 06/18/20 09:00 06/29/20 21:01 Flush - Normal Saline 10 Ml Syringe IVF 10 ml Q12HR STEFFI Administration Timolol Maleate 1 drop 06/15/20 21:00 06/29/20 21:01 Timolol 0.5% Ophth Soln 5 Ml Bottle EA EYE 1 drop BID STEFFI Administration Zinc Sulfate 220 mg 06/18/20 09:00 06/29/20 09:07 Zinc Sulfate 220 Mg Cap PO Not Given DAILY STEFFI - Exam General Appearance: awake alert Neck: no JVD Heart: RRR, no murmur Respiratory - other findings: scant fine rales Gastrointestinal: soft, normal bowel sounds Extremities: no edema Hosp A/P (1) CKD (chronic kidney disease) stage V requiring chronic dialysis Code(s): N18.6 - END STAGE RENAL DISEASE; Z99.2 - DEPENDENCE ON RENAL DIALYSIS Status: Acute (2) Acute respiratory failure with hypoxia Code(s): J96.01 - ACUTE RESPIRATORY FAILURE WITH HYPOXIA Status: Resolved (3) COVID-19 Code(s): U07.1 - COVID-19 Status: Resolved (4) DKA (diabetic ketoacidoses) Code(s): E11.10 - TYPE 2 DIABETES MELLITUS WITH KETOACIDOSIS WITHOUT COMA Status: Acute Qualifiers: Diabetes mellitus type: type 1 Diabetes mellitus complication detail: without coma Qualified Code(s): E10.10 - Type 1 diabetes mellitus with ketoacidosis without coma (5) Dyslipidemia Code(s): E78.5 - HYPERLIPIDEMIA, UNSPECIFIED Status: Chronic (6) HTN (hypertension) Code(s): I10 - ESSENTIAL (PRIMARY) HYPERTENSION Status: Chronic Qualifiers: Hypertension type: essential hypertension Qualified Code(s): I10 - Essential (primary) hypertension - Plan cont current Tx for DM 1 cont inpt HD through 07/01, then DC outpt HD starts 07/03
[2020-06-30] MEDS: Zinc Sulfate 220 MG CAP PO SCH (08:16)
[2020-06-30] MEDS: Famotidine 20 MG TAB PO SCH (08:16)
[2020-06-30] MEDS: Ascorbic Acid 500 mg Chewable Tablet PO SCH (08:16)
[2020-06-30] MEDS: NIFEdipine XL 60 MG TAB PO SCH (08:16)
[2020-06-30] MEDS: predniSONE 20 MG TAB PO SCH (08:17)
[2020-06-30] MEDS: Pilocarpine 1% Ophth Drops 15 ML BOT EA EYE SCH ×4 (08:23→21:13)
[2020-06-30] MEDS: Insulin Glargine 25 UNITS in Pre-Filled Syringe 1 EACH SC SCH ×2 (08:24→21:12)
[2020-06-30] MEDS: Dorzolamide HCl 2% Ophth Soln 10 ml Bottle EA EYE SCH ×3 (08:24→21:13)
[2020-06-30] MEDS: Latanoprost 0.005% Ophth Soln 2.5 ml Bottle EA EYE SCH (08:24)
[2020-06-30] MEDS: Brimonidine Tartrate 0.2% Ophth Soln 5 ml Bottle EA EYE SCH ×4 (08:25→21:13)
[2020-06-30] MEDS: Timolol 0.5% Ophth Soln 5 ml Bottle EA EYE SCH ×2 (08:26→21:12)
--- NOTE | 2020-06-30 10:40 | PRG ---
DATE OF SERVICE: 06/30/2020 Tami Coughlin is doing well today. Her right upper arm dialysis graft is working well. She has a good thrill and bruit. Her right arm is functioning normally. In fact, she is eating her morning breakfast utilizing the right arm. Surgical wounds look good. At this point, the patient should follow up with me in 2 to 3 weeks, use right arm unrestricted. I will see her as needed this hospitalization. Please remove the central line, left IJ prior to discharge. Job ID: [id number]
--- NOTE | 2020-06-30 10:59 | PRG ---
DATE OF SERVICE: 06/30/2020 SUBJECTIVE: A 50-year-old female, being seen for end-stage renal disease. The patient denied nausea, vomiting, or chest pain. PHYSICAL EXAMINATION: GENERAL: The patient is awake and alert. VITAL SIGNS: Afebrile, pulse 86, breathing at 16, blood pressure 130/60. HEENT: Head normocephalic and atraumatic. Eyes intact, no ulcers. Nose intact, no ulcers. Ears intact, no ulcers. NECK: Supple. No JVD. CHEST: Symmetrical and clear. CARDIOVASCULAR: Shows S1 and S2, no rub, no murmur. GASTROINTESTINAL: Abdomen is soft, bowel sounds positive. EXTREMITIES: Show no edema or ulcers. SKIN: Shows no rash or petechiae. MUSCULOSKELETAL: Shows no joint swelling or stiffness. GENITOURINARY: Shows no Guzman or CVA tenderness. NEUROLOGIC: Motor intact. Cranial nerves intact. LABORATORY DATA: Reviewed. ASSESSMENT AND PLAN: 1. Stage 6 chronic kidney disease, stable. 2. Hypertension, stable. 3. Anemia, stable. Medication based on GFR appropriate. Job ID: [id number]
[2020-06-30] MEDS: Atorvastatin Calcium 10 MG TAB PO SCH (21:11)
[2020-07-01] MEDS: Ipratropium/Albuterol Sulfate 4 GM AER IH SCH ×3 (00:18→13:54)
[2020-07-01] MEDS: Levothyroxine 150 MCG TAB PO SCH (05:40)
[2020-07-01] MEDS: Dextrose 50% Abboject 50 ML SYRINGE SLOW IVP PRN (07:48)
[2020-07-01] MEDS: Famotidine 20 MG TAB PO SCH (07:59)
[2020-07-01] MEDS: Ascorbic Acid 500 mg Chewable Tablet PO SCH (07:59)
[2020-07-01] MEDS: predniSONE 20 MG TAB PO SCH (07:59)
[2020-07-01] MEDS: Brimonidine Tartrate 0.2% Ophth Soln 5 ml Bottle EA EYE SCH ×3 (08:00→17:25)
[2020-07-01] MEDS: Zinc Sulfate 220 MG CAP PO SCH (08:00)
[2020-07-01] MEDS: Dorzolamide HCl 2% Ophth Soln 10 ml Bottle EA EYE SCH ×2 (08:01→14:49)
[2020-07-01] MEDS: Latanoprost 0.005% Ophth Soln 2.5 ml Bottle EA EYE SCH (08:01)
[2020-07-01] MEDS: Pilocarpine 1% Ophth Drops 15 ML BOT EA EYE SCH ×3 (08:02→17:25)
[2020-07-01] MEDS: Timolol 0.5% Ophth Soln 5 ml Bottle EA EYE SCH (08:03)
[2020-07-01] MEDS: Mometasone 200 MCG/Formoterol 5 MCG 120 PUFF INHALER INH SCH (08:19)
[2020-07-01] MEDS: Insulin Glargine 25 UNITS in Pre-Filled Syringe 1 EACH SC SCH (08:30)
[2020-07-01] MEDS: NIFEdipine XL 60 MG TAB PO SCH (08:45)
--- NOTE | 2020-07-01 10:22 | PRG ---
DATE OF SERVICE: 07/01/2020 SUBJECTIVE: 50-year-old female, being seen for end-stage renal disease. The patient denied any nausea, vomiting, or chest pain. OBJECTIVE: PHYSICAL EXAMINATION: General: The patient is awake and alert. Vital Signs: Afebrile, pulse 75, breathing at 16, blood pressure 135/74. HEENT: Head normocephalic and atraumatic. Eyes intact, no ulcers. Nose intact, no ulcers. Ears intact, no ulcers. Neck: Supple. No JVD. Chest: Symmetrical and clear. Cardiovascular: Shows S1 and S2, no rub, no murmur. Gastrointestinal: Abdomen is soft, bowel sounds positive. Extremities: Show no edema or ulcers. Skin: Shows no rash or petechiae. Musculoskeletal: Shows no joint swelling or stiffness. Genitourinary: Shows no Guzman or CVA tenderness. Neurologic: Motor intact. Cranial nerves intact. LABORATORY DATA: Reviewed. ASSESSMENT AND PLAN: 1. Stage 6 chronic kidney disease, plan dialysis. 2. Hypertension, stable. 3. Anemia, stable. Medication based on GFR appropriate. Job ID: [id number]
[2020-07-01] MEDS ORDERED: Heparin 10,000 UNITS/ 10 ML VIAL ONE (11:19)
[2020-07-01 17:15] VITALS: BP 134/71; TEMP 98.1
--- NOTE | 2020-07-01 19:35 | PDOC.DS.DS ---
Provider - Provider Date of Admission: 06/16/20 10:30 Date of Discharge: 07/01/20 Admitting Provider: Vero Rodriguez MD Primary Care Physician: NO PCP PROVIDER Course - Hospital Course Resuscitation Status: 06/14/20 22:55 Resuscitation Status Routine Resuscitation Status: FULL: Full Resuscitation - Labs Lab Results: 06/26/20 07:38 06/29/20 06:19 Microbiology - Entire Visit 06/14/20 21:00 Venous blood - Right Arm Blood Culture - Final NO GROWTH IN 5 DAYS 06/14/20 21:00 Venous blood - Left Hand Blood Culture - Final NO GROWTH IN 5 DAYS 06/15/20 16:11 Urine clean catch Urine Culture - Final NO GROWTH AT 36 HOURS - Physical Exam Vitals: Vital Signs (12 hours) Temp Pulse Resp BP BP BP Pulse Ox 07/01/20 17:14 98.1 F 77 14 134/71 100 07/01/20 13:50 97.6 F 78 18 141/66 H 100 07/01/20 08:45 78 108/68 07/01/20 08:33 98.4 F 86 18 125/74 100 07/01/20 08:03 78 108/66 Weight Admit Weight 205 lb Weight 171 lb 8.314 oz Most Recent Monitor Data Heart Rate from ECG 77 NIBP 145/82 NIBP BP-Mean 103 Respiration from ECG 16 SpO2 98 Physical Exam: The patient was seen and examined on the day of discharge. Plan - Discharge Medications Prescriptions: Mometasone/Formoterol 200/5 [Dulera 200 Mcg/5 Mcg Inhaler] 2 puff INH BID-RT #1 inh predniSONE 20 mg PO QAM-WM #8 tab NIFEdipine [Procardia XL] 60 mg PO DAILY #30 tab Home Medications: Medication Instructions Recorded Confirmed Type Brimonidine Tartrate [Alphagan 1 drop EA EYE QID 01/01/19 06/15/20 History 0.2% Ophth Soln] Levothyroxine Sodium [Synthroid] 150 mcg PO DAILY 01/01/19 06/15/20 History Pravastatin Sodium [Pravachol] 40 mg PO HS 01/01/19 06/15/20 History Sertraline HCl [Zoloft] 25 mg PO DAILY 01/01/19 06/15/20 History Losartan [Cozaar] 25 mg PO DAILY 09/20/19 06/15/20 History Metoprolol Succinate [Toprol XL] 150 mg PO DAILY 09/20/19 06/15/20 History HumaLOG [HumaLOG Vial] 1 units SC SEEPHYS 11/30/19 06/15/20 History Insulin Glargine [Lantus] 18 units SC BID 12/20/19 06/15/20 History AcetaZOLAMIDE [Diamox] 2 tab PO ASDIR PRN 02/24/20 06/15/20 History Mometasone/Formoterol 200/5 2 puff INH BID-RT #1 inh 07/01/20 Rx [Dulera 200 Mcg/5 Mcg Inhaler] NIFEdipine [Procardia XL] 60 mg PO DAILY #30 tab 07/01/20 Rx predniSONE 20 mg PO QAM-WM #8 tab 07/01/20 Rx Allergies: No Known Allergies Allergy (Verified 02/24/20 11:48) - Discharge Instructions Discharge Instructions:: please take the steroids with food. Activity:: Activity as Tolerated Nourishment:: Heart Healthy Diet - Follow up Plan Referrals: [facility] [Outside] (PT had been accepted to [facility] with start date of 07/03 and needs to be there at 9:30am to do paperwork. PT will have a chair Sunday, , Sunday at 10:30am. ) Jus Fountain MD [Active] - 2-3 Weeks Luis Evans MD [Active] - Osito Bauer MD [Active] - PROVIDER,NO PCP [Primary Care Provider] - Keke Valdes MD [Active] - Disposition: HOME Quality - Care Measures CORE MEASURES:: N/A
--- NOTE | 2020-07-06 00:06 | PQF ---
CLINICAL DOCUMENTATION CLARIFICATION FORM: Dear : Rossy Anguiano Date / Time: 07/05/2020 Please exercise your independent, professional judgment in responding to the clarification form. Clinical indicators are provided on the bottom of this form for your review Please check appropriate box(es): [ ] PELON is related to COVID [x ] PELON is not related to COVID [ ] Other diagnosis [ ] Unable to determine In addition, please specify: Present on Admission (POA): [x ] Yes [ ] No [ ] Unable to determine To be completed by CDI/Coding staff for physician review: Present Clinical Indicators - Signs / Symptoms / Labs Results and Location in Medical Record [ x ] Workup in the ER including labs, patient was found to be in acute renal failure with worsening of creatinine, creatinine today is 4.15 H and P [ x ] Suspected COVID-19 viral pneumonia H and P [ x ] PE/HX consistent with COVID-19 pneumonia, hyperglycemia and acute renal failure. ED final diagnoses: COVID-19 pneumonia and acute renal failure ED provider notes [ x ] Creatinines were 4.15, 4.20, 4.33, 5.07, 5.61, 4.33, 5.59, 6.37, 7.43, 7.12 Laboratory [ x ] BUN values were 51, 52, 46, 34 Laboratory Present Risk Factors Results and Location in Medical Record [ x ] COVID-19 pneumonia, CKD, hypertension H and P Present Treatments Results and Location in Medical Record [ x ] IV fluids Medications [ x ] 2L of oxygen Progress note 06/15 by Bhavna Wheeler [ x ] Nephrology consult Reports CDS/Cost Control Supervisor Signature: [id number] Phone #: Date/Time: 07/05/20 This is a permanent part of the Medical Record [facility]
== END 2020-07-01 18:05 | disposition home or self-care (01) | DRG 673 ==
LOC: ERS 19:23 → INTOOBSV 22:54 → ERHOLD 22:54 → T4-A 06-15 14:02 → OBSVTOIN 06-16 10:30 → IMCU/EMU 06-17 23:05 → T4-B 06-22 23:11
PROVIDERS: ADMIT Internal Medicine; ATTEND Internal Medicine
PROC: 8E0ZXY6 Isolation (ICD-10-PCS; 2020-06-16)
PROC: 0T9B70Z Drainage of Bladder with Drainage Device, Via Natural or Artificial Opening (ICD-10-PCS; 2020-06-17)
PROC: XW13325 Transfusion of Convalescent Plasma (Nonautologous) into Peripheral Vein, Percutaneous Approach, New Technology Group 5 (ICD-10-PCS; 2020-06-18)
PROC: 06HY33Z Insertion of Infusion Device into Lower Vein, Percutaneous Approach (ICD-10-PCS; 2020-06-18)
PROC: 5A1D70Z Performance of Urinary Filtration, Intermittent, Less than 6 Hours Per Day (ICD-10-PCS; 2020-06-19)
PROC: 5A1D70Z Performance of Urinary Filtration, Intermittent, Less than 6 Hours Per Day (ICD-10-PCS; 2020-06-26)
PROC: 03170ZD Bypass Right Brachial Artery to Upper Arm Vein, Open Approach (ICD-10-PCS; principal; 2020-06-29)
PROC: 0JH63XZ Insertion of Tunneled Vascular Access Device into Chest Subcutaneous Tissue and Fascia, Percutaneous Approach (ICD-10-PCS; 2020-06-29)
PROC: 02HV33Z Insertion of Infusion Device into Superior Vena Cava, Percutaneous Approach (ICD-10-PCS; 2020-06-29)
DX: N17.9 Acute kidney failure, unspecified (principal); U07.1 COVID-19; E10.10 Type 1 diabetes mellitus with ketoacidosis without coma; J12.89 Other viral pneumonia; J96.01 Acute respiratory failure with hypoxia; I12.0 Hypertensive chronic kidney disease with stage 5 chronic kidney disease or end stage renal disease; E87.1 Hypo-osmolality and hyponatremia; I82.612 Acute embolism and thrombosis of superficial veins of left upper extremity; N18.6 End stage renal disease; I16.0 Hypertensive urgency; D64.9 Anemia, unspecified; E78.5 Hyperlipidemia, unspecified; H40.9 Unspecified glaucoma; E88.09 Other disorders of plasma-protein metabolism, not elsewhere classified; E10.22 Type 1 diabetes mellitus with diabetic chronic kidney disease; E66.01 Morbid (severe) obesity due to excess calories; E86.0 Dehydration; E03.9 Hypothyroidism, unspecified; E87.6 Hypokalemia; Z90.710 Acquired absence of both cervix and uterus; Z68.29 Body mass index [BMI] 29.0-29.9, adult
CPT/HCPCS: 36415; 36416; 36600; 71045; 76770; 80048; 80053; 81001; 82010; 82550; 82570; 82728; 82805; 83516; 83520; 83540; 83550; 83605; 84156; 84550; 85007; 85014; 85018; 85025; 85027; 86038; 86225; 86256; 86850; 86900; 86901; 87040; 87086; 87340; 89190; 90935; 93005; 93970; 94660; 96365; 96366; 96367; 96375; 96376; C1751; C1752; G0257; G0378; J0456; J0690; J0696; J1100; J1642; J1644; J1815; J1940; J2001; J2250; J2405; J2543; J2550; J2704; J2720; J3010; J3490; J7050; J7512; L8670; Q9967; S0020; S0028; U0002

== ENCOUNTER 2020-07-09 12:42 | Emergency (ER) | payer OTHER ==
[2020-07-09 13:53] LABS: #Basophils 0.1 thou/uL (0.0-0.2); #Eosinphils 0.1 thou/uL (0.0-0.7); #Monocytes 0.4 thou/uL (0.11-0.59); #Neutrophils 4.1 thou/uL (1.40-6.50); %Basophils 1.2 % (0.0-1.0); %Lymphocytes 29.7 % (21.0-51.0); %Monocytes 6.3 % (0.0-10.0); %Neutrophils 61.9 % (42.0-75.0); Hemoglobin 6.2 g/dL (12.0-16.0); Mean Corpuscular HGB CONC 32.4 g/dL (32.0-36.0); Mean Corpuscular Hemoglobin 29.8 pg (27.0-31.0); Mean Corpuscular Volume 92.1 fL (78.0-98.0); Mean Platelet Volume 7.8 fL (7.4-10.4); Platelet Count 238 thou/uL (130-400); Red Blood Cell (RBC) Count 2.08 mill/uL (4.20-5.40); White Blood Cell (WBC) Count 6.7 thou/uL (4.8-10.8)
[2020-07-09 14:15] LABS: ALT (SGPT) 14 U/L (8-55); AST (SGOT) 24 U/L (5-34); Albumin 3.1 g/dL (3.5-5.0); Alkaline Phosphatase 78 U/L (40-110); Anion Gap 16 mmol/L (10-20); BUN (Urea Nitrogen) 28 mg/dL (7.0-18.7); Bilirubin, Total 0.2 mg/dL (0.2-1.2); CK (CPK) 98 U/L (29-168); Calc. Creatinine Clearance 0 mL/min (70-130); Calcium 7.9 mg/dL (7.8-10.44); Carbon Dioxide 26 mmol/L (22-29); Chloride 102 mmol/L (98-107); Globulin 3.5 g/dL (2.4-3.5); Glucose 68 mg/dL (70-105); Potassium 4.2 mmol/L (3.5-5.1); Protein, Total 6.6 g/dL (6.0-8.3); Sodium 140 mmol/L (136-145)
--- NOTE | 2020-07-09 15:14 | RAD ---
EXAM: Chest one view: HISTORY: Dyspnea COMPARISON: 06/29/2020 FINDINGS: Slightly improved aeration. Right venous access catheter. Heart size: Cardiomegaly. Lungs: Slightly improved inspiration with overall stable bilateral vascular congestion and increased linear interstitial markings bilaterally Overall stable exam. IMPRESSION: No significant new process.
== END 2020-07-09 17:45 | disposition home or self-care (01) ==
LOC: ERS 12:42
DX: I12.0 Hypertensive chronic kidney disease with stage 5 chronic kidney disease or end stage renal disease (principal); D63.1 Anemia in chronic kidney disease; N18.6 End stage renal disease; E03.9 Hypothyroidism, unspecified; E11.22 Type 2 diabetes mellitus with diabetic chronic kidney disease; E78.5 Hyperlipidemia, unspecified; Z99.2 Dependence on renal dialysis; Z79.82 Long term (current) use of aspirin; Z79.4 Long term (current) use of insulin; Z79.899 Other long term (current) drug therapy
CPT/HCPCS: 36430; 71045; 80053; 82550; 83880; 85025; 86850; 86900; 86901; 93005; P9016

== ENCOUNTER 2020-09-20 23:32 | Emergency (ER) | payer OTHER ==
[2020-09-21 00:29] LABS: Anion Gap 13 mmol/L (10-20); BUN (Urea Nitrogen) 33 mg/dL (7.0-18.7); Calc. Creatinine Clearance 0 mL/min (70-130); Calcium 8.5 mg/dL (7.8-10.44); Carbon Dioxide 29 mmol/L (22-29); Chloride 103 mmol/L (98-107); Glucose 103 mg/dL (70-105); Potassium 3.6 mmol/L (3.5-5.1); Sodium 141 mmol/L (136-145)
[2020-09-21 00:35] LABS: Hemoglobin 10.9 g/dL (12.0-16.0); Mean Corpuscular HGB CONC 31.4 g/dL (32.0-36.0); Mean Corpuscular Hemoglobin 29.4 pg (27.0-31.0); Mean Corpuscular Volume 93.6 fL (78.0-98.0); Mean Platelet Volume 7.9 fL (7.4-10.4); Platelet Count 265 thou/uL (130-400); RBC Distribution Width 14.5 % (11.5-14.5); Red Blood Cell (RBC) Count 3.72 mill/uL (4.20-5.40); White Blood Cell (WBC) Count 3.7 thou/uL (4.8-10.8)
[2020-09-21 01:00] LABS: Band 3 % (5-11); Eosinophils 6 % (0-10); Lymphocytes 55 % (21-51); MDiff Complete? YES; Monocytes 7 % (0-10); Neutrophil 28 % (42-75)
== END 2020-09-21 02:32 | disposition home or self-care (01) ==
LOC: ERS 23:32
DX: E11.649 Type 2 diabetes mellitus with hypoglycemia without coma (principal); E78.5 Hyperlipidemia, unspecified; I10 Essential (primary) hypertension; Z79.4 Long term (current) use of insulin
CPT/HCPCS: 36415; 36416; 80048; 85025; 99285

== ENCOUNTER 2020-11-18 09:16 | Emergency (ER) | payer OTHER ==
[2020-11-18] MEDS ORDERED: Dextrose 50% Abboject 50 ML SYRINGE ONE (09:31)
[2020-11-18 10:47] LABS: #Eosinphils 0.1 thou/uL (0.0-0.7); #Lymphocytes 1.1 thou/uL (1.20-3.40); #Monocytes 0.2 thou/uL (0.11-0.59); #Neutrophils 2.5 thou/uL (1.40-6.50); %Basophils 0.8 % (0.0-1.0); %Eosinophils 1.5 % (0.0-10.0); %Lymphocytes 29.4 % (21.0-51.0); %Monocytes 4.4 % (0.0-10.0); %Neutrophils 63.9 % (42.0-75.0); Hemoglobin 14.3 g/dL (12.0-16.0); Mean Corpuscular HGB CONC 31.8 g/dL (32.0-36.0); Mean Corpuscular Hemoglobin 29.3 pg (27.0-31.0); Mean Corpuscular Volume 92.2 fL (78.0-98.0); Mean Platelet Volume 9.1 fL (7.4-10.4); Platelet Count 180 thou/uL (130-400); RBC Distribution Width 13.7 % (11.5-14.5); Red Blood Cell (RBC) Count 4.87 mill/uL (4.20-5.40); White Blood Cell (WBC) Count 3.9 thou/uL (4.8-10.8)
[2020-11-18 11:13] LABS: ALT (SGPT) 11 U/L (8-55); AST (SGOT) 18 U/L (5-34); Albumin 3.5 g/dL (3.5-5.0); Alkaline Phosphatase 106 U/L (40-110); Anion Gap 12 mmol/L (10-20); BUN (Urea Nitrogen) 46 mg/dL (7.0-18.7); Bilirubin, Total 0.2 mg/dL (0.2-1.2); Calc. Creatinine Clearance 0 mL/min (70-130); Calcium 8.9 mg/dL (7.8-10.44); Carbon Dioxide 29 mmol/L (22-29); Chloride 103 mmol/L (98-107); Globulin 3.5 g/dL (2.4-3.5); Glucose 255 mg/dL (70-105); Potassium 4.1 mmol/L (3.5-5.1); Sodium 140 mmol/L (136-145)
[2020-11-18 12:49] LABS: Bilirubin Negative (Negative); Clarity Turbid (Clear); Glucose, Urine (Dipstick) 50 mg/dL (Negative); Ketone, Urine Negative (Negative); Leukocyte 250 Leu/uL (Negative); Nitrite Negative (Negative); Protein, Urine (Dipstick) 300 mg/dL (Neg-Trace); Specific Gravity, Urine 1.018 (1.002-1.036); Squamous Epithelial 21-50 HPF (0-3); Urobilinogen Normal mg/dL (Less than 2); WBC/HPF 21-50 HPF (0-3); pH, Urine 6.5 (5.0-9.0)
[2020-11-18 12:51] LABS: Bacteria/HPF 1+ HPF (None Seen)
[2020-11-18 12:54] LABS: Blood, Urine 2+ (Negative)
== END 2020-11-18 12:30 | disposition short-term general hospital (02) ==
LOC: ERS 09:16
DX: E11.649 Type 2 diabetes mellitus with hypoglycemia without coma (principal); E03.9 Hypothyroidism, unspecified; E78.5 Hyperlipidemia, unspecified; I10 Essential (primary) hypertension; Z79.899 Other long term (current) drug therapy
CPT/HCPCS: 36415; 36416; 80053; 81003; 81015; 85025; 93005; 96374

== ENCOUNTER 2020-12-15 09:58 | Observation (INO) | payer MEDICARE, MEDICAID ==
[2020-12-15] MEDS ORDERED: Dextrose 50% Abboject 50 ML SYRINGE ONE (10:41)
[2020-12-15 10:57] LABS: #Eosinphils 0.1 thou/uL (0.0-0.7); #Lymphocytes 1.4 thou/uL (1.20-3.40); #Monocytes 0.2 thou/uL (0.11-0.59); #Neutrophils 1.8 thou/uL (1.40-6.50); %Basophils 0.3 % (0.0-1.0); %Eosinophils 1.9 % (0.0-10.0); %Lymphocytes 40.5 % (21.0-51.0); %Monocytes 5.6 % (0.0-10.0); %Neutrophils 51.6 % (42.0-75.0); Hemoglobin 14.8 g/dL (12.0-16.0); Mean Corpuscular HGB CONC 32.2 g/dL (32.0-36.0); Mean Corpuscular Hemoglobin 29.3 pg (27.0-31.0); Mean Corpuscular Volume 90.9 fL (78.0-98.0); Mean Platelet Volume 8.2 fL (7.4-10.4); Platelet Count 193 thou/uL (130-400); Red Blood Cell (RBC) Count 5.04 mill/uL (4.20-5.40); White Blood Cell (WBC) Count 3.5 thou/uL (4.8-10.8)
[2020-12-15 11:21] LABS: Bilirubin Negative (Negative); Blood, Urine Moderate (Negative); Glucose, Urine (Dipstick) Negative (Negative); Ketone, Urine Trace mg/dL (Negative); Leukocyte Negative (Negative); Nitrite Negative (Negative); Protein, Urine (Dipstick) > or equal to 300 mg/dL (Neg-Trace); Specific Gravity, Urine 1.025 (1.005-1.030); Urobilinogen 0.2 mg/dL (Less than 2)
[2020-12-15 11:28] LABS: ALT (SGPT) 19 U/L (8-55); AST (SGOT) 23 U/L (5-34); Albumin 4.1 g/dL (3.5-5.0); Alkaline Phosphatase 123 U/L (40-110); Anion Gap 14 mmol/L (10-20); BUN (Urea Nitrogen) 49 mg/dL (7.0-18.7); Bilirubin, Total 0.2 mg/dL (0.2-1.2); Calc. Creatinine Clearance 0 mL/min (70-130); Calcium 8.9 mg/dL (7.8-10.44); Carbon Dioxide 29 mmol/L (22-29); Chloride 103 mmol/L (98-107); Globulin 3.7 g/dL (2.4-3.5); Glucose 121 mg/dL (70-105); Potassium 3.8 mmol/L (3.5-5.1); Protein, Total 7.8 g/dL (6.0-8.3); Sodium 142 mmol/L (136-145)
[2020-12-15 11:38] LABS: Clarity Clear (Clear)
[2020-12-15 11:39] LABS: Bacteria/HPF 2+ HPF (None Seen); Squamous Epithelial 0-3 HPF (0-3)
[2020-12-15] MEDS ORDERED: cefTRIAXone\\ROCEPHIN 2 GM VIAL ONE (12:43)
[2020-12-15] MEDS ORDERED: Acetaminophen 325 MG TAB PO PRN (12:58)
[2020-12-15] MEDS ORDERED: Ondansetron ODT 4 MG TAB PO PRN (12:58)
[2020-12-15] MEDS ORDERED: Ondansetron PF 4 MG/2 ML Vial IVP PRN (12:58)
[2020-12-15 15:15] VITALS: BMI 30.5
[2020-12-15] MEDS: Heparin 5,000 UNITS/ML VIAL SC SCH (22:14)
[2020-12-16 05:27] LABS: #Eosinphils 0.1 thou/uL (0.0-0.7); #Lymphocytes 2.1 thou/uL (1.20-3.40); #Monocytes 0.6 thou/uL (0.11-0.59); %Basophils 0.5 % (0.0-1.0); %Eosinophils 1.8 % (0.0-10.0); %Lymphocytes 36.2 % (21.0-51.0); %Monocytes 9.7 % (0.0-10.0); %Neutrophils 51.8 % (42.0-75.0); Hemoglobin 12.3 g/dL (12.0-16.0); Mean Corpuscular HGB CONC 32.5 g/dL (32.0-36.0); Mean Corpuscular Hemoglobin 29.5 pg (27.0-31.0); Mean Corpuscular Volume 90.6 fL (78.0-98.0); Mean Platelet Volume 8.1 fL (7.4-10.4); Platelet Count 160 thou/uL (130-400); RBC Distribution Width 13.9 % (11.5-14.5); Red Blood Cell (RBC) Count 4.17 mill/uL (4.20-5.40); White Blood Cell (WBC) Count 5.7 thou/uL (4.8-10.8)
[2020-12-16 05:46] LABS: Anion Gap 13 mmol/L (10-20); BUN (Urea Nitrogen) 59 mg/dL (7.0-18.7); Calc. Creatinine Clearance 19 mL/min (70-130); Calcium 8.3 mg/dL (7.8-10.44); Carbon Dioxide 25 mmol/L (22-29); Chloride 103 mmol/L (98-107); Glucose 208 mg/dL (70-105); Potassium 4.1 mmol/L (3.5-5.1); Sodium 137 mmol/L (136-145)
[2020-12-16 08:08] VITALS: TEMP 98
[2020-12-16] MEDS ORDERED: Heparin 10,000 UNITS/ 10 ML VIAL ONE (10:02)
[2020-12-16] MEDS: Heparin 5,000 UNITS/ML VIAL SC SCH (12:35)
[2020-12-16] MEDS ORDERED: cefTRIAXone\\ROCEPHIN 1 GM in Sodium Chloride 0.9% 100 ML IVPB SCH (13:00)
[2020-12-16 14:30] VITALS: BP 151/74
== END 2020-12-16 14:38 | disposition home health service (06) ==
LOC: ERS 09:58 → 2SW 12:58
PROVIDERS: ADMIT Internal Medicine; ATTEND Internal Medicine
DX: E11.649 Type 2 diabetes mellitus with hypoglycemia without coma (principal); T50.915A Adverse effect of multiple unspecified drugs, medicaments and biological substances, initial encounter; G93.41 Metabolic encephalopathy; I12.0 Hypertensive chronic kidney disease with stage 5 chronic kidney disease or end stage renal disease; E11.22 Type 2 diabetes mellitus with diabetic chronic kidney disease; N18.6 End stage renal disease; D63.1 Anemia in chronic kidney disease; E03.9 Hypothyroidism, unspecified; E78.5 Hyperlipidemia, unspecified; H54.8 Legal blindness, as defined in USA; E66.01 Morbid (severe) obesity due to excess calories; Z68.30 Body mass index [BMI] 30.0-30.9, adult; Z79.4 Long term (current) use of insulin; Z79.899 Other long term (current) drug therapy; Z99.2 Dependence on renal dialysis
CPT/HCPCS: 36415; 36416; 51701; 80048; 80053; 81003; 81015; 83605; 84443; 85025; 87040; 87086; 90935; 93005; 96365; 96366; 96375; G0257; J0696; J1644; J3490

== ENCOUNTER 2022-02-12 08:08 | Inpatient (IN) | payer MEDICARE, MEDICAID ==
[2022-02-12 09:09] LABS: #Lymphocytes 1.7 thou/uL (1.20-3.40); #Monocytes 1.3 thou/uL (0.11-0.59); #Neutrophils 10.8 thou/uL (1.40-6.50); %Basophils 0.2 % (0.0-1.0); %Eosinophils 0.2 % (0.0-10.0); %Monocytes 9.3 % (0.0-10.0); %Neutrophils 78.3 % (42.0-75.0); Hemoglobin 10.5 g/dL (12.0-16.0); Mean Corpuscular HGB CONC 31.6 g/dL (32.0-36.0); Mean Corpuscular Hemoglobin 31.6 pg (27.0-31.0); Mean Corpuscular Volume 99.8 fL (78.0-98.0); Mean Platelet Volume 8.7 fL (7.4-10.4); Platelet Count 215 thou/uL (130-400); Red Blood Cell (RBC) Count 3.31 mill/uL (4.20-5.40); White Blood Cell (WBC) Count 13.8 thou/uL (4.8-10.8)
[2022-02-12 09:26] LABS: Base Excess -14.7 mEq/L (-2.0 to +3.0); Calcium, Ionized (venous) 1.06 mmol/L (1.16-1.32); Chloride (VBG) 91 mmol/L (98-106); Potassium (VBG) 6.22 mmol/L (3.70-5.30); Sodium 131.9 mmol/L (133-146); pH (venous) 7.25 (7.32-7.43)
[2022-02-12 09:27] LABS: Actual Bicarbonate (HCO3v) 11 mEq/L (22-28)
[2022-02-12 09:28] LABS: ALT (SGPT) 16 U/L (8-55); AST (SGOT) 25 U/L (5-34); Albumin 3.6 g/dL (3.5-5.0); Alkaline Phosphatase 102 U/L (40-110); Anion Gap 41 mmol/L (10-20); BUN (Urea Nitrogen) 51 mg/dL (9.8-20.1); Bilirubin, Total 0.4 mg/dL (0.2-1.2); CK (CPK) 141 U/L (29-168); Calc. Creatinine Clearance 0 mL/min (70-130); Calcium 9.2 mg/dL (7.8-10.44); Chloride 91 mmol/L (98-107); Estimated GFR 10; Globulin 3.5 g/dL (2.4-3.5); Lipase 9 U/L (8-78); Magnesium 2.3 mg/dL (1.6-2.6); Potassium 6.4 mmol/L (3.5-5.1); Protein, Total 7.1 g/dL (6.0-8.3); Sodium 135 mmol/L (136-145)
[2022-02-12 09:36] LABS: Carbon Dioxide 9 mmol/L (22-29); Glucose 648 mg/dL (70-105)
[2022-02-12] MEDS ORDERED: INSULIN REGULAR IN 0.9 % NACL 100 UNIT/100 ML BAG ONE (09:38)
[2022-02-12] MEDS ORDERED: Calcium Chloride 1 GM/10 ML Abboject SYRINGE ONE (09:39)
[2022-02-12] MEDS ORDERED: Sodium Bicarbonate 2.5 MEQ/5 ML VIAL ONE (09:39)
[2022-02-12] MEDS ORDERED: Sodium Bicarb 50 MEQ/50 ML Abboject 8.4% SYRINGE ONE (09:40)
[2022-02-12] MEDS ORDERED: Insulin Regular 300 UNITS/3 ML VIAL ONE (09:48)
[2022-02-12 09:51] LABS: CKMB 4.6 ng/mL (0-6.6)
[2022-02-12] MEDS ORDERED: Acetaminophen 325 MG TAB PO PRN (10:25)
[2022-02-12 11:48] LABS: SARS-CoV-2 NAA Rapid Test Not Detected (NotDetected)
[2022-02-12 12:11] LABS: HBSAg Index 0.24 S/CO (0-0.99); Hep B Surf Ag Non-Reactive S/CO (NonReactive); Thyroid Stimulating Hormone 0.4863 uIU/mL (0.35-4.94)
[2022-02-12 12:23] LABS: #Basophils 0.1 thou/uL (0.0-0.2); #Eosinphils 0.2 thou/uL (0.0-0.7); #Monocytes 1.6 thou/uL (0.11-0.59); #Neutrophils 11.1 thou/uL (1.40-6.50); %Basophils 0.3 % (0.0-1.0); %Eosinophils 1.1 % (0.0-10.0); %Lymphocytes 18.8 % (21.0-51.0); %Monocytes 10.1 % (0.0-10.0); %Neutrophils 69.7 % (42.0-75.0); Hemoglobin 10.1 g/dL (12.0-16.0); Mean Corpuscular HGB CONC 32.3 g/dL (32.0-36.0); Mean Corpuscular Hemoglobin 31.7 pg (27.0-31.0); Mean Corpuscular Volume 98.2 fL (78.0-98.0); Mean Platelet Volume 8.8 fL (7.4-10.4); Platelet Count 208 thou/uL (130-400); RBC Distribution Width 12.1 % (11.5-14.5); Red Blood Cell (RBC) Count 3.19 mill/uL (4.20-5.40)
[2022-02-12 12:26] LABS: Troponin I 0.249 ng/mL (< 0.028)
[2022-02-12] MEDS ORDERED: Aspirin 325 mg Enteric Coated Tablet PO SCH (12:30)
[2022-02-12 12:58] LABS: Anion Gap 35 mmol/L (10-20); BUN (Urea Nitrogen) 55 mg/dL (9.8-20.1); Calc. Creatinine Clearance 0 mL/min (70-130); Carbon Dioxide 12 mmol/L (22-29); Chloride 96 mmol/L (98-107); Estimated GFR 9; Potassium 4.5 mmol/L (3.5-5.1); Sodium 138 mmol/L (136-145)
[2022-02-12 13:09] LABS: Hep B Surf AB Reactive (NonReactive)
[2022-02-12 13:09] LABS: Glucose 578 mg/dL (70-105)
[2022-02-12 13:30] VITALS: BMI 25.2
[2022-02-12 15:38] LABS: Troponin I 1.508 ng/mL (< 0.028)
[2022-02-12] MEDS: Heparin 5,000 UNITS/ML VIAL SC SCH ×2 (16:17→21:13)
[2022-02-12] MEDS ORDERED: Dextrose 50% Abboject 50 ML SYRINGE SLOW IVP PRN (16:21)
[2022-02-12] MEDS ORDERED: Dextrose 5% in Water 1,000 ML IV PRN (16:21)
[2022-02-12 16:30] LABS: Lactic Acid 2.1 mmol/L (0.5-2.2)
[2022-02-12] MEDS ORDERED: Dextrose 5 %-0.45 % NaCl 1,000 ML IV SCH (16:30)
[2022-02-12 16:42] LABS: Anion Gap 17 mmol/L (10-20); BUN (Urea Nitrogen) 18 mg/dL (9.8-20.1); Calc. Creatinine Clearance 37 mL/min (70-130); Calcium 8.6 mg/dL (7.8-10.44); Carbon Dioxide 26 mmol/L (22-29); Chloride 100 mmol/L (98-107); Estimated GFR 30; Glucose 162 mg/dL (70-105); Potassium 3.7 mmol/L (3.5-5.1); Sodium 139 mmol/L (136-145)
[2022-02-12] MEDS: Dextrose 5 % And 0.9 % NaCl 1,000 ML IV SCH (17:37)
[2022-02-12 20:55] LABS: Anion Gap 21 mmol/L (10-20); BUN (Urea Nitrogen) 25 mg/dL (9.8-20.1); Calc. Creatinine Clearance 22 mL/min (70-130); Calcium 9.1 mg/dL (7.8-10.44); Carbon Dioxide 25 mmol/L (22-29); Chloride 98 mmol/L (98-107); Estimated GFR 16; Glucose 228 mg/dL (70-105); Potassium 5.3 mmol/L (3.5-5.1); Sodium 139 mmol/L (136-145)
[2022-02-13] MEDS ORDERED: HumaLOG 300 UNITS/3 ML VIAL SC PRN (00:23)
[2022-02-13 00:56] LABS: Anion Gap 15 mmol/L (10-20); BUN (Urea Nitrogen) 29 mg/dL (9.8-20.1); Calc. Creatinine Clearance 20 mL/min (70-130); Calcium 8.6 mg/dL (7.8-10.44); Carbon Dioxide 27 mmol/L (22-29); Chloride 100 mmol/L (98-107); Estimated GFR 14; Glucose 222 mg/dL (70-105); Potassium 4.4 mmol/L (3.5-5.1); Sodium 138 mmol/L (136-145)
[2022-02-13] MEDS: Dextrose 5 % And 0.9 % NaCl 1,000 ML IV SCH (04:52)
[2022-02-13 05:41] LABS: #Lymphocytes 1.6 thou/uL (1.20-3.40); #Monocytes 1.3 thou/uL (0.11-0.59); #Neutrophils 11.5 thou/uL (1.40-6.50); %Basophils 0.1 % (0.0-1.0); %Eosinophils 0.1 % (0.0-10.0); %Lymphocytes 11.2 % (21.0-51.0); %Neutrophils 79.6 % (42.0-75.0); Hemoglobin 10.9 g/dL (12.0-16.0); Mean Corpuscular HGB CONC 32.6 g/dL (32.0-36.0); Mean Platelet Volume 8.1 fL (7.4-10.4); Platelet Count 180 thou/uL (130-400); RBC Distribution Width 12.2 % (11.5-14.5); Red Blood Cell (RBC) Count 3.42 mill/uL (4.20-5.40); White Blood Cell (WBC) Count 14.5 thou/uL (4.8-10.8)
[2022-02-13 05:54] LABS: Lactic Acid 0.9 mmol/L (0.5-2.2)
[2022-02-13 05:56] LABS: Anion Gap 22 mmol/L (10-20); BUN (Urea Nitrogen) 32 mg/dL (9.8-20.1); Calc. Creatinine Clearance 17 mL/min (70-130); Calcium 8.5 mg/dL (7.8-10.44); Carbon Dioxide 18 mmol/L (22-29); Chloride 99 mmol/L (98-107); Estimated GFR 12; Glucose 297 mg/dL (70-105); Potassium 5.7 mmol/L (3.5-5.1); Sodium 133 mmol/L (136-145)
[2022-02-13 06:10] LABS: Hemoglobin A1c 8.5 % (4.0-6.0)
[2022-02-13] MEDS: HumaLOG 300 UNITS/3 ML VIAL SC PRN ×3 (06:42→11:47)
[2022-02-13] MEDS: Heparin 5,000 UNITS/ML VIAL SC SCH ×3 (07:54→21:12)
[2022-02-13] MEDS: Insulin Glargine 30 UNITS/0.3 ML VIAL SC SCH (07:55)
[2022-02-13] MEDS ORDERED: Pantoprazole 40 MG VIAL IVP SCH (09:00)
[2022-02-13 16:28] LABS: Anion Gap 11 mmol/L (10-20); BUN (Urea Nitrogen) 17 mg/dL (9.8-20.1); Calc. Creatinine Clearance 28 mL/min (70-130); Calcium 8.4 mg/dL (7.8-10.44); Carbon Dioxide 32 mmol/L (22-29); Chloride 100 mmol/L (98-107); Estimated GFR 20; Glucose 82 mg/dL (70-105); Potassium 3.6 mmol/L (3.5-5.1); Sodium 139 mmol/L (136-145)
[2022-02-13] MEDS: Atorvastatin Calcium 10 MG TAB PO SCH (21:12)
[2022-02-14] MEDS: Levothyroxine 150 MCG TAB PO SCH (05:18)
[2022-02-14 06:36] LABS: ALT (SGPT) 23 U/L (8-55); AST (SGOT) 51 U/L (5-34); Alkaline Phosphatase 90 U/L (40-110); Anion Gap 19 mmol/L (10-20); BUN (Urea Nitrogen) 25 mg/dL (9.8-20.1); Bilirubin, Total 0.2 mg/dL (0.2-1.2); Calc. Creatinine Clearance 19 mL/min (70-130); Calcium 8.4 mg/dL (7.8-10.44); Carbon Dioxide 19 mmol/L (22-29); Chloride 102 mmol/L (98-107); Estimated GFR 13; Globulin 3.3 g/dL (2.4-3.5); Glucose 219 mg/dL (70-105); Protein, Total 6.3 g/dL (6.0-8.3); Sodium 135 mmol/L (136-145)
[2022-02-14 07:20] LABS: #Basophils 0.1 thou/uL (0.0-0.2); #Eosinphils 0.1 thou/uL (0.0-0.7); #Monocytes 0.8 thou/uL (0.11-0.59); #Neutrophils 4.7 thou/uL (1.40-6.50); %Basophils 0.8 % (0.0-1.0); %Eosinophils 1.4 % (0.0-10.0); %Lymphocytes 25.8 % (21.0-51.0); %Monocytes 10.8 % (0.0-10.0); %Neutrophils 61.2 % (42.0-75.0); Hemoglobin 10.4 g/dL (12.0-16.0); Mean Corpuscular HGB CONC 31.5 g/dL (32.0-36.0); Mean Corpuscular Hemoglobin 30.5 pg (27.0-31.0); Mean Corpuscular Volume 96.7 fL (78.0-98.0); Platelet Count 146 thou/uL (130-400); Red Blood Cell (RBC) Count 3.43 mill/uL (4.20-5.40); White Blood Cell (WBC) Count 7.6 thou/uL (4.8-10.8)
[2022-02-14] MEDS: Heparin 5,000 UNITS/ML VIAL SC SCH ×3 (09:47→21:08)
[2022-02-14] MEDS: HumaLOG 300 UNITS/3 ML VIAL SC PRN (09:53)
[2022-02-14] MEDS ORDERED: Insulin Glargine 30 UNITS/0.3 ML VIAL SC SCH (10:00)
[2022-02-14] MEDS: Insulin Glargine 30 UNITS/0.3 ML VIAL SC SCH (10:01)
[2022-02-14] MEDS: Lactated Ringer's 1,000 ML IV SCH (10:46)
[2022-02-14] MEDS ORDERED: Metoclopramide HCl 10 MG/2 ML VIAL IVP PRN (13:39)
[2022-02-14] MEDS: Atorvastatin Calcium 10 MG TAB PO SCH (21:08)
[2022-02-15] MEDS: Levothyroxine 150 MCG TAB PO SCH (06:12)
[2022-02-15] MEDS: Lactated Ringer's 1,000 ML IV SCH (06:12)
[2022-02-15] MEDS: Heparin 5,000 UNITS/ML VIAL SC SCH ×3 (08:10→22:45)
[2022-02-15] MEDS: Insulin Glargine 30 UNITS/0.3 ML VIAL SC SCH (08:11)
[2022-02-15] MEDS: hydrALAZINE 20 MG/ML VIAL SLOW IVP PRN ×2 (09:28→17:39)
[2022-02-15 10:54] LABS: #Basophils 0.1 thou/uL (0.0-0.2); #Eosinphils 0.2 thou/uL (0.0-0.7); #Lymphocytes 1.7 thou/uL (1.20-3.40); #Monocytes 0.6 thou/uL (0.11-0.59); #Neutrophils 2.6 thou/uL (1.40-6.50); %Basophils 1.2 % (0.0-1.0); %Eosinophils 4.3 % (0.0-10.0); %Lymphocytes 33.1 % (21.0-51.0); %Monocytes 12.1 % (0.0-10.0); %Neutrophils 49.3 % (42.0-75.0); Hemoglobin 10.3 g/dL (12.0-16.0); Mean Corpuscular Hemoglobin 30.6 pg (27.0-31.0); Mean Corpuscular Volume 95.7 fL (78.0-98.0); Mean Platelet Volume 8.8 fL (7.4-10.4); Platelet Count 146 thou/uL (130-400); RBC Distribution Width 11.6 % (11.5-14.5); Red Blood Cell (RBC) Count 3.38 mill/uL (4.20-5.40); White Blood Cell (WBC) Count 5.3 thou/uL (4.8-10.8)
[2022-02-15 11:15] LABS: Anion Gap 10 mmol/L (10-20); BUN (Urea Nitrogen) 14 mg/dL (9.8-20.1); Calc. Creatinine Clearance 24 mL/min (70-130); Calcium 8.4 mg/dL (7.8-10.44); Carbon Dioxide 32 mmol/L (22-29); Chloride 99 mmol/L (98-107); Estimated GFR 16; Glucose 136 mg/dL (70-105); Magnesium 1.7 mg/dL (1.6-2.6); Potassium 3.5 mmol/L (3.5-5.1); Sodium 137 mmol/L (136-145)
[2022-02-15] MEDS: Losartan 25 MG TAB PO SCH (22:44)
[2022-02-15] MEDS: Atorvastatin Calcium 10 MG TAB PO SCH (22:44)
[2022-02-16] MEDS: Levothyroxine 150 MCG TAB PO SCH (06:43)
[2022-02-16] MEDS: Losartan 25 MG TAB PO SCH (07:49)
[2022-02-16] MEDS: Heparin 5,000 UNITS/ML VIAL SC SCH ×2 (07:50→14:32)
[2022-02-16] MEDS: Insulin Glargine 30 UNITS/0.3 ML VIAL SC SCH (07:50)
[2022-02-16 08:05] LABS: Anion Gap 15 mmol/L (10-20); BUN (Urea Nitrogen) 17 mg/dL (9.8-20.1); Calc. Creatinine Clearance 21 mL/min (70-130); Calcium 8.3 mg/dL (7.8-10.44); Carbon Dioxide 24 mmol/L (22-29); Chloride 101 mmol/L (98-107); Estimated GFR 14; Glucose 92 mg/dL (70-105); Magnesium 1.7 mg/dL (1.6-2.6); Potassium 3.8 mmol/L (3.5-5.1); Sodium 136 mmol/L (136-145)
[2022-02-16 09:31] VITALS: BP 137/71; TEMP 98.4
[2022-02-16] MEDS ORDERED: Magnesium 2 GM/50 ML(in water) 2 GM in Premix Bag 1 BAG IVPB SCH (09:45)
[2022-02-16 14:13] LABS: #Eosinphils 0.2 thou/uL (0.0-0.7); #Monocytes 0.5 thou/uL (0.11-0.59); #Neutrophils 2.1 thou/uL (1.40-6.50); %Basophils 0.7 % (0.0-1.0); %Eosinophils 3.2 % (0.0-10.0); %Lymphocytes 40.8 % (21.0-51.0); %Monocytes 11.1 % (0.0-10.0); %Neutrophils 44.2 % (42.0-75.0); Mean Corpuscular HGB CONC 32.4 g/dL (32.0-36.0); Mean Corpuscular Hemoglobin 31.3 pg (27.0-31.0); Mean Corpuscular Volume 96.5 fL (78.0-98.0); Mean Platelet Volume 8.4 fL (7.4-10.4); Platelet Count 152 thou/uL (130-400); RBC Distribution Width 11.6 % (11.5-14.5); Red Blood Cell (RBC) Count 3.53 mill/uL (4.20-5.40); White Blood Cell (WBC) Count 4.8 thou/uL (4.8-10.8)
== END 2022-02-16 15:53 | disposition home or self-care (01) | DRG 637 ==
LOC: ERS 08:08 → CCU 10:18 → IMCU/EMU 19:27 → T4-A 02-13 17:38
PROVIDERS: ADMIT Internal Medicine; ATTEND Internal Medicine
PROC: 5A1D70Z Performance of Urinary Filtration, Intermittent, Less than 6 Hours Per Day (ICD-10-PCS; principal; 2022-02-12)
DX: E11.10 Type 2 diabetes mellitus with ketoacidosis without coma (principal); N18.6 End stage renal disease; I21.A1 Myocardial infarction type 2; I12.0 Hypertensive chronic kidney disease with stage 5 chronic kidney disease or end stage renal disease; E87.5 Hyperkalemia; Z20.822 Contact with and (suspected) exposure to COVID-19; E78.5 Hyperlipidemia, unspecified; E11.22 Type 2 diabetes mellitus with diabetic chronic kidney disease; D63.1 Anemia in chronic kidney disease; F41.9 Anxiety disorder, unspecified; E87.6 Hypokalemia; E03.9 Hypothyroidism, unspecified; H54.8 Legal blindness, as defined in USA; Z79.890 Hormone replacement therapy; Z99.2 Dependence on renal dialysis; Z79.4 Long term (current) use of insulin
CPT/HCPCS: 36415; 36416; 71045; 80048; 80053; 82010; 82550; 82553; 82805; 83036; 83605; 83690; 83735; 84443; 84484; 85025; 86706; 87340; 90935; 93005; 93306; C9113; G0257; J0360; J1644; J1815; J2765; J3475; J7042; J7120; U0002

== ENCOUNTER 2022-07-04 20:28 | Inpatient (IN) | payer MEDICARE ==
[2022-07-04 21:17] LABS: #Eosinphils 0.1 thou/uL (0.0-0.7); #Lymphocytes 0.9 thou/uL (1.20-3.40); #Monocytes 0.4 thou/uL (0.11-0.59); #Neutrophils 2.1 thou/uL (1.40-6.50); %Basophils 0.2 % (0.0-1.0); %Eosinophils 1.9 % (0.0-10.0); %Lymphocytes 26.4 % (21.0-51.0); %Monocytes 12.1 % (0.0-10.0); %Neutrophils 59.6 % (42.0-75.0); Hemoglobin 13.5 g/dL (12.0-16.0); Mean Corpuscular Hemoglobin 31.8 pg (27.0-31.0); Mean Corpuscular Volume 96.5 fl (78.0-98.0); Mean Platelet Volume 8.3 fL (7.4-10.4); Platelet Count 190 10x3/uL (130-400); RBC Distribution Width 12.4 % (11.5-14.5); Red Blood Cell (RBC) Count 4.24 mill/uL (4.20-5.40); White Blood Cell (WBC) Count 3.5 10x3/uL (4.8-10.8)
[2022-07-04 21:37] LABS: ALT (SGPT) 12 U/L (8-55); AST (SGOT) 20 U/L (5-34); Albumin 3.6 g/dL (3.5-5.0); Alkaline Phosphatase 82 U/L (40-110); Anion Gap 13 mmol/L (10-20); BUN (Urea Nitrogen) 28 mg/dL (9.8-20.1); Bilirubin, Total 0.5 mg/dL (0.2-1.2); Calc. Creatinine Clearance 0 mL/min (70-130); Calcium 8.6 mg/dL (7.8-10.44); Carbon Dioxide 30 mmol/L (22-29); Chloride 97 mmol/L (98-107); Estimated GFR 10; Globulin 2.8 g/dL (2.4-3.5); Glucose 184 mg/dL (70-105); Lipase 21 U/L (8-78); Potassium 4.4 mmol/L (3.5-5.1); Protein, Total 6.4 g/dL (6.0-8.3); Sodium 136 mmol/L (136-145)
[2022-07-04 22:07] LABS: CKMB 0.8 ng/mL (0-6.6)
[2022-07-04] MEDS ORDERED: Metoprolol Tartrate 5 MG/5 ML VIAL ONE (23:17)
[2022-07-04 23:27] LABS: SARS-CoV-2 NAA Rapid Test Not Detected (NotDetected)
[2022-07-04 23:39] LABS: Actual Bicarbonate (HCO3v) 28 mEq/L (22-28); Analyzer IN Cardio ER; Base Excess 2.2 mEq/L (-2.0 to +3.0); Calcium, Ionized (venous) 1.01 mmol/L (1.16-1.32); Chloride (VBG) 96 mmol/L (98-106); Hemoglobin (Hb) 13.5 g/dL (11.7-16.0); Potassium (VBG) 4.01 mmol/L (3.70-5.30); pH (venous) 7.39 (7.32-7.43)
[2022-07-05] MEDS ORDERED: Aspirin 325 MG TAB ONE (00:03)
[2022-07-05 01:00] LABS: INR-International Normal Ratio 0.9; PTT 22.2 sec (22.9-36.1); Prothrombin Time 12.4 sec (12.0-14.7)
[2022-07-05 02:27] LABS: Troponin I 0.304 ng/mL (< 0.028)
[2022-07-05 05:02] LABS: Troponin I 0.313 ng/mL (< 0.028)
[2022-07-05] MEDS ORDERED: Ondansetron PF 4 MG/2 ML Vial IVP PRN (05:07)
[2022-07-05] MEDS ORDERED: Acetaminophen 325 MG TAB PO PRN (05:07)
[2022-07-05 06:50] LABS: Hemoglobin 13.2 g/dL (12.0-16.0); Mean Corpuscular HGB CONC 31.6 g/dL (32.0-36.0); Mean Corpuscular Hemoglobin 30.6 pg (27.0-31.0); Mean Corpuscular Volume 96.9 fl (78.0-98.0); Mean Platelet Volume 8.3 fL (7.4-10.4); Platelet Count 163 10x3/uL (130-400); RBC Distribution Width 12.4 % (11.5-14.5); Red Blood Cell (RBC) Count 4.32 mill/uL (4.20-5.40); White Blood Cell (WBC) Count 2.9 10x3/uL (4.8-10.8)
[2022-07-05 07:06] LABS: Anion Gap 14 mmol/L (10-20); BUN (Urea Nitrogen) 34 mg/dL (9.8-20.1); Calc. Creatinine Clearance 0 mL/min (70-130); Calcium 8.2 mg/dL (7.8-10.44); Carbon Dioxide 27 mmol/L (22-29); Chloride 98 mmol/L (98-107); Estimated GFR 9; Glucose 132 mg/dL (70-105); Potassium 4.3 mmol/L (3.5-5.1); Sodium 135 mmol/L (136-145)
[2022-07-05 07:19] LABS: Critical Call Chem Troponin I RESULT DECREASING; Troponin I 0.297 ng/mL (< 0.028)
[2022-07-05 07:45] LABS: Band 3 % (5-11); Lymphocytes 34 % (21-51); MDiff Complete? YES; Monocytes 13 % (0-10); Neutrophil 50 % (42-75); RBC Morphology Normal
[2022-07-05] MEDS ORDERED: Dextrose 5% in Water 1,000 ML IV PRN (08:06)
[2022-07-05] MEDS ORDERED: HumaLOG 300 UNITS/3 ML VIAL SC PRN (08:06)
[2022-07-05] MEDS ORDERED: Dextrose 50% Abboject 50 ML SYRINGE SLOW IVP PRN (08:06)
[2022-07-05] MEDS ORDERED: Oseltamivir 75 MG CAP PO SCH (09:00)
[2022-07-05] MEDS: Heparin 5,000 UNITS/ML VIAL SC SCH ×2 (10:52→21:30)
[2022-07-05 11:53] LABS: Bacteria/HPF 4+ HPF (None Seen); Bilirubin Negative (Negative); Blood, Urine 1+ (Negative); Clarity Extra Turbid (Clear); Glucose, Urine (Dipstick) Normal (Negative); Ketone, Urine Negative (Negative); Leukocyte 500 Leu/uL (Negative); Nitrite Negative (Negative); Protein, Urine (Dipstick) 300 mg/dL (Neg-Trace); RBC/HPF 0-3 HPF (0-3); Specific Gravity, Urine 1.018 (1.002-1.036); Squamous Epithelial None Seen HPF (0-3); WBC/HPF Greater than 50 HPF (0-3); pH, Urine 7.5 (5.0-9.0)
[2022-07-05] MEDS ORDERED: Heparin 10,000 UNITS/ 10 ML VIAL ONE (12:33)
[2022-07-05] MEDS ORDERED: HumaLOG 300 UNITS/3 ML VIAL ONE (12:47)
[2022-07-05] MEDS: HumaLOG 300 UNITS/3 ML VIAL SC PRN (12:49)
[2022-07-05 13:12] LABS: HBSAg Index 0.28 S/CO (0-0.99); Hep B Surf Ag Non-Reactive S/CO (NonReactive); Hep C IgG Ab Non-Reactive (NonReactive); Hep C Index 0.13 S/CO (0-0.79)
[2022-07-05 13:15] LABS: Hep B Core Total Ab Reactive (NonReactive); Hep B Core Total Index 7.23 S/CO (0-0.79)
[2022-07-05 14:32] LABS: HBSAB Concentration Greater than 1000.00 mIU/mL; Hep B Surf AB Reactive (NonReactive)
[2022-07-05] MEDS: cefTRIAXone\\ROCEPHIN 1 GM in Sodium Chloride 0.9% 100 ML IVPB SCH (17:00)
[2022-07-05] MEDS ORDERED: cefTRIAXone\\ROCEPHIN 1 GM VIAL ONE (17:01)
[2022-07-05 21:13] VITALS: BMI 28.6
[2022-07-05] MEDS: Losartan 25 MG TAB PO SCH (21:30)
[2022-07-06 05:32] LABS: Chloride 98 mmol/L (98-107); Potassium 4.3 mmol/L (3.5-5.1); Sodium 132 mmol/L (136-145)
[2022-07-06 05:33] LABS: Calcium 8.1 mg/dL (7.8-10.44); Glucose 63 mg/dL (70-105)
[2022-07-06 05:35] LABS: Anion Gap 14 mmol/L (10-20); Carbon Dioxide 24 mmol/L (22-29)
[2022-07-06 05:37] LABS: BUN (Urea Nitrogen) 37 mg/dL (9.8-20.1); Calc. Creatinine Clearance 15 mL/min (70-130); Estimated GFR 9
[2022-07-06] MEDS: Levothyroxine 150 MCG TAB PO SCH (05:46)
[2022-07-06 05:54] LABS: Hemoglobin 13.3 g/dL (12.0-16.0); Mean Corpuscular HGB CONC 31.7 g/dL (32.0-36.0); Mean Corpuscular Hemoglobin 31.2 pg (27.0-31.0); Mean Corpuscular Volume 98.7 fl (78.0-98.0); Mean Platelet Volume 8.4 fL (7.4-10.4); Platelet Count 149 10x3/uL (130-400); RBC Distribution Width 12.4 % (11.5-14.5); Red Blood Cell (RBC) Count 4.25 mill/uL (4.20-5.40); White Blood Cell (WBC) Count 4.3 10x3/uL (4.8-10.8)
[2022-07-06 06:38] LABS: Band 7 % (5-11); Eosinophils 2 % (0-10); Lymphocytes 38 % (21-51); MDiff Complete? YES; Monocytes 13 % (0-10); Neutrophil 39 % (42-75); Platelet Morphology Comment Appears Adequate; RBC Morphology Normal; Reactive Lymphocytes 1 % (0-10)
[2022-07-06] MEDS: Sertraline 25 MG TAB PO SCH (09:10)
[2022-07-06] MEDS: Heparin 5,000 UNITS/ML VIAL SC SCH ×2 (09:10→19:38)
[2022-07-06] MEDS: Losartan 25 MG TAB PO SCH (09:10)
[2022-07-06] MEDS ORDERED: Heparin 10,000 UNITS/ 10 ML VIAL ONE (09:59)
[2022-07-06] MEDS: cefTRIAXone\\ROCEPHIN 1 GM in Sodium Chloride 0.9% 100 ML IVPB SCH (17:39)
[2022-07-06] MEDS: HumaLOG 300 UNITS/3 ML VIAL SC PRN (17:40)
[2022-07-07 05:44] LABS: Anion Gap 12 mmol/L (10-20); BUN (Urea Nitrogen) 25 mg/dL (9.8-20.1); Calc. Creatinine Clearance 19 mL/min (70-130); Calcium 7.9 mg/dL (7.8-10.44); Carbon Dioxide 29 mmol/L (22-29); Chloride 98 mmol/L (98-107); Estimated GFR 12; Glucose 135 mg/dL (70-105); Potassium 4.5 mmol/L (3.5-5.1); Sodium 134 mmol/L (136-145)
[2022-07-07 06:16] LABS: Hemoglobin 12.7 g/dL (12.0-16.0); Lymphocytes 64 % (21-51); MDiff Complete? YES; Mean Corpuscular HGB CONC 31.8 g/dL (32.0-36.0); Mean Corpuscular Hemoglobin 31.1 pg (27.0-31.0); Mean Corpuscular Volume 97.8 fl (78.0-98.0); Mean Platelet Volume 8.7 fL (7.4-10.4); Monocytes 4 % (0-10); Neutrophil 20 % (42-75); Platelet Count 127 10x3/uL (130-400); Platelet Morphology Comment Appears Adequate; RBC Distribution Width 12.3 % (11.5-14.5); RBC Morphology Normal; Reactive Lymphocytes 12 % (0-10); Red Blood Cell (RBC) Count 4.09 mill/uL (4.20-5.40); White Blood Cell (WBC) Count 2.8 10x3/uL (4.8-10.8)
[2022-07-07] MEDS: Levothyroxine 150 MCG TAB PO SCH (06:16)
[2022-07-07] MEDS ORDERED: Losartan 25 MG TAB PO SCH (09:00)
[2022-07-07] MEDS ORDERED: Oseltamivir 6 MG/ML ORAL SUSP PO SCH (09:00)
[2022-07-07] MEDS: Sertraline 25 MG TAB PO SCH (09:12)
[2022-07-07] MEDS: HumaLOG 300 UNITS/3 ML VIAL SC PRN (12:17)
[2022-07-07] MEDS: Heparin 5,000 UNITS/ML VIAL SC SCH (12:18)
[2022-07-07 12:52] VITALS: BP 159/74; TEMP 98.5
== END 2022-07-07 15:25 | disposition home or self-care (01) | DRG 871 ==
LOC: ERS 20:28 → ERHOLD 07-05 01:17 → 2SW 07-05 20:54 → OBSVTOIN 07-07 09:58
PROVIDERS: ADMIT Internal Medicine; ATTEND Internal Medicine
DX: A41.9 Sepsis, unspecified organism (principal); I21.A1 Myocardial infarction type 2; N18.6 End stage renal disease; N39.0 Urinary tract infection, site not specified; I12.0 Hypertensive chronic kidney disease with stage 5 chronic kidney disease or end stage renal disease; E11.22 Type 2 diabetes mellitus with diabetic chronic kidney disease; E03.9 Hypothyroidism, unspecified; E78.5 Hyperlipidemia, unspecified; H54.7 Unspecified visual loss; Z96.1 Presence of intraocular lens; E87.70 Fluid overload, unspecified; J10.89 Influenza due to other identified influenza virus with other manifestations; R77.8 Other specified abnormalities of plasma proteins; R00.0 Tachycardia, unspecified; B96.1 Klebsiella pneumoniae [K. pneumoniae] as the cause of diseases classified elsewhere; Z20.822 Contact with and (suspected) exposure to COVID-19; R53.1 Weakness; E11.649 Type 2 diabetes mellitus with hypoglycemia without coma; D63.1 Anemia in chronic kidney disease; Z79.890 Hormone replacement therapy; Z79.899 Other long term (current) drug therapy; Z99.2 Dependence on renal dialysis; Z98.890 Other specified postprocedural states; Z79.4 Long term (current) use of insulin; Z98.42 Cataract extraction status, left eye; Z98.41 Cataract extraction status, right eye; Z90.710 Acquired absence of both cervix and uterus
CPT/HCPCS: 36415; 36416; 71045; 80048; 80053; 81003; 81015; 82553; 82805; 83605; 83690; 84484; 85025; 85610; 85730; 86704; 87040; 87077; 87086; 87186; 90935; 93005; 96374; 96375; G0257; J0696; J1644; J1815; J3490

== ENCOUNTER 2022-09-12 10:02 | Inpatient (IN) | payer MEDICARE, MEDICAID ==
[2022-09-12] MEDS ORDERED: Aspirin 325 MG TAB ONE (12:04)
[2022-09-12 13:02] LABS: INR-International Normal Ratio 0.9; Prothrombin Time 12.7 sec (12.0-14.7)
[2022-09-12 13:03] LABS: PTT 32.5 sec (22.9-36.1)
[2022-09-12 13:44] LABS: SARS-CoV-2 NAA Rapid Test Not Detected (NotDetected)
[2022-09-12 14:25] VITALS: BMI 27.3
[2022-09-12] MEDS ORDERED: Dextrose 50% Abboject 50 ML SYRINGE ONE (14:36)
[2022-09-12 15:39] LABS: CKMB 1.3 ng/mL (0-6.6)
[2022-09-12] MEDS ORDERED: HumaLOG 300 UNITS/3 ML VIAL SC PRN ×2 (15:53)
[2022-09-12] MEDS ORDERED: Dextrose 50% Abboject 50 ML SYRINGE SLOW IVP PRN (15:53)
[2022-09-12] MEDS ORDERED: Ondansetron ODT 4 MG TAB PO PRN (15:53)
[2022-09-12] MEDS ORDERED: Dextrose 5% in Water 1,000 ML IV PRN (15:53)
[2022-09-12] MEDS ORDERED: Ondansetron PF 4 MG/2 ML Vial IVP PRN (15:53)
[2022-09-12] MEDS ORDERED: Acetaminophen 325 MG TAB PO PRN (15:53)
[2022-09-12] MEDS ORDERED: Nitroglycerin 0.4 MG TAB (25 Tab Bottle) SL PRN (16:02)
[2022-09-12] MEDS ORDERED: Heparin 25,000 units/D5W 500 ML IVPB SCH (17:30)
[2022-09-12] MEDS ORDERED: Heparin 10,000 UNITS/ 10 ML VIAL SLOW IVP SCH (18:00)
[2022-09-12] MEDS: Losartan 25 MG TAB PO SCH (20:53)
[2022-09-12] MEDS ORDERED: Rosuvastatin 10 MG TAB PO SCH (21:00)
[2022-09-13 04:44] LABS: #Basophils 0.1 thou/uL (0.0-0.2); #Eosinphils 0.1 thou/uL (0.0-0.7); #Monocytes 0.4 thou/uL (0.11-0.59); #Neutrophils 1.6 thou/uL (1.40-6.50); %Basophils 1.3 % (0.0-1.0); %Eosinophils 3.3 % (0.0-10.0); %Lymphocytes 46.9 % (21.0-51.0); %Monocytes 9.9 % (0.0-10.0); %Neutrophils 38.7 % (42.0-75.0); Hemoglobin 10.7 g/dL (12.0-16.0); Mean Corpuscular HGB CONC 32.9 g/dL (32.0-36.0); Mean Corpuscular Hemoglobin 32.3 pg (27.0-31.0); Mean Corpuscular Volume 98.4 fl (78.0-98.0); Mean Platelet Volume 8.8 fL (7.4-10.4); Platelet Count 159 10x3/uL (130-400); RBC Distribution Width 12.7 % (11.5-14.5); Red Blood Cell (RBC) Count 3.29 mill/uL (4.20-5.40); White Blood Cell (WBC) Count 4.2 10x3/uL (4.8-10.8)
[2022-09-13 05:37] LABS: Anion Gap 16 mmol/L (10-20); BUN (Urea Nitrogen) 18 mg/dL (9.8-20.1); Calc. Creatinine Clearance 16 mL/min (70-130); Calcium 8.4 mg/dL (7.8-10.44); Carbon Dioxide 26 mmol/L (22-29); Chloride 99 mmol/L (98-107); Estimated GFR 11; Glucose 174 mg/dL (70-105); Magnesium 1.9 mg/dL (1.6-2.6); Potassium 4.7 mmol/L (3.5-5.1); Sodium 136 mmol/L (136-145)
[2022-09-13] MEDS ORDERED: Levothyroxine 150 MCG TAB PO SCH (06:00)
[2022-09-13] MEDS ORDERED: Sertraline 100 MG TAB PO SCH (09:00)
[2022-09-13] MEDS ORDERED: Communication Order-Pharmacy FS SCH (09:15)
[2022-09-13] MEDS: Losartan 25 MG TAB PO SCH (09:55)
[2022-09-13] MEDS ORDERED: Heparin 10,000 UNITS/ 10 ML VIAL ONE (10:59)
[2022-09-13] MEDS ORDERED: Lidocaine 1% (PF) 30 ML VIAL ONE (11:00)
[2022-09-13] MEDS ORDERED: Midazolam HCl 2 mg/2 ml Vial ONE (12:02)
[2022-09-13] MEDS ORDERED: FENTANYL 50 MCG/ML 1 ML VIAL ONE (12:03)
[2022-09-13] MEDS ORDERED: hydrALAZINE 20 MG/ML VIAL ONE (12:25)
[2022-09-13 16:08] VITALS: BP 162/87; TEMP 98.3
[2022-09-13] MEDS ORDERED: Iopamidol 370 76% 100 ML VIAL ONE (17:39)
== END 2022-09-13 18:43 | disposition home or self-care (01) | DRG 286 ==
LOC: ERS 10:02 → ERHOLD 13:40 → 2NO 16:50
PROVIDERS: ADMIT Family Medicine; ATTEND Internal Medicine
PROC: 4A023N7 Measurement of Cardiac Sampling and Pressure, Left Heart, Percutaneous Approach (ICD-10-PCS; principal; 2022-09-13)
PROC: B2151ZZ Fluoroscopy of Left Heart using Low Osmolar Contrast (ICD-10-PCS; 2022-09-13)
PROC: B2111ZZ Fluoroscopy of Multiple Coronary Arteries using Low Osmolar Contrast (ICD-10-PCS; 2022-09-13)
PROC: 5A1D70Z Performance of Urinary Filtration, Intermittent, Less than 6 Hours Per Day (ICD-10-PCS; 2022-09-13)
DX: R07.2 Precordial pain (principal); N18.6 End stage renal disease; I12.0 Hypertensive chronic kidney disease with stage 5 chronic kidney disease or end stage renal disease; E03.9 Hypothyroidism, unspecified; E11.22 Type 2 diabetes mellitus with diabetic chronic kidney disease; E78.5 Hyperlipidemia, unspecified; F41.9 Anxiety disorder, unspecified; Z90.710 Acquired absence of both cervix and uterus; Z79.890 Hormone replacement therapy; Z79.4 Long term (current) use of insulin; Z79.899 Other long term (current) drug therapy; Z99.2 Dependence on renal dialysis; I25.2 Old myocardial infarction
CPT/HCPCS: 36415; 36416; 71045; 80048; 80053; 82553; 83690; 83735; 84443; 84484; 85025; 85610; 85730; 93005; 93458; 94760; C1769; C1894; J0360; J1644; J2001; J2250; J2405; J3010; J7999; Q9967; U0002

== ENCOUNTER 2023-02-19 08:40 | Outpatient (CLI) | payer MEDICARE | END 2023-02-19 08:41 | disposition home or self-care (01) | LOC: BICMAMMO 08:40 | PROVIDERS: ATTEND Family Medicine | DX: N63.25 Unspecified lump in the left breast, overlapping quadrants (principal); N63.11 Unspecified lump in the right breast, upper outer quadrant | CPT/HCPCS: 76642; 77066; G0279 ==

== ENCOUNTER 2023-06-11 23:11 | Emergency (ER) | payer MEDICARE, OTHER ==
[2023-06-12 01:13] LABS: #Eosinphils 0.1 thou/uL (0.0-0.7); #Monocytes 0.3 thou/uL (0.11-0.59); #Neutrophils 2.6 thou/uL (1.40-6.50); %Basophils 0.7 % (0.0-1.0); %Eosinophils 2.4 % (0.0-10.0); %Lymphocytes 32.7 % (21.0-51.0); %Monocytes 7.2 % (0.0-10.0); %Neutrophils 56.6 % (42.0-75.0); Mean Corpuscular HGB CONC 32.3 g/dL (32.0-36.0); Mean Corpuscular Hemoglobin 30.2 pg (27.0-31.0); Mean Corpuscular Volume 93.7 fl (78.0-98.0); Mean Platelet Volume 10.8 fL (7.4-10.4); Platelet Count 170 10x3/uL (130-400); RBC Distribution Width 12.4 % (11.5-14.5); Red Blood Cell (RBC) Count 3.31 mill/uL (4.20-5.40); White Blood Cell (WBC) Count 4.6 10x3/uL (4.8-10.8)
[2023-06-12] MEDS ORDERED: cloNIDine 0.1 MG TAB ONE (01:15)
[2023-06-12] MEDS ORDERED: Metoprolol Tartrate 50 MG TAB ONE (01:16)
[2023-06-12] MEDS ORDERED: Ondansetron ODT 4 MG TAB ONE (01:16)
[2023-06-12] MEDS ORDERED: Losartan 25 MG TAB ONE (01:16)
[2023-06-12 01:30] LABS: ALT (SGPT) 23 U/L (8-55); AST (SGOT) 25 U/L (5-34); Alkaline Phosphatase 56 U/L (40-110); Bilirubin, Total 0.5 mg/dL (0.2-1.2); Calcium 9.4 mg/dL (7.8-10.44); Carbon Dioxide 27 mmol/L (22-29); Globulin 3.4 g/dL (2.4-3.5); Glucose 65 mg/dL (70-105); Protein, Total 7.4 g/dL (6.0-8.3)
[2023-06-12 01:39] LABS: Anion Gap 18 mmol/L (10-20); BUN (Urea Nitrogen) 57 mg/dL (9.8-20.1); Calc. Creatinine Clearance 0 mL/min (70-130); Chloride 98 mmol/L (98-107); Estimated GFR 6; Potassium 3.6 mmol/L (3.5-5.1); Sodium 139 mmol/L (136-145)
[2023-06-12 04:08] LABS: Bacteria/HPF 1+ HPF (None Seen); Bilirubin Negative (Negative); Blood, Urine 1+ (Negative); CAUTI Indications for Culture Dysuria,urgency,freq; Clarity Turbid (Clear); Glucose, Urine (Dipstick) Normal (Negative); Ketone, Urine Negative (Negative); Leukocyte 500 Leu/uL (Negative); Nitrite Negative (Negative); Protein, Urine (Dipstick) 300 mg/dL (Neg-Trace); Specific Gravity, Urine 1.013 (1.002-1.036); Squamous Epithelial 0-3 HPF (0-3); Urobilinogen Normal mg/dL (Less than 2); WBC/HPF Greater than 50 HPF (0-3)
[2023-06-12 04:09] LABS: Urine Culture Reflex Yes Yes
== END 2023-06-12 03:29 | disposition home or self-care (01) ==
LOC: ERS 23:11
DX: R11.2 Nausea with vomiting, unspecified (principal); E03.9 Hypothyroidism, unspecified; E78.5 Hyperlipidemia, unspecified; E11.22 Type 2 diabetes mellitus with diabetic chronic kidney disease; I12.0 Hypertensive chronic kidney disease with stage 5 chronic kidney disease or end stage renal disease; N18.6 End stage renal disease; Z99.2 Dependence on renal dialysis
CPT/HCPCS: 36416; 80053; 81001; 85025; 87077; 87086; 87186; 93005; Q0162

== ENCOUNTER 2023-06-22 14:54 | Observation (INO) | payer MEDICARE ==
[~2023-06-22 14:54] MED LIST changes: -EPINEPHrine 0.3 MG in Ophthalmic Irrigation Solution 500 ML IRR SCH; +Iopamidol-370 76% 500 ML MDV (1 ML CHARGE) ONE
[2023-06-22] MEDS ORDERED: LORazepam 2 MG/ML SYR.(CARPUJECT) ONE (16:00)
[2023-06-22 17:22] LABS: #Eosinphils 0.1 thou/uL (0.0-0.7); #Monocytes 0.3 thou/uL (0.11-0.59); #Neutrophils 2.6 thou/uL (1.40-6.50); %Basophils 0.7 % (0.0-1.0); %Eosinophils 3.4 % (0.0-10.0); %Monocytes 6.6 % (0.0-10.0); %Neutrophils 63.1 % (42.0-75.0); Hematocrit 29.2 % (36.0-47.0); Hemoglobin 9.7 g/dL (12.0-16.0); Mean Corpuscular HGB CONC 33.2 g/dL (32.0-36.0); Mean Corpuscular Hemoglobin 30.5 pg (27.0-31.0); Mean Corpuscular Volume 91.8 fl (78.0-98.0); Mean Platelet Volume 10.8 fL (7.4-10.4); Platelet Count 163 10x3/uL (130-400); RBC Distribution Width 12.2 % (11.5-14.5); Red Blood Cell (RBC) Count 3.18 mill/uL (4.20-5.40); White Blood Cell (WBC) Count 4.1 10x3/uL (4.8-10.8)
[2023-06-22 17:36] LABS: ALT (SGPT) 20 U/L (8-55); AST (SGOT) 24 U/L (5-34); Albumin 3.9 g/dL (3.5-5.0); Alkaline Phosphatase 63 U/L (40-110); Anion Gap 16 mmol/L (10-20); BUN (Urea Nitrogen) 22 mg/dL (9.8-20.1); Bilirubin, Total 0.5 mg/dL (0.2-1.2); Calc. Creatinine Clearance 0 mL/min (70-130); Calcium 9.5 mg/dL (7.8-10.44); Carbon Dioxide 30 mmol/L (22-29); Chloride 93 mmol/L (98-107); Estimated GFR 8; Globulin 3.2 g/dL (2.4-3.5); Lipase 28 U/L (8-78); Potassium 3.4 mmol/L (3.5-5.1); Protein, Total 7.1 g/dL (6.0-8.3); Sodium 136 mmol/L (136-145)
[2023-06-22 17:49] LABS: Glucose 458 mg/dL (70-105); Troponin I 0.448 ng/mL (< 0.028)
[2023-06-22] MEDS ORDERED: Aspirin Chewable 81 MG TAB ONE (19:48)
[2023-06-22] MEDS ORDERED: Acetaminophen 650 MG Suppository PR PRN (20:21)
[2023-06-22] MEDS ORDERED: Ondansetron ODT 4 MG TAB PO PRN (20:21)
[2023-06-22] MEDS ORDERED: Acetaminophen 325 MG TAB PO PRN (20:21)
[2023-06-22] MEDS ORDERED: Nitroglycerin 0.4 MG TAB (25 Tab Bottle) SL PRN (20:21)
[2023-06-22] MEDS ORDERED: Ondansetron PF 4 MG/2 ML Vial IVP PRN (20:21)
[2023-06-22 21:37] LABS: Troponin I 0.473 ng/mL (< 0.028)
[2023-06-22] MEDS ORDERED: HumaLOG 300 UNITS/3 ML VIAL SC PRN ×2 (21:41)
[2023-06-22] MEDS ORDERED: Glucagon 1 MG/ML KIT IM PRN (21:41)
[2023-06-22] MEDS ORDERED: Dextrose 5% in Water 1,000 ML IV PRN (21:41)
[2023-06-22] MEDS ORDERED: Dextrose 50% Abboject 50 ML SYRINGE SLOW IVP PRN (21:41)
[2023-06-22] MEDS ORDERED: HumaLOG 300 UNITS/3 ML VIAL ONE (22:49)
[2023-06-22 23:15] VITALS: BMI 26.2
[2023-06-22 23:48] LABS: SARS-CoV-2 NAA Rapid Test Not Detected (NotDetected)
[2023-06-23 01:53] LABS: #Eosinphils 0.2 thou/uL (0.0-0.7); #Monocytes 0.5 thou/uL (0.11-0.59); #Neutrophils 2.5 thou/uL (1.40-6.50); %Basophils 0.8 % (0.0-1.0); %Eosinophils 2.9 % (0.0-10.0); %Lymphocytes 38.6 % (21.0-51.0); %Monocytes 9.3 % (0.0-10.0); %Neutrophils 48.2 % (42.0-75.0); Hematocrit 27.5 % (36.0-47.0); Hemoglobin 8.9 g/dL (12.0-16.0); Mean Corpuscular HGB CONC 32.4 g/dL (32.0-36.0); Mean Corpuscular Hemoglobin 30.2 pg (27.0-31.0); Mean Corpuscular Volume 93.2 fl (78.0-98.0); Mean Platelet Volume 10.3 fL (7.4-10.4); Platelet Count 164 10x3/uL (130-400); RBC Distribution Width 12.5 % (11.5-14.5); Red Blood Cell (RBC) Count 2.95 mill/uL (4.20-5.40); White Blood Cell (WBC) Count 5.2 10x3/uL (4.8-10.8)
[2023-06-23 02:22] LABS: Critical Call Chem Troponin I RESULT DECREASING
[2023-06-23 02:28] LABS: Anion Gap 13 mmol/L (10-20); BUN (Urea Nitrogen) 25 mg/dL (9.8-20.1); Calc. Creatinine Clearance 11 mL/min (70-130); Calcium 8.8 mg/dL (7.8-10.44); Carbon Dioxide 31 mmol/L (22-29); Chloride 95 mmol/L (98-107); Estimated GFR 7; Glucose 96 mg/dL (70-105); Potassium 3.3 mmol/L (3.5-5.1); Sodium 136 mmol/L (136-145)
[2023-06-23] MEDS: Aspirin Chewable 81 MG TAB PO SCH (10:15)
[2023-06-23 14:52] LABS: HBSAg Index 0.19 S/CO (0-0.99); Hep B Surf Ag Non-Reactive S/CO (NonReactive); Hep C IgG Ab Non-Reactive S/CO (NonReactive); Hep C Index 0.12 S/CO (0-0.79)
[2023-06-23 14:56] LABS: HBSAB Concentration Greater than 1000.00 mIU/mL; Hep B Surf AB Reactive (NonReactive)
[2023-06-23 15:08] LABS: Hep B Core Total Ab Reactive (NonReactive); Hep B Core Total Index 6.84 S/CO (0-0.79)
[2023-06-23] MEDS: cloNIDine 0.1 MG TAB PO SCH (20:24)
[2023-06-23] MEDS: Losartan 25 MG TAB PO SCH (20:24)
[2023-06-23] MEDS ORDERED: Rosuvastatin 10 MG TAB PO SCH (21:00)
[2023-06-24] MEDS ORDERED: NIFEdipine XL 60 MG ER.TAB PO SCH (09:00)
[2023-06-24] MEDS ORDERED: Levothyroxine 150 MCG TAB PO SCH (09:00)
[2023-06-24] MEDS ORDERED: Sertraline 25 MG TAB PO SCH (09:00)
[2023-06-24] MEDS: cloNIDine 0.1 MG TAB PO SCH (10:16)
[2023-06-24] MEDS: Aspirin Chewable 81 MG TAB PO SCH (10:16)
[2023-06-24] MEDS: Losartan 25 MG TAB PO SCH (10:16)
[2023-06-24] MEDS ORDERED: EPOETIN ALFA-EPBX (ESRD) 10,000 UNITS/ML VIAL SC SCH (14:30)
[2023-06-24 16:16] VITALS: BP 102/57; TEMP 98.5
== END 2023-06-24 17:50 | disposition home or self-care (01) ==
LOC: ERS 14:54 → 2NO 19:45
PROVIDERS: ADMIT Student in an Organized Health Care Education/Training Program; ATTEND Internal Medicine
DX: R07.9 Chest pain, unspecified (principal); I13.2 Hypertensive heart and chronic kidney disease with heart failure and with stage 5 chronic kidney disease, or end stage renal disease; I50.20 Unspecified systolic (congestive) heart failure; N18.6 End stage renal disease; E11.22 Type 2 diabetes mellitus with diabetic chronic kidney disease; D63.1 Anemia in chronic kidney disease; Z99.2 Dependence on renal dialysis; E78.5 Hyperlipidemia, unspecified; E03.9 Hypothyroidism, unspecified; H54.7 Unspecified visual loss; Z79.4 Long term (current) use of insulin; Z79.890 Hormone replacement therapy; Z79.899 Other long term (current) drug therapy; Z79.82 Long term (current) use of aspirin
CPT/HCPCS: 0240U; 71275; 80048; 80053; 82962 ×3; 83690; 84436; 84484 ×3; 85025 ×2; 86704; 93005; 94760; 96372; 96374; 96375; 99285; G0378 ×4; J2060; Q5105; 36415; 36416; 90935; G0257; J1815; J7999; Q9967

== ENCOUNTER 2023-11-27 17:04 | Emergency (ER) | payer MEDICARE ==
[2023-11-27 18:21] LABS: #Basophils 0.03 10x3/uL (0.0-0.2); %Basophils 0.4 % (0.0-1.0); %Eosinophils 3.6 % (0.0-10.0); %Lymphocytes 21.7 % (21.0-51.0); %Monocytes 7.6 % (0.0-10.0); %Neutrophils 66.2 % (42.0-75.0); Hematocrit 37.7 % (36.0-47.0); Hemoglobin 11.9 g/dL (12.0-16.0); Mean Corpuscular HGB CONC 31.6 g/dL (32.0-36.0); Mean Corpuscular Volume 98.2 fL (78.0-98.0); Mean Platelet Volume 9.9 fL (7.4-10.4); Platelet Count 176 10x3/uL (130-400); RBC Distribution Width 14.2 % (11.5-14.5); Red Blood Cell (RBC) Count 3.84 mill/uL (4.20-5.40)
[2023-11-27 18:38] LABS: ALT (SGPT) 20 U/L (8-55); AST (SGOT) 21 U/L (5-34); Albumin 3.4 g/dL (3.5-5.0); Alkaline Phosphatase 52 U/L (40-110); Anion Gap 15 mmol/L (10-20); BUN (Urea Nitrogen) 43 mg/dL (9.8-20.1); Bilirubin, Total 0.4 mg/dL (0.2-1.2); Calc. Creatinine Clearance 0 mL/min (70-130); Calcium 9.3 mg/dL (7.8-10.44); Carbon Dioxide 31 mmol/L (22-29); Chloride 99 mmol/L (98-107); Estimated GFR 7; Globulin 4.2 g/dL (2.4-3.5); Glucose 110 mg/dL (70-105); Lipase 18 U/L (8-78); Magnesium 2.3 mg/dL (1.6-2.6); Potassium 3.6 mmol/L (3.5-5.1); Protein, Total 7.6 g/dL (6.0-8.3); Sodium 141 mmol/L (136-145)
[2023-11-27 21:02] LABS: Bilirubin Negative (Negative); Blood, Urine 1+ (Negative); CAUTI Indications for Culture Acute Hematuria; Clarity Extra Turbid (Clear); Glucose, Urine (Dipstick) Normal (Negative); Ketone, Urine Negative (Negative); Leukocyte 500 Leu/uL (Negative); Nitrite Negative (Negative); Protein, Urine (Dipstick) 300 mg/dL (Neg-Trace); Specific Gravity, Urine 1.013 (1.002-1.036); Urobilinogen Normal mg/dL (Less than 2); WBC/HPF Greater than 50 HPF (0-3); pH, Urine 7.5 (5.0-9.0)
[2023-11-27 21:03] LABS: Bacteria/HPF 1+ HPF (None Seen); Urine Culture Reflex Yes Yes
[2023-11-27] MEDS ORDERED: Sodium Chloride 0.9% 100 ML ONE (23:24)
[2023-11-27] MEDS ORDERED: cefTRIAXone (ROCEPHIN) 1 GM VIAL ONE (23:24)
== END 2023-11-28 01:18 | disposition home or self-care (01) ==
LOC: ERS 17:04
DX: N39.0 Urinary tract infection, site not specified (principal); I12.0 Hypertensive chronic kidney disease with stage 5 chronic kidney disease or end stage renal disease; E11.22 Type 2 diabetes mellitus with diabetic chronic kidney disease; N18.6 End stage renal disease; E78.00 Pure hypercholesterolemia, unspecified; Z99.2 Dependence on renal dialysis; Z79.4 Long term (current) use of insulin; Z79.899 Other long term (current) drug therapy
CPT/HCPCS: 36415; 36416; 80053; 81001; 83690; 83735; 85025; 87040; 87077; 87086; 87186; 93005; 96365; 96366; 96367; J0696; J3490

== ENCOUNTER 2024-04-12 07:30 | Emergency (ER) | payer MEDICARE ==
[2024-04-12] MEDS ORDERED: Dextrose 10% in Water 250 ML ONE (07:35)
[2024-04-12] MEDS ORDERED: Glucagon 1 MG/ML KIT ONE (08:08)
[2024-04-12 08:42] LABS: #Basophils 0.05 10x3/uL (0.0-0.2); %Eosinophils 6.9 % (0.0-10.0); %Lymphocytes 33.7 % (21.0-51.0); %Monocytes 13.3 % (0.0-10.0); %Neutrophils 44.9 % (42.0-75.0); Hematocrit 40.1 % (36.0-47.0); Hemoglobin 12.9 g/dL (12.0-16.0); Mean Corpuscular HGB CONC 32.2 g/dL (32.0-36.0); Mean Corpuscular Hemoglobin 30.1 pg (27.0-31.0); Mean Corpuscular Volume 93.5 fL (78.0-98.0); Platelet Count 189 10x3/uL (130-400); RBC Distribution Width 14.6 % (11.5-14.5); Red Blood Cell (RBC) Count 4.29 mill/uL (4.20-5.40)
[2024-04-12 08:57] LABS: ALT (SGPT) 32 U/L (8-55); AST (SGOT) 30 U/L (5-34); Albumin 3.6 g/dL (3.5-5.0); Alkaline Phosphatase 50 U/L (40-110); Anion Gap 16 mmol/L (10-20); BUN (Urea Nitrogen) 35 mg/dL (9.8-20.1); Bilirubin, Total 0.4 mg/dL (0.2-1.2); Calc. Creatinine Clearance 0 mL/min (70-130); Calcium 9.6 mg/dL (7.8-10.44); Carbon Dioxide 30 mmol/L (22-29); Chloride 95 mmol/L (98-107); Estimated GFR 8; Globulin 3.9 g/dL (2.4-3.5); Glucose 152 mg/dL (70-105); Lipase 16 U/L (8-78); Potassium 3.5 mmol/L (3.5-5.1); Protein, Total 7.5 g/dL (6.0-8.3); Sodium 137 mmol/L (136-145)
[2024-04-12 12:00] LABS: Bacteria/HPF 3+ HPF (None Seen); Bilirubin Negative (Negative); Blood, Urine 2+ (Negative); CAUTI Indications for Culture Dysuria,urgency,freq; Clarity Turbid (Clear); Glucose, Urine (Dipstick) 150 mg/dL (Negative); Ketone, Urine Negative (Negative); Leukocyte 500 Leu/uL (Negative); Nitrite Negative (Negative); Protein, Urine (Dipstick) 300 mg/dL (Neg-Trace); Specific Gravity, Urine 1.011 (1.002-1.036); Squamous Epithelial 0-3 HPF (0-3); Urobilinogen Normal mg/dL (Less than 2); WBC/HPF Greater than 50 HPF (0-3)
[2024-04-12 12:03] LABS: Urine Culture Reflex Yes Yes
[2024-04-12] MEDS ORDERED: cefTRIAXone (ROCEPHIN) 1 GM VIAL ONE (12:36)
[2024-04-12] MEDS ORDERED: Sodium Chloride 0.9% 100 ML ONE (12:36)
== END 2024-04-12 13:07 | disposition home or self-care (01) ==
LOC: ERS 07:30
DX: E10.649 Type 1 diabetes mellitus with hypoglycemia without coma (principal); E10.22 Type 1 diabetes mellitus with diabetic chronic kidney disease; I12.0 Hypertensive chronic kidney disease with stage 5 chronic kidney disease or end stage renal disease; N18.6 End stage renal disease; Z99.2 Dependence on renal dialysis
CPT/HCPCS: 80053; 81001; 82962; 83690; 85025; 87077; 87086; 87186; 93005; 96372; 96374; 99285; J0696; J1611; 36415; 36416

== ENCOUNTER 2025-02-20 13:51 | Inpatient (IN) | payer MEDICARE ==
[~2025-02-20 13:51] MED LIST changes: +Heparin 10,000 UNITS/ 10 ML VIAL ONE; -Iopamidol-370 76% 500 ML MDV (1 ML CHARGE) ONE
[2025-02-20 14:27] LABS: #Basophils 0.07 10x3/uL (0.0-0.2); #Eosinophils Less than 0.03 10x3/uL (0.0-0.7); #Monocytes 0.52 10x3/uL (0.11-0.59); #Neutrophils 3.80 10x3/uL (1.40-6.50); %Basophils 1.3 % (0.0-1.0); %Eosinophils 0.4 % (0.0-10.0); %Lymphocytes 15.7 % (21.0-51.0); %Monocytes 9.9 % (0.0-10.0); %Neutrophils 72.1 % (42.0-75.0); Hematocrit 40.7 % (36.0-47.0); Hemoglobin 11.6 g/dL (12.0-16.0); Mean Corpuscular Hemoglobin 29.9 pg (27.0-31.0); Mean Corpuscular Volume 104.9 fL (78.0-98.0); Platelet Count 202 10x3/uL (130-400); Red Blood Cell (RBC) Count 3.88 mill/uL (4.20-5.40); White Blood Cell (WBC) Count 5.27 10x3/uL (4.8-10.8)
[2025-02-20 14:31] LABS: Analyzer IN Cardio ER; Base Excess -19.2 mEq/L (-2.0 to +3.0); Calcium, Ionized (venous) 1.17 mmol/L (1.16-1.32); Chloride (VBG) 86 mmol/L (98-106); Hematocrit-VBG 39 % (36.0-47.0); Hemoglobin (Hb) 13.4 g/dL (11.7-16.0); Potassium (VBG) 5.81 mmol/L (3.70-5.30); Sodium 128 mmol/L (133-146)
[2025-02-20 14:33] LABS: Actual Bicarbonate (HCO3v) 8.2 mEq/L (22-28)
[2025-02-20 14:51] LABS: Anisocytosis MODERATE=16-30 cells HPF (0-5); Burr Cells SLIGHT = 2-5 cells HPF (0-1); Macrocytosis MODERATE=16-30 cells HPF (0-5); Platelet Adequacy Comment Platelets Normal
[2025-02-20 14:57] LABS: Critical Call Chemistry ERS.JPCt
[2025-02-20 14:58] LABS: ALT (SGPT) 48 U/L (Less than 34); AST (SGOT) 52 U/L (11-34); Albumin 3.5 g/dL (3.1-4.5); Alkaline Phosphatase 72 U/L (40-110); Anion Gap 39 mmol/L (10-20); BUN (Urea Nitrogen) 48 mg/dL (9.8-20.1); Bilirubin, Total 0.4 mg/dL (0.3-1.2); Calc. Creatinine Clearance 0 mL/min (70-130); Calcium 9.2 mg/dL (7.8-10.44); Carbon Dioxide 8 mmol/L (22-29); Chloride 85 mmol/L (98-107); Globulin 3.7 g/dL (2.4-3.5); Glucose 1080 mg/dL (70-105); Lipase 16 U/L (8-78); Magnesium 2.2 mg/dL (1.6-2.6); Potassium 6.1 mmol/L (3.5-5.1); Sodium 126 mmol/L (136-145)
[2025-02-20] MEDS ORDERED: Sodium Bicarb 50 MEQ/50 ML Abboject 8.4% SYRINGE ONE ×2 (15:30→18:28)
[2025-02-20] MEDS ORDERED: INSULIN REGULAR IN 0.9 % NACL 100 ML ONE (15:30)
[2025-02-20 15:40] LABS: Osmolality, Serum 350 mOsm/kg (275-295)
[2025-02-20] MEDS ORDERED: Senokot S 8.6-50 MG TAB PO PRN (16:08)
[2025-02-20] MEDS ORDERED: Acetaminophen 325 MG TAB PO PRN (16:08)
[2025-02-20] MEDS ORDERED: Dextrose 50% Abboject 50 ML SYRINGE SLOW IVP PRN (16:08)
[2025-02-20] MEDS ORDERED: INSULIN REGULAR IN 0.9 % NACL 100 ML IVPB SCH (16:15)
[2025-02-20 19:13] LABS: Anion Gap 39 mmol/L (10-20); BUN (Urea Nitrogen) 49 mg/dL (9.8-20.1); Calc. Creatinine Clearance 0 mL/min (70-130); Calcium 8.5 mg/dL (7.8-10.44); Carbon Dioxide Less than 8 mmol/L (22-29); Chloride 88 mmol/L (98-107); Glucose 929 mg/dL (70-105); Potassium 4.9 mmol/L (3.5-5.1); Sodium 129 mmol/L (136-145)
[2025-02-20 21:12] LABS: #Basophils 0.03 10x3/uL (0.0-0.2); #Eosinophils Less than 0.03 10x3/uL (0.0-0.7); #Monocytes 0.87 10x3/uL (0.11-0.59); #Neutrophils 4.98 10x3/uL (1.40-6.50); %Basophils 0.4 % (0.0-1.0); %Eosinophils 0.3 % (0.0-10.0); %Lymphocytes 19.8 % (21.0-51.0); %Monocytes 11.7 % (0.0-10.0); %Neutrophils 67.0 % (42.0-75.0); Hematocrit 33.6 % (36.0-47.0); Hemoglobin 10.5 g/dL (12.0-16.0); Mean Corpuscular Hemoglobin 30.3 pg (27.0-31.0); Mean Corpuscular Volume 96.8 fL (78.0-98.0); Platelet Count 159 10x3/uL (130-400); Red Blood Cell (RBC) Count 3.47 mill/uL (4.20-5.40); White Blood Cell (WBC) Count 7.43 10x3/uL (4.8-10.8)
[2025-02-20 21:48] LABS: ALT (SGPT) 39 U/L (Less than 34); AST (SGOT) 38 U/L (11-34); Albumin 3.1 g/dL (3.1-4.5); Alkaline Phosphatase 58 U/L (40-110); Anion Gap 34 mmol/L (10-20); BUN (Urea Nitrogen) 51 mg/dL (9.8-20.1); Bilirubin, Total 0.3 mg/dL (0.3-1.2); Calc. Creatinine Clearance 0 mL/min (70-130); Calcium 8.6 mg/dL (7.8-10.44); Carbon Dioxide 13 mmol/L (22-29); Chloride 91 mmol/L (98-107); Globulin 3.4 g/dL (2.4-3.5); Glucose 693 mg/dL (70-105); Potassium 4.2 mmol/L (3.5-5.1); Sodium 134 mmol/L (136-145)
[2025-02-20 22:07] VITALS: BMI 31.8
[2025-02-20 22:43] LABS: Anion Gap 34 mmol/L (10-20); BUN (Urea Nitrogen) 49 mg/dL (9.8-20.1); Calc. Creatinine Clearance 11 mL/min (70-130); Calcium 8.9 mg/dL (7.8-10.44); Carbon Dioxide 14 mmol/L (22-29); Chloride 91 mmol/L (98-107); Glucose 566 mg/dL (70-105); Potassium 4.1 mmol/L (3.5-5.1); Sodium 135 mmol/L (136-145)
[2025-02-20 23:18] LABS: Actual Bicarbonate (HCO3a) 18.2 mEq/L (22-28); Base Excess (BEa) -2.4 mEq/L (-2.0 to +3.0); Calcium, Ionized (arterial) 1.07 mmol/L (1.12-1.30); Hematocrit-ABG 34 % (36.0-47.0); Hemoglobin (Hb) 11.4 g/dL (12.0-16.0); O2 Tension (PaO2), arterial 101.0 mmHg (80.0-100.0); Potassium - ABG Lab 4.18 mmol/L (3.70-5.30); pH, Arterial 7.557 (7.35-7.45)
[2025-02-20 23:20] LABS: CO2 Tension 20.9 mmHg (35.0-45.0); Puncture Site Left Radial artery
[2025-02-20 23:21] LABS: ALV-art Gradient 22.605 mmHg (0-20)
[2025-02-20] MEDS: Rosuvastatin 10 MG TAB PO SCH (23:26)
[2025-02-20] MEDS: Metoprolol Succinate XL 100 MG ER.TAB PO SCH (23:26)
[2025-02-21 02:11] LABS: Anion Gap 23 mmol/L (10-20); BUN (Urea Nitrogen) 46 mg/dL (9.8-20.1); Calc. Creatinine Clearance 12 mL/min (70-130); Calcium 8.6 mg/dL (7.8-10.44); Carbon Dioxide 23 mmol/L (22-29); Chloride 94 mmol/L (98-107); Glucose 216 mg/dL (70-105); Potassium 4.0 mmol/L (3.5-5.1); Sodium 136 mmol/L (136-145)
[2025-02-21 06:11] LABS: #Basophils 0.03 10x3/uL (0.0-0.2); #Eosinophils 0.08 10x3/uL (0.0-0.7); #Monocytes 0.93 10x3/uL (0.11-0.59); #Neutrophils 3.77 10x3/uL (1.40-6.50); %Basophils 0.5 % (0.0-1.0); %Eosinophils 1.2 % (0.0-10.0); %Lymphocytes 24.8 % (21.0-51.0); %Monocytes 14.4 % (0.0-10.0); %Neutrophils 58.6 % (42.0-75.0); Hematocrit 34.5 % (36.0-47.0); Hemoglobin 11.3 g/dL (12.0-16.0); Mean Corpuscular Hemoglobin 30.6 pg (27.0-31.0); Mean Corpuscular Volume 93.5 fL (78.0-98.0); Platelet Count 149 10x3/uL (130-400); Red Blood Cell (RBC) Count 3.69 mill/uL (4.20-5.40); White Blood Cell (WBC) Count 6.44 10x3/uL (4.8-10.8)
[2025-02-21 06:30] LABS: ALT (SGPT) 29 U/L (Less than 34); AST (SGOT) 28 U/L (11-34); Albumin 2.7 g/dL (3.1-4.5); Alkaline Phosphatase 53 U/L (40-110); Anion Gap 19 mmol/L (10-20); BUN (Urea Nitrogen) 44 mg/dL (9.8-20.1); Bilirubin, Total 0.3 mg/dL (0.3-1.2); Calc. Creatinine Clearance 11 mL/min (70-130); Calcium 8.4 mg/dL (7.8-10.44); Carbon Dioxide 25 mmol/L (22-29); Chloride 95 mmol/L (98-107); Globulin 3.2 g/dL (2.4-3.5); Glucose 184 mg/dL (70-105); Magnesium 1.9 mg/dL (1.6-2.6); Potassium 3.6 mmol/L (3.5-5.1); Sodium 135 mmol/L (136-145)
[2025-02-21] MEDS: NIFEdipine XL 90 MG ER.TAB PO SCH (08:12)
[2025-02-21] MEDS: Sertraline 25 MG TAB PO SCH (08:13)
[2025-02-21] MEDS ORDERED: Glucagon 1 MG/ML KIT IM PRN (09:35)
[2025-02-21] MEDS: Insulin Glargine 30 UNITS/0.3 ML VIAL SC SCH (10:40)
[2025-02-22] MEDS: Calcium Carbonate 500 MG ChewTAB PO PRN (03:13)
[2025-02-22 05:27] LABS: #Basophils 0.03 10x3/uL (0.0-0.2); #Eosinophils 0.21 10x3/uL (0.0-0.7); #Monocytes 0.59 10x3/uL (0.11-0.59); #Neutrophils 3.13 10x3/uL (1.40-6.50); %Basophils 0.6 % (0.0-1.0); %Eosinophils 3.9 % (0.0-10.0); %Lymphocytes 26.3 % (21.0-51.0); %Monocytes 10.9 % (0.0-10.0); %Neutrophils 58.1 % (42.0-75.0); Hematocrit 33.7 % (36.0-47.0); Hemoglobin 10.9 g/dL (12.0-16.0); Mean Corpuscular Hemoglobin 30.4 pg (27.0-31.0); Mean Corpuscular Volume 93.9 fL (78.0-98.0); Platelet Count 135 10x3/uL (130-400); Red Blood Cell (RBC) Count 3.59 mill/uL (4.20-5.40); White Blood Cell (WBC) Count 5.39 10x3/uL (4.8-10.8)
[2025-02-22 05:44] LABS: ALT (SGPT) 34 U/L (Less than 34); AST (SGOT) 55 U/L (11-34); Albumin 2.7 g/dL (3.1-4.5); Alkaline Phosphatase 57 U/L (40-110); Anion Gap 20 mmol/L (10-20); BUN (Urea Nitrogen) 30 mg/dL (9.8-20.1); Bilirubin, Total 0.4 mg/dL (0.3-1.2); Calc. Creatinine Clearance 13 mL/min (70-130); Calcium 8.1 mg/dL (7.8-10.44); Carbon Dioxide 23 mmol/L (22-29); Chloride 97 mmol/L (98-107); Globulin 3.3 g/dL (2.4-3.5); Glucose 190 mg/dL (70-105); Magnesium 1.8 mg/dL (1.6-2.6); Potassium 4.2 mmol/L (3.5-5.1); Sodium 136 mmol/L (136-145)
[2025-02-22] MEDS: Ondansetron PF 4 MG/2 ML Vial IVP PRN (10:18)
[2025-02-22] MEDS: Insulin Glargine 30 UNITS/0.3 ML VIAL SC SCH (10:18)
[2025-02-22 11:23] VITALS: BP 168/81; TEMP 98.7
[2025-02-23] MEDS ORDERED: PNEUMOC 20-VAL CONJ-DIP CRM/PF 0.5 ML SYRINGE IM ONE (09:00)
== END 2025-02-22 15:10 | disposition home or self-care (01) | DRG 637 ==
LOC: ERS 13:51 → SUATTDRO 13:51 → IMCU/EMU 19:16 → 2NO 02-21 18:26
PROVIDERS: ADMIT Internal Medicine; ATTEND Family Medicine
PROC: 4A033R1 Measurement of Arterial Saturation, Peripheral, Percutaneous Approach (ICD-10-PCS; principal; 2025-02-20)
DX: E10.10 Type 1 diabetes mellitus with ketoacidosis without coma (principal); G93.41 Metabolic encephalopathy; N18.6 End stage renal disease; I12.0 Hypertensive chronic kidney disease with stage 5 chronic kidney disease or end stage renal disease; E87.1 Hypo-osmolality and hyponatremia; I24.89 Other forms of acute ischemic heart disease; E78.5 Hyperlipidemia, unspecified; Z99.2 Dependence on renal dialysis; E10.65 Type 1 diabetes mellitus with hyperglycemia; E87.5 Hyperkalemia; E03.9 Hypothyroidism, unspecified; Z90.710 Acquired absence of both cervix and uterus; F41.9 Anxiety disorder, unspecified; Z98.41 Cataract extraction status, right eye; Z98.42 Cataract extraction status, left eye; Z98.890 Other specified postprocedural states; D63.1 Anemia in chronic kidney disease; H54.7 Unspecified visual loss; Z79.899 Other long term (current) drug therapy; Z79.4 Long term (current) use of insulin
CPT/HCPCS: 36415; 36416; 36600; 70450; 71045; 80048; 80053; 82010; 82310; 82805; 83036; 83690; 83735; 83930; 84100; 84478; 84484; 85025; 93005; 96365; 96366; 96375; 96376; J1644; J1815; J2405

== ENCOUNTER 2025-05-12 09:40 | Inpatient (IN) | payer MEDICARE ==
[2025-05-12 10:41] LABS: #Basophils 0.03 10x3/uL (0.0-0.2); #Eosinophils 0.04 10x3/uL (0.0-0.7); #Monocytes 0.52 10x3/uL (0.11-0.59); #Neutrophils 3.97 10x3/uL (1.40-6.50); %Basophils 0.5 % (0.0-1.0); %Eosinophils 0.7 % (0.0-10.0); %Lymphocytes 16.9 % (21.0-51.0); %Monocytes 9.4 % (0.0-10.0); %Neutrophils 72.1 % (42.0-75.0); Hematocrit 34.0 % (36.0-47.0); Hemoglobin 11.2 g/dL (12.0-16.0); Mean Corpuscular Hemoglobin 30.9 pg (27.0-31.0); Mean Corpuscular Volume 93.7 fL (78.0-98.0); Platelet Count 210 10x3/uL (130-400); Red Blood Cell (RBC) Count 3.63 mill/uL (4.20-5.40); White Blood Cell (WBC) Count 5.51 10x3/uL (4.8-10.8)
[2025-05-12 11:28] LABS: ALT (SGPT) 42 U/L (Less than 34); AST (SGOT) 48 U/L (11-34); Albumin 3.5 g/dL (3.1-4.5); Alkaline Phosphatase 78 U/L (40-110); Anion Gap 28 mmol/L (10-20); BUN (Urea Nitrogen) 18 mg/dL (9.8-20.1); Bilirubin, Total 0.4 mg/dL (0.3-1.2); Calc. Creatinine Clearance 0 mL/min (70-130); Calcium 9.2 mg/dL (7.8-10.44); Carbon Dioxide 21 mmol/L (22-29); Chloride 92 mmol/L (98-107); Globulin 3.6 g/dL (2.4-3.5); Glucose 495 mg/dL (70-105); Magnesium 2.0 mg/dL (1.6-2.6); Potassium 3.9 mmol/L (3.5-5.1); Sodium 137 mmol/L (136-145)
[2025-05-12] MEDS ORDERED: INSULIN REGULAR IN 0.9 % NACL 100 ML ONE (12:29)
[2025-05-12] MEDS ORDERED: NS 0.9% w/ 20 MEQ KCL 1,000 ML ONE (12:29)
[2025-05-12] MEDS ORDERED: Electrolyte Replacement Protocol 1 EACH IVPB ONE (14:37)
[2025-05-12] MEDS ORDERED: Ondansetron PF 4 MG/2 ML Vial IVP PRN (14:41)
[2025-05-12 14:55] LABS: Actual Bicarbonate (HCO3v) 17.1 mEq/L (22-28); Analyzer IN Cardio ER; Base Excess -8.9 mEq/L (-2.0 to +3.0); Calcium, Ionized (venous) 1.11 mmol/L (1.16-1.32); Chloride (VBG) 94 mmol/L (98-106); Hematocrit-VBG 34 % (36.0-47.0); Hemoglobin (Hb) 11.5 g/dL (11.7-16.0); Potassium (VBG) 3.44 mmol/L (3.70-5.30); Sodium 137 mmol/L (133-146)
[2025-05-12] MEDS: Heparin 5,000 UNITS/ML VIAL SC SCH (16:28)
[2025-05-12 18:19] LABS: Anion Gap 24 mmol/L (10-20); BUN (Urea Nitrogen) 25 mg/dL (9.8-20.1); Calc. Creatinine Clearance 0 mL/min (70-130); Calcium 8.8 mg/dL (7.8-10.44); Carbon Dioxide 21 mmol/L (22-29); Chloride 97 mmol/L (98-107); Glucose 255 mg/dL (70-105); Potassium 3.5 mmol/L (3.5-5.1); Sodium 138 mmol/L (136-145)
[2025-05-12 18:37] VITALS: BMI 30.6
[2025-05-12] MEDS: Dextrose 50% Abboject 50 ML SYRINGE SLOW IVP PRN (20:19)
[2025-05-12] MEDS: Metoprolol Succinate XL 100 MG ER.TAB PO SCH (20:20)
[2025-05-12] MEDS: Rosuvastatin 10 MG TAB PO SCH (20:20)
[2025-05-12] MEDS: Losartan 25 MG TAB PO SCH (20:20)
[2025-05-12 21:48] LABS: Anion Gap 16 mmol/L (10-20); BUN (Urea Nitrogen) 25 mg/dL (9.8-20.1); Calc. Creatinine Clearance 18 mL/min (70-130); Calcium 8.8 mg/dL (7.8-10.44); Carbon Dioxide 28 mmol/L (22-29); Chloride 99 mmol/L (98-107); Glucose 167 mg/dL (70-105); Potassium 3.7 mmol/L (3.5-5.1); Sodium 139 mmol/L (136-145)
[2025-05-12] MEDS: INSULIN REGULAR IN 0.9 % NACL 100 ML IVPB SCH (21:50)
[2025-05-13] MEDS ORDERED: Dextrose 50% Abboject 50 ML SYRINGE SLOW IVP PRN (01:00)
[2025-05-13] MEDS ORDERED: Glucagon 1 MG/ML KIT IM PRN (01:00)
[2025-05-13 05:32] LABS: Hematocrit 33.3 % (36.0-47.0); Hemoglobin 10.5 g/dL (12.0-16.0); Mean Corpuscular Hemoglobin 30.4 pg (27.0-31.0); Mean Corpuscular Volume 96.5 fL (78.0-98.0); Platelet Count 218 10x3/uL (130-400); Red Blood Cell (RBC) Count 3.45 mill/uL (4.20-5.40); White Blood Cell (WBC) Count 6.00 10x3/uL (4.8-10.8)
[2025-05-13 05:49] LABS: Anion Gap 24 mmol/L (10-20); BUN (Urea Nitrogen) 29 mg/dL (9.8-20.1); Calc. Creatinine Clearance 16 mL/min (70-130); Calcium 8.9 mg/dL (7.8-10.44); Carbon Dioxide 24 mmol/L (22-29); Chloride 96 mmol/L (98-107); Glucose 236 mg/dL (70-105); Potassium 4.1 mmol/L (3.5-5.1); Sodium 140 mmol/L (136-145)
[2025-05-13] MEDS: Insulin Glargine 30 UNITS/0.3 ML VIAL SC SCH (09:02)
[2025-05-13] MEDS: Sertraline 25 MG TAB PO SCH (09:02)
[2025-05-13] MEDS: NIFEdipine XL 30 MG ER.TAB PO SCH (09:02)
[2025-05-13] MEDS: Ciprofloxacin 500 MG TAB PO SCH ×2 (17:19→17:30)
[2025-05-14] MEDS: Ciprofloxacin 500 MG TAB PO SCH (05:18)
[2025-05-14 05:48] LABS: Anion Gap 21 mmol/L (10-20); BUN (Urea Nitrogen) 43 mg/dL (9.8-20.1); Calc. Creatinine Clearance 11 mL/min (70-130); Calcium 8.9 mg/dL (7.8-10.44); Carbon Dioxide 22 mmol/L (22-29); Chloride 97 mmol/L (98-107); Glucose 135 mg/dL (70-105); Potassium 3.6 mmol/L (3.5-5.1); Sodium 136 mmol/L (136-145)
[2025-05-14] MEDS: Heparin 25,000 units/D5W 25,000 UNITS in Premix 1 BAG IV PRN (10:38)
[2025-05-14] MEDS: Heparin 10,000 UNITS/ 10 ML VIAL FS PRN (10:51)
[2025-05-15 06:46] LABS: Anion Gap 16 mmol/L (10-20); BUN (Urea Nitrogen) 28 mg/dL (9.8-20.1); Calc. Creatinine Clearance 14 mL/min (70-130); Calcium 8.7 mg/dL (7.8-10.44); Carbon Dioxide 27 mmol/L (22-29); Chloride 96 mmol/L (98-107); Glucose 100 mg/dL (70-105); Potassium 3.3 mmol/L (3.5-5.1); Sodium 136 mmol/L (136-145)
[2025-05-16 05:31] LABS: #Basophils 0.04 10x3/uL (0.0-0.2); #Eosinophils 0.27 10x3/uL (0.0-0.7); #Monocytes 0.58 10x3/uL (0.11-0.59); #Neutrophils 1.69 10x3/uL (1.40-6.50); %Basophils 0.9 % (0.0-1.0); %Eosinophils 6.4 % (0.0-10.0); %Lymphocytes 38.6 % (21.0-51.0); %Monocytes 13.7 % (0.0-10.0); %Neutrophils 40.2 % (42.0-75.0); Hematocrit 32.1 % (36.0-47.0); Hemoglobin 10.5 g/dL (12.0-16.0); Mean Corpuscular Hemoglobin 31.1 pg (27.0-31.0); Mean Corpuscular Volume 95.0 fL (78.0-98.0); Platelet Count 163 10x3/uL (130-400); Red Blood Cell (RBC) Count 3.38 mill/uL (4.20-5.40); White Blood Cell (WBC) Count 4.22 10x3/uL (4.8-10.8)
[2025-05-16 05:41] LABS: Anion Gap 19 mmol/L (10-20); BUN (Urea Nitrogen) 39 mg/dL (9.8-20.1); Calc. Creatinine Clearance 11 mL/min (70-130); Calcium 8.6 mg/dL (7.8-10.44); Carbon Dioxide 25 mmol/L (22-29); Chloride 96 mmol/L (98-107); Glucose 127 mg/dL (70-105); Potassium 3.9 mmol/L (3.5-5.1); Sodium 136 mmol/L (136-145)
[2025-05-17 07:41] LABS: Anion Gap 16 mmol/L (10-20); BUN (Urea Nitrogen) 49 mg/dL (9.8-20.1); Calc. Creatinine Clearance 9 mL/min (70-130); Calcium 8.5 mg/dL (7.8-10.44); Carbon Dioxide 26 mmol/L (22-29); Chloride 95 mmol/L (98-107); Glucose 82 mg/dL (70-105); Potassium 4.3 mmol/L (3.5-5.1); Sodium 133 mmol/L (136-145)
[2025-05-17 13:57] VITALS: TEMP 97.9
[2025-05-17 15:25] VITALS: BP 158/78
== END 2025-05-17 15:11 | disposition home or self-care (01) | DRG 637 ==
LOC: ERS 09:40 → ERHOLD 14:03 → IMCU/EMU 15:27 → T4-A 05-13 20:32
PROVIDERS: ADMIT Internal Medicine; ATTEND Student in an Organized Health Care Education/Training Program
DX: E10.10 Type 1 diabetes mellitus with ketoacidosis without coma (principal); N18.6 End stage renal disease; N39.0 Urinary tract infection, site not specified; I12.0 Hypertensive chronic kidney disease with stage 5 chronic kidney disease or end stage renal disease; N18.9 Chronic kidney disease, unspecified; Z98.890 Other specified postprocedural states; D63.1 Anemia in chronic kidney disease; Z99.2 Dependence on renal dialysis; H54.7 Unspecified visual loss; E03.9 Hypothyroidism, unspecified; Z79.899 Other long term (current) drug therapy; Z79.4 Long term (current) use of insulin; Z79.890 Hormone replacement therapy
CPT/HCPCS: 36415; 36416; 80048; 80053; 82010; 82805; 83735; 84100; 85025; 85027; 90935; 96365; 96366; 96368; 96376; G0257; J1644; J1815; J3480; J7999

== ENCOUNTER 2025-06-16 12:37 | Inpatient (IN) | payer MEDICARE ==
[2025-06-16 13:18] LABS: Base Excess -17.2 mEq/L (-2.0 to +3.0); Calcium, Ionized (venous) 1.08 mmol/L (1.16-1.32); Chloride (VBG) 81 mmol/L (98-106); Hematocrit-VBG 36 % (36.0-47.0); Hemoglobin (Hb) 12.3 g/dL (11.7-16.0); Potassium (VBG) 5.56 mmol/L (3.70-5.30); Sodium 123 mmol/L (133-146)
[2025-06-16 13:21] LABS: Actual Bicarbonate (HCO3v) 9.2 mEq/L (22-28)
[2025-06-16 13:29] LABS: #Basophils 0.06 10x3/uL (0.0-0.2); #Eosinophils Less than 0.03 10x3/uL (0.0-0.7); #Monocytes 0.47 10x3/uL (0.11-0.59); #Neutrophils 6.61 10x3/uL (1.40-6.50); %Basophils 0.8 % (0.0-1.0); %Eosinophils 0.1 % (0.0-10.0); %Lymphocytes 8.1 % (21.0-51.0); %Monocytes 6.0 % (0.0-10.0); %Neutrophils 84.7 % (42.0-75.0); Hematocrit 35.9 % (36.0-47.0); Hemoglobin 10.6 g/dL (12.0-16.0); Mean Corpuscular Hemoglobin 30.8 pg (27.0-31.0); Mean Corpuscular Volume 104.4 fL (78.0-98.0); Platelet Count 246 10x3/uL (130-400); Red Blood Cell (RBC) Count 3.44 mill/uL (4.20-5.40); White Blood Cell (WBC) Count 7.80 10x3/uL (4.8-10.8)
[2025-06-16 14:17] LABS: ALT (SGPT) 21 U/L (Less than 34); AST (SGOT) 27 U/L (11-34); Albumin 3.6 g/dL (3.1-4.5); Alkaline Phosphatase 73 U/L (40-110); Anion Gap 34 mmol/L (10-20); BUN (Urea Nitrogen) 71 mg/dL (9.8-20.1); Bilirubin, Total 0.4 mg/dL (0.3-1.2); Calc. Creatinine Clearance 0 mL/min (70-130); Calcium 9.5 mg/dL (7.8-10.44); Carbon Dioxide 9 mmol/L (22-29); Chloride 78 mmol/L (98-107); Globulin 4.1 g/dL (2.4-3.5); Glucose 1148 mg/dL (70-105); Potassium 5.9 mmol/L (3.5-5.1); Sodium 115 mmol/L (136-145)
[2025-06-16 14:32] LABS: Lipase 16 U/L (8-78)
[2025-06-16 14:34] LABS: Magnesium 2.2 mg/dL (1.6-2.6)
[2025-06-16] MEDS ORDERED: INSULIN REGULAR IN 0.9 % NACL 100 ML ONE (14:52)
[2025-06-16] MEDS ORDERED: INSULIN REGULAR IN 0.9 % NACL 100 ML IVPB SCH (15:45)
[2025-06-16] MEDS ORDERED: CALCIUM GLUC 1 GM/NS 50 ML IV Bag ONE (16:09)
[2025-06-16] MEDS ORDERED: Acetaminophen 325 MG TAB PO PRN (16:20)
[2025-06-16] MEDS ORDERED: Ondansetron PF 4 MG/2 ML Vial IVP PRN (16:20)
[2025-06-16 17:17] LABS: Anion Gap 41 mmol/L (10-20); BUN (Urea Nitrogen) 74 mg/dL (9.8-20.1); Calc. Creatinine Clearance 0 mL/min (70-130); Calcium 8.9 mg/dL (7.8-10.44); Carbon Dioxide Less than 8 mmol/L (22-29); Chloride 80 mmol/L (98-107); Glucose 1228 mg/dL (70-105); Potassium 5.8 mmol/L (3.5-5.1); Sodium 122 mmol/L (136-145)
[2025-06-16 18:55] LABS: Glucose 1079 mg/dL (70-105)
[2025-06-16 19:41] LABS: Glucose 693 mg/dL (70-105)
[2025-06-16 20:53] LABS: Glucose 558 mg/dL (70-105)
[2025-06-16 21:07] VITALS: BMI 33.5
[2025-06-16 21:33] LABS: Glucose 430 mg/dL (70-105)
[2025-06-16] MEDS: Heparin 5,000 UNITS/ML VIAL SC SCH (22:18)
[2025-06-16 22:57] LABS: Anion Gap 18 mmol/L (10-20); BUN (Urea Nitrogen) 38 mg/dL (9.8-20.1); Calc. Creatinine Clearance 17 mL/min (70-130); Calcium 8.3 mg/dL (7.8-10.44); Carbon Dioxide 26 mmol/L (22-29); Chloride 95 mmol/L (98-107); Glucose 310 mg/dL (70-105); Potassium 3.2 mmol/L (3.5-5.1); Sodium 136 mmol/L (136-145)
[2025-06-16] MEDS ORDERED: Potassium Chloride 20 MEQ in Premix 1 BAG IVPB SCH (23:59)
[2025-06-17] MEDS ORDERED: Potassium Chloride 20 MEQ in Premix 1 BAG IVPB SCH
[2025-06-17] MEDS: NS 0.9% w/ 20 MEQ KCL 1,000 ML/1,000 ML BAG IV SCH (00:40)
[2025-06-17] MEDS: Potassium Chloride 20 MEQ in Premix 1 BAG IVPB SCH (00:40)
[2025-06-17] MEDS ORDERED: Glucagon 1 MG/ML KIT IM PRN (03:16)
[2025-06-17] MEDS ORDERED: Dextrose 50% Abboject 50 ML SYRINGE SLOW IVP PRN (03:16)
[2025-06-17 05:54] LABS: #Basophils 0.03 10x3/uL (0.0-0.2); #Eosinophils 0.05 10x3/uL (0.0-0.7); #Monocytes 1.02 10x3/uL (0.11-0.59); #Neutrophils 5.17 10x3/uL (1.40-6.50); %Basophils 0.4 % (0.0-1.0); %Eosinophils 0.7 % (0.0-10.0); %Lymphocytes 11.8 % (21.0-51.0); %Monocytes 14.3 % (0.0-10.0); %Neutrophils 72.4 % (42.0-75.0); Hematocrit 25.7 % (36.0-47.0); Hemoglobin 8.8 g/dL (12.0-16.0); Mean Corpuscular Hemoglobin 31.3 pg (27.0-31.0); Mean Corpuscular Volume 91.5 fL (78.0-98.0); Platelet Count 189 10x3/uL (130-400); Red Blood Cell (RBC) Count 2.81 mill/uL (4.20-5.40); White Blood Cell (WBC) Count 7.14 10x3/uL (4.8-10.8)
[2025-06-17 05:55] LABS: Anion Gap 18 mmol/L (10-20); BUN (Urea Nitrogen) 40 mg/dL (9.8-20.1); Calc. Creatinine Clearance 16 mL/min (70-130); Calcium 8.3 mg/dL (7.8-10.44); Carbon Dioxide 26 mmol/L (22-29); Chloride 97 mmol/L (98-107); Glucose 128 mg/dL (70-105); Potassium 3.8 mmol/L (3.5-5.1); Sodium 137 mmol/L (136-145)
[2025-06-17] MEDS: Pantoprazole 40 MG VIAL IVP SCH (08:58)
[2025-06-17] MEDS: Mupirocin 1 GM TUBE NASAL DECOLONIZATION NASAL SCH (08:58)
[2025-06-17 09:47] LABS: Anion Gap 22 mmol/L (10-20); BUN (Urea Nitrogen) 42 mg/dL (9.8-20.1); Calc. Creatinine Clearance 15 mL/min (70-130); Calcium 8.2 mg/dL (7.8-10.44); Carbon Dioxide 17 mmol/L (22-29); Chloride 96 mmol/L (98-107); Glucose 335 mg/dL (70-105); Potassium 4.5 mmol/L (3.5-5.1); Sodium 130 mmol/L (136-145)
[2025-06-17 12:33] LABS: Anion Gap 18 mmol/L (10-20); BUN (Urea Nitrogen) 43 mg/dL (9.8-20.1); Calc. Creatinine Clearance 14 mL/min (70-130); Calcium 7.9 mg/dL (7.8-10.44); Carbon Dioxide 19 mmol/L (22-29); Chloride 99 mmol/L (98-107); Glucose 285 mg/dL (70-105); Potassium 3.5 mmol/L (3.5-5.1); Sodium 132 mmol/L (136-145)
[2025-06-17 14:39] LABS: Campy jejuni + coli by PCR Negative (Negative); STEC Shiga Toxin 1+2 Negative (Negative); Salmonella spp. by PCR Negative (Negative); Shigella spp + EIEC by PCR Negative (Negative)
[2025-06-17 16:51] LABS: Anion Gap 14 mmol/L (10-20); BUN (Urea Nitrogen) 43 mg/dL (9.8-20.1); Calc. Creatinine Clearance 14 mL/min (70-130); Calcium 8.2 mg/dL (7.8-10.44); Carbon Dioxide 22 mmol/L (22-29); Chloride 100 mmol/L (98-107); Glucose 123 mg/dL (70-105); Potassium 3.7 mmol/L (3.5-5.1); Sodium 132 mmol/L (136-145)
[2025-06-18 05:34] LABS: Anion Gap 22 mmol/L (10-20); BUN (Urea Nitrogen) 44 mg/dL (9.8-20.1); Calc. Creatinine Clearance 12 mL/min (70-130); Calcium 7.9 mg/dL (7.8-10.44); Carbon Dioxide 17 mmol/L (22-29); Chloride 100 mmol/L (98-107); Glucose 239 mg/dL (70-105); Potassium 3.8 mmol/L (3.5-5.1); Sodium 135 mmol/L (136-145)
[2025-06-18] MEDS: Metoprolol Succinate XL 50 MG ER.TAB PO SCH (09:17)
[2025-06-18] MEDS: Sertraline 100 MG TAB PO SCH (09:18)
[2025-06-18] MEDS: Insulin Glargine 30 UNITS/0.3 ML VIAL SC SCH (10:44)
[2025-06-18 17:40] LABS: Anion Gap 19 mmol/L (10-20); BUN (Urea Nitrogen) 22 mg/dL (9.8-20.1); Calc. Creatinine Clearance 21 mL/min (70-130); Calcium 8.4 mg/dL (7.8-10.44); Carbon Dioxide 19 mmol/L (22-29); Chloride 98 mmol/L (98-107); Glucose 386 mg/dL (70-105); Potassium 4.3 mmol/L (3.5-5.1); Sodium 132 mmol/L (136-145)
[2025-06-18] MEDS: Rosuvastatin 10 MG TAB PO SCH (20:16)
[2025-06-19 04:49] LABS: Hematocrit 26.2 % (36.0-47.0); Hemoglobin 8.5 g/dL (12.0-16.0); Mean Corpuscular Hemoglobin 31.4 pg (27.0-31.0); Mean Corpuscular Volume 96.7 fL (78.0-98.0); Platelet Count 138 10x3/uL (130-400); Red Blood Cell (RBC) Count 2.71 mill/uL (4.20-5.40); White Blood Cell (WBC) Count 4.79 10x3/uL (4.8-10.8)
[2025-06-19 05:06] LABS: Anion Gap 13 mmol/L (10-20); BUN (Urea Nitrogen) 25 mg/dL (9.8-20.1); Calc. Creatinine Clearance 17 mL/min (70-130); Calcium 7.8 mg/dL (7.8-10.44); Carbon Dioxide 21 mmol/L (22-29); Chloride 102 mmol/L (98-107); Glucose 158 mg/dL (70-105); Potassium 3.7 mmol/L (3.5-5.1); Sodium 132 mmol/L (136-145)
[2025-06-19] MEDS: NIFEdipine XL 30 MG ER.TAB PO SCH (08:47)
[2025-06-19 09:12] VITALS: BP 133/70; TEMP 98.2
== END 2025-06-19 14:30 | disposition home or self-care (01) | DRG 637 ==
LOC: ERS 12:37 → CCU 16:45 → MSONC 06-17 21:34
PROVIDERS: ADMIT Internal Medicine; ATTEND Internal Medicine
PROC: 5A1D70Z Performance of Urinary Filtration, Intermittent, Less than 6 Hours Per Day (ICD-10-PCS; principal; 2025-06-16)
DX: E10.10 Type 1 diabetes mellitus with ketoacidosis without coma (principal); N18.6 End stage renal disease; E87.1 Hypo-osmolality and hyponatremia; E87.5 Hyperkalemia; E78.5 Hyperlipidemia, unspecified; E10.22 Type 1 diabetes mellitus with diabetic chronic kidney disease; D63.1 Anemia in chronic kidney disease; E03.9 Hypothyroidism, unspecified; Z98.890 Other specified postprocedural states; Z98.42 Cataract extraction status, left eye; Z79.4 Long term (current) use of insulin; Z98.41 Cataract extraction status, right eye; Z90.710 Acquired absence of both cervix and uterus; Z79.890 Hormone replacement therapy; Z79.899 Other long term (current) drug therapy
CPT/HCPCS: 36415; 36416; 71045; 80048; 80053; 82010; 82805; 83605; 83690; 83735; 84100; 85025; 85027; 87324; 87449; 87505; 90935; 93005; 94760; G0257; J0613; J1644; J1815; J2470; J3480; J7030